=== PATIENT | female | born 1955 | race Caucasian/White ===

== ENCOUNTER 2017-08-23 20:09 | Inpatient (IN) | payer OTHER ==
[2017-08-23] VITALS (8 sets, daily range): BP systolic 111–121; BP diastolic 64–83; PULSE 92–120; RESP 16–20; TEMP 97.8; O2SAT 88–100
[~2017-08-23] VITALS: Ht 160 cm; Wt 63.7 kg
[~2017-08-23 20:09] MED LIST: AZIT500I PO; BACL10TA PO; OMEP20TA39 PO; SUCR1S PO
[2017-08-23] MEDS: SODIUM CHLOR 0.9% 1000 ML INJ 1,000 ML IV SCH (20:15)
[2017-08-23] MEDS ORDERED: ASPIRIN 81 MG CHEW TAB PO STA (20:15)
[2017-08-23] MEDS ORDERED: HEPARIN SODIUM - IV 10,000 UNITS/10 ML VIAL IV PUSH STA (20:15)
[2017-08-23] MEDS ORDERED: METOPROLOL TARTRATE 5 MG/5 ML VIAL IV PUSH ONE ×2 (20:15→20:45)
[2017-08-23] MEDS ORDERED: SODIUM CHLOR 0.9% 1000 ML INJ 1,000 ML IV ONE (20:15)
[2017-08-23] MEDS ORDERED: SODIUM CHLORID 0.9% 500 ML INJ 500 ML IV ONE (20:15)
[2017-08-23] MEDS ORDERED: HEPARIN SODIUM - IV 10,000 UNITS/10 ML VIAL ONE ×2 (20:17→20:42)
[2017-08-23] MEDS ORDERED: ASPIRIN 81 MG CHEW TAB ONE (20:17)
[2017-08-23] MEDS ORDERED: ONDANSETRON HCL 4 MG/2 ML VIAL ONE ×2 (20:23→22:07)
[2017-08-23] MEDS ORDERED: APIX5TAB PO (20:26)
--- NOTE | 2017-08-23 20:29 | PD ---
HPI Chief Complaint: STEMI Alert Time Seen by Provider: 20:15 Travel History International Travel<30 days: No Contact w/Intl Traveler<30days: No Traveled to known affect area: No History of Present Illness HPI 61-year-old female presents to the emergency department by EMS transport from home for evaluation of complaint of palpitations. Patient was identified by EMS upon their arrival to be in a sinus rhythm EKG showed acute inferior VA. Patient had no chest pain. Patient denies any shortness of breath nausea or vomiting or referred neck jaw back shoulder arm pain. Patient reports she was recently within the past 2 weeks diagnosed with bilateral lower extremity DVT. Patient takes Eliquis 5 mg twice daily and took her last dose of Eliquis at 7: 30 AM this morning. Patient's had no injury or fall. According to head up operator report en route to the hospital patient did have a brief period of loss of consciousness was identified by monitor to have V. tach without palpable pulse received a one-time defibrillation 200J with spontaneous return of circulation. Patient arrives here with GCS of 15. Patient admits to tobacco use. Patient denies hypertension dyslipidemia diabetes or prior known cardiac disease. Patient does complain of pain to the right flank area that she states she's had for one week with some soreness that she states has been 5/10 in intensity times one week. PFSH Past Medical History Narrative Medical DVT tobacco use nursing notes reviewed Diminished Hearing: No Deep Vein Thrombosis: Yes (2 WEEKS AGO.) Tetanus Vaccination: Unknown Past Surgical History Hysterectomy: Yes Social History Alcohol Use: No Tobacco Use: Yes (1PPD) Substance Use: No Allergies-Medications (Allergen,Severity, Reaction): Coded Allergies: Sulfa (Sulfonamide Antibiotics) (Unverified Allergy, Severe, Swelling, ) morphine (Unverified Allergy, Severe, vomiting , passing out , 08/23/17) prednisone (Unverified Allergy, Severe, Suicidal , 08/23/17) Reported Meds & Prescriptions Reported Meds & Active Scripts Active Review of Systems Except as stated in HPI: all other systems reviewed are Neg General / Constitutional: No: Fever, Chills HENT: No: Congestion Cardiovascular: No: Chest Pain or Discomfort Respiratory: No: Shortness of Breath Gastrointestinal: Positive: Abdominal Pain (right flank) Genitourinary: Positive: Flank Pain (rigth) Musculoskeletal: No: Myalgias, Arthralgias, Pain Skin: No Rash Neurologic: No: Tremor Psychiatric: No: Anxiety Endocrine: No: Heat Intolerance, Cold Intolerance Hematologic/Lymphatic: No: Easy Bruising (taking Eliquis) Physical Exam Narrative GENERAL: Well-developed well-nourished female in no acute distress no respiratory distress; GCS 15; denies chest pain SKIN: Warm and dry. HEAD: Normocephalic. EYES: No scleral icterus. No injection or drainage. NECK: Supple, trachea midline. No JVD or lymphadenopathy. CARDIOVASCULAR: Regular rate and rhythm without murmurs, gallops, or rubs. RESPIRATORY: Breath sounds equal bilaterally. No accessory muscle use. GASTROINTESTINAL: Abdomen soft, non-tender, nondistended. MUSCULOSKELETAL: No cyanosis, or edema. Radial and dorsalis pedis pulses 2+ to palpation bilaterally BACK: Nontender without obvious deformity. No CVA tenderness. Data Data Last Documented VS Vital Signs Date Time Temp Pulse Resp B/P (MAP) Pulse Ox O2 Delivery O2 Flow Rate FiO2 08/23/17 20:25 114 18 121/81 (94) 100 Nasal Cannula 4.00 Orders Orders Heparin Inj (Heparin Inj) (08/23/17 20:17) Aspirin Chew (Aspirin Chew) (08/23/17 20:17) Troponin I (08/23/17 20:15) Ckmb (Isoenzyme) Profile (08/23/17 20:15) Complete Blood Count With Diff (08/23/17 20:15) I-Stat Profile (08/23/17 20:15) I-Stat Creatinine (08/23/17 20:15) Calcium (08/23/17 20:15) Magnesium (Mg) (08/23/17 20:15) Prothrombin Time / Inr (Pt) (08/23/17 20:15) Act Partial Throm Time (Ptt) (08/23/17 20:15) B-Type Natriuretic Peptide (08/23/17 20:15) Chest, Single Ap (08/23/17 20:15) Electrocardiogram (08/23/17 20:15) Oxygen Administration (08/23/17 20:15) Iv Access Insert/Monitor (08/23/17 20:15) Oximetry (08/23/17 20:15) Sodium Chlor 0.9% 1000 Ml Inj (Ns 1000 M (08/23/17 20:15) Sodium Chloride 0.9% Flush (Ns Flush) (08/23/17 20:15) Aspirin Chew (Aspirin Chew) (08/23/17 20:15) Heparin Inj (Heparin Inj) (08/23/17 20:15) Sodium Chlorid 0.9% 500 Ml Inj (Ns 500 M (08/23/17 20:15) Sodium Chlor 0.9% 1000 Ml Inj (Ns 1000 M (08/23/17 20:15) Metoprolol Tartrate Inj (Lopressor Inj) (08/23/17 20:15) Potassium Chlor 10 Meq Premix (Kcl 10 Me (08/23/17 20:30) Ondansetron Inj (Zofran Inj) (08/23/17 20:30) Ondansetron Inj (Zofran Inj) (08/23/17 20:23) Admit Order (Ed Use Only) (08/23/17 ) Supervisor Histology / Telemetry [email or web address] (08/23/17 20:26) Activity Bed Rest (08/23/17 20:26) Notify Dr: Other (08/23/17 20:26) ^ For Further Orders (08/23/17 20:26) CKMB (08/23/17 20:10) CKMB% (08/23/17 20:10) Labs Laboratory Tests Test 08/23/17 20:10 White Blood Count 24.1 TH/MM3 Red Blood Count 3.89 MIL/MM3 Hemoglobin 11.9 GM/DL Bedside Hemoglobin 12.3 G/DL Hematocrit 36.5 % Bedside Hematocrit 37.0 % Mean Corpuscular Volume 93.8 FL Mean Corpuscular Hemoglobin 30.7 PG Mean Corpuscular Hemoglobin Concent 32.7 % Red Cell Distribution Width 16.0 % Platelet Count 168 TH/MM3 Mean Platelet Volume 8.6 FL Neutrophils (%) (Auto) 85.3 % Lymphocytes (%) (Auto) 6.3 % Monocytes (%) (Auto) 8.0 % Eosinophils (%) (Auto) 0.2 % Basophils (%) (Auto) 0.2 % Neutrophils # (Auto) 20.6 TH/MM3 Lymphocytes # (Auto) 1.5 TH/MM3 Monocytes # (Auto) 1.9 TH/MM3 Eosinophils # (Auto) 0.1 TH/MM3 Basophils # (Auto) 0.0 TH/MM3 CBC Comment AUTO DIFF Differential Comment AUTO DIFF CONFIRMED Platelet Estimate NORMAL Platelet Morphology Comment NORMAL Prothrombin Time 12.5 SEC Prothromb Time International Ratio 1.1 RATIO Activated Partial Thromboplast Time 27.1 SEC Bedside Sodium 139 MMOL/L Bedside Potassium 2.3 MMOL/L Bedside Chloride 102 MMOL/L Bedside Blood Urea Nitrogen 13 MG/DL Bedside Creatinine 0.7 MG/DL Bedside Glucose 181 MG/DL Calcium Level 8.6 MG/DL Magnesium Level 1.9 MG/DL Total Creatine Kinase 106 U/L Creatine Kinase MB 7.8 NG/ML Troponin I 1.16 NG/ML B-Type Natriuretic Peptide 188 PG/ML MDM Medical Decision Making Medical Screen Exam Complete: Yes Emergency Medical Condition: Yes Medical Record Reviewed: Yes Interpretation(s) EKG sinus tachycardia rate [address] with ST elevation and 23 and aVF and reciprocal changes noted cxr: nad cbc: Leukocytosis 24,000 with stable hemoglobin Coagulation studies: Within normal range Chemistries: Normal renal function and glucose however heart hypokalemia of 2.3 patient in the process of going to [employer] initiated KCL10 mEq IV bolus infusion Differential Diagnosis ST elevation VA, dissection, aneurysm, PE Narrative Course Patient immediately placed on registered nurse cardiac telemetry and continuous pulse oximetry IV access obtained by EMS and additional IV access obtained to the emergency department; stat call placed to high school physical education teacher relocation commissioner and patient administered bolus of normal saline 500 cc with maintenance IV fluids at 1 25 cc per hour. Patient has no pain and no nitroglycerin sublingual or IV infusion administered. STEMI alert called at 8 PM prior to patient's arrival to the emergency department; upon arrival to the emergency department patient is awake with GCS of 15. Call placed to high school physical education teacher and discussed patient with Dr. das at 8: [address] Herron is presently en route to the hospital intake patient directly to the cardiac catheterization lab. Patient administered heparin bolus and metoprolol 2.5 mg IV which patient tolerated well and received 2 additional 2.5 mg metoprolol dose IV. Patient did complain of nausea and received a one-time dose of Zofran 4 mg IV Chest x-ray no vascular congestion no pulmonary edema no infiltrate no pneumothorax no acute abnormality identified. At 8:41 PM vital signs are normal range except for heart rate of 101 in sinus tach. Patient is asymptomatic GCS remains 15. @ 8:46 PM cardiac catheterization technologist ready patient leaving ED; given x 1 dose dilaudid 0.2 mg iv for c/o increasing right flank pain (x 3-5 days); denies chest pain or referred pain and denies dyspnea or nausea; initiated infusion of KCl 10 mEq due to resulted serum potassium of 2.3 and patient nothing by mouth Critical Care Narrative Aggregate critical care time was 20 minutes. Time to perform other separately billable procedures was not included in the critical care time. My time did not include minutes spent treating any other patients simultaneously or on activities that did not directly contribute to the patient's treatment. The services I provided to this patient were to treat and/or prevent clinically significant deterioration that could result in: Arrhythmia cardiogenic shock I provided critical care services requiring my management, as noted below: Chart data review, documentation time, medication orders and management, vital sign assessments/reviewing monitor data, ordering and reviewing lab tests, ordering and interpreting/reviewing x-rays and diagnostic studies, care of the patient and discussion of the patient with the admitting physicians. Physician Communication Physician Communication @ 8:12 PM patient discussed with Dr Das has reviewed EKG Diagnosis Primary Impression: STEMI (ST elevation myocardial infarction) Additional Impressions: V tach Hypokalemia Admitting Information Admitting Physician Requests: Admit Mary Monterroso MD Aug 23, 2017 20:29
[2017-08-23] MEDS ORDERED: ONDANSETRON HCL 4 MG/2 ML VIAL IV PUSH ONE (20:30)
[2017-08-23] MEDS ORDERED: POTASSIUM CHLOR 10 MEQ PREMIX 100 ML IV ONE (20:30)
[2017-08-23 20:33] LABS: I-STAT POTASSIUM 2.3 MMOL/L (3.5-4.9); I-STAT SODIUM 139 MMOL/L (138-146)
[2017-08-23 20:36] LABS: AUTOMATED NEUTROPHIL # 20.6 TH/MM3 (1.8-7.7); BASOPHIL % 0.2 % (0.0-2.0); EOSINOPHIL # 0.1 TH/MM3 (0-0.4); EOSINOPHIL % 0.2 % (0.0-4.0); HEMATOCRIT 36.5 % (35.0-46.0); LYMPH % 6.3 % (9.0-44.0); LYMPHOCYTE # 1.5 TH/MM3 (1.0-4.8); MEAN CELL VOLUME 93.8 FL (80.0-100.0); MEAN CORPUSCULAR HEMOGLOBIN 30.7 PG (27.0-34.0); MEAN CORPUSCULAR HGB CONC 32.7 % (32.0-36.0); NEUT % 85.3 % (16.0-70.0); PLATELET COUNT 168 TH/MM3 (150-450); RED BLOOD COUNT 3.89 MIL/MM3 (4.00-5.30); WHITE BLOOD COUNT 24.1 TH/MM3 (4.0-11.0)
[2017-08-23] MEDS ORDERED: HEPARIN-NS/PF INJ 1,000 ML ONE (20:40)
[2017-08-23] MEDS ORDERED: NITROGLYCERIN INJ 5 ML ONE (20:42)
[2017-08-23 20:43] LABS: HEMO FLAGS AUTO DIFF
--- NOTE | 2017-08-23 20:44 | RADRPT ---
EXAM DATE/TIME: 08/23/2017 20:15 [facility] COMPARISON: No previous studies available for comparison. INDICATIONS : Chest pain. Stemi alert. MEDICAL HISTORY : None. SURGICAL HISTORY : None. ENCOUNTER: Initial ACUITY: 1 day PAIN SCORE: Non-responsive. LOCATION: Bilateral chest FINDINGS: There is mild scattered interstitial opacities in the right upper lung without focal infiltrates or a reas of consolidation. Left lung is clear. The heart is normal size. Both hemidiaphragms well deli neated. The central bronchopulmonary markings well delineated. CONCLUSION: 1. Normal heart size. No evidence of alveolar pulmonary edema. 2. Mild focal interstitial process upper right lung. Michele Morris MD on August 23, 2017 at 20:42 Board Certified Radiologist. This report was verified electronically.
[2017-08-23] MEDS ORDERED: HYDROmorphone HCL PF 0.5 MG/0.5 ML SYRINGE IV PUSH ONE (20:45)
[2017-08-23 20:46] LABS: APTT (PATIENT) 27.1 SEC (24.3-30.1); INTERNATIONAL NORMALIZED RATIO 1.1 RATIO; PROTHROMBIN TIME - PATIENT 12.5 SEC (9.8-11.6)
[2017-08-23] MEDS ORDERED: POTASSIUM CHLOR 20 MEQ PREMIX 100 ML ONE (20:53)
[2017-08-23] MEDS ORDERED: HYDROmorphone HCL PF 2 MG/ML VIAL ONE (20:59)
[2017-08-23] MEDS ORDERED: MIDAZOLAM HCL 2 MG/2 ML VIAL ONE ×2 (20:59→21:26)
[2017-08-23 21:01] LABS: MAGNESIUM 1.9 MG/DL (1.5-2.5)
[2017-08-23 21:04] LABS: CREATINE KINASE 106 U/L (26-192)
[2017-08-23] MEDS ORDERED: BIVALIRUDIN 250 MG VIAL ONE (21:05)
[2017-08-23] MEDS ORDERED: STERILE WATER FOR INJECTION 10 ML VIAL ONE (21:05)
[2017-08-23 21:11] LABS: PLATELET ESTIMATE SMEAR NORMAL (NORMAL); PLATELET MORPHOLOGY NORMAL (NORMAL); SCAN/DIFF AUTO DIFF CONFIRMED
[2017-08-23 21:20] LABS: CKMB 7.8 NG/ML (0.5-3.6)
[2017-08-23] MEDS ORDERED: SODIUM CHLOR 0.9% 1000 ML INJ 1,000 ML IV SCH (21:32)
[2017-08-23] MEDS ORDERED: CLOPIDOGREL 300 MG TAB ONE (21:32)
[2017-08-23] MEDS ORDERED: TIROFIBAN INFUSION INJ 250 ML IV SCH (21:32)
[2017-08-23] MEDS ORDERED: LORazepam 2 MG/ML VIAL IV PUSH PRN (21:45)
[2017-08-23] MEDS ORDERED: BACITRACIN OINT 0.9 GM PKT TOP ONE (21:45)
[2017-08-23] MEDS ORDERED: METOCLOPRAMIDE HCL 10 MG/2 ML VIAL IV PUSH PRN (21:45)
[2017-08-23] MEDS ORDERED: ATROPINE SULFATE 1 MG/ML VIAL IV PUSH PRN (21:45)
[2017-08-23] MEDS ORDERED: CLOPIDOGREL 300 MG TAB PO ONE (21:45)
[2017-08-23] MEDS ORDERED: ACETAMINOPHEN 325 MG TAB PO PRN (21:45)
[2017-08-23] MEDS ORDERED: LIDOCAINE HCL 1% 50 ML VIAL INFIL PRN (21:45)
[2017-08-23] MEDS ORDERED: SODIUM CHLOR 0.9% 250 ML INJ 250 ML IV PRN (21:45)
[2017-08-23] MEDS ORDERED: LIDOCAINE 2% JELLY 30 ML TUBE TOP PRN (21:45)
[2017-08-23] MEDS ORDERED: IOHEXOL 350 MG/ML 50 ML BTL (for Cath Lab) OTHER ONE (22:09)
[2017-08-23] MEDS ORDERED: IOHEXOL 350 MG/ML 100 ML BTL (for Cath Lab) OTHER ONE (22:09)
--- NOTE | 2017-08-23 22:13 | CATHPROC ---
[facility] HIS Report Study Information Study Number Admission Scheduled Start Study Start [id number] Aug 23 2017 8:28PM 08/23/2017 Aug 23 2017 8:54PM [place] [facility] Cardiac Catheterization Admit Source Facility Department Emergency department [facility] - Manager Site Physician and Clinical Staff Initial Jeremias Medrano Cigarette Paper Tester Kathe Mayfield,RN Cigarette Paper Testerbernard Lemons RN, Emile Recorder Kathe Schuster,RT(R) Scrub Rasheed Pinto RCIS(BS) Procedures Performed Procedure Location (Site) Vessel Name Coronary Angiograms LCA Left Coronary Coronary Angiograms RCA Right Coronary L Heart Cath PTCA CIRC Mid CIRC PTCA ADD ON'S Stent CIRC Mid CIRC Wire insertion Fem Art (right) Femoral Art Wire insertion Radial (right) Radial Art. Equipment Time Hydrographic Engineer Description Size Mfg Part Number Used/Scraped TRANSDUCER, TRUWAVE [id number] 21:03 BENDER GARCIA * Used W/STOCKCOCK *[id number] TRANSDUCER, TRUWAVE [id number] 21:12 BENDER GARCIA * Used W/STOCKCOCK *[id number] *[id number] *[id number] *[phone] *[id number] 21:12 [employer] PACK, CCL CUSTOM * Used *[id number] 21:03 [employer] PACK, CCL CUSTOM * Used *[id number] 21:03 [employer] SUPPORT, ARTERIAL ADULT 78057 *[id number] Used [id number] 21:03 MEDLINE PACER PEN, SKIN DUAL W/ RULER * Used *[id number] 21:12 [employer] PACER PEN, SKIN DUAL W/ RULER * Used *[id number] 21:21 MED[employer] BALLOON, 2.5 X 12MM EUPHORA 12MM Used *[id number] 21:26 [employer] STENT, 2.25 22 INTEGRITY 2.25 22 Used *[id number] 21:16 [email or web address] 30 GLENDY INDEFLATOR Used *[id number] BAND, RADIAL COMPRESSION TR [id number] 21:32 [email or web address] 29CM Used LARGE 29 *[id number] BAND, RADIAL COMPRESSION TR [id number] 21:51 [email or web address] 29CM Used LARGE 29 *[id number] SHEATH, FR6 RADIAL PRELUDE 21:03 [email or web address] FR 6 [id number] Used EASE 11CM [id number] 21:09 MERIT [employer]ICAL SHEATH, FR6.5 PRELUDE 11CM FR 6.5 038ACT Used *[id number] 21:14 [employer] WIRE, 3MMJ .035 180CM 180CM Used *[id number] [id number] 21:12 [employer] WIRE, 3MMJ .035 180CM 180CM Used *[id number] [id number] 21:03 [employer] WIRE, EXCHANGE 260CM 3MMJ 260CM Used *[id number] [id number] 21:12 NAMIC MANIFOLD, 4 PORT * Used *[id number] 21:03 [employer] OMNIPAQUE, 350 MG, 150ML 150ML [id number] Used 21:12 [employer] OMNIPAQUE, 350 MG, 150ML 150ML [id number] Used [id number] 21:03 [employer] BLANKET,WARM AIR CCL * Used *[id number] [id number] 21:12 [employer] BLANKET,WARM AIR CCL * Used *[id number] [id number] 21:12 TERUMO [employer]ICAL SHEATH, FR5 TERUMO (10CM) FR 5 Used *[id number] WIRE, RUNTHROUGH NS FLOPPY [id number] 21:18 TERUMO MEDICAL 180CM Used .014 180CM *[id number] Equipment Model, Serial, Lot Number and Expiration Data Description Model Number Serial Number Lot Number Expiration Date STENT, 2.25 22 INTEGRITY [id number] 02-01-2019 History: Allergies Allergy Reaction Sulfa (Sulfonamide Antibiotics) Swelling morphine vomiting , passing out prednisone Suicidal History: Risk Factors Family History of Hypertension Dyslipidemia Previous [place] Previous Heart Failure Premature CAD No No No No No Prior Valve Prior PCI Prior CABG Surgery No No No Cerebrovascular Peripheral Artery Chronic Lung On Dialysis Diabetes Disease Disease Disease No No No No No History: Symptoms/Diagnosis Selection Items Chest pain History: Stress Tests Stress or Imaging Studies Performed No History: Other Current Smoker Method Yes Cigarettes Medication Medication Total Dose (Bolus/Oral) Medication Total Dosage/Unit 1% XYLOCAINE 40 mL ANGIOMAX BOLUS 11 mL Dilaudid 4 mg NTG (IC) 200 mcg PLAVIX 600 mg VERSED 2 mg Medications (Bolus/Oral) Medication Time Given Dosage/Unit Administered By Reason VERSED 08/23/2017 9:06:00 PM 2 mg Kathe Mayfield 2 mg VERSED given in lab by Kathe Mayfield RN via Peripheral IV. 1% XYLOCAINE 08/23/2017 9:06:03 PM 20 mL Jeremias Belle 20 mL 1% XYLOCAINE given in lab by Jeremias Belle in Right Radial via Subcutaneous. ANGIOMAX BOLUS 08/23/2017 9:09:30 PM 11 mL Jeremias Belle 11 mL ANGIOMAX BOLUS given in lab by Jeremias Belle via Peripheral IV. 1% XYLOCAINE 08/23/2017 9:09:59 PM 20 mL Jeremias Belle 20 mL 1% XYLOCAINE given in lab by Jeremias eBlle in Right Groin via Subcutaneous. Dilaudid 08/23/2017 9:13:15 PM 2 mg Kathe Mayfield 2 mg Dilaudid given in lab by Kathe Mayfield RN. Dilaudid 08/23/2017 9:22:40 PM 2 mg Kathe Mayfield 2 mg Dilaudid given in lab by Kathe Mayfield RN via Peripheral IV. NTG (IC) 08/23/2017 9:26:38 PM 200 mcg Jeremias Belle 200 mcg NTG (IC) given in lab by Jeremias Belle via Intra-coronary. 08/23/2017 10:02:29 PLAVIX 600 mg Kathe Mayfield PM 600 mg PLAVIX given in lab by Kathe Mayfield RN via Oral. Medication (Drip) Medication Time Given Dosage/Unit Concentration/Unit Diluent (ml) Solution ANGIOMAX DRIP 08/23/2017 9:10:16 PM 0.848 mg/kg/hr 250 mg 50 NaCl .9 0.848 mg/kg/hr ANGIOMAX DRIP given in lab by Kathe Mayfield RN via Peripheral IV. Pump/Drip Flow = 2 6.3 ml/hr using NaCl .9 with a concentration of 250 mg in 50 ml. IV Solutions 08/23/2017 9:03:51 PM 0 mL (IV) 500 NaCl .9 Patient arrived on IV Solutions in Left Hand via Peripheral IV. Pump/Drip Flow = 50 ml/hr using NaCl .9. POTASSIUM DRIP 08/23/2017 9:05:31 PM 20 meq/hr 10 meq 100 D5W .9 NaCl 20 meq/hr POTASSIUM DRIP given in lab by Kathe Mayfield RN in Left Antecubital via Peripheral IV. Pu mp/Drip Flow = 200 ml/hr using D5W .9 NaCl with a concentration of 10 meq in 100 ml. POTASSIUM DRIP 08/23/2017 9:07:05 PM 10 meq/hr 10 meq 100 D5W .9 NaCl 10 meq/hr POTASSIUM DRIP given in lab by Kathe Mayfield RN in Left Antecubital via Peripheral IV. Pu mp/Drip Flow = 100 ml/hr using D5W .9 NaCl with a concentration of 10 meq in 100 ml. Initial Case Assessment Cardiovascular HR Rhythm NIBP Chest Pain 99 reg 121/86 5 Edema Present Skin color Skin None Normal Warm Circulatory - Right Pulses Dorsalis Pedis Femoral Radial 2 2 2 Scale (0,1,2,3,4,d) Circulatory - Left Pulses Dorsalis Pedis Femoral Radial 1 2 Scale (0,1,2,3,4,d) Circulatory - Lower Extremities Color Lower Right Color Lower Left Normal Normal Final Case Assessment Cardiovascular Edema Present Skin color Skin None Normal Warm Circulatory - Right Pulses Dorsalis Pedis Femoral Radial 2 2 2 Scale (0,1,2,3,4,d) Circulatory - Left Pulses Dorsalis Pedis Femoral Radial 1 2 Scale (0,1,2,3,4,d) Circulatory - Lower Extremities Color Lower Right Color Lower Left Normal Normal Neurological State Oriented to time-place- Alert Moves all extremities person Respiration - General Respiration Rate SpO2 (%) (B/min) 18 96 Chronological Log Time Study Chronological Log 20:54:04 Patient arrived via Bed. 20:55:00 MD arrived. Vitals capture started with the following parameters, Patient=Adult, Interval=5 min, Initial Pr pzdzni=691 mmHg, 20:58:53 Deflation Rate=5 mmHg, Cuff placed on Left Arm 20:59:30 PC=156 bpm, DLXF=131/84 mmhg, SpO2=99 %, Resp=9 B/min, Pain=9, Gabby=10, Cormier=1 21:03:16 Patient Name, D.O.B, / Armband Verified By R.N. 21:03:17 Pre-op and post- op instructions given; patient acknowledges understanding of instructions. 21:03:18 Verbal Stimulation=2 Physical Stimulation=2 Airway=2 Respiration=2 TOTAL=8. (0=absent, 1=li mited, 2=present) 21:03:28 Patient has been NPO for Less than 6Hrs. 21:03:32 A # 20 IV was noted in the Hand (right). Grade = 0 saline locked 21:03:45 A # 20 IV was noted in the Hand (left). Grade = 0 21:03:51 Patient arrived on IV Solutions in Left Hand via Peripheral IV. Pump/Drip Flow = 50 ml/hr u sing NaCl .9. 21:04:21 History and physical on the chart or being dictated. Assessment: Initial Case, HR=99 BPM, Rhythm=reg, GNFV=422/86 mmhg, Chest Pain=5, Edema=None, Co brandon=Normal, Skin = Warm Right Pulses: Aristeo Ped=2, Femoral=2, Radial=2 21:04:21 Left Pulses: Aristeo Ped=1, Femoral=2 Lower Right Extremities: Color=Normal Lower Left Extremities: Color=Normal 21:04:23 IP=326 bpm, QXGB=083/86 mmhg, SpO2=94.0 %, Resp=28 B/min, Gabby=10 21:04:41 Pressure channel 1 zeroed. 21:05:12 Right Radial and groin(s) prepped with 2% chlorhexidine, and draped after a 3 min. waiting time. 20 meq/hr POTASSIUM DRIP given in lab by Kathe Mayfield RN in Left Antecubital via Peripheral IV. Pump/Drip Flow = 21:05:31 200 ml/hr using D5W .9 NaCl with a concentration of 10 meq in 100 ml. 21:05:55 Case Start 21:05:57 Verbal Stimulation=2 Physical Stimulation=2 Airway=2 Respiration=2 TOTAL=8. (0=absent, 1=li mited, 2=present) 21:06:00 2 mg VERSED given in lab by Kathe Mayfield, JESSIE via Peripheral IV. 21:06:03 20 mL 1% XYLOCAINE given in lab by Jeremias Belle in Right Radial via Subcutaneous. 21:06:08 Access site was Radial Artery. 21:06:16 A wire was inserted via Radial (right). 21:06:41 Reference ECG taken 10 meq/hr POTASSIUM DRIP given in lab by Kathe Mayfield, JESSIE in Left Antecubital via Peripheral IV. Pump/Drip Flow = 21:07:05 100 ml/hr using D5W .9 NaCl with a concentration of 10 meq in 100 ml. 21:09:26 TU=651 bpm, PBNM=308/79 mmhg, SpO2=96.0 %, Resp=18 B/min, Gabby=10 21:09:30 11 mL ANGIOMAX BOLUS given in lab by Jeremias Belle via Peripheral IV. 21:09:59 20 mL 1% XYLOCAINE given in lab by Jeremias Belle in Right Groin via Subcutaneous. 0.848 mg/kg/hr ANGIOMAX DRIP given in lab by aKthe Mayfield, RN via Peripheral IV. Pump/Drip Fl ow = 26.3 ml/hr ::16 using NaCl .9 with a concentration of 250 mg in 50 ml. :10:16 Access site was Right Femoral Artery. 21:10:20 A wire was inserted via Fem Art (right). 21::23 A SHEATH, FR6.5 PRELUDE 11CM FR 6.5 was advanced into the Fem Art (right) using the Percuta neous technique. A JL 4.0 INFINITI CATHETER FR 5 was advanced over a wire. OMNIPAQUE, 350 MG, 150ML 150ML was us ed for 21:11:18 injections. 21:12:35 The LCA was injected and visualized at various angles. OMNIPAQUE, 350 MG, 150ML 150ML used . 21:13:15 2 mg Dilaudid given in lab by Kathe Mayfield, RN. 21:14:18 Catheter was removed A JR 5.0 INFINITI CATHETER FR 6 was advanced over a wire. OMNIPAQUE, 350 MG, 150ML 150ML was us ed for :14:19 injections. 21:14:25 HR=95 bpm, UJNY=373/78 mmhg, Resp=29 B/min, Gabby=10 21:15:25 The RCA was injected and visualized at various angles. OMNIPAQUE, 350 MG, 150ML 150ML used . 21:16:01 Catheter was removed A XB 3.5 GUIDE CATHETER FR 6 was advanced over a wire. OMNIPAQUE, 350 MG, 150ML 150ML was used for :16:20 injections. 21:16:28 OMNIPAQUE, 350 MG, 150ML 150ML and 30 GLENDY INDEFLATOR added. Recorded Pressure: Ao, HR=95, Condition=Condition 1 21:17:42 (Aorta) Ao 94/65/79 21:17:52 A WIRE, RUNTHROUGH NS FLOPPY .014 180CM 180CM was inserted via Fem Art (right). 21:19:26 HR=97 bpm, PNSF=892/74 mmhg, SpO2=93.0 %, Resp=18 B/min, Gabby=10 21:20:25 Interventional wire has crossed the lesion A BALLOON, 2.5 X 12MM EUPHORA 12MM was inserted over WIRE, RUNTHROUGH NS FLOPPY .014 180CM 180C M via :20:46 the CIRC Mid. A BALLOON, 2.5 X 12MM EUPHORA 12MM over a WIRE, RUNTHROUGH NS FLOPPY .014 180CM 180CM in the CI RC 21:21:18 Mid was inflated using a 30 GLENDY INDEFLATOR at 6 glendy for 20 sec. A BALLOON, 2.5 X 12MM EUPHORA 12MM over a WIRE, RUNTHROUGH NS FLOPPY .014 180CM 180CM in the CI RC 21:22:21 Mid was inflated using a 30 GLENDY INDEFLATOR at 8 glendy for 25 sec. 21:22:40 2 mg Dilaudid given in lab by Kathe Mayfield, JESSIE via Peripheral IV. A BALLOON, 2.5 X 12MM EUPHORA 12MM over a WIRE, RUNTHROUGH NS FLOPPY .014 180CM 180CM in the CI RC 21:22:48 Mid was inflated using a 30 GLENDY INDEFLATOR at 6 glendy for 20 sec. 21:23:59 Balloon Removed. 21:24:25 HR=46 bpm, PUFJ=961/64 mmhg, SpO2=95 %, Resp=18 B/min, Pain=5, Gabby=10, Cormier=2 An STENT, 2.25 22 INTEGRITY 2.25 22 Bare Metal Stent was inserted through a XB 3.5 GUIDE CATHET ER FR 6 over a 21:25:13 WIRE, RUNTHROUGH NS FLOPPY .014 180CM 180CM. A STENT, 2.25 22 INTEGRITY 2.25 22 was deployed using a 30 GLENDY INDEFLATOR at 10 atmospheres for 10 seconds in ::46 the CIRC Mid. 21:26:24 Delivery device removed 21:26:38 200 mcg NTG (IC) given in lab by Jeremias Belle via Intra-coronary. 21::36 Delivery device removed 21:27:41 The LCA was injected and visualized at various angles. OMNIPAQUE, 350 MG, 150ML 150ML used . 21:29:09 Wire removed 21:29:26 QQ=418 bpm, NIBP=96/67 mmhg, SpO2=91.0 %, Resp=17 B/min, Pain=5, Gabby=10, Cormier=2 21:29:58 An injection in the Fem Art (right) was made through the SHEATH, FR6.5 PRELUDE 11CM FR 6.5. 21:31:51 Case End Assessment: Final Case, Edema=None, Color=Normal, Skin = Warm Right Pulses: Aristeo Ped=2, Femoral=2, Radial=2 Left Pulses: Aristeo Ped=1, Femoral=2 21:33:02 Lower Right Extremities: Color=Normal Lower Left Extremities: Color=Normal Neurological: State=Alert, Ox3, CARLISLE Respiration: Resp=18 B/min, SpO2=96 % 21:34:25 HR=96 bpm, NIBP=98/67 mmhg, Resp=19 B/min, Pain=5, Gabby=10, Cormier=2 21:39:26 HR=32 bpm, NIBP=90/59 mmhg, SpO2=94.0 %, Resp=20 B/min, Pain=5, Gabby=10, Cormier=2 21:42:20 In the Fem Art (right) the SHEATH, FR6.5 PRELUDE 11CM FR 6.[address] by Rasheed Pinto RCIS(BS). Radial Compression Device Used. 8 mLs of air placed in BAND, RADIAL COMPRESSION TR LARGE 29 29 CM. Affected 21:42:36 hand 96 % O2 saturation. 21:43:56 Sterile dressing applied to site 21:44:23 HR=98 bpm, NIBP=98/72 mmhg, SpO2=96.0 %, Gabby=10 21:45:38 In the Fem Art (right) the SHEATH, FR6.5 PRELUDE 11CM FR 6.[address] by Rasheed Yancey RCIS(BS). 21:45:54 Cine recording checked. 21:45:56 Bedside Report will be given. 21:45:57 Implantable Device card placed in patient's chart. 21:46:07 Contrast Scanned 21:46:11 Verbal Stimulation=2 Physical Stimulation=2 Airway=2 Respiration=2 TOTAL=8. (0=absent, 1=l imited, 2=present) 21:46:20 A Left Heart Cath was performed. 21:46:27 Clinical correlaton risk stratification. 21:49:24 ORLA=538/71 mmhg, Pain=5, Gabby=10, Cormier=2 21:52:00 Vitals capture stopped. 22:02:29 600 mg PLAVIX given in lab by Kathe Mayfield RN via Oral. End Study - Contrast Media Used In Study Contrast Total Opened (mL) Total Used (mL) Total Wasted (mL) Omnipaque 150 150 0 End Study - Radiation Exposure Fluoro Time (minutes) 5.9 End Study - Patient Disposition Complications Transferred To Interventional Outcome No Telemetry Bed successful
[2017-08-23] MEDS: ONDANSETRON HCL 4 MG/2 ML VIAL IV PUSH PRN (23:50)
[2017-08-24] VITALS (25 sets, daily range): BP systolic 81–118; BP diastolic 53–72; PULSE 93–124; RESP 14–20; TEMP 97.5–98.4; O2SAT 93–100
--- NOTE | 2017-08-24 00:34 | MB ---
cc: ENRIQUE OCHOA MD DATE OF CONSULTATION 08/23/[address]-elevation [place]. HISTORY OF PRESENT ILLNESS A 61-year-old female with history of DVT about 2 weeks ago, started on anticoagulation. She now presents with acute onset of substernal chest pain. The last dose of Eliquis was this morning. She developed palpitations and then electrocardiogram showed inferior ST-elevation WI. She had an episode of V-tach which was witnessed and required one-time defibrillation at 200 joules in the ambulance. Upon arrival to the emergency department repeat electrocardiogram still showed persistent ST elevation inferiorly, although she denied any mahsa chest pain, ST-elevation WI and protocol was initiated. PAST MEDICAL HISTORY DVT. PAST SURGICAL HISTORY Hysterectomy. SOCIAL HISTORY Smokes a pack a day. Denies any alcohol or drug use. ALLERGIES SULFA, MORPHINE, PREDNISONE. MEDICATIONS 1. Eliquis. REVIEW OF SYSTEMS 12-point review of system was performed, negative unless otherwise noted in the history of present illness. PHYSICAL EXAMINATION VITAL SIGNS: Pulse 105, blood pressure 113/77 mmHg. GENERAL: Alert, oriented x3, in no acute distress. HEENT: Exam shows pupils are reactive to light and accommodation. Extraocular movements are intact. NECK: No elevation in venous distension. No thyromegaly or lymphadenopathy. No carotid bruits. LUNGS: Clear to auscultation bilaterally. CARDIOVASCULAR: Regular rate and rhythm without murmurs, rubs or gallops. ABDOMEN: Nontender, nondistended. Good bowel sounds. No hepatosplenomegaly. EXTREMITIES: Showed no clubbing, cyanosis or edema. Good peripheral pulses. NEURO: Cranial nerves intact. Motor, sensory grossly intact. LABORATORY DATA WBC 24.1, hemoglobin 9.9, platelet count is 168. INR is 1.1, sodium 139, potassium 2.3, BUN is 13, creatinine 0.7. CARDIOLOGY STUDIES Electrocardiogram shows sinus tach with inferior ST-elevation, reciprocal changes anteriorly. ASSESSMENT 1. ST-elevation WI. 2. Hypokalemia. 3. History of DVT. PLAN Given the acute ST-elevation and ventricular tachycardia requiring defibrillation she will be taken emergently to the cardiac catheterization lab for diagnostic angiography and possible percutaneous intervention. Given that she is recently initiated on Eliquis will try from a right radial approach. MD AAYUSH Sullivan /8:59 PM /12:28 AM
--- NOTE | 2017-08-24 01:40 | MA ---
cc: ENRIQUE OCHOA MD DATE OF PROCEDURE 08/23/[address] IND[address] ST-elevation MT. PROCEDURE PERFORMED 1. Fluoroscopy with interpretation. 2. Coronary angiography. 3. Percutaneous intervention with bare metal stent to the dominant distal left circumflex coronary artery. METHOD Risks, benefits, alternatives discussed with the patient. The patient understood and consented to the procedure. The patient brought into the catheterization lab and placed on the catheterization table. Right wrist and groin were prepped and draped in sterile fashion. Right groin was anesthetized with 2% lidocaine. Right common femoral was accessed and a 6-[place] 11 cm sheath was placed without difficulty. Angiomax bolus, ___ drip was administered throughout the entire procedure to maintain appropriate coagulation. Initial hemodynamics, aortic pressure measured at 94/65 mmHg. CORONARY ANGIOGRAPHY 1. Left main coronary artery is very short but angiographically normal. 2. Left anterior descending coronary appears to have a 60% proximal stenosis. There is some dampening upon engagement with a 6-[place] sheath. The remainder of the left anterior descending coronary is smaller caliber size and has minor luminal irregularities. 3. Left circumflex is a dominant artery giving rise to a posterior descending branch. This is two obtuse marginal branches, both have minor luminal irregularities. The distal circ is occluded. 4. The right coronary artery is nondominant but angiographically normal. PERCUTANEOUS INTERVENTION Left coronary artery was selectively engaged with a 6-[place] XB 3.5 guide catheter. A 0.014 inch 180 cm Yoovi run-through wire was navigated down the distal posterior descending branch, 2.5 x 12 mm RX Euphora balloon was advanced down the distal circumflex and deployed on three sequential inflations. Repeat angiography still showed some residual stenosis and heavy thrombotic burden. A 2.25 x 22 mm RX Integrity bare metal stent was advanced down the distal circumflex and deployed. 200 micrograms of intravenous nitroglycerin was administered. Repeat angiography showed no residual stenosis, MIGUEL III flow. Guide catheter was removed. The right sheath sewn into place to be removed with manual hemostasis. RIGHT COMMON FEMORAL ANGIOGRAPHY Right common femoral artery angiography was performed for suitability of device closure. There is some moderate stenosis at the point of entry. On redirecting the sheath it does look like we had a little bit of staining around the entry point, but no obvious significant bleed. We will monitor closely. CONCLUSION 1. 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 2. Moderate proximal left anterior descending coronary artery stenosis. PLAN Will monitor the patient closely for any postprocedure complication. Will initiate Plavix in addition to aspirin. For DVT she will need to be continued on anticoagulation therapy and she will need to be on antiplatelet therapy for at least 6 weeks. We will allow recovery before initiating anticoagulation for risks of bleeding. We will follow up with a 2-D echocardiogram. She is going to need aggressive electrolyte replacement. She also has very bad hip pain secondary to bursitis, will ask the hospitalist to get involved tonight to help with pain control, electrolyte management. Lastly, from an LAD standpoint will have a discussion about consideration of a stress test to look for ischemia in the LAD distribution or intravascular ultrasound assessment for the possibility of percutaneous intervention or just medical management. MD MARQUISE Sullivan/YOBANY /9:44 PM /1:22 AM
[2017-08-24] MEDS: SODIUM CHLOR 0.9% 1000 ML INJ 1,000 ML IV SCH (04:15)
[2017-08-24 04:47] LABS: BASOPHIL % 0.1 % (0.0-2.0); HEMATOCRIT 28.9 % (35.0-46.0); HEMO FLAGS DIFF FINAL; LYMPH % 4.9 % (9.0-44.0); LYMPHOCYTE # 1.1 TH/MM3 (1.0-4.8); MEAN CELL VOLUME 95.1 FL (80.0-100.0); MEAN CORPUSCULAR HEMOGLOBIN 31.6 PG (27.0-34.0); MEAN CORPUSCULAR HGB CONC 33.2 % (32.0-36.0); MONO % 7.9 % (0.0-8.0); NEUT % 87.1 % (16.0-70.0); PLATELET COUNT 136 TH/MM3 (150-450); RED BLOOD COUNT 3.03 MIL/MM3 (4.00-5.30); RED CELL DISTRIBUTION WIDTH 16.4 % (11.6-17.2); WHITE BLOOD COUNT 21.8 TH/MM3 (4.0-11.0)
[2017-08-24 05:27] LABS: BICARBONATE 22.2 MEQ/L (21.0-32.0); HDL CHOLESTEROL 54.7 MG/DL (40.0-60.0)
[2017-08-24 05:30] LABS: POTASSIUM 2.9 MEQ/L (3.5-5.1)
[2017-08-24 06:00] LABS: CKMB 532.8 NG/ML (0.5-3.6)
[2017-08-24] MEDS ORDERED: POTASSIUM CHLORIDE 25 MEQ EFFERVESCENT TAB PO SCH (07:00)
--- NOTE | 2017-08-24 09:06 | HHI.HP ---
HPI Service [facility]ists Primary Care Physician Catie Chapman MD Admission Diagnosis STEMI; V-Tach; h/o recent BLE DVT Chief Complaint: dizzy/weak Travel History International Travel<30 Days: No Contact w/Intl Traveler <30 Da: No Traveled to Known Affected Are: No History of Present Illness Pt is 61 yo recently diagnosed with bilateral lower ext dvt's after being sedentary for 6 weeks for severe right hip pain/trochanteric bursitis. She says the bursitis is 75% better after Dr Wiley injected it in the office. She was placed on eliquis 2 weeks ago and she reports significant improvement in her lower ext swelling. Yesterday she became dizzy/weak/nauseated and brought to ED by EMS. She was in [place] and defibrillated. found to have inf stemi and taken to [facility] making lab[facility] by dr Belle last night. BMS placed in left cx and distal lad 60%lesion noted. placed on 2b3a inh overnight, asa/plavix and eliquis on hold. currently pressure being held on right groin as sheath pulled. Review of Systems Other dizzy nausea weak Past Family Social History Past Medical History rosalina lower ext dvt. dx 2 weeks ago left hip troch. bursitis. hysterectomy Reported Medications eliquis 5mg po bid Allergies: Coded Allergies: Sulfa (Sulfonamide Antibiotics) (Unverified Allergy, Severe, Swelling, ) morphine (Unverified Allergy, Severe, vomiting , passing out , 08/23/17) prednisone (Unverified Allergy, Severe, Suicidal , 08/23/17) Family History nc Social History 1ppd x 40yrs tob Physical Exam Vital Signs nad heart reg lung cta abd s/nt ext right groin bleeding after sheath pulled. pressure being applied currently. Vital Signs Date Time Temp Pulse Resp B/P (MAP) Pulse Ox O2 Delivery O2 Flow Rate FiO2 08/24/17 07:00 98.1 110 16 98/68 (78) 100 08/24/17 06:00 100 08/24/17 05:00 103 08/24/17 04:00 97.7 107 20 117/68 (84) 99 08/24/17 04:00 107 08/24/17 03:00 96 08/24/17 02:00 107 08/24/17 01:00 108 08/24/17 00:00 98 08/23/17 23:00 97.8 95 20 111/64 (80) 99 08/23/17 23:00 95 08/23/17 22:30 92 08/23/17 20:35 105 20 113/77 (89) 100 Nasal Cannula 08/23/17 20:25 114 18 121/81 (94) 100 Nasal Cannula 4.00 08/23/17 20:22 99 Nasal Cannula 4.00 08/23/17 20:20 114 16 119/82 (94) 99 Nasal Cannula 4.00 08/23/17 20:17 113 16 99 Nasal Cannula 4.00 08/23/17 20:15 120 16 121/83 (96) 99 Nasal Cannula 4.00 08/23/17 20:12 114 16 119/80 (93) 88 08/23/17 20:10 113 16 119/80 (93) 99 Nasal Cannula 4.00 Laboratory Laboratory Tests Test 08/23/17 20:10 08/24/17 03:27 White Blood Count 24.1 21.8 Red Blood Count 3.89 3.03 Hemoglobin 11.9 9.6 Bedside Hemoglobin 12.3 Hematocrit 36.5 28.9 Bedside Hematocrit 37.0 Mean Corpuscular Volume 93.8 95.1 Mean Corpuscular Hemoglobin 30.7 31.6 Mean Corpuscular Hemoglobin Concent 32.7 33.2 Red Cell Distribution Width 16.0 16.4 Platelet Count 168 136 Mean Platelet Volume 8.6 9.3 Neutrophils (%) (Auto) 85.3 87.1 Lymphocytes (%) (Auto) 6.3 4.9 Monocytes (%) (Auto) 8.0 7.9 Eosinophils (%) (Auto) 0.2 0.0 Basophils (%) (Auto) 0.2 0.1 Neutrophils # (Auto) 20.6 19.0 Lymphocytes # (Auto) 1.5 1.1 Monocytes # (Auto) 1.9 1.7 Eosinophils # (Auto) 0.1 0.0 Basophils # (Auto) 0.0 0.0 CBC Comment AUTO DIFF DIFF FINAL Differential Comment AUTO DIFF CONFIRMED Platelet Estimate NORMAL Platelet Morphology Comment NORMAL Prothrombin Time 12.5 Prothromb Time International Ratio 1.1 Activated Partial Thromboplast Time 27.1 Bedside Sodium 139 Bedside Potassium 2.3 Bedside Chloride 102 Bedside Blood Urea Nitrogen 13 Bedside Creatinine 0.7 Bedside Glucose 181 Calcium Level 8.6 7.7 Magnesium Level 1.9 Total Creatine Kinase 106 2622 Creatine Kinase MB 7.8 532.8 Troponin I 1.16 B-Type Natriuretic Peptide 188 Blood Urea Nitrogen 16 Creatinine 0.64 Random Glucose 127 Sodium Level 141 Potassium Level 2.9 Chloride Level 109 Carbon Dioxide Level 22.2 Anion Gap 10 Estimat Glomerular Filtration Rate 95 Creatine Kinase MB % 20.3 Triglycerides Level 114 Cholesterol Level 128 LDL Cholesterol 51 HDL Cholesterol 54.7 Cholesterol/HDL Ratio 2.34 Result Diagram: 08/24/1732608/24/17326 Caprini VTE Risk Assessment Caprini VTE Risk Assessment: Mod/High Risk (score >= 2) Caprini Risk Assessment Model Point Value = 1 Point Value = 2 Point Value = 3 Point Value = 5 Age 41-60 Minor surgery BMI > 25 kg/m2 Swollen legs Varicose veins or History of unexplained or recurrent spontaneous Oral contraceptives or hormone replacement Sepsis (< 1 month) Serious lung disease, including pneumonia (< 1 month) Abnormal pulmonary function Acute myocardial infarction Congestive heart failure (< 1 month) History of inflammatory bowel disease Medical patient at bed rest Age 61-74 Arthroscopic surgery Major open surgery (> 45 min) Laparoscopic surgery (> 45 min) Malignancy Confined to bed (> 72 hours) Immobilizing plaster cast Central venous access Age >= 75 History of VTE Family history of VTE Factor V Leiden Prothrombin [id number] Lupus anticoagulant Anticardiolipin antibodies Elevated serum homocysteine Heparin-induced thrombocytopenia Other congenital or acquired thrombophilia Stroke (< 1 month) Elective arthroplasty Hip, pelvis, or leg fracture Acute spinal cord injury (< 1 month) Prophylaxis Regimen Total Risk Factor Score Risk Level Prophylaxis Regimen 0-1 Low Early ambulation 2 Moderate Order ONE of the following: *Sequential Compression Device (SCD) *Heparin 5000 units SQ BID 3-4 Higher Order ONE of the following medications: *Heparin 5000 units SQ TID *Enoxaparin/Lovenox 40 mg SQ daily (WT < 150 kg, CrCl > 30 mL/min) *Enoxaparin/Lovenox 30 mg SQ daily (WT < 150 kg, CrCl > 10-29 mL/min) *Enoxaparin/Lovenox 30 mg SQ BID (WT < 150 kg, CrCl > 30 mL/min) AND/OR *Sequential Compression Device (SCD) 5 or more Highest Order ONE of the following medications: *Heparin 5000 units SQ TID (Preferred with Epidurals) *Enoxaparin/Lovenox 40 mg SQ daily (WT < 150 kg, CrCl > 30 mL/min) *Enoxaparin/Lovenox 30 mg SQ daily (WT < 150 kg, CrCl > 10-29 mL/min) *Enoxaparin/Lovenox 30 mg SQ BID (WT < 150 kg, CrCl > 30 mL/min) AND *Sequential Compression Device (SCD) Assessment and Plan Problem List: (1) STEMI (ST elevation myocardial infarction) ICD Codes: I21.3 - ST elevation (STEMI) myocardial infarction of unspecified site Status: Acute Plan: 1. stemi. inferior. lhc 08/23. left cx BMS. 60% distal lad VT. s/p cardioversion 08/23 2.severe hypokalemia 3.recent bilateral lower ext dvt's on eliquis. secondary to being sedentary. 4. left trochanteric bursitis. plan asa/plavix/bb/statin started per cardiology resume anticoagulation when ok with dr Belle kcl replace. recheck k later today. per dr Belle will need echo and possible stress to further eval significance of lad lesion. once her cardiology issues stabilized will need to reevaluate her bursitis. pt says she had 75% improvement with the injection. unable to give nsaids at present. will try kthermia today. (2) DVT (deep venous thrombosis) ICD Codes: I82.409 - Acute embolism and thrombosis of unspecified deep veins of unspecified lower extremity Status: Acute (3) V tach ICD Codes: I47.2 - Ventricular tachycardia Status: Acute (4) Hypokalemia ICD Codes: E87.6 - Hypokalemia Status: Acute Physician Certification 2 Midnight Certification Type: Admission for Inpatient Services Order for Inpatient Services 3The services are ordered in accordance with Medicare regulations or non- Medicare payer requirements, as applicable. In the case of services not specified as inpatient-only, they are appropriately provided as inpatient services in accordance with the 2-midnight benchmark. Estimated LOS (days): 3 3 days is the estimated time the patient will need to remain in the hospital, assuming treatment plan goals are met and no additional complications. Post-Hospital Plan: Not yet determined Shin Sotomayor MD Aug 24, 2017 09:06
--- NOTE | 2017-08-24 09:10 | PD.CARD.PN ---
Subjective Subjective Remarks resting comfortably. feels anterior chest soreness, but no pressure or pain. no sob. (Selena Tellez) Objective Medications Current Medications Medications (Trade) Dose Ordered Sig/Jamilah Route Start Time Stop Time Status Last Admin (NS Flush) 2 ml UNSCH PRN IVF 08/23/17 20:15 Sodium Chloride 1,000 ml @ 125 mls/hr Q8H IV 08/23/17 20:15 (Xylocaine 2% Jelly) 1 applic UNSCH PRN TOP 08/23/17 21:45 (Tylenol) 325 mg Q4H PRN PO 08/23/17 21:45 (Aspirin Chew) 81 mg DAILY PO 08/24/17 09:00 (Plavix) 75 mg DAILY PO 08/24/17 09:00 Tirofiban/Sodium Chloride 250 ml @ 13.5 mls/hr [id number] IV 08/23/17 21:32 08/24/17 15:31 08/23/17 21:30 (Ativan Inj) 0.5 mg UNSCH PRN IV PUSH 08/23/17 21:45 08/24/17 21:44 (Atropine Inj) 0.5 mg UNSCH PRN IV PUSH 08/23/17 21:45 Sodium Chloride 250 ml @ 500 mls/hr ONCE PRN IV 08/23/17 21:45 08/24/17 21:44 (Zofran Inj) 4 mg Q4H PRN IV PUSH 08/23/17 21:45 08/23/17 23:50 (Xylocaine 1% Inj (50 ml)) 10 ml UNSCH PRN INFIL 08/23/17 21:45 08/24/17 21:44 (Lipitor) 40 mg HS PO 08/24/17 21:00 (Lopressor) 12.5 mg Q12HR PO 08/24/17 09:00 Vital Signs / I&O Vital Signs Date Time Temp Pulse Resp B/P (MAP) Pulse Ox O2 Delivery O2 Flow Rate FiO2 08/24/17 07:00 98.1 110 16 98/68 (78) 100 08/24/17 06:00 100 08/24/17 05:00 103 08/24/17 04:00 97.7 107 20 117/68 (84) 99 08/24/17 04:00 107 08/24/17 03:00 96 08/24/17 02:00 107 08/24/17 01:00 108 08/24/17 00:00 98 08/23/17 23:00 97.8 95 20 111/64 (80) 99 08/23/17 23:00 95 08/23/17 22:30 92 08/23/17 20:35 105 20 113/77 (89) 100 Nasal Cannula 08/23/17 20:25 114 18 121/81 (94) 100 Nasal Cannula 4.00 08/23/17 20:22 99 Nasal Cannula 4.00 08/23/17 20:20 114 16 119/82 (94) 99 Nasal Cannula 4.00 08/23/17 20:17 113 16 99 Nasal Cannula 4.00 08/23/17 20:15 120 16 121/83 (96) 99 Nasal Cannula 4.00 08/23/17 20:12 114 16 119/80 (93) 88 08/23/17 20:10 113 16 119/80 (93) 99 Nasal Cannula 4.00 I/O 08/23/17 08/23/17 08/23/17 08/24/17 08/24/17 08/24/17 07:00 15:00 23:00 07:00 15:00 23:00 Intake Total 1848 ml Output Total 200 ml Balance 1648 ml Intake Oral 360 ml IV Total 1488 ml Output Urine Total 200 ml # Bowel Movements 0 Physical Exam GENERAL: SKIN: Warm and dry. HEAD: Atraumatic. Normocephalic. EYES: Pupils equal and round. ENT: No nasal bleeding or discharge NECK: Trachea midline. No JVD. CARDIOVASCULAR: Regular rate and rhythm. no murmurs RESPIRATORY: No accessory muscle use. Clear to auscultation. Breath sounds equal bilaterally. GASTROINTESTINAL: Abdomen soft, non-tender, nondistended. MUSCULOSKELETAL: Extremities without clubbing, cyanosis, or edema. No obvious deformities. NEUROLOGICAL: Awake and alert. No obvious cranial nerve deficits. Normal speech. PSYCHIATRIC: Appropriate mood and affect; insight and judgment normal. Laboratory Laboratory Tests Test 08/23/17 20:10 08/24/17 03:27 White Blood Count 24.1 TH/MM3 21.8 TH/MM3 Red Blood Count 3.89 MIL/MM3 3.03 MIL/MM3 Hemoglobin 11.9 GM/DL 9.6 GM/DL Bedside Hemoglobin 12.3 G/DL Hematocrit 36.5 % 28.9 % Bedside Hematocrit 37.0 % Mean Corpuscular Volume 93.8 FL 95.1 FL Mean Corpuscular Hemoglobin 30.7 PG 31.6 PG Mean Corpuscular Hemoglobin Concent 32.7 % 33.2 % Red Cell Distribution Width 16.0 % 16.4 % Platelet Count 168 TH/MM3 136 TH/MM3 Mean Platelet Volume 8.6 FL 9.3 FL Neutrophils (%) (Auto) 85.3 % 87.1 % Lymphocytes (%) (Auto) 6.3 % 4.9 % Monocytes (%) (Auto) 8.0 % 7.9 % Eosinophils (%) (Auto) 0.2 % 0.0 % Basophils (%) (Auto) 0.2 % 0.1 % Neutrophils # (Auto) 20.6 TH/MM3 19.0 TH/MM3 Lymphocytes # (Auto) 1.5 TH/MM3 1.1 TH/MM3 Monocytes # (Auto) 1.9 TH/MM3 1.7 TH/MM3 Eosinophils # (Auto) 0.1 TH/MM3 0.0 TH/MM3 Basophils # (Auto) 0.0 TH/MM3 0.0 TH/MM3 CBC Comment AUTO DIFF DIFF FINAL Differential Comment AUTO DIFF CONFIRMED Platelet Estimate NORMAL Platelet Morphology Comment NORMAL Prothrombin Time 12.5 SEC Prothromb Time International Ratio 1.1 RATIO Activated Partial Thromboplast Time 27.1 SEC Bedside Sodium 139 MMOL/L Bedside Potassium 2.3 MMOL/L Bedside Chloride 102 MMOL/L Bedside Blood Urea Nitrogen 13 MG/DL Bedside Creatinine 0.7 MG/DL Bedside Glucose 181 MG/DL Calcium Level 8.6 MG/DL 7.7 MG/DL Magnesium Level 1.9 MG/DL Total Creatine Kinase 106 U/L 2622 U/L Creatine Kinase MB 7.8 NG/ML 532.8 NG/ML Troponin I 1.16 NG/ML B-Type Natriuretic Peptide 188 PG/ML Blood Urea Nitrogen 16 MG/DL Creatinine 0.64 MG/DL Random Glucose 127 MG/DL Sodium Level 141 MEQ/L Potassium Level 2.9 MEQ/L Chloride Level 109 MEQ/L Carbon Dioxide Level 22.2 MEQ/L Anion Gap 10 MEQ/L Estimat Glomerular Filtration Rate 95 ML/MIN Creatine Kinase MB % 20.3 % Triglycerides Level 114 MG/DL Cholesterol Level 128 MG/DL LDL Cholesterol 51 MG/DL HDL Cholesterol 54.7 MG/DL Cholesterol/HDL Ratio 2.34 RATIO Imaging Last 24 hours Impressions Chest X-Ray 08/23/172014 Signed Impressions: Service Date/Time: Wednesday, August 23, 2017 20:15 - CONCLUSION: 1. Normal heart size. No evidence of alveolar pulmonary edema. 2. Mild focal interstitial process upper right lung. Michele Morris MD (Selena Tellez) Assessment and Plan Problem List: (1) V tach ICD Codes: I47.2 - Ventricular tachycardia Status: Acute (2) STEMI (ST elevation myocardial infarction) ICD Codes: I21.3 - ST elevation (STEMI) myocardial infarction of unspecified site Status: Acute Assessment and Plan 61 yo WF with no prior cardiac history who was recently diagnosed with bilateral lower leg DVT and has been taking Eliquis who presented to ED last night with STEMI. She states she was feeling lightheaded, weak and diaphoretic last night at home and "didn't feel right". She called EMS and had a witnessed episode of Vtach requiring one defibrillation. She is currently resting comfortably with noted chest soreness. STEMI - s/p PCI BMS distal left circumflex. Moderate proximal LAD coronary artery stenosis noted; consider stress testing vs. intravascular ultrasound to assess ischemic burden. consider staged PCI vs med management cont asa, statin, bb, plavix x 6 weeks. echo pending. DVT- bilateral LE, has been taking Eliquis. hypokalemia- continue repletion. (Selena Tellez) Assessment and Plan stemi - PCI BMS dominant LCx. CK elevated. recheck tomorrow. IVF. will FU on 2d echo. IVF hopefully will help with SBP and HR. aggressive K+ repletion asa plavix bb statin restart reduced dose eliquis secondary to asa/plavix PT/OT DC planning in next 1-3 days ?SNF ?home moderate LAD disease - outpatient Lexiscan after full recovery. (Jeremias Belle MD) Selena Tellez Aug 24, 2017 09:10 Jeremias Belle MD Aug 24, 2017 10:09
[2017-08-24] MEDS: METOPROLOL TARTRATE 25 MG TAB PO SCH ×2 (09:14→21:00)
[2017-08-24] MEDS: CLOPIDOGREL 75 MG TAB PO SCH (09:14)
[2017-08-24] MEDS: ASPIRIN 81 MG CHEW TAB PO SCH (09:14)
--- NOTE | 2017-08-24 10:22 | ECHRPT ---
Indication: Chest pain, unspecified CONCLUSIONS Normal left ventricular size. Wall thickness is normal. The left ventricular systolic function is low normal with an estimated ejection fraction in the rang e of 50- 55%. Inferior wall hyopkinesis. Structurally normal mitral valve. [id number] mitral valve regurgitation. The mitral valve regurgitation jet is directed posteriorly. Mild mitral annular calcification. No mitral valve stenosis. BP: 117 / 68 HR: 107 Rhythm: Sinus MEASUREMENTS (Male / Female) Normal Values Technical Quality:Fair 2D ECHO LV Diastolic Diameter PLAX 4.4 cm 4.2 - 5.9 / 3.9 - 5.3 cm LV Systolic Diameter PLAX 3.3 cm IVS Diastolic Thickness 0.9 cm 0.6 - 1.0 / 0.6 - 0.9 cm LVPW Diastolic Thickness 0.9 cm 0.6 - 1.0 / 0.6 - 0.9 cm LV Relative Wall Thickness 0.4 LVOT Diameter 1.7 cm M-MODE Aortic Root Diameter MM 2.8 cm LA Systolic Diameter MM 2.9 cm LA Ao Ratio MM 1.0 AV Cusp Separation MM 1.6 cm DOPPLER AV Peak Velocity 128.0 cm/s AV Peak Gradient 6.6 mmHg LVOT Peak Velocity 86.4 cm/s LVOT Peak Gradient 3.0 mmHg AV Area Cont Eq pk 1.5 cm MR Peak Velocity 509.5 cm/s MR Peak Gradient 103.8 mmHg Mitral E Point Velocity 118.0 cm/s Mitral A Point Velocity 127.0 cm/s Mitral E to A Ratio 0.9 LV E' Lateral Velocity 7.5 cm/s Mitral E to LV E' Lateral Ratio 15.7 LV E' Septal Velocity 5.8 cm/s Mitral E to LV E' Septal Ratio 20.5 PV Peak Velocity 86.9 cm/s PV Peak Gradient 3.0 mmHg FINDINGS LEFT VENTRICLE Normal left ventricular size. Wall thickness is normal. The left ventricular systolic function is low normal with an estimated ejection fraction in the rang e of 50- 55%. Inferior wall hyopkinesis. RIGHT VENTRICLE Normal right ventricular size and systolic function. LEFT ATRIUM The left atrial size is mildly dilated. RIGHT ATRIUM The right atrial size is normal. ATRIAL SEPTUM Normal atrial septal thickness without atrial level shunting by limited color doppler interrogation. AORTA The aortic root and proximal ascending aorta are normal in size on limited imaging. MITRAL VALVE Structurally normal mitral valve. [id number] mitral valve regurgitation. The mitral valve regurgitation jet is directed posteriorly. Mild mitral annular calcification. No mitral valve stenosis. AORTIC VALVE Trileaflet aortic valve. No aortic valve stenosis or regurgitation. TRICUSPID VALVE Structurally normal tricuspid valve. No tricuspid valve stenosis or regurgitation. PULMONARY VALVE The pulmonary valve is not well visualized. VESSELS The inferior vena cava is normal in size. PERICARDIUM No pericardial effusion. Jeremias Belle MD, FACC (Electronically Signed) Final Date:24 August 2017 10:21
--- NOTE | 2017-08-24 10:26 | EKG ---
Date Performed: 08/24/2017 Time Performed: 05:36:46 PTAGE: 61 years EKG: Sinus tachycardia Right axis deviation Inferior infarct - age undetermined Lateral infarct - age undetermined Tall R V1/V2 probably reflect the infarct Abnormal ECG PREVIOUS TRACING : 08/23/2017 22.54 DOCTOR: Federico Barber Interpretating Date/Time 08/24/2017 10:24:10
--- NOTE | 2017-08-24 10:29 | EKG ---
Date Performed: 08/23/2017 Time Performed: 22:54:40 PTAGE: 61 years EKG: Sinus rhythm Right axis deviation Inferior infarct - age undetermined Lateral infarct - age undetermined Tall R V 1/V2 probably reflect the infarct Low QRS voltages in limb leads Abnormal ECG PREVIOUS TRACING : 08/23/2017 20.09 DOCTOR: Federico Barber Interpretating Date/Time 08/24/2017 10:26:48
--- NOTE | 2017-08-24 10:32 | EKG ---
Date Performed: 08/23/2017 Time Performed: 20:09:04 PTAGE: 61 years EKG: ECTOPIC ATRIAL TACHYCARDIA WITH FIRST DEGREE AV BLOCK MARKED ST ELEVATION, CONSIDER INFERIO R INJURY ACUTE WY INTERPRETATION BASED ON A DEFAULT AGE OF 40 YEARS NO PREVIOUS TRACING DOCTOR: Federico Barber Interpretating Date/Time 08/24/2017 10:31:25
[2017-08-24] MEDS: FERROUS SULFATE 325 MG (65 MG ELEMENTAL IRON) TAB PO SCH ×2 (13:34→18:33)
[2017-08-24] MEDS ORDERED: NICOTINE 14 MG/24 HR PATCH T-DERMAL ONE (15:30)
[2017-08-24] MEDS ORDERED: methylPREDNISolone SOD SUCC 125 MG/2 ML VIAL IV PUSH ONE (18:15)
[2017-08-24] MEDS ORDERED: ACETAMINOPHEN/HYDROcodone 325 MG/7.5 MG TAB PO PRN (18:15)
[2017-08-24] MEDS ORDERED: ACETAMINOPHEN 1000 MG/100 ML 100 ML IV ONE (18:45)
[2017-08-24] MEDS: ATORVASTATIN 40 MG TAB PO SCH (21:01)
[2017-08-24] MEDS: APIXABAN 2.5 MG TABLET PO SCH (21:01)
[2017-08-24] MEDS: traMADol HCL 50 MG TAB PO PRN (21:55)
[2017-08-25] VITALS (27 sets, daily range): BP systolic 93–106; BP diastolic 62–86; PULSE 110–133; RESP 16–24; TEMP 97.1–98.8; O2SAT 93–98
[2017-08-25] MEDS ORDERED: methylPREDNISolone SOD SUCC 125 MG/2 ML VIAL IV PUSH SCH
[2017-08-25] MEDS: ACETAMINOPHEN 1000 MG/100 ML 100 ML IV PRN ×3 (03:04→19:59)
[2017-08-25 06:22] LABS: BICARBONATE 22.2 MEQ/L (21.0-32.0); MAGNESIUM 1.8 MG/DL (1.5-2.5); POTASSIUM 3.1 MEQ/L (3.5-5.1)
[2017-08-25] MEDS ORDERED: POTASSIUM PHOSPHATE MONOBASIC 500 MG TAB PO ONE (07:15)
[2017-08-25] MEDS ORDERED: POTASSIUM CHLORIDE 20 MEQ CONTROLLED RELEASE TAB PO ONE ×2 (07:15→17:00)
--- NOTE | 2017-08-25 08:48 | HHI.PR ---
Subjective Remarks still with alot of pain in postlat left hip. difficult to move leg or walk. a little more sob this AM. ivf running. Objective Vitals heart reg lung no wheeze/crackles currently abd s/nt ext left postlat hip tenderness. no groin tenderness. pain postlat hip with left hip passive flexion Vital Signs Date Time Temp Pulse Resp B/P (MAP) Pulse Ox O2 Delivery O2 Flow Rate FiO2 08/25/17 08:00 130 08/25/17 07:00 97.1 111 16 93/86 (88) 96 08/25/17 07:00 111 08/25/17 06:00 116 08/25/17 05:20 113 08/25/17 04:01 114 08/25/17 03:41 18 08/25/17 03:17 97.4 125 18 100/62 (75) 93 08/25/17 03:00 122 08/25/17 02:07 119 08/25/17 01:00 114 08/25/17 00:12 120 08/24/17 23:10 97.8 118 16 81/53 (62) 94 08/24/17 23:08 18 08/24/17 23:00 114 08/24/17 22:02 124 08/24/17 21:00 109 08/24/17 20:47 16 08/24/17 20:00 116 08/24/17 19:15 98.4 112 16 99/63 (75) 93 08/24/17 19:15 99 08/24/17 18:00 124 08/24/17 17:00 108 08/24/17 16:00 118 08/24/17 15:00 103 08/24/17 15:00 98.0 113 14 118/72 (87) 98 08/24/17 14:00 104 08/24/17 13:00 98 08/24/17 12:00 100 08/24/17 11:00 97.5 96 14 94/61 (72) 100 08/24/17 11:00 93 08/24/17 10:00 100 08/24/17 09:00 106 Result Diagram: 08/24/17 0327 08/25/17 0348 A/P Problem List: (1) STEMI (ST elevation myocardial infarction) ICD Codes: I21.3 - ST elevation (STEMI) myocardial infarction of unspecified site Status: Acute Plan: 1. stemi. inferior. lhc 08/23. left cx BMS. 60% distal lad VT. s/p cardioversion 08/23 2.severe hypokalemia 3.recent bilateral lower ext dvt's on eliquis. secondary to being sedentary. 4. recent left trochanteric bursitis diagnosis by sports med. she reports recent bursa injection with "75%"improvement but temporary. 5. today xray showed impracted left femoral neck fx. plan asa/plavix/bb/statin started per cardiology resumed anticoagulation at 1/2 dose kcl replacement. possible outpt stress to eval lad lesion further ask ortho opinion on cause and treatment of left hip pain. ...she is unable to take steroids or more nsaids.. kthermia ordered. PT reassessment today. ADDENDUM LEFT HIP FX NOTED...AWAIT ORTHO RECCS... I WILL NOTIFY CARDIOLOGY THEY WILL NEED TO HELP MAKE DECISIONS. SOB..STOP IVF. LASIX/NEBS. SMALL DOSE ATIVAN. F/U CXR (2) DVT (deep venous thrombosis) ICD Codes: I82.409 - Acute embolism and thrombosis of unspecified deep veins of unspecified lower extremity Status: Acute (3) V tach ICD Codes: I47.2 - Ventricular tachycardia Status: Acute (4) Hypokalemia ICD Codes: E87.6 - Hypokalemia Status: Acute Shin Sotomayor MD Aug 25, 2017 08:47
[2017-08-25] MEDS: METOPROLOL TARTRATE 25 MG TAB PO SCH ×2 (08:54→20:00)
[2017-08-25] MEDS: CLOPIDOGREL 75 MG TAB PO SCH (08:55)
[2017-08-25] MEDS: ASPIRIN 81 MG CHEW TAB PO SCH (08:56)
[2017-08-25] MEDS: APIXABAN 2.5 MG TABLET PO SCH (08:56)
[2017-08-25] MEDS: NICOTINE 14 MG/24 HR PATCH T-DERMAL SCH (08:56)
[2017-08-25] MEDS: POTASSIUM CHLORIDE 20 MEQ CONTROLLED RELEASE TAB PO SCH ×2 (09:00→20:00)
[2017-08-25] MEDS: REMOVE OLD NICOTINE PATCH T-DERMAL SCH (09:00)
[2017-08-25] MEDS ORDERED: FUROSEMIDE 40 MG/4 ML VIAL ONE ×2 (09:45→13:10)
[2017-08-25] MEDS: FERROUS SULFATE 325 MG (65 MG ELEMENTAL IRON) TAB PO SCH ×2 (12:00→21:15)
--- NOTE | 2017-08-25 12:24 | RADRPT ---
EXAM DATE/TIME: 08/25/2017 12:01 [facility] COMPARISON: No previous studies available for comparison. INDICATIONS : Left hip pain, no trauma. MEDICAL HISTORY : Smoker. SURGICAL HISTORY : Hysterectomy. ENCOUNTER: Initial ACUITY: 1 month PAIN SCORE: 10/10 LOCATION: Left buttock FINDINGS: Examination of the left hip was performed with AP Pelvis. There is a slightly impacted fracture of th e left femoral neck. There is slight varus angulation without significant displacement. Fractures at the base of the neck. CONCLUSION: Impacted femoral neck fracture at the base without significant step-off Jeremias Peacock MD on August 25, 2017 at 12:22 Board Certified Radiologist. This report was verified electronically.
[2017-08-25] MEDS ORDERED: RESP: ALBUTEROL 2.5 MG/IPRATROPIUM 0.5 MG NEB (SCH) NEB ONE (13:00)
[2017-08-25] MEDS ORDERED: LORazepam 0.5 MG TAB PO PRN (13:00)
[2017-08-25] MEDS ORDERED: FUROSEMIDE 20 MG TAB PO ONE (13:00)
[2017-08-25] MEDS ORDERED: FUROSEMIDE 40 MG/4 ML VIAL IV PUSH ONE (13:15)
[2017-08-25] MEDS ORDERED: RESP: IPRATROPIUM 0.5 MG/2.5 ML NEB NEB STA (13:19)
[2017-08-25] MEDS ORDERED: POTASSIUM CHLORIDE 20 MEQ CONTROLLED RELEASE TAB PO STA (13:20)
--- NOTE | 2017-08-25 13:50 | RADRPT ---
EXAM DATE/TIME: 08/25/2017 13:26 [facility] COMPARISON: CHEST SINGLE AP, August 23, 2017, 20:15. INDICATIONS : Shortness of breath. MEDICAL HISTORY : Stemi alert. SURGICAL HISTORY : None. ENCOUNTER: Subsequent ACUITY: 1 day PAIN SCORE: 0/10 LOCATION: Bilateral chest FINDINGS: A single view of the chest demonstrates mild perihilar vascular congestion. Blunting of the costophre jack angle suspicious for pleural effusion bilaterally. The cardiomediastinal contours are unremarkab le. Osseous structures are intact. CONCLUSION: Pulmonary vascular congestion with small bilateral pleural effusions suggesting failure Jeremias Peacock MD on August 25, 2017 at 13:48 Board Certified Radiologist. This report was verified electronically.
[2017-08-25] MEDS ORDERED: RESP: IPRATROPIUM 0.5 MG/2.5 ML NEB NEB PRN (14:00)
[2017-08-25] MEDS ORDERED: RESP: ALBUTEROL 2.5 MG/IPRATROPIUM 0.5 MG NEB (PRN) NEB (14:00)
--- NOTE | 2017-08-25 14:47 | PD.CARD.PN ---
Subjective Subjective Remarks + sob earlier today. osorio placed with 800 cc out sob improved. + hip pain - + fracture still tachycardiac Objective Medications Current Medications Medications (Trade) Dose Ordered Sig/Jamilah Route Start Time Stop Time Status Last Admin (NS Flush) 2 ml UNSCH PRN IVF 08/23/17 20:15 (Xylocaine 2% Jelly) 1 applic UNSCH PRN TOP 08/23/17 21:45 (Aspirin Chew) 81 mg DAILY PO 08/24/17 09:00 08/25/17 08:56 (Plavix) 75 mg DAILY PO 08/24/17 09:00 08/25/17 08:55 (Atropine Inj) 0.5 mg UNSCH PRN IV PUSH 08/23/17 21:45 (Zofran Inj) 4 mg Q4H PRN IV PUSH 08/23/17 21:45 08/23/17 23:50 (Lipitor) 40 mg HS PO 08/24/17 21:00 08/24/17 21:01 (Lopressor) 12.5 mg Q12HR PO 08/24/17 09:00 08/25/17 08:54 (Ferrous Sulfate) 325 mg BID@,17 PO 08/24/17 12:00 08/25/17 12:00 (Eliquis) 2.5 mg BID PO 08/24/17 21:00 08/25/17 08:56 (Habitrol 14 Mg Patch.24 Hr) 1 patch DAILY T-DERMAL 08/25/17 09:00 08/25/17 08:56 Miscellaneous Information 1 DAILY T-DERMAL 08/25/17 09:00 08/25/17 09:00 Acetaminophen 100 ml @ 400 mls/hr Q6H PRN IV 08/24/17 18:45 08/25/17 09:56 (Ultram) 50 mg Q4H PRN PO 08/24/17 18:45 08/24/17 21:55 (KCl) 20 meq Q12HR PO 08/25/17 09:00 (Ativan) 0.5 mg Q4H PRN PO 08/25/17 13:00 (Atrovent Neb) 0.5 mg Q4HR NEB NEB 08/25/17 16:00 (Atrovent Neb) 0.5 mg Q2HR NEB PRN NEB 08/25/17 14:00 Vital Signs / I&O Vital Signs Date Time Temp Pulse Resp B/P (MAP) Pulse Ox O2 Delivery O2 Flow Rate FiO2 08/25/17 14:00 125 08/25/17 13:00 118 08/25/17 12:18 95 Nasal Cannula 3.00 08/25/17 12:00 120 08/25/17 11:00 114 08/25/17 11:00 98.2 114 16 104/83 (90) 95 08/25/17 10:39 16 08/25/17 10:00 116 08/25/17 09:00 110 08/25/17 08:00 130 08/25/17 07:00 97.1 111 16 93/86 (88) 96 08/25/17 07:00 111 08/25/17 06:00 116 08/25/17 05:20 113 08/25/17 04:01 114 08/25/17 03:17 97.4 125 18 100/62 (75) 93 08/25/17 03:00 122 08/25/17 02:07 119 08/25/17 01:00 114 08/25/17 00:12 120 08/24/17 23:10 97.8 118 16 81/53 (62) 94 08/24/17 23:08 18 08/24/17 23:00 114 08/24/17 22:02 124 08/24/17 21:00 109 08/24/17 20:47 16 08/24/17 20:00 116 08/24/17 19:15 98.4 112 16 99/63 (75) 93 08/24/17 19:15 99 08/24/17 18:00 124 08/24/17 17:00 108 08/24/17 16:00 118 08/24/17 15:00 103 08/24/17 15:00 98.0 113 14 118/72 (87) 98 I/O 08/24/17 08/24/17 08/24/17 08/25/17 08/25/17 08/25/17 07:00 15:00 23:00 07:00 15:00 23:00 Intake Total 1848 ml 1065 ml 1382 ml 100 ml Output Total 200 ml 650 ml 450 ml Balance 1648 ml 415 ml 932 ml 100 ml Intake Oral 360 ml 720 ml 720 ml IV Total 1488 ml 345 ml 662 ml 100 ml Output Urine Total 200 ml 650 ml 450 ml # Bowel Movements 0 0 Physical Exam NECK: Supple, trachea midline. No JVD or lymphadenopathy. CARDIOVASCULAR: tachycardiac RESPIRATORY: Breath sounds equal bilaterally. basilar crackles GASTROINTESTINAL: Abdomen soft, non-tender, nondistended. MUSCULOSKELETAL: No cyanosis, or edema. BACK: Nontender without obvious deformity. No CVA tenderness. Laboratory Laboratory Tests Test 08/25/17 03:48 Blood Urea Nitrogen 20 MG/DL Creatinine 0.56 MG/DL Random Glucose 102 MG/DL Calcium Level 8.1 MG/DL Phosphorus Level 2.1 MG/DL Magnesium Level 1.8 MG/DL Sodium Level 138 MEQ/L Potassium Level 3.1 MEQ/L Chloride Level 107 MEQ/L Carbon Dioxide Level 22.2 MEQ/L Anion Gap 9 MEQ/L Estimat Glomerular Filtration Rate 111 ML/MIN Imaging Last 24 hours Impressions Chest X-Ray 08/25/17 1315 Signed Impressions: Service Date/Time: Friday, August 25, 2017 13:26 - CONCLUSION: Pulmonary vascular congestion with small bilateral pleural effusions suggesting failure Jeremias Peacock MD Hip and Pelvis X-Ray 08/25/17 0000 Signed Impressions: Service Date/Time: Friday, August 25, 2017 12:01 - CONCLUSION: Impacted femoral neck fracture at the base without significant step-off Jeremias Peacock MD Assessment and Plan Problem List: (1) V tach ICD Codes: I47.2 - Ventricular tachycardia Status: Acute (2) STEMI (ST elevation myocardial infarction) ICD Codes: I21.3 - ST elevation (STEMI) myocardial infarction of unspecified site Status: Acute Assessment and Plan stemi - PCI BMS dominant LCx. asa plavix bb statin restart reduced dose eliquis secondary to asa/plavix ortho consult IV diuretic due to sob + tachycardia. on low dose bb. persistent. h/o DVT. Cr normal. CTA PE protocol Jeremias Belle MD Aug 25, 2017 14:47
[2017-08-25 15:34] LABS: BICARBONATE 24.9 MEQ/L (21.0-32.0); POTASSIUM 3.8 MEQ/L (3.5-5.1)
[2017-08-25] MEDS ORDERED: POVIDONE IODINE 7.5% SCRUB 118 ML BOTTLE TOPICAL ONE (16:00)
[2017-08-25] MEDS ORDERED: RESP: ALBUTEROL 2.5 MG/IPRATROPIUM 0.5 MG NEB (SCH) NEB (16:00)
[2017-08-25] MEDS ORDERED: VANCOMYCIN INJ 1,000 MG in SODIUM CHLOR 0.9% 250 ML INJ 250 ML IV SCH (16:00)
[2017-08-25] MEDS ORDERED: IOHEXOL 350 MG/ML 10 ML VIAL (for RAD DIAG) IVCONTRAST ONE (16:24)
--- NOTE | 2017-08-25 16:32 | RADRPT ---
EXAM DATE/TIME: 08/25/2017 16:06 [facility] COMPARISON: No previous studies available for comparison. INDICATIONS : Short of breath, stemi alert, evaluate for pulmonary emboli. IV CONTRAST: 75 cc Omnipaque 350 (iohexol) IV RADIATION DOSE: 8.92 CTDIvol (mGy) MEDICAL HISTORY : Hernia, hiatal. Deep venous thrombosis. SURGICAL HISTORY : Hysterectomy. ENCOUNTER: Initial ACUITY: 1 day PAIN SCALE: 4/10 LOCATION: chest TECHNIQUE: Volumetric scanning of the chest was performed using a pulmonary embolism protocol MIP images were re constructed. Using automated exposure control and adjustment of the mA and/or kV according to patien t size, radiation dose was kept as low as reasonably achievable to obtain optimal diagnostic quality images. DICOM format image data is available electronically for review and comparison. Follow-up recommendations for detected pulmonary nodules are based at a minimum on nodule size and pa tient risk factors according to Fleischner Society Guidelines. FINDINGS: PULMONARY ARTERIES: There are a number of filling defects in multiple pulmonary arteries consistent with multifocal pulmo nary embolism. LUNGS: There are some areas of consolidation and almost honeycombing of the right lung apex. There is a smal l macrolobulated nodule left upper lobe measuring 1.2 cm across. PLEURAE: Moderate-sized bilateral pleural effusions are noted.. MEDIASTINUM: There is good visualization of the great vessels of the middle mediastinum. No evidence of mediastin al or hilar adenopathy/mass. MUSCULOSKELETAL: Within normal limits for patient age. MISCELLANEOUS: The visualized upper abdominal organs demonstrate no acute abnormality. CONCLUSION: Multifocal pulmonary emboli with small filling defects identified in the main right pulmonary artery, interlobar pulmonary artery on the right and one in the left lower lobe pulmonary arteries. The embo li are small but multiple. Moderate-sized bilateral pleural effusions. Jeremias Peacock MD on August 25, 2017 at 16:28 Board Certified Radiologist. This report was verified electronically.
[2017-08-25 16:43] LABS: INDIRECT BILIRUBIN 0.4 MG/DL (0.0-0.8); TOTAL BILIRUBIN ADULT 0.6 MG/DL (0.2-1.0)
[2017-08-25] MEDS: HEPARIN-D5W 25,000 U/250 ML 250 ML IV PRN (17:30)
[2017-08-25] MEDS: RESP: IPRATROPIUM 0.5 MG/2.5 ML NEB NEB SCH ×3 (17:31→22:45)
--- NOTE | 2017-08-25 19:49 | PD.CONS ---
cc: Min Gonzalez Jr., MD HPI Service [facility] Surgeons Consult Requested By Primary Care Physician Catie Chapman MD Admission Diagnosis STEMI; V-Tach; h/o recent BLE DVT Diagnoses: (1) STEMI (ST elevation myocardial infarction) (2) DVT (deep venous thrombosis) (3) V tach (4) Hypokalemia Chief Complaint: left femoral neck fracture History of Present Illness 61 yo recently diagnosed with bilateral lower ext dvt's after being sedentary for 6 weeks for severe LEFT hip pain/trochanteric bursitis. She says the bursitis is 75% better after Dr Wiley injected it in the office. She was placed on eliquis 2 weeks ago and she reports significant improvement in her lower ext swelling. She was brought in by EMS and evaluated for STEMI after she became dizzy/weak/ nauseated. She was in [place] and defibrillated. 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 The patient denies any recent trauma or fall. X-ray examination during this hospitalization taken for persistent left hip pain reveal a displaced left femoral neck fracture. Currently she is alert, pain localized at left hip, patient's is 3 out of 10, exacerbated by any range of motion, WB, relieved at rest and with IV pain medicine, pain is sharp nonradiating, dull, not associated with any paresthesia and numbness to the extremity. ROS - General Review of Systems Other dizzy nausea weak PFSH Past Family Social History Past Medical History rosalina lower ext dvt. dx 2 weeks ago left hip troch. bursitis. hysterectomy Reported Medications eliquis 5mg po bid Allergies: Coded Allergies: Sulfa (Sulfonamide Antibiotics) (Unverified Allergy, Severe, Swelling, ) morphine (Unverified Allergy, Severe, vomiting , passing out , 08/23/17) prednisone (Unverified Allergy, Severe, Suicidal , 08/23/17) Family History nc Social History 1ppd x 40yrs tob Past Family Social History Allergies: Coded Allergies: Sulfa (Sulfonamide Antibiotics) (Unverified Allergy, Severe, Swelling, ) morphine (Unverified Allergy, Severe, vomiting , passing out , 08/23/17) prednisone (Unverified Allergy, Severe, Suicidal , 08/23/17) Active Ordered Medications Current Medications Medications (Trade) Dose Ordered Sig/Jamilah Route Start Time Stop Time Status Last Admin (NS Flush) 2 ml UNSCH PRN IVF 08/23/17 20:15 (Xylocaine 2% Jelly) 1 applic UNSCH PRN TOP 08/23/17 21:45 (Aspirin Chew) 81 mg DAILY PO 08/24/17 09:00 08/25/17 08:56 (Plavix) 75 mg DAILY PO 08/24/17 09:00 08/25/17 08:55 (Atropine Inj) 0.5 mg UNSCH PRN IV PUSH 08/23/17 21:45 (Zofran Inj) 4 mg Q4H PRN IV PUSH 08/23/17 21:45 08/23/17 23:50 (Lipitor) 40 mg HS PO 08/24/17 21:00 08/24/17 21:01 (Lopressor) 12.5 mg Q12HR PO 08/24/17 09:00 08/25/17 08:54 (Ferrous Sulfate) 325 mg BID@12,17 PO 08/24/17 12:00 08/25/17 12:00 (Habitrol 14 Mg Patch.24 Hr) 1 patch DAILY T-DERMAL 08/25/17 09:00 08/25/17 08:56 Miscellaneous Information 1 DAILY T-DERMAL 08/25/17 09:00 08/25/17 09:00 Acetaminophen 100 ml @ 400 mls/hr Q6H PRN IV 08/24/17 18:45 08/25/17 09:56 (Ultram) 50 mg Q4H PRN PO 08/24/17 18:45 08/24/17 21:55 (KCl) 20 meq Q12HR PO 08/25/17 09:00 (Ativan) 0.5 mg Q4H PRN PO 08/25/17 13:00 (Atrovent Neb) 0.5 mg Q4HR NEB NEB 08/25/17 16:00 08/25/17 17:31 (Atrovent Neb) 0.5 mg Q2HR NEB PRN NEB 08/25/17 14:00 Vancomycin HCl 1000 mg/Sodium Chloride 250 ml @ 250 mls/hr FIELD INTERVIEWER IV 08/25/17 16:00 08/29/17 15:59 (Heparin Inj) 5,000 units UNSCH PRN IV PUSH 08/25/17 23:00 (Heparin Inj) 2,500 units UNSCH PRN IV PUSH 08/25/17 23:00 Heparin Sodium/ Dextrose 250 ml @ 13 mls/hr TITRATE PRN IV 08/25/17 17:00 08/25/17 17:30 Reported Meds & Active Scripts Active Physical Exam Vital Signs Vital Signs Date Time Temp Pulse Resp B/P (MAP) Pulse Ox O2 Delivery O2 Flow Rate FiO2 08/25/17 17:00 131 08/25/17 16:00 130 08/25/17 15:00 98.0 119 16 103/84 (90) 96 08/25/17 15:00 119 08/25/17 14:00 125 08/25/17 13:30 95 Nasal Cannula 5.00 08/25/17 13:00 118 08/25/17 12:18 95 Nasal Cannula 3.00 08/25/17 12:00 120 08/25/17 11:00 114 08/25/17 11:00 98.2 114 16 104/83 (90) 95 08/25/17 10:39 16 08/25/17 10:00 116 08/25/17 09:00 110 08/25/17 08:00 130 08/25/17 07:00 97.1 111 16 93/86 (88) 96 08/25/17 07:00 111 08/25/17 06:00 116 08/25/17 05:20 113 08/25/17 04:01 114 08/25/17 03:17 97.4 125 18 100/62 (75) 93 08/25/17 03:00 122 08/25/17 02:07 119 08/25/17 01:00 114 08/25/17 00:12 120 08/24/17 23:10 97.8 118 16 81/53 (62) 94 08/24/17 23:08 18 08/24/17 23:00 114 08/24/17 22:02 124 08/24/17 21:00 109 08/24/17 20:47 16 08/24/17 20:00 116 Physical Exam Alert awake and oriented x 3. No acute distress. Head: NC/AT Neck: No pain with any range of motion and neck. No tenderness to palpation along posterior cervical elements. Pulmonary: Normal respiratory effort. Bilateral upper extremity: Multiple areas of ecchymosis. No deformity. 2+ radial artery pulses. Good cap refill. RIGHT lower extremity: full hip and knee ROm. Neurovascularly intact, +EHL/FHL, + PT/DP pulses. Supple compartments. Negative Homans sign. LEFT lower extremity: Neurovascularly intact, +log roll, painful touch, +EHL/FHL , + PT/DP pulses. Supple compartments. Negative Homans sign. Laboratory Laboratory Tests Test 08/25/17 03:48 08/25/17 14:56 Blood Urea Nitrogen 20 19 Creatinine 0.56 0.68 Random Glucose 102 133 Calcium Level 8.1 8.6 Phosphorus Level 2.1 Magnesium Level 1.8 Sodium Level 138 137 Potassium Level 3.1 3.8 Chloride Level 107 104 Carbon Dioxide Level 22.2 24.9 Anion Gap 9 8 Estimat Glomerular Filtration Rate 111 89 Total Protein 6.4 Albumin 2.8 Alkaline Phosphatase 217 Aspartate Amino Transf (AST/SGOT) 165 Alanine Aminotransferase (ALT/SGPT) 79 Total Bilirubin 0.6 Direct Bilirubin 0.2 Indirect Bilirubin 0.4 Result Diagram: 08/24/17 0327 08/25/17 1456 Imaging Last 72 hours Impressions Chest X-Ray 08/25/17 1315 Signed Impressions: Service Date/Time: Friday, August 25, 2017 13:26 - CONCLUSION: Pulmonary vascular congestion with small bilateral pleural effusions suggesting failure Jeremias Peacock MD Hip and Pelvis X-Ray 08/25/17 0000 Signed Impressions: Service Date/Time: Friday, August 25, 2017 12:01 - CONCLUSION: Impacted femoral neck fracture at the base without significant step-off Jeremias Peacock MD CT Angiography 08/25/17 0000 Signed Impressions: Service Date/Time: Friday, August 25, 2017 16:06 - CONCLUSION: Multifocal pulmonary emboli with small filling defects identified in the main right pulmonary artery, interlobar pulmonary artery on the right and one in the left lower lobe pulmonary arteries. The emboli are small but multiple. Moderate- sized bilateral pleural effusions. Jeremias Peacock MD Chest X-Ray 08/23/172014 Signed Impressions: Service Date/Time: Wednesday, August 23, 2017 20:15 - CONCLUSION: 1. Normal heart size. No evidence of alveolar pulmonary edema. 2. Mild focal interstitial process upper right lung. Michele Morris MD Assessment & Plan Assessment and Plan 61-year-old female with complicated past medical history presented to the hospital with DVT after feeling malaise and evaluated for an stemming. Patient has been sedentary for the past 6 weeks and treated conservatively by her primary care physician for left hip pain. She denies any history of trauma or fall. During this hospitalization x-ray examination reveal a displaced femoral neck fracture. I recommend hip arthroplasty, although based on her complicated and current medical situation percutaneous screw fixation may be a reasonable option. However the patient was just diagnosed today with pulmonary embolism and being treated with heparin drip. I discussed my treatment plans with the patient, as well as risks, benefits and alternatives of surgical Intervention versus nonoperative treatment. In this case, the risks of operative intervention involves bleeding, PE, , infection, risks of damage to neurovascular structures, the risk of needing further surgery and the risks involved with complication from anesthesia. The patient accepts these risks; understands and agrees with my recommendations. I also discussed my proposed postoperative care and follow-up plan. All questions were answered. Please let us know when the patient is medically stable enough to proceed with surgery and when would be a good time to hold heparin once pulmonary embolism treatment has started. Min Gonzalez Jr., MD Aug 25, 2017 19:49
[2017-08-25] MEDS: ATORVASTATIN 40 MG TAB PO SCH (20:01)
[2017-08-25] MEDS ORDERED: HEPARIN SODIUM - IV 10,000 UNITS/10 ML VIAL IV PUSH PRN (23:00)
[2017-08-25] MEDS ORDERED: HEPARIN - 10,000 UNITS/ML IV ADDITIVE IV PUSH PRN (23:00)
[2017-08-26] VITALS (16 sets, daily range): BP systolic 81–150; BP diastolic 56–99; PULSE 90–152; RESP 12–38; TEMP 97.8–99.9; O2SAT 95–99
[2017-08-26] MEDS: traMADol HCL 50 MG TAB PO PRN (00:02)
[2017-08-26] MEDS ORDERED: ALPRAZolam 0.25 MG TAB PO PRN (00:15)
[2017-08-26 02:50] LABS: HEMATOCRIT 26.9 % (35.0-46.0); MEAN CELL VOLUME 95.4 FL (80.0-100.0); MEAN CORPUSCULAR HEMOGLOBIN 30.8 PG (27.0-34.0); MEAN CORPUSCULAR HGB CONC 32.3 % (32.0-36.0); PLATELET COUNT 248 TH/MM3 (150-450); RED BLOOD COUNT 2.82 MIL/MM3 (4.00-5.30); RED CELL DISTRIBUTION WIDTH 16.2 % (11.6-17.2); REVIEW FLAG FINAL; WHITE BLOOD COUNT 27.2 TH/MM3 (4.0-11.0)
[2017-08-26 03:04] LABS: APTT (PATIENT) 50.1 SEC (24.3-30.1); INTERNATIONAL NORMALIZED RATIO 1.3 RATIO; PROTHROMBIN TIME - PATIENT 14.7 SEC (9.8-11.6)
[2017-08-26] MEDS: RESP: IPRATROPIUM 0.5 MG/2.5 ML NEB NEB SCH ×5 (03:13→20:23)
[2017-08-26 07:01] LABS: BLOOD GAS BASE EXCESS -2.1 mmol/L (-2-2); BLOOD GAS CARBOXYHEMOGLOBIN 0.8 % (0-4); BLOOD GAS HCO3 24 mmol/L (22-26); BLOOD GAS METHEMOGLOBIN 1.2 % (0-2); BLOOD GAS O2 HGB SATURATION 94 % (90-100); BLOOD GAS OXYGEN CONTENT 12.1 Vol % (12.0-20.0); BLOOD GAS PCO2 55 mmHg (38-42); BLOOD GAS PO2 97 mmHg (61-120); BLOOD GAS TOTAL HGB 9.1 G/DL (12.0-16.0); CRITICAL VALUE YES; DRAW SITE LT RADIAL; FIO2 100 %; LITER FLOW 15 L/M; NUMBER OF ARTERIAL PUNCTURES 1; OXYGEN DEVICE NRB; STAT YES; TEMP CORR TO 98.6; ULNAR PULSE PRESENT
[2017-08-26] MEDS ORDERED: ETOMIDATE 40 MG/20 ML VIAL ONE (07:13)
[2017-08-26] MEDS ORDERED: SUCCINYLCHOLINE CHLORIDE 200 MG/10 ML VIAL ONE (07:14)
[2017-08-26] MEDS ORDERED: ETOMIDATE 20 MG/10 ML VIAL IV PUSH ONE (07:15)
[2017-08-26] MEDS ORDERED: fentaNYL CITRATE 250 MCG/5 ML AMP IV PUSH ONE (07:15)
[2017-08-26] MEDS ORDERED: ROCURONIUM INJ 50 MG/5 ML VIAL IV ONE (07:15)
[2017-08-26] MEDS ORDERED: SUCCINYLCHOLINE CHLORIDE 100 MG/5 ML SYRINGE IV PUSH ONE (07:15)
[2017-08-26] MEDS ORDERED: FUROSEMIDE 40 MG/4 ML VIAL ONE (07:21)
[2017-08-26] MEDS ORDERED: METOPROLOL TARTRATE 5 MG/5 ML VIAL ONE ×2 (07:27→10:37)
[2017-08-26 07:28] LABS: ANION GAP 9 MEQ/L (5-15); AST (GOT) 102 U/L (15-37); BICARBONATE 23.1 MEQ/L (21.0-32.0); BLOOD UREA NITROGEN 19 MG/DL (7-18); CHLORIDE 104 MEQ/L (98-107); GLOMERULAR FILTRATION RATE 97 ML/MIN (>89); POTASSIUM 3.7 MEQ/L (3.5-5.1); SODIUM (NA) 136 MEQ/L (136-145)
[2017-08-26 07:32] LABS: ALKALINE PHOSPHATASE 224 U/L (45-117); ALT (GPT) 63 U/L (10-53); TOTAL BILIRUBIN ADULT 0.6 MG/DL (0.2-1.0)
[2017-08-26] MEDS ORDERED: FUROSEMIDE 40 MG/4 ML VIAL IV PUSH STA (08:00)
--- NOTE | 2017-08-26 08:24 | HHI.PR ---
Subjective Remarks started with sob and respiratory distress again this AM. refusing intubation. wants dnr Objective Vitals labored breathing accessory muscle use oriented completely but refusing intubation heart reg/tachy. sinus lung bilateral wheezing abd abd retractions ext no pitting. osorio Vital Signs Date Time Temp Pulse Resp B/P (MAP) Pulse Ox O2 Delivery O2 Flow Rate FiO2 08/26/17 03:00 130 08/26/17 03:00 98.8 133 22 110/83 (92) 99 08/26/17 03:00 95 Simple Mask 12.00 08/26/17 02:34 92 Simple Mask 9.50 08/26/17 02:00 87 Nasal Cannula 6.00 08/25/17 23:00 92 Nasal Cannula 6.00 08/25/17 23:00 98.6 118 24 106/78 (87) 96 08/25/17 23:00 119 08/25/17 21:01 117 08/25/17 20:14 98 Nasal Cannula 4.00 08/25/17 20:00 112 08/25/17 19:43 98.8 125 18 105/69 (81) 98 08/25/17 19:00 133 08/25/17 17:00 131 08/25/17 16:00 130 08/25/17 15:00 98.0 119 16 103/84 (90) 96 08/25/17 15:00 119 08/25/17 14:00 125 08/25/17 13:30 95 Nasal Cannula 5.00 08/25/17 13:00 118 08/25/17 12:18 95 Nasal Cannula 3.00 08/25/17 12:00 120 08/25/17 11:00 114 08/25/17 11:00 98.2 114 16 104/83 (90) 95 08/25/17 10:39 16 08/25/17 10:00 116 08/25/17 09:00 110 Result Diagram: 08/26/1723008/26/17230 A/P Problem List: (1) STEMI (ST elevation myocardial infarction) ICD Codes: I21.3 - ST elevation (STEMI) myocardial infarction of unspecified site Status: Acute Plan: 1. stemi. inferior. lhc 08/23. left cx BMS. 60% distal lad VT. s/p cardioversion 08/23 2. bilateral pulmonary emboli 3. pulmonary edema. respiratory acidosis. 4.recent bilateral lower ext dvt's on eliquis. secondary to being sedentary. 5. recent left trochanteric bursitis diagnosis by sports med. 6. left femoral neck fracture 7.severe hypokalemia plan Pt is in severe respiratory distress. she is oriented and able to make decisions. she needs intubation but refusing. She will not change her mind and is felt to have a treatable and reversable condition. she is placed on bipap and made dnr. total 80mg iv lasix and some lopressor given. monitor situation as she is not improving so far and may . nursing was trying to notify family. cont heparin gtt. asa/plavix/statin. bb increased. (2) DVT (deep venous thrombosis) ICD Codes: I82.409 - Acute embolism and thrombosis of unspecified deep veins of unspecified lower extremity Status: Acute (3) V tach ICD Codes: I47.2 - Ventricular tachycardia Status: Acute (4) Hypokalemia ICD Codes: E87.6 - Hypokalemia Status: Acute Shin Sotomayor MD Aug 26, 2017 08:24
--- NOTE | 2017-08-26 08:44 | PD.CARD.PN ---
Subjective Subjective Remarks worsening SOB, now on continuous bipap. denies chest pain. (Selena Tellez) Objective Medications Current Medications Medications (Trade) Dose Ordered Sig/Jamilah Route Start Time Stop Time Status Last Admin (NS Flush) 2 ml UNSCH PRN IVF 08/23/17 20:15 (Xylocaine 2% Jelly) 1 applic UNSCH PRN TOP 08/23/17 21:45 (Aspirin Chew) 81 mg DAILY PO 08/24/17 09:00 08/25/17 08:56 (Plavix) 75 mg DAILY PO 08/24/17 09:00 08/25/17 08:55 (Atropine Inj) 0.5 mg UNSCH PRN IV PUSH 08/23/17 21:45 (Zofran Inj) 4 mg Q4H PRN IV PUSH 08/23/17 21:45 08/23/17 23:50 (Lipitor) 40 mg HS PO 08/24/17 21:00 08/25/17 20:01 (Ferrous Sulfate) 325 mg BID@ PO 08/24/17 12:00 08/25/17 21:15 (Habitrol 14 Mg Patch.24 Hr) 1 patch DAILY T-DERMAL 08/25/17 09:00 08/25/17 08:56 Miscellaneous Information 1 DAILY T-DERMAL 08/25/17 09:00 08/25/17 09:00 Acetaminophen 100 ml @ 400 mls/hr Q6H PRN IV 08/24/17 18:45 08/25/17 19:59 (Ultram) 50 mg Q4H PRN PO 08/24/17 18:45 08/26/17 00:02 (KCl) 20 meq Q12HR PO 08/25/17 09:00 08/25/17 20:00 (Ativan) 0.5 mg Q4H PRN PO 08/25/17 13:00 08/26/17 02:20 (Atrovent Neb) 0.5 mg Q4HR NEB NEB 08/25/17 16:00 08/26/17 03:13 (Atrovent Neb) 0.5 mg Q2HR NEB PRN NEB 08/25/17 14:00 08/26/17 06:00 Vancomycin HCl 1000 mg/Sodium Chloride 250 ml @ 250 mls/hr [employer] IV 08/25/17 16:00 08/29/17 15:59 (Heparin Inj) 5,000 units UNSCH PRN IV PUSH 08/25/17 23:00 (Heparin Inj) 2,500 units UNSCH PRN IV PUSH 08/25/17 23:00 Heparin Sodium/ Dextrose 250 ml @ 13 mls/hr TITRATE PRN IV 08/25/17 17:00 08/25/17 17:30 (Protonix) 40 mg DAILY PO 08/26/17 09:00 (Xanax) 0.25 mg Q8H PRN PO 08/26/17 00:15 08/26/17 00:34 Fentanyl Citrate 250 ml @ 5 mls/hr TITRATE PRN IV 08/26/17 07:15 (Lopressor) 50 mg Q12HR PO 08/26/17 09:00 (Lasix) 20 mg BID@09,18 PO 08/26/17 18:00 Vital Signs / I&O Vital Signs Date Time Temp Pulse Resp B/P (MAP) Pulse Ox O2 Delivery O2 Flow Rate FiO2 08/26/17 03:00 130 08/26/17 03:00 98.8 133 22 110/83 (92) 99 08/26/17 03:00 95 Simple Mask 12.00 08/26/17 02:34 92 Simple Mask 9.50 08/26/17 02:00 87 Nasal Cannula 6.00 08/25/17 23:00 92 Nasal Cannula 6.00 08/25/17 23:00 98.6 118 24 106/78 (87) 96 08/25/17 23:00 119 08/25/17 21:01 117 08/25/17 20:14 98 Nasal Cannula 4.00 08/25/17 20:00 112 08/25/17 19:43 98.8 125 18 105/69 (81) 98 08/25/17 19:00 133 08/25/17 17:00 131 08/25/17 16:00 130 08/25/17 15:00 98.0 119 16 103/84 (90) 96 08/25/17 15:00 119 08/25/17 14:00 125 08/25/17 13:30 95 Nasal Cannula 5.00 08/25/17 13:00 118 08/25/17 12:18 95 Nasal Cannula 3.00 08/25/17 12:00 120 08/25/17 11:00 114 08/25/17 11:00 98.2 114 16 104/83 (90) 95 08/25/17 10:39 16 08/25/17 10:00 116 08/25/17 09:00 110 I/O 08/25/17 08/25/17 08/25/17 08/26/17 08/26/17 08/26/17 07:00 15:00 23:00 07:00 15:00 23:00 Intake Total 1382 ml 100 ml 100 ml 608 ml Output Total 450 ml 750 ml Balance 932 ml 100 ml 100 ml -142 ml Intake Oral 720 ml 480 ml IV Total 662 ml 100 ml 100 ml 128 ml Output Urine Total 450 ml 750 ml # Bowel Movements 0 0 Physical Exam GENERAL: alert and awake SKIN: Warm and dry. HEAD: Atraumatic. Normocephalic. EYES: Pupils equal and round. ENT: No nasal bleeding or discharge NECK: Trachea midline. No JVD. CARDIOVASCULAR:tachycardic and regular rhythm. no murmurs RESPIRATORY: on bipap, +using accessory muscles, +rhonchi bilateral GASTROINTESTINAL: Abdomen soft, non-tender, nondistended. MUSCULOSKELETAL: Extremities without clubbing, cyanosis, or edema. No obvious deformities. NEUROLOGICAL: Awake and alert. No obvious cranial nerve deficits. Laboratory Laboratory Tests Test 08/25/17 14:56 08/26/17 02:31 08/26/17 06:53 08/26/17 08:23 Blood Urea Nitrogen 19 MG/DL 19 MG/DL Creatinine 0.68 MG/DL 0.63 MG/DL Random Glucose 133 MG/DL 130 MG/DL Total Protein 6.4 GM/DL 6.2 GM/DL Albumin 2.8 GM/DL 2.7 GM/DL Calcium Level 8.6 MG/DL 8.6 MG/DL Alkaline Phosphatase 217 U/L 224 U/L Aspartate Amino Transf (AST/SGOT) 165 U/L 102 U/L Alanine Aminotransferase (ALT/SGPT) 79 U/L 63 U/L Total Bilirubin 0.6 MG/DL 0.6 MG/DL Direct Bilirubin 0.2 MG/DL Sodium Level 137 MEQ/L 136 MEQ/L Potassium Level 3.8 MEQ/L 3.7 MEQ/L Chloride Level 104 MEQ/L 104 MEQ/L Carbon Dioxide Level 24.9 MEQ/L 23.1 MEQ/L Anion Gap 8 MEQ/L 9 MEQ/L Estimat Glomerular Filtration Rate 89 ML/MIN 97 ML/MIN Indirect Bilirubin 0.4 MG/DL White Blood Count 27.2 TH/MM3 Red Blood Count 2.82 MIL/MM3 Hemoglobin 8.7 GM/DL Hematocrit 26.9 % Mean Corpuscular Volume 95.4 FL Mean Corpuscular Hemoglobin 30.8 PG Mean Corpuscular Hemoglobin Concent 32.3 % Red Cell Distribution Width 16.2 % Platelet Count 248 TH/MM3 Mean Platelet Volume 8.9 FL Prothrombin Time 14.7 SEC Prothromb Time International Ratio 1.3 RATIO Activated Partial Thromboplast Time 50.1 SEC Blood Gas Puncture Site LT RADIAL Blood Gas Patient Temperature 98.6 Blood Gas HCO3 24 mmol/L Blood Gas Base Excess -2.1 mmol/L Blood Gas Oxygen Saturation 94 % Arterial Blood pH 7.26 Arterial Blood Partial Pressure CO2 55 mmHg Arterial Blood Partial Pressure O2 97 mmHg Arterial Blood Oxygen Content 12.1 Vol % Arterial Blood Carboxyhemoglobin 0.8 % Arterial Blood Methemoglobin 1.2 % Blood Gas Hemoglobin 9.1 G/DL Oxygen Delivery Device NRB Blood Gas Liter Flow 15 L/M Blood Gas Inspired Oxygen 100 % Imaging Last 48 hours Impressions Chest X-Ray 08/25/17 1315 Signed Impressions: Service Date/Time: Friday, August 25, 2017 13:26 - CONCLUSION: Pulmonary vascular congestion with small bilateral pleural effusions suggesting failure Jeremias Peacock MD Hip and Pelvis X-Ray 08/25/17 0000 Signed Impressions: Service Date/Time: Friday, August 25, 2017 12:01 - CONCLUSION: Impacted femoral neck fracture at the base without significant step-off Jeremias Peacock MD CT Angiography 08/25/17 0000 Signed Impressions: Service Date/Time: Friday, August 25, 2017 16:06 - CONCLUSION: Multifocal pulmonary emboli with small filling defects identified in the main right pulmonary artery, interlobar pulmonary artery on the right and one in the left lower lobe pulmonary arteries. The emboli are small but multiple. Moderate- sized bilateral pleural effusions. Jeremias Peacock MD Last 24 hours Impressions Chest X-Ray 08/25/17 1315 Signed Impressions: Service Date/Time: Friday, August 25, 2017 13:26 - CONCLUSION: Pulmonary vascular congestion with small bilateral pleural effusions suggesting failure Jeremias Peacock MD (Selena Tellez) Assessment and Plan Problem List: (1) V tach ICD Codes: I47.2 - Ventricular tachycardia Status: Acute (2) STEMI (ST elevation myocardial infarction) ICD Codes: I21.3 - ST elevation (STEMI) myocardial infarction of unspecified site Status: Acute Assessment and Plan 61 yo WF with no prior cardiac history who was recently diagnosed with bilateral lower leg DVT and has been taking Eliquis who presented to ED last night with STEMI. acute respiratory distress- became acutely SOB overnight, now on continuous bipap. refusing intubation, now dnr. creatinine normal, currently on lasix 20mg BID. tachycardic- bb increased +bilateral pulmonary emboli/ DVT- heparin gtt STEMI - s/p PCI BMS distal left circumflex. Moderate proximal LAD stenosis, consider outpatient lexiscan echo normal EF, mild-mod MVR (Selena Tellez) Assessment and Plan increased work of breathing failing BiPap had discussion with patient, friend, and nurse at bedside. Patient is agreeable to intubation and reverses DNR status will ask dental practice manager/anesthesia for intubation. continue heparin gtt (Jeremias Belle MD) Selena Tellez Aug 26, 2017 08:44 Jeremias Belle MD Aug 26, 2017 09:16
[2017-08-26 08:52] LABS: APTT (PATIENT) 51.1 SEC (24.3-30.1)
[2017-08-26] MEDS: METOPROLOL TARTRATE 50 MG TAB PO SCH ×2 (09:00→21:00)
[2017-08-26] MEDS: PANTOPRAZOLE SOD 40 MG DELAYED RELEASE TAB PO SCH (09:00)
[2017-08-26] MEDS ORDERED: POTASSIUM CHLORIDE 20 MEQ CONTROLLED RELEASE TAB PO SCH (09:00)
[2017-08-26] MEDS: REMOVE OLD NICOTINE PATCH T-DERMAL SCH (09:00)
--- NOTE | 2017-08-26 10:17 | PD.PROCEDR ---
Procedure Note Procedure Endotracheal Intubation Diagnosis: Hypoxemic respiratory failure Indications: Hypoxemic respiratory failure Consent: Obtained by patient Anesthesia:See MAR Description of the Procedure: The patient was positioned in the sniffing position. Pre-oxygenation was performed using a 100% BVM. Anesthesia was induced via rapid sequence, with cricoid pressure. A Glidescope 3 was used for laryngoscopy and a Grade 1 view was obtained. A 8.0 cuffed endotracheal tube was inserted atraumatically through the vocal cords. Confirmation of correct endotracheal tube placement was made by equal and bilateral breath sounds and colorimetric CO2 detection. The endotracheal tube was secured at 20 cm at the teeth. There were no immediate complications noted. The patient remained hemodynamically stable throughout the procedure. A chest x-ray has been ordered. I personally performed the procedure. Fadumo Nieves MD Aug 26, 2017 10:17
--- NOTE | 2017-08-26 11:45 | RADRPT ---
EXAM DATE/TIME: 08/26/2017 11:13 [facility] COMPARISON: CHEST SINGLE AP, August 25, 2017, 13:26. INDICATIONS : POst intubation and OG tube placement. MEDICAL HISTORY : None. SURGICAL HISTORY : None. ENCOUNTER: Initial ACUITY: 1 day PAIN SCORE: Non-responsive. LOCATION: Bilateral chest FINDINGS: Endotracheal tube in good position. Nasogastric tube enters stomach. Bilateral mostly basilar and per ihilar airspace disease with pleural effusions, slightly increased from August 25. No pneumothorax. CONCLUSION: 1. Slight worsening of airspace disease in the lungs since August 25. Satisfactory placement of zoe ogastric tube and endotracheal tube. Basim Pollock MD on August 26, 2017 at 11:43 Board Certified Radiologist. This report was verified electronically.
[2017-08-26] MEDS ORDERED: PROPOFOL 500 MG/50 ML INJ 50 ML ONE (11:49)
[2017-08-26 12:21] LABS: BLOOD GAS BASE EXCESS 1.2 mmol/L (-2-2); BLOOD GAS HCO3 26 mmol/L (22-26); BLOOD GAS METHEMOGLOBIN 1.2 % (0-2); BLOOD GAS O2 HGB SATURATION 95 % (90-100); BLOOD GAS OXYGEN CONTENT 12.6 Vol % (12.0-20.0); BLOOD GAS PCO2 45 mmHg (38-42); BLOOD GAS PO2 97 mmHg (61-120); BLOOD GAS TOTAL HGB 9.4 G/DL (12.0-16.0); CRITICAL VALUE NO; OXYGEN DEVICE VENTILATOR; TEMP CORR TO 98.6; VENT SETTINGS A/C12/500/PEEP5
[2017-08-26 12:22] LABS: DRAW SITE LT RADIAL; FIO2 50 %; NUMBER OF ARTERIAL PUNCTURES 1; STAT NO
[2017-08-26] MEDS: NICOTINE 14 MG/24 HR PATCH T-DERMAL SCH (12:22)
[2017-08-26] MEDS: ASPIRIN 81 MG CHEW TAB PO SCH (12:24)
[2017-08-26] MEDS: CLOPIDOGREL 75 MG TAB PO SCH (12:26)
[2017-08-26] MEDS: ATORVASTATIN 40 MG TAB PO SCH (12:26)
[2017-08-26] MEDS: POTASSIUM CHLORIDE 20 MEQ CONTROLLED RELEASE TAB PO SCH ×2 (12:26→21:00)
[2017-08-26] MEDS: fentaNYL DRIP 250 ML IV PRN ×2 (12:29→22:46)
[2017-08-26] MEDS: FERROUS SULFATE 325 MG (65 MG ELEMENTAL IRON) TAB PO SCH ×2 (12:42→16:57)
[2017-08-26] MEDS ORDERED: ARTIFICIAL TEARS OPTH SOLN 15 ML BTL EACH EYE PRN (13:45)
--- NOTE | 2017-08-26 14:26 | HHI.CCPN ---
Subjective Remarks/Hospital Course CONSULT NOTE This is a 61 yo female that was recently admitted to the hospital .the patient has a history of hip pain and bursitis and subsequently with sedentary for greater than 6 weeks she presented with shortness of breath .CT angiogram of thorax revealed multifocal pulmonary emboli with multiple small filling defects in the right main pulmonary artery interlobar pulmonary artery on the right and one in the left lower lobe pulmonary artery. Emboli was noted to be small but diffusely throughout. The patient was also noted to have moderate sized bilateral pleural effusions at that time . The patient was placed on eliquis approximately 2 weeks ago and she reported significant improvement in her lower ext swelling. On 08/24 the patient presented to the ED with complaints of malaise and nauseated. EKG noted she was in V. tach and the patient was defibrillated. Additional imaging and laboratory studies reveal the patient had a inferior ST elevation LA. Cardiology was consulted Dr. Belle, the patient underwent a cardiac catheterization with PCI bare-metal stent to the dominant distal left circumflex coronary artery. Distal LAD was noted to have 60% stenosis. The patient was transferred to CVICU, and continued on antiplatelet therapy and heparin infusion per cardiology recommendations. Early this a.m. the patient was noted to be due to tachypneic, tachycardic heart rate [id number] on a nonrebreather mask with extreme accessory muscle movement, stat ABG was drawn, patient was noted to be in acute hypoxemic respiratory failure. Critical care medicine was consulted. The patient was emergently intubated, and placed on sedation for ventilator synchrony ROS - General Review of Systems Other dizzy nausea weak PFSH Past Family Social History Past Medical History rosalina lower ext dvt. dx 2 weeks ago left hip troch. bursitis. hysterectomy Reported Medications eliquis 5mg po bid Allergies: Coded Allergies: Sulfa (Sulfonamide Antibiotics) (Unverified Allergy, Severe, Swelling, ) morphine (Unverified Allergy, Severe, vomiting , passing out , 08/23/17) prednisone (Unverified Allergy, Severe, Suicidal , 08/23/17) Family History nc Social History 1ppd x 40yrs tob Objective Vital Signs Date Time Temp Pulse Resp B/P (MAP) Pulse Ox O2 Delivery O2 Flow Rate FiO2 08/26/17 12:24 95 50 08/26/17 09:08 BiPAP 08/26/17 03:00 130 08/26/17 03:00 98.8 22 110/83 (92) 08/26/17 03:00 12.00 Intake and Output 08/26/17 08/26/17 08/27/17 08:00 16:00 00:00 Intake Total 608 ml Output Total 750 ml Balance -142 ml Result Diagram: 08/26/17 0231 08/26/17 0231 Other Results Laboratory Tests Test 08/26/17 06:53 08/26/17 12:11 Blood Gas Puncture Site LT RADIAL LT RADIAL Blood Gas Patient Temperature 98.6 98.6 Blood Gas HCO3 24 mmol/L (22-26) 26 mmol/L (22-26) Blood Gas Base Excess -2.1 mmol/L (-2-2) 1.2 mmol/L (-2-2) Blood Gas Oxygen Saturation 94 % (90-100) 95 % (90-100) Arterial Blood pH 7.26 (7.380-7.420) 7.38 (7.380-7.420) Arterial Blood Partial Pressure CO2 55 mmHg (38-42) 45 mmHg (38-42) Arterial Blood Partial Pressure O2 97 mmHg (61-120) 97 mmHg (61-120) Arterial Blood Oxygen Content 12.1 Vol % (12.0-20.0) 12.6 Vol % (12.0-20.0) Arterial Blood Carboxyhemoglobin 0.8 % (0-4) 1.0 % (0-4) Arterial Blood Methemoglobin 1.2 % (0-2) 1.2 % (0-2) Blood Gas Hemoglobin 9.1 G/DL (12.0-16.0) 9.4 G/DL (12.0-16.0) Oxygen Delivery Device NRB VENTILATOR Blood Gas Liter Flow 15 L/M Blood Gas Inspired Oxygen 100 % 50 % Blood Gas Ventilator Setting A/C12/500/PEEP5 Imaging Last 72 hours Impressions Chest X-Ray 08/26/17 1100 Signed Impressions: Service Date/Time: Saturday, August 26, 2017 11:13 - CONCLUSION: 1. Slight worsening of airspace disease in the lungs since August 25. Satisfactory placement of nasogastric tube and endotracheal tube. Basim Pollock MD Chest X-Ray 08/25/17 1315 Signed Impressions: Service Date/Time: Friday, August 25, 2017 13:26 - CONCLUSION: Pulmonary vascular congestion with small bilateral pleural effusions suggesting failure Jeremias Peacock MD Hip and Pelvis X-Ray 08/25/17 0000 Signed Impressions: Service Date/Time: Friday, August 25, 2017 12:01 - CONCLUSION: Impacted femoral neck fracture at the base without significant step-off Jeremias Peacock MD CT Angiography 08/25/17 0000 Signed Impressions: Service Date/Time: Friday, August 25, 2017 16:06 - CONCLUSION: Multifocal pulmonary emboli with small filling defects identified in the main right pulmonary artery, interlobar pulmonary artery on the right and one in the left lower lobe pulmonary arteries. The emboli are small but multiple. Moderate- sized bilateral pleural effusions. Jeremias Peacock MD Chest X-Ray 08/23/172014 Signed Impressions: Service Date/Time: Wednesday, August 23, 2017 20:15 - CONCLUSION: 1. Normal heart size. No evidence of alveolar pulmonary edema. 2. Mild focal interstitial process upper right lung. Michele Morris MD Last 24 hours Impressions Chest X-Ray 08/26/17 1100 Signed Impressions: Service Date/Time: Saturday, August 26, 2017 11:13 - CONCLUSION: 1. Slight worsening of airspace disease in the lungs since August 25. Satisfactory placement of nasogastric tube and endotracheal tube. Basim Pollock MD Objective Remarks GENERAL: Well-developed well-nourished female in severe respiratory distress on nonrebreather mask SKIN: Warm, diaphoretic HEAD: Atraumatic. Normocephalic. EYES: Pupils equal and round. No scleral icterus. EOMI No injection or drainage. ENT: No nasal bleeding or discharge. Mucous membranes pink and moist. Uvula midline. NECK: Trachea midline. No JVD. CARDIOVASCULAR: Tachycardic rate, regular rhythm. Telemetry -Occasional multifocal PVCs RESPIRATORY: Extreme accessory muscle use. Clear to auscultation. Breath sounds equal bilaterally. Tachypneic on nonrebreather mask GASTROINTESTINAL: Abdomen soft, non-tender, nondistended. No guarding. MUSCULOSKELETAL: Extremities without clubbing, cyanosis, or edema. No obvious deformities. NEUROLOGICAL: GCS 15 Awake and alert. RASS 0. No gross focal/sensory deficits. Follows commands in all 4 extremities. Procedures 08/26-intubation Urinary Catheter: Yes Osorio insert reason: Measure Accurate Output Date of Insertion: Aug 26, 2017 Vascular Central Line Catheter: No A/P Problem List: (1) Acute hypoxemic respiratory failure ICD Code: J96.01 - Acute respiratory failure with hypoxia Status: Acute (2) Anxiety ICD Code: F41.9 - Anxiety Status: Acute (3) Tobacco abuse ICD Code: Z72.0 - Tobacco abuse Status: Acute (4) STEMI (ST elevation myocardial infarction) ICD Code: I21.3 - ST elevation (STEMI) myocardial infarction of unspecified site Status: Acute (5) Hypokalemia ICD Code: E87.6 - Hypokalemia Status: Acute (6) V tach ICD Code: I47.2 - Ventricular tachycardia Status: Acute (7) DVT (deep venous thrombosis) ICD Code: I82.409 - Acute embolism and thrombosis of unspecified deep veins of unspecified lower extremity Status: Acute (8) Pulmonary embolism ICD Code: I26.99 - Other pulmonary embolism without acute cor pulmonale Assessment and Plan Assessment This is a 61-year-old female with ST elevation LA status post PCI with bare- metal stent placement, in the setting now presenting with acute hypoxemic and hypercarbic respiratory failure secondary to pulmonary emboli. Patient emergently intubated, patient is at risk for decompensation and . Plan by systems: Neurologic: Anxiety disorder Chronic pain syndrome Utilize multimodal pain regimen, Ofirmev 1 g every 6 hours x 24-48 hrs, Tramadol q 6 hr scheduled .patient currently on fentanyl infusion for ventilator synchrony, consider propofol infusion if necessary Versed 2 mg every 4 hours when necessary for agitation and anxiety Begin daily sedation vacation in a.m. Tylenol 650 mg every 6 hours for temp greater than 100.5 Respiratory: Acute hypoxemic and hypercarbic respiratory failure Diffuse pulmonary emboli Tobacco abuse 08/26 patient intubated 8.0 ETT atraumatically, grade 1 view 20 cm at the lip Ventilator bundle Obtain O2 sat greater than 92%, wean FiO2 ABG postintubation improved - 7.37/45/96/26/1.2 onFIO2 .50 Chest x-rays and ABGs as clinically indicated Heparin infusion see below Cardiovascular: STEMI S/P bare-metal stent placement 9 H/O V. tach with defibrillation 1 Heparin infusion-management per cardiology Patient on dual antiplatelet therapy and statin Descending LAD coronary artery stenosis 60% Renal: Insert osorio-a chin intubated and sedated and receiving IV diuretics -- Strict I/Os FEN/GI: Maintain nothing by mouth status today Monitor BMP Replete electrolytes per CV ICU protocol Bowel regimen Zofran for nausea Heme/ID: Leukocytosis Most likely reactive, continue to trend Endocrine: Close monitoring per ICU protocol -- SSI Prophylaxis: GI Prophylaxis Protonix DVT Prophylaxis -- SCDs Heparin infusion Lines: Peripheral IVs providing adequate access at this time. Central line if indicated Dispo: my billing statement This patient remains critically ill with one or more organ systems which are or may become a threat to life. I have spent in excess of 94 minutes discontinuously in the care and management of this patient. This time is exclusive of procedures, and includes, but is not limited to, evaluation of the patient, review of the medical record, discussions with family, consultants, nursing staff, or respiratory therapy, and documentation in the medical record. Physician Fadumo Zamorano MD Aug 26, 2017 14:26
[2017-08-26] MEDS ORDERED: BISACODYL 10 MG SUPP RECTAL PRN (14:45)
[2017-08-26] MEDS ORDERED: MAGNESIUM HYDROXIDE SUSP 30 ML CUP PO PRN (14:45)
[2017-08-26] MEDS ORDERED: MISCELLANEOUS NURSING INFORMATION XX SCH (14:45)
[2017-08-26] MEDS ORDERED: LACTULOSE SYRUP 20 GM/30 ML CUP PO PRN (14:45)
[2017-08-26] MEDS ORDERED: SENNOSIDES 8.6 MG TAB PO PRN (14:45)
[2017-08-26] MEDS ORDERED: CHLORHEXIDINE GLUCONATE 2 % 1 PACK (2 CLOTHS) TOP PRN (14:45)
[2017-08-26] MEDS ORDERED: GLUCAGON 1 MG/ML VIAL OTHER PRN (14:45)
[2017-08-26] MEDS ORDERED: DEXTROSE 50% IN WATER 50 ML VIAL(D50) IV PUSH PRN (14:45)
[2017-08-26] MEDS: HEPARIN-D5W 25,000 U/250 ML 250 ML IV PRN (15:29)
[2017-08-26] MEDS: MIDAZOLAM HCL 2 MG/2 ML VIAL IV PRN ×2 (16:34→21:54)
[2017-08-26] MEDS: traMADol HCL 50 MG TAB PO SCH (16:55)
[2017-08-26] MEDS: ACETAMINOPHEN 1000 MG/100 ML 100 ML IV SCH ×2 (16:56→20:51)
[2017-08-26] MEDS: INSULIN ASPART SUPPLEMENTAL SCALE SQ SCH ×2 (16:57→20:45)
[2017-08-26] MEDS ORDERED: FUROSEMIDE 20 MG TAB PO SCH (18:00)
[2017-08-26] MEDS: CHLORHEXIDINE 0.12% (ORAL KIT) 15 ML CUP MT SCH (20:00)
[2017-08-26] MEDS: DOCUSATE SODIUM 50 MG/SENNA 8.6 MG TAB PO SCH (20:47)
[2017-08-26] MEDS ORDERED: MAGNESIUM SULFATE INJ 2 GM in SODIUM CHLORIDE 0.9% INJ 96 ML IV PRN (22:45)
[2017-08-26] MEDS ORDERED: SODIUM CHLOR 0.9% 1000 ML INJ 1,000 ML IV ONE (22:45)
[2017-08-26] MEDS ORDERED: POTASSIUM CHLOR 20 MEQ PREMIX 100 ML IV PRN (22:45)
[2017-08-26] MEDS ORDERED: ALBUMIN 5% INJ 500 ML IV ONE (22:45)
[2017-08-26] MEDS ORDERED: MAGNESIUM OXIDE 400 MG TAB PO PRN (22:45)
[2017-08-26] MEDS ORDERED: POTASSIUM CHLOR 40 MEQ PREMIX 100 ML IV PRN ×2 (22:45)
[2017-08-26] MEDS ORDERED: SODIUM PHOSPHATE INJ 30 MMOL in SODIUM CHLOR 0.9% 250 ML INJ 240 ML IV PRN (22:45)
[2017-08-26] MEDS ORDERED: POTASSIUM PHOSPHATE INJ 30 MMOL in SODIUM CHLOR 0.9% 250 ML INJ 250 ML IV PRN (22:45)
[2017-08-26] MEDS ORDERED: POTASSIUM CHLORIDE 25 MEQ EFFERVESCENT TAB PO PRN (22:45)
[2017-08-26] MEDS ORDERED: MAGNESIUM SULFATE INJ 4 GM in SODIUM CHLORIDE 0.9% INJ 92 ML IV PRN (22:45)
[2017-08-26] MEDS ORDERED: POTASSIUM PHOSPHATE MONOBASIC 500 MG TAB PO/TUBE PRN (22:45)
[2017-08-26] MEDS ORDERED: POTASSIUM PHOSPHATE MONOBASIC 500 MG TAB PO PRN (22:45)
[2017-08-27] VITALS (12 sets, daily range): BP systolic 79–111; BP diastolic 55–76; PULSE 101–114; RESP 12; TEMP 97.8–98.4; O2SAT 92–99
[2017-08-27] MEDS: RESP: IPRATROPIUM 0.5 MG/2.5 ML NEB NEB SCH ×7 (00:19→23:13)
[2017-08-27] MEDS: MIDAZOLAM HCL 2 MG/2 ML VIAL IV PRN ×2 (02:30→07:48)
[2017-08-27] MEDS: ACETAMINOPHEN 1000 MG/100 ML 100 ML IV SCH ×3 (04:22→20:44)
[2017-08-27] MEDS: CHLORHEXIDINE GLUCONATE 2 % 1 PACK (2 CLOTHS) TOP SCH (04:23)
[2017-08-27] MEDS: traMADol HCL 50 MG TAB PO SCH ×5 (06:00→23:44)
[2017-08-27 06:38] LABS: APTT (PATIENT) 59.7 SEC (24.3-30.1)
[2017-08-27 06:46] LABS: BICARBONATE 23.3 MEQ/L (21.0-32.0); POTASSIUM 3.8 MEQ/L (3.5-5.1)
[2017-08-27] MEDS: INSULIN ASPART SUPPLEMENTAL SCALE SQ SCH ×2 (08:00→21:00)
[2017-08-27] MEDS: CHLORHEXIDINE 0.12% (ORAL KIT) 15 ML CUP MT SCH ×2 (08:00→20:00)
[2017-08-27] MEDS ORDERED: DEXMEDETOMIDINE HCL 200 MCG/2 ML VIAL IV PUSH ONE (08:15)
--- NOTE | 2017-08-27 08:21 | PD.CARD.PN ---
Subjective Subjective Remarks sedated, intubated and mechanically ventilated. nursing staff reports decreased urine output overnight. (Selena Tellez) Objective Medications Current Medications Medications (Trade) Dose Ordered Sig/Jamilah Route Start Time Stop Time Status Last Admin (NS Flush) 2 ml UNSCH PRN IVF 08/23/17 20:15 (Xylocaine 2% Jelly) 1 applic UNSCH PRN TOP 08/23/17 21:45 (Aspirin Chew) 81 mg DAILY PO 08/24/17 09:00 08/26/17 12:24 (Plavix) 75 mg DAILY PO 08/24/17 09:00 08/26/17 12:26 (Atropine Inj) 0.5 mg UNSCH PRN IV PUSH 08/23/17 21:45 (Zofran Inj) 4 mg Q4H PRN IV PUSH 08/23/17 21:45 08/23/17 23:50 (Lipitor) 40 mg HS PO 08/24/17 21:00 08/26/17 12:26 (Ferrous Sulfate) 325 mg BID@ PO 08/24/17 12:00 08/26/17 16:57 (Habitrol 14 Mg Patch.24 Hr) 1 patch DAILY T-DERMAL 08/25/17 09:00 09/01/17 09:00 08/26/17 12:22 Miscellaneous Information 1 DAILY T-DERMAL 08/25/17 09:00 09/01/17 09:00 08/26/17 09:00 Acetaminophen 100 ml @ 400 mls/hr Q6H PRN IV 08/24/17 18:45 08/25/17 19:59 (KCl) 20 meq Q12HR PO 08/25/17 09:00 08/26/17 12:26 (Atrovent Neb) 0.5 mg Q4HR NEB NEB 08/25/17 16:00 08/27/17 03:22 (Atrovent Neb) 0.5 mg Q2HR NEB PRN NEB 08/25/17 14:00 08/26/17 06:00 Vancomycin HCl 1000 mg/Sodium Chloride 250 ml @ 250 mls/hr FLOOR SCRUBBER IV 08/25/17 16:00 08/29/17 15:59 (Heparin Inj) 5,000 units UNSCH PRN IV PUSH 08/25/17 23:00 (Heparin Inj) 2,500 units UNSCH PRN IV PUSH 08/25/17 23:00 Heparin Sodium/ Dextrose 250 ml @ 13 mls/hr TITRATE PRN IV 08/25/17 17:00 08/26/17 15:29 (Protonix) 40 mg DAILY PO 08/26/17 09:00 Fentanyl Citrate 250 ml @ 5 mls/hr TITRATE PRN IV 08/26/17 07:15 08/26/17 22:46 (Lopressor) 50 mg Q12HR PO 08/26/17 09:00 08/26/17 09:00 (Lasix) 20 mg BID@09,18 PO 08/26/17 18:00 08/26/17 18:34 (Tears Naturale Opth Soln) 1 drop Q4H PRN EACH EYE 08/26/17 13:45 (Peridex 0.12% Liq) 15 ml BID@08,20 MT 08/26/17 20:00 08/26/17 20:00 (Ultram) 50 mg Q6HR PO 08/26/17 14:30 08/27/17 06:00 Acetaminophen 100 ml @ 400 mls/hr Q6H IV 08/26/17 15:00 08/28/17 14:30 08/27/17 04:22 (D50w (Vial) Inj) 50 ml UNSCH PRN IV PUSH 08/26/17 14:45 (Glucagon Inj) 1 mg UNSCH PRN OTHER 08/26/17 14:45 (NovoLOG SUPPLEMENTAL SCALE) 1 ACHS SLIDING SCALE SQ 08/26/17 17:00 Miscellaneous Information 1 Q361D XX 08/26/17 14:45 (Chlorhexidine 2% Cloth) 3 pack Taper DAILY@04 TOP 08/27/17 04:00 08/23/18 03:59 08/27/17 04:23 (Chlorhexidine 2% Cloth) 3 pack UNSCH PRN TOP 08/26/17 14:45 (Clair-Colace) 1 tab BID PO 08/26/17 21:00 08/26/17 20:47 (Milk Of Magnesia Liq) 30 ml Q12H PRN PO 08/26/17 14:45 (Senokot) 17.2 mg Q12H PRN PO 08/26/17 14:45 08/26/17 18:34 (Dulcolax Supp) 10 mg DAILY PRN RECTAL 08/26/17 14:45 (Lactulose Liq) 30 ml DAILY PRN PO 08/26/17 14:45 (Versed Inj) 2 mg Q4H PRN IV 08/26/17 15:30 08/27/17 07:48 Potassium Chloride 100 ml @ 50 mls/hr Q2H PRN IV 08/26/17 22:45 Potassium Chloride 100 ml @ 50 mls/hr Q2H PRN IV 08/26/17 22:45 (K-Lyte Cl Eff) 50 meq UNSCH PRN PO 08/26/17 22:45 Potassium Chloride 100 ml @ 25 mls/hr UNSCH PRN IV 08/26/17 22:45 Potassium Chloride 100 ml @ 50 mls/hr Q2H PRN IV 08/26/17 22:45 Magnesium Sulfate 4 gm/Sodium Chloride 100 ml @ 50 mls/hr UNSCH PRN IV 08/26/17 22:45 (Mag-Ox) 800 mg UNSCH PRN PO 08/26/17 22:45 Magnesium Sulfate 2 gm/Sodium Chloride 100 ml @ 50 mls/hr UNSCH PRN IV 08/26/17 22:45 (K-Phos) 2,000 mg Q4H PRN PO 08/26/17 22:45 Sodium Phosphate 30 mmol/Sodium Chloride 250 ml @ 42 mls/hr UNSCH PRN IV 08/26/17 22:45 (K-Phos) 2,000 mg UNSCH PRN PO/TUBE 08/26/17 22:45 Potassium Phosphate 30 mmol/ Sodium Chloride 260 ml @ 42 mls/hr UNSCH PRN IV 08/26/17 22:45 (Precedex Inj) 34 mcg ONCE ONCE IV PUSH 08/27/17 08:15 08/27/17 08:16 UNV Dexmedetomidine HCl 200 mcg/ Sodium Chloride 52 ml @ 3.56 mls/hr TITRATE PRN IV 08/27/17 08:15 UNV Vital Signs / I&O Vital Signs Date Time Temp Pulse Resp B/P (MAP) Pulse Ox O2 Delivery O2 Flow Rate FiO2 08/27/17 04:14 96 45 08/27/17 04:00 50 08/27/17 04:00 55 08/27/17 03:00 108 08/27/17 03:00 97.9 107 12 86/62 (70) 92 08/27/17 03:00 96 Mechanical Ventilator 55 08/27/17 01:16 98 40 08/27/17 00:00 50 08/27/17 00:00 40 08/26/17 23:00 97 Mechanical Ventilator 40 08/26/17 23:00 98.5 111 12 81/56 (64) 99 08/26/17 23:00 90 08/26/17 22:25 98 40 08/26/17 20:25 96 40 08/26/17 20:00 50 08/26/17 20:00 40 08/26/17 19:15 132 08/26/17 19:00 97 Mechanical Ventilator 40 08/26/17 19:00 98.9 119 12 86/60 (69) 97 08/26/17 17:35 98 40 08/26/17 16:00 50 08/26/17 15:00 97 Mechanical Ventilator 40 08/26/17 15:00 113 08/26/17 15:00 99.9 113 12 81/59 (66) 98 08/26/17 14:58 99 40 08/26/17 12:24 95 50 08/26/17 11:30 50 08/26/17 11:00 98.3 137 12 140/96 (111) 96 08/26/17 11:00 145 08/26/17 11:00 98 Mechanical Ventilator 100 08/26/17 10:00 99 100 08/26/17 09:50 100 08/26/17 09:08 95 BiPAP 70 08/26/17 08:43 97 80 I/O 08/26/17 08/26/17 08/26/17 08/27/17 08/27/17 08/27/17 07:00 15:00 23:00 07:00 15:00 23:00 Intake Total 608 ml 651.5 ml 1810 ml Output Total 750 ml 1425 ml 320 ml Balance -142 ml -773.5 ml 1490 ml Intake Oral 480 ml 0 ml IV Total 128 ml 551.5 ml 1810 ml Tube Irrigant 100 ml Output Urine Total 750 ml 1425 ml 320 ml Gastric Drainage Total 0 ml # Bowel Movements 0 0 0 Physical Exam sedated, intubated and mechanically ventilated SKIN: Warm and dry. HEAD: Atraumatic. Normocephalic. EYES: Pupils equal and round. ENT: No nasal bleeding or discharge NECK: Trachea midline. No JVD. CARDIOVASCULAR:tachycardic and regular rhythm. no murmurs RESPIRATORY: mechanically ventilated. decreased breath sounds to bilateral bases GASTROINTESTINAL: Abdomen soft, non-tender, nondistended. MUSCULOSKELETAL: Extremities without clubbing, cyanosis, or edema. No obvious deformities. NEUROLOGICAL: Awake and alert. No obvious cranial nerve deficits. Laboratory Laboratory Tests Test 08/26/17 08:23 08/26/17 12:11 08/26/17 15:00 08/27/17 04:51 Activated Partial Thromboplast Time 51.1 SEC 59.7 SEC Blood Gas Puncture Site LT RADIAL Blood Gas Patient Temperature 98.6 Blood Gas HCO3 26 mmol/L Blood Gas Base Excess 1.2 mmol/L Blood Gas Oxygen Saturation 95 % Arterial Blood pH 7.38 Arterial Blood Partial Pressure CO2 45 mmHg Arterial Blood Partial Pressure O2 97 mmHg Arterial Blood Oxygen Content 12.6 Vol % Arterial Blood Carboxyhemoglobin 1.0 % Arterial Blood Methemoglobin 1.2 % Blood Gas Hemoglobin 9.4 G/DL Oxygen Delivery Device VENTILATOR Blood Gas Ventilator Setting A/C12/500/PEEP5 Blood Gas Inspired Oxygen 50 % Nasal Screen MRSA (PCR) MRSA NOT DETECTED Blood Urea Nitrogen 32 MG/DL Creatinine 0.64 MG/DL Random Glucose 86 MG/DL Calcium Level 8.0 MG/DL Sodium Level 139 MEQ/L Potassium Level 3.8 MEQ/L Chloride Level 104 MEQ/L Carbon Dioxide Level 23.3 MEQ/L Anion Gap 12 MEQ/L Estimat Glomerular Filtration Rate 95 ML/MIN Imaging Last 24 hours Impressions Chest X-Ray 08/26/17 1100 Signed Impressions: Service Date/Time: Saturday, August 26, 2017 11:13 - CONCLUSION: 1. Slight worsening of airspace disease in the lungs since August 25. Satisfactory placement of nasogastric tube and endotracheal tube. Basim Pollock MD (Selena Tellez) Assessment and Plan Problem List: (1) V tach ICD Codes: I47.2 - Ventricular tachycardia Status: Acute (2) STEMI (ST elevation myocardial infarction) ICD Codes: I21.3 - ST elevation (STEMI) myocardial infarction of unspecified site Status: Acute Assessment and Plan acute respiratory distress- intubated, sedated and mechanically ventilated. +bilateral pulmonary emboli/ DVT- heparin gtt STEMI - s/p PCI BMS distal left circumflex. Moderate proximal LAD stenosis, consider lexiscan upon recovery echo normal EF, mild-mod MVR decreased urine output overnight, HR improved with bb, SBP low. occasional ectopy on tele. (Selena Tellez) Assessment and Plan STEMI - last EF 50%. hypotensive. hold BB due to BP. PCI LCx asa plavix statin. hypotension - repeated limited echo for EF and RV function (although not good t- PA candidate). May need to consider phenylephrine if continued hypotension. ? right heart catheterization ?CI/CO ?SVR ?etiology of hypotension and manage pressor support/volume status if needed (PA catheter should be ok despite PE). alternatively consider arterial line with Vigileo and CVP. pulmonary embolism - heparin gtt. BLE venous US to assess residual thrombus burden. ? IVC filter if heavy thrombotic burden. Not much reserve to tolerate any further emboli. hold diuretic for now. monitor FiO2 and CVP and U.OP. anemia - cont FeSO4 hip fracture - ortho following. (Jeremias Belle MD) Selena Tellez Aug 27, 2017 08:21 Jeremias Belle MD Aug 27, 2017 09:10
--- NOTE | 2017-08-27 08:27 | HHI.CCPN ---
Subjective Remarks/Hospital Course 08/26: This is a 61 yo female that was recently admitted to the hospital .the patient has a history of hip pain and bursitis and subsequently with sedentary for greater than 6 weeks she presented with shortness of breath .CT angiogram of thorax revealed multifocal pulmonary emboli with multiple small filling defects in the right main pulmonary artery interlobar pulmonary artery on the right and one in the left lower lobe pulmonary artery. Emboli was noted to be small but diffusely throughout. The patient was also noted to have moderate sized bilateral pleural effusions at that time . The patient was placed on eliquis approximately 2 weeks ago and she reported significant improvement in her lower ext swelling. On 08/24 the patient presented to the ED with complaints of malaise and nauseated. EKG noted she was in V. tach and the patient was defibrillated. Additional imaging and laboratory studies reveal the patient had a inferior ST elevation PA. Cardiology was consulted Dr. Belle , the patient underwent a cardiac catheterization with PCI bare-metal stent to the dominant distal left circumflex coronary artery. Distal LAD was noted to have 60% stenosis. The patient was transferred to CVICU, and continued on antiplatelet therapy and heparin infusion per cardiology recommendations. Early this a.m. the patient was noted to be due to tachypneic, tachycardic heart rate [id number] on a nonrebreather mask with extreme accessory muscle movement, stat ABG was drawn, patient was noted to be in acute hypoxemic respiratory failure. Critical care medicine was consulted. The patient was emergently intubated, and placed on sedation for ventilator synchrony 08/27: Orally intubated on mechanical ventilation. Patient anxious on fentanyl drip. Blood pressure borderline. Received a fluid bolus overnight for oliguria. Remains tachycardic. Patient does have a left femoral neck fracture and has been seen by orthopedics who are recommending surgery. ROS - General Review of Systems Other dizzy nausea weak PFSH Past Family Social History Past Medical History rosalina lower ext dvt. dx 2 weeks ago left hip troch. bursitis. hysterectomy Reported Medications eliquis 5mg po bid Allergies: Coded Allergies: Sulfa (Sulfonamide Antibiotics) (Unverified Allergy, Severe, Swelling, ) morphine (Unverified Allergy, Severe, vomiting , passing out , 08/23/17) prednisone (Unverified Allergy, Severe, Suicidal , 08/23/17) Family History nc Social History 1ppd x 40yrs tob Objective Vital Signs Date Time Temp Pulse Resp B/P (MAP) Pulse Ox O2 Delivery O2 Flow Rate FiO2 08/27/17 04:14 96 45 08/27/17 03:00 108 08/27/17 03:00 97.9 12 86/62 (70) 08/27/17 03:00 Mechanical Ventilator 08/26/17 11:00 Intake and Output 08/27/17 08/27/17 08/28/17 08:00 16:00 00:00 Intake Total 810 ml Output Total 320 ml Balance 490 ml Result Diagram: 08/26/17 0231 08/27/17 0451 Other Results Laboratory Tests Test 08/26/17 08:23 08/26/17 12:11 08/26/17 15:00 08/27/17 04:51 Activated Partial Thromboplast Time 51.1 SEC 59.7 SEC Blood Gas Puncture Site LT RADIAL Blood Gas Patient Temperature 98.6 Blood Gas HCO3 26 mmol/L Blood Gas Base Excess 1.2 mmol/L Blood Gas Oxygen Saturation 95 % Arterial Blood pH 7.38 Arterial Blood Partial Pressure CO2 45 mmHg Arterial Blood Partial Pressure O2 97 mmHg Arterial Blood Oxygen Content 12.6 Vol % Arterial Blood Carboxyhemoglobin 1.0 % Arterial Blood Methemoglobin 1.2 % Blood Gas Hemoglobin 9.4 G/DL Oxygen Delivery Device VENTILATOR Blood Gas Ventilator Setting A/C12/500/PEEP5 Blood Gas Inspired Oxygen 50 % Nasal Screen MRSA (PCR) MRSA NOT DETECTED Blood Urea Nitrogen 32 MG/DL Creatinine 0.64 MG/DL Random Glucose 86 MG/DL Calcium Level 8.0 MG/DL Sodium Level 139 MEQ/L Potassium Level 3.8 MEQ/L Chloride Level 104 MEQ/L Carbon Dioxide Level 23.3 MEQ/L Anion Gap 12 MEQ/L Estimat Glomerular Filtration Rate 95 ML/MIN Imaging Last 72 hours Impressions Chest X-Ray 08/26/17 1100 Signed Impressions: Service Date/Time: Saturday, August 26, 2017 11:13 - CONCLUSION: 1. Slight worsening of airspace disease in the lungs since August 25. Satisfactory placement of nasogastric tube and endotracheal tube. Basim Pollock MD Chest X-Ray 08/25/17 1315 Signed Impressions: Service Date/Time: Friday, August 25, 2017 13:26 - CONCLUSION: Pulmonary vascular congestion with small bilateral pleural effusions suggesting failure Jeremias Peacock MD Hip and Pelvis X-Ray 08/25/17 0000 Signed Impressions: Service Date/Time: Friday, August 25, 2017 12:01 - CONCLUSION: Impacted femoral neck fracture at the base without significant step-off Jeremias Peacock MD CT Angiography 08/25/17 0000 Signed Impressions: Service Date/Time: Friday, August 25, 2017 16:06 - CONCLUSION: Multifocal pulmonary emboli with small filling defects identified in the main right pulmonary artery, interlobar pulmonary artery on the right and one in the left lower lobe pulmonary arteries. The emboli are small but multiple. Moderate- sized bilateral pleural effusions. Jeremias Peacock MD Chest X-Ray 08/23/172014 Signed Impressions: Service Date/Time: Wednesday, August 23, 2017 20:15 - CONCLUSION: 1. Normal heart size. No evidence of alveolar pulmonary edema. 2. Mild focal interstitial process upper right lung. Michele Morris MD Last 24 hours Impressions Chest X-Ray 08/26/17 1100 Signed Impressions: Service Date/Time: Saturday, August 26, 2017 11:13 - CONCLUSION: 1. Slight worsening of airspace disease in the lungs since August 25. Satisfactory placement of nasogastric tube and endotracheal tube. Basim Pollock MD Objective Remarks HEENT/ Neuro: Sedated, arousable, and she was, orally intubated, Pallor present , no icterus, tongue/ mucosa moist Neck: No JVD Chest/Pulm: on mech vent, good air entry bilaterally, no wheezing or crackles CVS: S1-S2 regular, no murmur GI/abdomen: soft, nontender, bowel sounds sluggish Extremities: warm bilaterally, no edema. Left hip pain with active and passive motion. Procedures 08/26-intubation Date of Insertion: Aug 26, 2017 A/P Problem List: (1) Acute hypoxemic respiratory failure ICD Code: J96.01 - Acute respiratory failure with hypoxia Status: Acute (2) Anxiety ICD Code: F41.9 - Anxiety Status: Acute (3) Tobacco abuse ICD Code: Z72.0 - Tobacco abuse Status: Acute (4) STEMI (ST elevation myocardial infarction) ICD Code: I21.3 - ST elevation (STEMI) myocardial infarction of unspecified site Status: Acute (5) Hypokalemia ICD Code: E87.6 - Hypokalemia Status: Acute (6) V tach ICD Code: I47.2 - Ventricular tachycardia Status: Acute (7) DVT (deep venous thrombosis) ICD Code: I82.409 - Acute embolism and thrombosis of unspecified deep veins of unspecified lower extremity Status: Acute (8) Pulmonary embolism ICD Code: I26.99 - Other pulmonary embolism without acute cor pulmonale Assessment and Plan Assessment This is a 61-year-old female with ST elevation PA status post PCI with bare- metal stent placement, in the setting now presenting with acute hypoxemic and hypercarbic respiratory failure secondary to pulmonary emboli, left femoral neck fracture. Patient emergently intubated, patient is at risk for decompensation and . Plan by systems: Neurologic: Anxiety disorder Chronic pain syndrome Utilize multimodal pain regimen, Ofirmev 1 g every 6 hours x 24-48 hrs, Tramadol q 6 hr scheduled .patient currently on fentanyl infusion for ventilator synchrony, consider propofol infusion if necessary Versed 2 mg every 4 hours when necessary for agitation and anxiety Begin daily sedation vacation in a.m. Tylenol 650 mg every 6 hours for temp greater than 100.5 Respiratory: Acute hypoxemic and hypercarbic respiratory failure Diffuse pulmonary emboli Tobacco abuse 08/26 patient intubated 8.0 ETT atraumatically, grade 1 view 20 cm at the lip Ventilator bundle Obtain O2 sat greater than 92%, wean FiO2 ABG postintubation improved - 7.37/45/96/26/1.2 onFIO2 .50 Chest x-rays and ABGs as clinically indicated Heparin infusion see below Cardiovascular: STEMI S/P bare-metal stent placement 9 H/O V. tach with defibrillation 1 Pulmonary embolism Heparin gtt. being followed by cardiology Patient on dual antiplatelet therapy and statin Descending LAD coronary artery stenosis 60%. Repeat 2-D echo to assess for RV dysfunction for risk stratification for PE as patient needs orthopedic surgery for left femoral neck fracture. Renal: Insert osorio-patient intubated and sedated and receiving IV diuretics -- Strict I/Os FEN/GI: Start tube feeds and advanced to goal as tolerated Monitor BMP Replete electrolytes per CV ICU protocol Bowel regimen Zofran for nausea Heme/ID: Leukocytosis Most likely reactive, continue to trend Musculoskeletal: Left femoral neck fracture being followed by orthopedics. Needs surgery however extremely high risk due to recent PA and PE. Await cardiac clearance. Endocrine: Close monitoring per ICU protocol -- SSI Prophylaxis: GI Prophylaxis Protonix DVT Prophylaxis -- SCDs Heparin infusion Lines: Peripheral IVs providing adequate access at this time. Central line if indicated Dispo: my billing statement This patient remains critically ill with one or more organ systems which are or may become a threat to life. I have spent in excess of 40 minutes discontinuously in the care and management of this patient. This time is exclusive of procedures, and includes, but is not limited to, evaluation of the patient, review of the medical record, discussions with family, consultants, nursing staff, or respiratory therapy, and documentation in the medical record. Humberto Castle MD Aug 27, 2017 08:27
[2017-08-27] MEDS: REMOVE OLD NICOTINE PATCH T-DERMAL SCH (09:00)
[2017-08-27] MEDS: POTASSIUM CHLORIDE 20 MEQ CONTROLLED RELEASE TAB PO SCH ×2 (09:00→21:00)
[2017-08-27] MEDS: PANTOPRAZOLE SOD 40 MG DELAYED RELEASE TAB PO SCH (09:00)
[2017-08-27] MEDS: NICOTINE 14 MG/24 HR PATCH T-DERMAL SCH (09:42)
[2017-08-27] MEDS: DEXMEDETOMIDINE INJ 200 MCG in SODIUM CHLORIDE 0.9% INJ 50 ML IV PRN ×2 (09:45→18:00)
[2017-08-27] MEDS: ASPIRIN 81 MG CHEW TAB PO SCH (09:47)
[2017-08-27] MEDS: CLOPIDOGREL 75 MG TAB PO SCH (09:48)
[2017-08-27] MEDS: DOCUSATE SODIUM 50 MG/SENNA 8.6 MG TAB PO SCH ×2 (09:48→20:41)
--- NOTE | 2017-08-27 09:57 | HHI.CCPN ---
Subjective Remarks/Hospital Course 08/26: This is a 61 yo female that was recently admitted to the hospital .the patient has a history of hip pain and bursitis and subsequently with sedentary for greater than 6 weeks she presented with shortness of breath .CT angiogram of thorax revealed multifocal pulmonary emboli with multiple small filling defects in the right main pulmonary artery interlobar pulmonary artery on the right and one in the left lower lobe pulmonary artery. Emboli was noted to be small but diffusely throughout. The patient was also noted to have moderate sized bilateral pleural effusions at that time . The patient was placed on eliquis approximately 2 weeks ago and she reported significant improvement in her lower ext swelling. On 08/24 the patient presented to the ED with complaints of malaise and nauseated. EKG noted she was in V. tach and the patient was defibrillated. Additional imaging and laboratory studies reveal the patient had a inferior ST elevation IN. Cardiology was consulted Dr. Belle , the patient underwent a cardiac catheterization with PCI bare-metal stent to the dominant distal left circumflex coronary artery. Distal LAD was noted to have 60% stenosis. The patient was transferred to CVICU, and continued on antiplatelet therapy and heparin infusion per cardiology recommendations. Early this a.m. the patient was noted to be due to tachypneic, tachycardic heart rate [id number] on a nonrebreather mask with extreme accessory muscle movement, stat ABG was drawn, patient was noted to be in acute hypoxemic respiratory failure. Critical care medicine was consulted. The patient was emergently intubated, and placed on sedation for ventilator synchrony 08/27: Orally intubated on mechanical ventilation. Patient anxious on fentanyl drip. Blood pressure borderline. Received a fluid bolus overnight for oliguria. Remains tachycardic. Patient does have a left femoral neck fracture and has been seen by orthopedics who are recommending surgery. ROS - General Review of Systems Other dizzy nausea weak PFSH Past Family Social History Past Medical History rosalina lower ext dvt. dx 2 weeks ago left hip troch. bursitis. hysterectomy Reported Medications eliquis 5mg po bid Allergies: Coded Allergies: Sulfa (Sulfonamide Antibiotics) (Unverified Allergy, Severe, Swelling, ) morphine (Unverified Allergy, Severe, vomiting , passing out , 08/23/17) prednisone (Unverified Allergy, Severe, Suicidal , 08/23/17) Family History nc Social History 1ppd x 40yrs tob Objective Vital Signs Date Time Temp Pulse Resp B/P (MAP) Pulse Ox O2 Delivery O2 Flow Rate FiO2 08/27/17 09:28 98 55 08/27/17 03:00 108 08/27/17 03:00 97.9 12 86/62 (70) 08/27/17 03:00 Mechanical Ventilator 08/26/17 11:00 Intake and Output 08/27/17 08/27/17 08/28/17 08:00 16:00 00:00 Intake Total 810 ml Output Total 320 ml Balance 490 ml Result Diagram: 08/26/17 0231 08/27/17 0451 Other Results Laboratory Tests Test 08/26/17 12:11 Blood Gas Puncture Site LT RADIAL Blood Gas Patient Temperature 98.6 Blood Gas HCO3 26 mmol/L (22-26) Blood Gas Base Excess 1.2 mmol/L (-2-2) Blood Gas Oxygen Saturation 95 % (90-100) Arterial Blood pH 7.38 (7.380-7.420) Arterial Blood Partial Pressure CO2 45 mmHg (38-42) Arterial Blood Partial Pressure O2 97 mmHg (61-120) Arterial Blood Oxygen Content 12.6 Vol % (12.0-20.0) Arterial Blood Carboxyhemoglobin 1.0 % (0-4) Arterial Blood Methemoglobin 1.2 % (0-2) Blood Gas Hemoglobin 9.4 G/DL (12.0-16.0) Oxygen Delivery Device VENTILATOR Blood Gas Ventilator Setting A/C12/500/PEEP5 Blood Gas Inspired Oxygen 50 % Imaging Last 72 hours Impressions Chest X-Ray 08/26/17 1100 Signed Impressions: Service Date/Time: Saturday, August 26, 2017 11:13 - CONCLUSION: 1. Slight worsening of airspace disease in the lungs since August 25. Satisfactory placement of nasogastric tube and endotracheal tube. Basim Pollock MD Chest X-Ray 08/25/17 1315 Signed Impressions: Service Date/Time: Friday, August 25, 2017 13:26 - CONCLUSION: Pulmonary vascular congestion with small bilateral pleural effusions suggesting failure Jeremias Peacock MD Hip and Pelvis X-Ray 08/25/17 0000 Signed Impressions: Service Date/Time: Friday, August 25, 2017 12:01 - CONCLUSION: Impacted femoral neck fracture at the base without significant step-off Jeremias Peacock MD CT Angiography 08/25/17 0000 Signed Impressions: Service Date/Time: Friday, August 25, 2017 16:06 - CONCLUSION: Multifocal pulmonary emboli with small filling defects identified in the main right pulmonary artery, interlobar pulmonary artery on the right and one in the left lower lobe pulmonary arteries. The emboli are small but multiple. Moderate- sized bilateral pleural effusions. Jeremias Peacock MD Chest X-Ray 08/23/172014 Signed Impressions: Service Date/Time: Wednesday, August 23, 2017 20:15 - CONCLUSION: 1. Normal heart size. No evidence of alveolar pulmonary edema. 2. Mild focal interstitial process upper right lung. Michele Morris MD Last 24 hours Impressions Chest X-Ray 08/26/17 1100 Signed Impressions: Service Date/Time: Saturday, August 26, 2017 11:13 - CONCLUSION: 1. Slight worsening of airspace disease in the lungs since August 25. Satisfactory placement of nasogastric tube and endotracheal tube. Basim Pollock MD Objective Remarks HEENT/ Neuro: Sedated, arousable, and she was, orally intubated, Pallor present , no icterus, tongue/ mucosa moist Neck: No JVD Chest/Pulm: on mech vent, good air entry bilaterally, no wheezing or crackles CVS: S1-S2 regular, no murmur GI/abdomen: soft, nontender, bowel sounds sluggish Extremities: warm bilaterally, no edema. Left hip pain with active and passive motion. Procedures 08/26-intubation Date of Insertion: Aug 26, 2017 A/P Problem List: (1) Acute hypoxemic respiratory failure ICD Code: J96.01 - Acute respiratory failure with hypoxia Status: Acute (2) Anxiety ICD Code: F41.9 - Anxiety Status: Acute (3) Tobacco abuse ICD Code: Z72.0 - Tobacco abuse Status: Acute (4) STEMI (ST elevation myocardial infarction) ICD Code: I21.3 - ST elevation (STEMI) myocardial infarction of unspecified site Status: Acute (5) Hypokalemia ICD Code: E87.6 - Hypokalemia Status: Acute (6) V tach ICD Code: I47.2 - Ventricular tachycardia Status: Acute (7) DVT (deep venous thrombosis) ICD Code: I82.409 - Acute embolism and thrombosis of unspecified deep veins of unspecified lower extremity Status: Acute (8) Pulmonary embolism ICD Code: I26.99 - Other pulmonary embolism without acute cor pulmonale Assessment and Plan Assessment This is a 61-year-old female with ST elevation IN status post PCI with bare- metal stent placement, in the setting now presenting with acute hypoxemic and hypercarbic respiratory failure secondary to pulmonary emboli, left femoral neck fracture. Patient emergently intubated, patient is at risk for decompensation and . Plan by systems: Neurologic: Anxiety disorder Chronic pain syndrome Utilize multimodal pain regimen, Ofirmev 1 g every 6 hours x 24-48 hrs, Tramadol q 6 hr scheduled .patient currently on fentanyl infusion for ventilator synchrony, consider propofol infusion if necessary Versed 2 mg every 4 hours when necessary for agitation and anxiety Begin daily sedation vacation in a.m. Tylenol 650 mg every 6 hours for temp greater than 100.5 Respiratory: Acute hypoxemic and hypercarbic respiratory failure Diffuse pulmonary emboli Tobacco abuse 08/26 patient intubated 8.0 ETT atraumatically, grade 1 view 20 cm at the lip Ventilator bundle Obtain O2 sat greater than 92%, wean FiO2 ABG postintubation improved - 7.37/45/96/26/1.2 onFIO2 .50 Chest x-rays and ABGs as clinically indicated Heparin infusion see below Cardiovascular: STEMI S/P bare-metal stent placement 9 H/O V. tach with defibrillation 1 Pulmonary embolism Heparin gtt. being followed by cardiology Patient on dual antiplatelet therapy and statin Descending LAD coronary artery stenosis 60%. Repeat 2-D echo to assess for RV dysfunction for risk stratification for PE as patient needs orthopedic surgery for left femoral neck fracture. Renal: Insert osorio-patient intubated and sedated and receiving IV diuretics -- Strict I/Os FEN/GI: Start tube feeds and advanced to goal as tolerated Monitor BMP Replete electrolytes per CV ICU protocol Bowel regimen Zofran for nausea Heme/ID: Leukocytosis ? sepsis Will obtain duque cultures. Initiate empiric antibiotic coverage with IV Zosyn on 08/27 Musculoskeletal: Left femoral neck fracture being followed by orthopedics. Needs surgery however extremely high risk due to recent IN and PE. Await cardiac clearance. Endocrine: Close monitoring per ICU protocol -- SSI Prophylaxis: GI Prophylaxis Protonix DVT Prophylaxis -- SCDs Heparin infusion Lines: Peripheral IVs providing adequate access at this time. Central line if indicated Dispo: my billing statement This patient remains critically ill with one or more organ systems which are or may become a threat to life. I have spent in excess of 40 minutes discontinuously in the care and management of this patient. This time is exclusive of procedures, and includes, but is not limited to, evaluation of the patient, review of the medical record, discussions with family, consultants, nursing staff, or respiratory therapy, and documentation in the medical record. Humberto Castle MD Aug 27, 2017 09:57
--- NOTE | 2017-08-27 11:16 | RADRPT ---
EXAM DATE/TIME: 08/27/2017 10:23 [facility] COMPARISON: No previous studies available for comparison. INDICATIONS : Bilateral leg swelling. MEDICAL HISTORY : Glasses. Deep vein thrombosis. Hiatal hernia. Ectopic . Buritis left hip. Anxiety. SURGICAL HISTORY : Hysterectomy. Thyroid tumor removed. ENCOUNTER: Initial ACUITY: 1 month PAIN SCORE: 0/10 LOCATION: Bilateral legs. TECHNIQUE: Venous ultrasound of the left and right leg was performed from the inguinal ligament to the proximal calf. Real-time, color Doppler and spectral tracing, compression and augmentation techniques were us ed. FINDINGS: RIGHT LEG: Abnormal. Echogenic thrombus throughout the deep venous system from thigh to proximal calf with nonc ompressible vessels and no flow. LEFT LEG: Abnormal. Echogenic thrombus throughout the deep venous system from thigh to proximal calf with nonc ompressible vessels and augmentation flow. CONCLUSION: Positive for deep venous thrombosis bilaterally from thigh to proximal calf. Michele Morris MD on August 27, 2017 at 11:12 Board Certified Radiologist. This report was verified electronically.
[2017-08-27 11:44] LABS: BACTERIA, URINE RARE /hpf; BLOOD, URINE MOD (NEG); GLUCOSE,URINE NEG (NEG); HYALINE CAST, URINE 9 /lpf (RARE); KETONE, URINE 10 mg/dL (NEG); MUCUS URINE FEW /lpf (OCC); NITRITE,URINE NEG (NEG); PH, URINE 5.5 (5.0-8.5); URINE COLOR YELLOW (YELLW/STRAW)
[2017-08-27 11:51] LABS: COMMENT (UR) CATH-CULTURE IND; CULTURE IF INDICATED CATH CULTURE IND
[2017-08-27] MEDS: ONDANSETRON HCL 4 MG/2 ML VIAL IV PUSH PRN ×2 (12:58→17:15)
[2017-08-27] MEDS: FERROUS SULFATE 325 MG (65 MG ELEMENTAL IRON) TAB PO SCH ×2 (13:21→17:00)
[2017-08-27] MEDS: PIPERACIL-TAZO 4.5 GM PREMIX 100 ML IV SCH ×3 (13:22→23:37)
[2017-08-27] MEDS: HEPARIN-D5W 25,000 U/250 ML 250 ML IV PRN (18:04)
[2017-08-27] MEDS: ATORVASTATIN 40 MG TAB PO SCH (20:41)
[2017-08-28] VITALS (17 sets, daily range): BP systolic 90–125; BP diastolic 58–79; PULSE 89–144; RESP 12–30; TEMP 97.8–98.8; O2SAT 97–100
[2017-08-28] MEDS: DEXMEDETOMIDINE INJ 200 MCG in SODIUM CHLORIDE 0.9% INJ 50 ML IV PRN ×3 (00:38→16:43)
[2017-08-28] MEDS: CHLORHEXIDINE GLUCONATE 2 % 1 PACK (2 CLOTHS) TOP SCH (03:44)
[2017-08-28] MEDS: traMADol HCL 50 MG TAB PO SCH ×3 (03:45→17:51)
[2017-08-28] MEDS: ACETAMINOPHEN 1000 MG/100 ML 100 ML IV SCH ×3 (03:47→09:41)
[2017-08-28] MEDS: RESP: IPRATROPIUM 0.5 MG/2.5 ML NEB NEB SCH ×6 (03:59→23:57)
[2017-08-28] MEDS: PIPERACIL-TAZO 4.5 GM PREMIX 100 ML IV SCH ×4 (04:20→23:00)
[2017-08-28 05:09] LABS: HEMATOCRIT 23.1 % (35.0-46.0); MEAN CORPUSCULAR HEMOGLOBIN 31.1 PG (27.0-34.0); MEAN CORPUSCULAR HGB CONC 32.1 % (32.0-36.0); PLATELET COUNT 243 TH/MM3 (150-450); RED BLOOD COUNT 2.38 MIL/MM3 (4.00-5.30); RED CELL DISTRIBUTION WIDTH 16.1 % (11.6-17.2); REVIEW FLAG FINAL
[2017-08-28 05:22] LABS: APTT (PATIENT) 62.5 SEC (24.3-30.1)
[2017-08-28] MEDS: ONDANSETRON HCL 4 MG/2 ML VIAL IV PUSH PRN (05:39)
--- NOTE | 2017-08-28 07:47 | HHI.PR ---
Subjective Remarks Intubated, but awake and alert and shaking head to questions appropriately. No chest pain. Breathing is worse today. Still tachycardic, rate 120s. Discussed with RN, metoprolol being held for BP 90/60's. Objective Vitals Vital Signs Date Time Temp Pulse Resp B/P (MAP) Pulse Ox O2 Delivery O2 Flow Rate FiO2 08/28/17 04:00 50 08/28/17 03:56 99 50 08/28/17 03:00 98.1 89 12 91/58 (69) 99 08/28/17 03:00 94 08/28/17 03:00 97 Mechanical Ventilator 50 08/28/17 01:00 99 50 08/28/17 00:00 50 08/27/17 23:00 97 Mechanical Ventilator 50 08/27/17 23:00 104 08/27/17 23:00 98.2 112 12 111/76 (88) 97 08/27/17 22:02 99 50 08/27/17 20:25 99 50 08/27/17 20:00 50 08/27/17 19:00 104 08/27/17 19:00 97 Mechanical Ventilator 50 08/27/17 19:00 98.4 104 12 82/62 (69) 97 08/27/17 16:03 95 45 08/27/17 16:00 65 08/27/17 15:00 93 Mechanical Ventilator 45 08/27/17 15:00 98.0 103 12 96/65 (75) 93 08/27/17 15:00 114 08/27/17 12:00 50 08/27/17 11:00 98.1 101 12 79/55 (63) 98 08/27/17 11:00 101 08/27/17 11:00 98 Mechanical Ventilator 50 08/27/17 09:28 98 55 08/27/17 08:00 50 I/O 08/27/17 08/27/17 08/27/17 08/28/17 08/28/17 08/28/17 07:00 15:00 23:00 07:00 15:00 23:00 Intake Total 1810 ml 191.7 ml 164.4 ml 30 ml Output Total 320 ml 380 ml 320 ml Balance 1490 ml 191.7 ml -215.6 ml -290 ml IV Total 1810 ml 191.7 ml 164.4 ml Tube Irrigant 30 ml Output Urine Total 320 ml 350 ml 320 ml Gastric Drainage Total 30 ml # Bowel Movements 0 Result Diagram: 08/28/17 0413 08/27/17 0451 Imaging Last Impressions Lower Extremity Ultrasound 08/27/17 0000 Signed Impressions: Service Date/Time: Sunday, August 27, 2017 10:23 - CONCLUSION: Positive for deep venous thrombosis bilaterally from thigh to proximal calf. Michele Morris MD Chest X-Ray 08/26/17 1100 Signed Impressions: Service Date/Time: Saturday, August 26, 2017 11:13 - CONCLUSION: 1. Slight worsening of airspace disease in the lungs since August 25. Satisfactory placement of nasogastric tube and endotracheal tube. Basim Pollock MD Hip and Pelvis X-Ray 08/25/17 0000 Signed Impressions: Service Date/Time: Friday, August 25, 2017 12:01 - CONCLUSION: Impacted femoral neck fracture at the base without significant step-off Jeremias Peacock MD CT Angiography 08/25/17 0000 Signed Impressions: Service Date/Time: Friday, August 25, 2017 16:06 - CONCLUSION: Multifocal pulmonary emboli with small filling defects identified in the main right pulmonary artery, interlobar pulmonary artery on the right and one in the left lower lobe pulmonary arteries. The emboli are small but multiple. Moderate- sized bilateral pleural effusions. Jeremias Peacock MD Objective Remarks GENERAL: Well-developed well-nourished. Intubated. NECK: No carotid bruits. No JVD. CARDIOVASCULAR: Tachycardic rate and regular rhythm. No murmur appreciated. RESPIRATORY: No accessory muscle use. Clear to auscultation. Breath sounds equal bilaterally. No crackles. MUSCULOSKELETAL: No clubbing or cyanosis. No edema. NEUROLOGICAL: Awake and alert. Shakes head to questions appropriately. Procedures 08/26-intubation Date of Insertion: Aug 26, 2017 A/P Problem List: (1) STEMI (ST elevation myocardial infarction) ICD Code: I21.3 - ST elevation (STEMI) myocardial infarction of unspecified site Status: Acute (2) DVT (deep venous thrombosis) ICD Code: I82.409 - Acute embolism and thrombosis of unspecified deep veins of unspecified lower extremity Status: Acute (3) V tach ICD Code: I47.2 - Ventricular tachycardia Status: Acute (4) Hypokalemia ICD Code: E87.6 - Hypokalemia Status: Acute Arden Murphy Aug 28, 2017 07:47
--- NOTE | 2017-08-28 07:48 | PD.CARD.PN ---
Subjective Subjective Remarks Intubated, but awake and alert and shaking head to questions appropriately. No chest pain. Breathing is worse today. Still tachycardic, rate 120s. Discussed with RN, metoprolol being held for BP 90/60's. (Arden Murphy) Objective Medications Current Medications Medications (Trade) Dose Ordered Sig/Jamilah Route Start Time Stop Time Status Last Admin (NS Flush) 2 ml UNSCH PRN IVF 08/23/17 20:15 (Xylocaine 2% Jelly) 1 applic UNSCH PRN TOP 08/23/17 21:45 (Aspirin Chew) 81 mg DAILY PO 08/24/17 09:00 08/27/17 09:47 (Plavix) 75 mg DAILY PO 08/24/17 09:00 08/27/17 09:48 (Atropine Inj) 0.5 mg UNSCH PRN IV PUSH 08/23/17 21:45 (Zofran Inj) 4 mg Q4H PRN IV PUSH 08/23/17 21:45 08/28/17 05:39 (Lipitor) 40 mg HS PO 08/24/17 21:00 08/27/17 20:41 (Ferrous Sulfate) 325 mg BID@, PO 08/24/17 12:00 08/27/17 13:21 (Habitrol 14 Mg Patch.24 Hr) 1 patch DAILY T-DERMAL 08/25/17 09:00 09/01/17 09:00 08/27/17 09:42 Miscellaneous Information 1 DAILY T-DERMAL 08/25/17 09:00 09/01/17 09:00 08/27/17 09:00 Acetaminophen 100 ml @ 400 mls/hr Q6H PRN IV 08/24/17 18:45 08/25/17 19:59 (KCl) 20 meq Q12HR PO 08/25/17 09:00 08/26/17 12:26 (Atrovent Neb) 0.5 mg Q4HR NEB NEB 08/25/17 16:00 08/28/17 03:59 (Atrovent Neb) 0.5 mg Q2HR NEB PRN NEB 08/25/17 14:00 08/26/17 06:00 Vancomycin HCl 1000 mg/Sodium Chloride 250 ml @ 250 mls/hr DESIGNER IV 08/25/17 16:00 08/29/17 15:59 (Heparin Inj) 5,000 units UNSCH PRN IV PUSH 08/25/17 23:00 (Heparin Inj) 2,500 units UNSCH PRN IV PUSH 08/25/17 23:00 Heparin Sodium/ Dextrose 250 ml @ 13 mls/hr TITRATE PRN IV 08/25/17 17:00 08/27/17 18:04 (Protonix) 40 mg DAILY PO 08/26/17 09:00 Fentanyl Citrate 250 ml @ 5 mls/hr TITRATE PRN IV 08/26/17 07:15 08/26/17 22:46 (Tears Naturale Opth Soln) 1 drop Q4H PRN EACH EYE 08/26/17 13:45 08/27/17 09:43 (Peridex 0.12% Liq) 15 ml BID@08,20 MT 08/26/17 20:00 08/27/17 20:00 (Ultram) 50 mg Q6HR PO 08/26/17 14:30 08/27/17 17:59 Acetaminophen 100 ml @ 400 mls/hr Q6H IV 08/26/17 15:00 08/28/17 14:30 08/28/17 03:47 (D50w (Vial) Inj) 50 ml UNSCH PRN IV PUSH 08/26/17 14:45 (Glucagon Inj) 1 mg UNSCH PRN OTHER 08/26/17 14:45 (NovoLOG SUPPLEMENTAL SCALE) 1 ACHS SLIDING SCALE SQ 08/26/17 17:00 Miscellaneous Information 1 Q361D XX 08/26/17 14:45 (Chlorhexidine 2% Cloth) 3 pack Taper DAILY@04 TOP 08/27/17 04:00 08/23/18 03:59 08/28/17 03:44 (Chlorhexidine 2% Cloth) 3 pack UNSCH PRN TOP 08/26/17 14:45 (Clair-Colace) 1 tab BID PO 08/26/17 21:00 08/27/17 20:41 (Milk Of Magnesia Liq) 30 ml Q12H PRN PO 08/26/17 14:45 (Senokot) 17.2 mg Q12H PRN PO 08/26/17 14:45 08/26/17 18:34 (Dulcolax Supp) 10 mg DAILY PRN RECTAL 08/26/17 14:45 (Lactulose Liq) 30 ml DAILY PRN PO 08/26/17 14:45 (Versed Inj) 2 mg Q4H PRN IV 08/26/17 15:30 08/27/17 07:48 Potassium Chloride 100 ml @ 50 mls/hr Q2H PRN IV 08/26/17 22:45 Potassium Chloride 100 ml @ 50 mls/hr Q2H PRN IV 08/26/17 22:45 (K-Lyte Cl Eff) 50 meq UNSCH PRN PO 08/26/17 22:45 Potassium Chloride 100 ml @ 25 mls/hr UNSCH PRN IV 08/26/17 22:45 Potassium Chloride 100 ml @ 50 mls/hr Q2H PRN IV 08/26/17 22:45 Magnesium Sulfate 4 gm/Sodium Chloride 100 ml @ 50 mls/hr UNSCH PRN IV 08/26/17 22:45 (Mag-Ox) 800 mg UNSCH PRN PO 08/26/17 22:45 Magnesium Sulfate 2 gm/Sodium Chloride 100 ml @ 50 mls/hr UNSCH PRN IV 08/26/17 22:45 (K-Phos) 2,000 mg Q4H PRN PO 08/26/17 22:45 Sodium Phosphate 30 mmol/Sodium Chloride 250 ml @ 42 mls/hr UNSCH PRN IV 08/26/17 22:45 (K-Phos) 2,000 mg UNSCH PRN PO/TUBE 08/26/17 22:45 Potassium Phosphate 30 mmol/ Sodium Chloride 260 ml @ 42 mls/hr UNSCH PRN IV 08/26/17 22:45 Dexmedetomidine HCl 200 mcg/ Sodium Chloride 52 ml @ 3.56 mls/hr TITRATE PRN IV 08/27/17 08:15 08/28/17 00:38 Piperacillin Sod/ Tazobactam Sod 100 ml @ 200 mls/hr Q6H IV 08/27/17 11:00 08/28/17 04:20 Vital Signs / I&O Vital Signs Date Time Temp Pulse Resp B/P (MAP) Pulse Ox O2 Delivery O2 Flow Rate FiO2 08/28/17 04:00 50 08/28/17 03:56 99 50 08/28/17 03:00 98.1 89 12 91/58 (69) 99 08/28/17 03:00 94 08/28/17 03:00 97 Mechanical Ventilator 50 08/28/17 01:00 99 50 08/28/17 00:00 50 08/27/17 23:00 97 Mechanical Ventilator 50 08/27/17 23:00 104 08/27/17 23:00 98.2 112 12 111/76 (88) 97 08/27/17 22:02 99 50 08/27/17 20:25 99 50 08/27/17 20:00 50 08/27/17 19:00 104 08/27/17 19:00 97 Mechanical Ventilator 50 08/27/17 19:00 98.4 104 12 82/62 (69) 97 08/27/17 16:03 95 45 08/27/17 16:00 65 08/27/17 15:00 93 Mechanical Ventilator 45 08/27/17 15:00 98.0 103 12 96/65 (75) 93 08/27/17 15:00 114 08/27/17 12:00 50 08/27/17 11:00 98.1 101 12 79/55 (63) 98 08/27/17 11:00 101 08/27/17 11:00 98 Mechanical Ventilator 50 08/27/17 09:28 98 55 08/27/17 08:00 50 I/O 08/27/17 08/27/17 08/27/17 08/28/17 08/28/17 08/28/17 07:00 15:00 23:00 07:00 15:00 23:00 Intake Total 1810 ml 191.7 ml 164.4 ml 30 ml Output Total 320 ml 380 ml 320 ml Balance 1490 ml 191.7 ml -215.6 ml -290 ml IV Total 1810 ml 191.7 ml 164.4 ml Tube Irrigant 30 ml Output Urine Total 320 ml 350 ml 320 ml Gastric Drainage Total 30 ml # Bowel Movements 0 Physical Exam GENERAL: Well-developed well-nourished. Intubated. NECK: No carotid bruits. No JVD. CARDIOVASCULAR: Tachycardic rate and regular rhythm. No murmur appreciated. RESPIRATORY: Clear to auscultation. Breath sounds equal bilaterally. No crackles. MUSCULOSKELETAL: No clubbing or cyanosis. No edema. NEUROLOGICAL: Awake and alert. Shakes head to questions appropriately. Laboratory Laboratory Tests Test 08/27/17 11:00 08/28/17 04:13 Urine Color YELLOW Urine Turbidity CLEAR Urine pH 5.5 Urine Specific [place] 1.027 Urine Protein 30 mg/dL Urine Glucose (UA) NEG mg/dL Urine Ketones 10 mg/dL Urine Occult Blood MOD Urine Nitrite NEG Urine Bilirubin NEG Urine Urobilinogen LESS THAN 2.0 MG/DL Urine Leukocyte Esterase NEG Urine RBC 9 /hpf Urine WBC 5 /hpf Urine Bacteria RARE /hpf Urine Hyaline Casts 9 /lpf Urine Mucus FEW /lpf Microscopic Urinalysis Comment CATH-CULTURE IND White Blood Count 20.0 TH/MM3 Red Blood Count 2.38 MIL/MM3 Hemoglobin 7.4 GM/DL Hematocrit 23.1 % Mean Corpuscular Volume 97.0 FL Mean Corpuscular Hemoglobin 31.1 PG Mean Corpuscular Hemoglobin Concent 32.1 % Red Cell Distribution Width 16.1 % Platelet Count 243 TH/MM3 Mean Platelet Volume 9.0 FL Activated Partial Thromboplast Time 62.5 SEC (Arden Murphy) Assessment and Plan Problem List: (1) V tach ICD Codes: I47.2 - Ventricular tachycardia Status: Acute (2) STEMI (ST elevation myocardial infarction) ICD Codes: I21.3 - ST elevation (STEMI) myocardial infarction of unspecified site Status: Acute Assessment and Plan acute respiratory distress: intubated and mechanically ventilated. Echo normal EF, mild-mod MVR +bilateral pulmonary emboli/ LE DVT: on heparin gtt. ? IVC filter if heavy thrombotic burden. Not much reserve to tolerate any further emboli. STEMI: s/p PCI BMS distal left circumflex. Moderate proximal LAD stenosis, consider lexiscan upon recovery hypotension - repeated limited echo for EF and RV function (although not good t- PA candidate). May need to consider phenylephrine if continued hypotension. ? right heart catheterization ?CI/CO ?SVR ?etiology of hypotension and manage pressor support/volume status if needed (PA catheter should be ok despite PE). alternatively consider arterial line with Vigileo and CVP. hold diuretic for now. monitor FiO2 and CVP and U.OP. Beta joana on hold anemia - cont FeSO4 hip fracture - ortho following. (Selena Tellez) Assessment and Plan STEMI - last EF 50%. hypotensive. hold BB due to BP. PCI LCx asa plavix statin. (Arden Murphy) Assessment and Plan agree with above + DVT heavy thrombotic burden. Possible orthopedic surgery in future if recovery. hypotensive. will not tolerate further pulmonary embolism. Plan for removable IVC filter today. hypotension - ?etiology. RV failure? EF 50% last echo. ?SVR ?CO. RHC later today anemia - blood secretions. ?guiaic Hb 7.4 . on FeSO4. minimize blood draws. consider transfusion. cont heparin gtt. asa plavix. no BB due to hypotension (Jeremias Belle MD) Arden Murphy Aug 28, 2017 07:48 Jeremias Belle MD Aug 28, 2017 08:16
[2017-08-28] MEDS: CHLORHEXIDINE 0.12% (ORAL KIT) 15 ML CUP MT SCH ×2 (07:58→20:00)
[2017-08-28] MEDS: INSULIN ASPART SUPPLEMENTAL SCALE SQ SCH ×4 (08:00→21:00)
[2017-08-28] MEDS ORDERED: diphenhydrAMINE HCL 25 MG CAP PO PRN (08:45)
[2017-08-28] MEDS ORDERED: SODIUM CHLOR 0.9% 250 ML INJ 250 ML IV ONE (08:45)
[2017-08-28] MEDS ORDERED: ACETAMINOPHEN 325 MG TAB PO PRN (08:45)
[2017-08-28] MEDS: REMOVE OLD NICOTINE PATCH T-DERMAL SCH (09:00)
--- NOTE | 2017-08-28 09:38 | HHI.CCPN ---
Subjective Remarks/Hospital Course 08/26: This is a 61 yo female that was recently admitted to the hospital .the patient has a history of hip pain and bursitis and subsequently with sedentary for greater than 6 weeks she presented with shortness of breath .CT angiogram of thorax revealed multifocal pulmonary emboli with multiple small filling defects in the right main pulmonary artery interlobar pulmonary artery on the right and one in the left lower lobe pulmonary artery. Emboli was noted to be small but diffusely throughout. The patient was also noted to have moderate sized bilateral pleural effusions at that time . The patient was placed on eliquis approximately 2 weeks ago and she reported significant improvement in her lower ext swelling. On 08/24 the patient presented to the ED with complaints of malaise and nauseated. EKG noted she was in V. tach and the patient was defibrillated. Additional imaging and laboratory studies reveal the patient had a inferior ST elevation IA. Cardiology was consulted Dr. Belle , the patient underwent a cardiac catheterization with PCI bare-metal stent to the dominant distal left circumflex coronary artery. Distal LAD was noted to have 60% stenosis. The patient was transferred to CVICU, and continued on antiplatelet therapy and heparin infusion per cardiology recommendations. Early this a.m. the patient was noted to be due to tachypneic, tachycardic heart rate [id number] on a nonrebreather mask with extreme accessory muscle movement, stat ABG was drawn, patient was noted to be in acute hypoxemic respiratory failure. Critical care medicine was consulted. The patient was emergently intubated, and placed on sedation for ventilator synchrony 08/27: Orally intubated on mechanical ventilation. Patient anxious on fentanyl drip. Blood pressure borderline. Received a fluid bolus overnight for oliguria. Remains tachycardic. Patient does have a left femoral neck fracture and has been seen by orthopedics who are recommending surgery. 08/28: Sedated, easily arousable, orally intubated on mechanical ventilation. Blood pressure borderline. Hemoglobin has dropped to 7.5 g percent while on anticoagulation and antiplatelet therapy. Stat CT abdomen pelvis ordered to evaluate for retroperitoneal bleed and 2 units PRBCs to be transfused now. Limited 2-D echo still pending to assess RV. Awaiting IVC filter placement. ROS - General Review of Systems Other dizzy nausea weak PFSH Past Family Social History Past Medical History rosalina lower ext dvt. dx 2 weeks ago left hip troch. bursitis. hysterectomy Reported Medications eliquis 5mg po bid Allergies: Coded Allergies: Sulfa (Sulfonamide Antibiotics) (Unverified Allergy, Severe, Swelling, ) morphine (Unverified Allergy, Severe, vomiting , passing out , 08/23/17) prednisone (Unverified Allergy, Severe, Suicidal , 08/23/17) Family History nc Social History 1ppd x 40yrs tob Objective Vital Signs Date Time Temp Pulse Resp B/P (MAP) Pulse Ox O2 Delivery O2 Flow Rate FiO2 08/28/17 08:10 50 08/28/17 08:06 98 08/28/17 07:55 98.1 122 30 90/67 (75) 08/28/17 07:53 Mechanical Ventilator 08/26/17 11:00 Intake and Output 08/28/17 08/28/17 08/29/17 08:00 16:00 00:00 Intake Total 30 ml Output Total 320 ml Balance -290 ml Result Diagram: 08/28/17 0413 08/27/17 0451 Imaging Last 72 hours Impressions Chest X-Ray 08/26/17 1100 Signed Impressions: Service Date/Time: Saturday, August 26, 2017 11:13 - CONCLUSION: 1. Slight worsening of airspace disease in the lungs since August 25. Satisfactory placement of nasogastric tube and endotracheal tube. Basim Pollock MD Chest X-Ray 08/25/17 1315 Signed Impressions: Service Date/Time: Friday, August 25, 2017 13:26 - CONCLUSION: Pulmonary vascular congestion with small bilateral pleural effusions suggesting failure Jeremias Peacock MD Hip and Pelvis X-Ray 08/25/17 0000 Signed Impressions: Service Date/Time: Friday, August 25, 2017 12:01 - CONCLUSION: Impacted femoral neck fracture at the base without significant step-off Jeremias Peacock MD CT Angiography 08/25/17 0000 Signed Impressions: Service Date/Time: Friday, August 25, 2017 16:06 - CONCLUSION: Multifocal pulmonary emboli with small filling defects identified in the main right pulmonary artery, interlobar pulmonary artery on the right and one in the left lower lobe pulmonary arteries. The emboli are small but multiple. Moderate- sized bilateral pleural effusions. Jeremias Peacock MD Chest X-Ray 08/23/17 2015 Signed Impressions: Service Date/Time: Wednesday, August 23, 2017 20:15 - CONCLUSION: 1. Normal heart size. No evidence of alveolar pulmonary edema. 2. Mild focal interstitial process upper right lung. Michele Morris MD Last 24 hours Impressions Chest X-Ray [id number]/26/171099 Signed Impressions: Service Date/Time: Saturday, August 26, 2017 11:13 - CONCLUSION: 1. Slight worsening of airspace disease in the lungs since August 25. Satisfactory placement of nasogastric tube and endotracheal tube. Basim Pollock MD Objective Remarks HEENT/ Neuro: Sedated, arousable, following commands, moving all 4 extremities, orally intubated, Pallor present, no icterus, tongue/ mucosa moist Neck: No JVD Chest/Pulm: on mech vent, good air entry bilaterally, no wheezing or crackles CVS: S1-S2 regular, no murmur GI/abdomen: soft, nontender, bowel sounds sluggish Extremities: warm bilaterally, no edema. Left hip pain with active and passive motion. Procedures 08/26-intubation Date of Insertion: Aug 26, 2017 A/P Problem List: (1) Acute hypoxemic respiratory failure ICD Code: J96.01 - Acute respiratory failure with hypoxia Status: Acute (2) Anxiety ICD Code: F41.9 - Anxiety Status: Acute (3) Tobacco abuse ICD Code: Z72.0 - Tobacco abuse Status: Acute (4) STEMI (ST elevation myocardial infarction) ICD Code: I21.3 - ST elevation (STEMI) myocardial infarction of unspecified site Status: Acute (5) Hypokalemia ICD Code: E87.6 - Hypokalemia Status: Acute (6) V tach ICD Code: I47.2 - Ventricular tachycardia Status: Acute (7) DVT (deep venous thrombosis) ICD Code: I82.409 - Acute embolism and thrombosis of unspecified deep veins of unspecified lower extremity Status: Acute (8) Pulmonary embolism ICD Code: I26.99 - Other pulmonary embolism without acute cor pulmonale Assessment and Plan Assessment This is a 61-year-old female with ST elevation IA status post PCI with bare- metal stent placement, in the setting now with acute hypoxemic and hypercarbic respiratory failure secondary to pulmonary emboli, left femoral neck fracture. Patient intubated on mechanical ventilation, hypotensive Plan by systems: Neurologic: Anxiety disorder Chronic pain syndrome Utilize multimodal pain regimen, Ofirmev 1 g every 6 hours x 24-48 hrs, Tramadol q 6 hr scheduled .Precedex infusion for ventilator synchrony, propofol infusion if necessary Versed 2 mg every 4 hours when necessary for agitation and anxiety Daily sedation vacation Tylenol 650 mg every 6 hours for temp greater than 100.5 Respiratory: Acute hypoxemic and hypercarbic respiratory failure Diffuse pulmonary emboli Tobacco abuse 08/26 patient intubated 8.0 ETT atraumatically, grade 1 view 20 cm at the lip Ventilator bundle, Continue mechanical ventilation, bronchodilators as needed Chest x-rays and ABGs as clinically indicated Heparin infusion see below Cardiovascular: STEMI S/P bare-metal stent placement H/O V. tach with defibrillation 1 Pulmonary embolism Heparin gtt. being followed by cardiology Patient on dual antiplatelet therapy and statin Descending LAD coronary artery stenosis 60%. Repeat 2-D echo to assess for RV dysfunction risk stratification and for PE as patient needs orthopedic surgery for left femoral neck fracture. Renal: Insert osorio-patient intubated and sedated and receiving IV diuretics -- Strict I/Os FEN/GI: Start tube feeds and advance to goal as tolerated - currently held for possible cardiac catheterisation Monitor BMP Replete electrolytes per CV ICU protocol Bowel regimen Zofran for nausea Heme/ID: Leukocytosis ? sepsis Follow-up duque cultures. Initiated empiric antibiotic coverage with IV Zosyn on 08/27 Drop in hemoglobin noted. Will obtain CT abdomen pelvis to evaluate for retroperitoneal hematoma. 2 units PRBCs to be transfused stat. On anticoagulation with heparin for pulmonary embolism. Awaiting IVC filter placement. May need to reevaluate anticoagulation and antiplatelet therapy if hemoglobin continues to drop or CT shows any evidence of hemorrhage. Musculoskeletal: Left femoral neck fracture being followed by orthopedics. Needs surgery however extremely high risk due to recent IA and PE. Await cardiac clearance. Endocrine: Close monitoring per ICU protocol -- SSI Prophylaxis: GI Prophylaxis Protonix DVT Prophylaxis -- SCDs Heparin infusion Lines: Peripheral IVs. Central line if indicated. Dispo: my billing statement This patient remains critically ill with one or more organ systems which are or may become a threat to life. I have spent in excess of 40 minutes discontinuously in the care and management of this patient. This time is exclusive of procedures, and includes, but is not limited to, evaluation of the patient, review of the medical record, discussions with family, consultants, nursing staff, or respiratory therapy, and documentation in the medical record. Humberto Castle MD Aug 28, 2017 09:37
[2017-08-28] MEDS: DOCUSATE SODIUM 50 MG/SENNA 8.6 MG TAB PO SCH ×2 (09:40→21:00)
[2017-08-28] MEDS: CLOPIDOGREL 75 MG TAB PO SCH (09:40)
[2017-08-28] MEDS: POTASSIUM CHLORIDE 20 MEQ CONTROLLED RELEASE TAB PO SCH ×2 (09:40→21:00)
[2017-08-28] MEDS: NICOTINE 14 MG/24 HR PATCH T-DERMAL SCH (09:41)
[2017-08-28] MEDS: PANTOPRAZOLE SOD 40 MG DELAYED RELEASE TAB PO SCH (09:41)
[2017-08-28] MEDS: ASPIRIN 81 MG CHEW TAB PO SCH (09:41)
--- NOTE | 2017-08-28 10:02 | RADRPT ---
EXAM DATE/TIME: 08/28/2017 09:07 [facility] COMPARISON: CHEST SINGLE AP, August 26, 2017, 11:13. INDICATIONS : Shortness of breath. MEDICAL HISTORY : None. SURGICAL HISTORY : CABG. ENCOUNTER: Subsequent ACUITY: 3 days PAIN SCORE: Non-responsive. LOCATION: Bilateral chest FINDINGS: ET tube and nasogastric tube are in good position. Persistent bibasilar consolidative changes worse on the left. Changes are increasing on the left. There is no pneumothorax. CONCLUSION: Increasing bibasal consolidative changes worse on the left. Rajat Teague MD FACR on August 28, 2017 at 10:00 Board Certified Radiologist. This report was verified electronically.
--- NOTE | 2017-08-28 10:41 | RADRPT ---
EXAM DATE/TIME: 08/28/2017 10:10 [facility] COMPARISON: CT PULMONARY ANGIOGRAM, August 25, 2017, 16:06. INDICATIONS : Right flank pain for two weeks, evaluate for retroperitoneal bleed. ORAL CONTRAST: No oral contrast ingested. RADIATION DOSE: 7.24 CTDIvol (mGy) MEDICAL HISTORY : Hernia, hiatal. deep vein thrombosis, ectopic SURGICAL HISTORY : Hysterectomy. ENCOUNTER: Initial ACUITY: 2 weeks PAIN SCALE: Non-responsive LOCATION: Right flank TECHNIQUE: Volumetric scanning of the abdomen and pelvis was performed. Using automated exposure control and adjustment of the mA and/or kV according to patient size, radiation dose was kept as low as reasonably achievable to obtain optimal diagnostic quality images. DICOM format image data is av ailable electronically for review and comparison. FINDINGS: Bibasilar consolidative changes and pleural effusions are noted. Consolidation is largest on the lef t. The effusions are small, largest on the right. There is no pericardial effusion The liver is free of focal defects. Granulomas are present in the spleen The right adrenal gland is normal. The left adrenal gland is enlarged almost, 2 cm. Right and left kidneys unremarkable There is no retroperitoneal hematoma There is trace fluid in the pelvis. The bladder is decompressed. There is no adenopathy or free air . Nasogastric tube in the stomach. CONCLUSION: There is no evidence for retroperitoneal hematoma. 2 cm left adrenal mass stable from 08/25/17. Rajat Teague MD FACR on August 28, 2017 at 10:32 Board Certified Radiologist. This report was verified electronically.
[2017-08-28] MEDS: FERROUS SULFATE 325 MG (65 MG ELEMENTAL IRON) TAB PO SCH ×2 (12:00→17:00)
--- NOTE | 2017-08-28 16:06 | ECHRPT ---
Indication: hypotens rv func CONCLUSIONS The left ventricular systolic function is low normal with an estimated ejection fraction in the rang e of 50- 55%. Tachycardic during study. Cannot exclude scarring and hypokinesis basal inferior wall. Normal left ventricular size. Wall thickness is normal. The right ventricular size is normal. The right ventricular systoilc function is normal. There is mild tricuspid valve regurgitation. The estimated pulmonary arterial pressure is 36.8 mmHg. The inferior vena cava is dilated. There is a small pericardial effusion present. 1.1 cm BP: / HR: Rhythm: MEASUREMENTS (Male / Female) Normal Values Technical Quality:Good 2D ECHO LV Diastolic Diameter PLAX 4.6 cm 4.2 - 5.9 / 3.9 - 5.3 cm LV Systolic Diameter PLAX 3.6 cm IVS Diastolic Thickness 0.9 cm 0.6 - 1.0 / 0.6 - 0.9 cm LVPW Diastolic Thickness 0.9 cm 0.6 - 1.0 / 0.6 - 0.9 cm LV Relative Wall Thickness 0.4 RV Internal Dim ED PLAX 2.2 cm DOPPLER TR Peak Velocity 259.0 cm/s TR Peak Gradient 26.8 mmHg Right Atrial Pressure 10.0 mmHg Pulmonary Artery Systolic Pressu 36.8 mmHg Right Ventricular Systolic Press 36.8 mmHg FINDINGS LEFT VENTRICLE The left ventricular systolic function is low normal with an estimated ejection fraction in the rang e of 50- 55%. Tachycardic during study. Cannot exclude scarring and hypokinesis basal inferior wall. Normal left ventricular size. Wall thickness is normal. RIGHT VENTRICLE The right ventricular size is normal. The right ventricular systoilc function is normal. LEFT ATRIUM The left atrial size is normal. RIGHT ATRIUM The right atrial size is normal. ATRIAL SEPTUM Normal atrial septal thickness without atrial level shunting by limited color doppler interrogation. AORTA The aortic root and proximal ascending aorta are normal in size on limited imaging. MITRAL VALVE Structurally normal mitral valve. AORTIC VALVE Trileaflet aortic valve. TRICUSPID VALVE Structurally normal tricuspid valve. There is mild tricuspid valve regurgitation. The estimated pulmonary arterial pressure is 36.8 mmHg. PULMONARY VALVE No pulmonary valve regurgitation or stenosis. VESSELS The inferior vena cava is dilated. PERICARDIUM There is a small pericardial effusion present. 1.1 cm Rich Toro MD (Electronically Signed) Final Date:28 August 2017 16:05
[2017-08-28] MEDS: HEPARIN-D5W 25,000 U/250 ML 250 ML IV PRN (16:47)
[2017-08-28 19:17] LABS: HEMATOCRIT 22.1 % (35.0-46.0); MEAN CELL VOLUME 95.5 FL (80.0-100.0); MEAN CORPUSCULAR HEMOGLOBIN 30.7 PG (27.0-34.0); MEAN CORPUSCULAR HGB CONC 32.2 % (32.0-36.0); PLATELET COUNT 269 TH/MM3 (150-450); RED BLOOD COUNT 2.32 MIL/MM3 (4.00-5.30); RED CELL DISTRIBUTION WIDTH 16.4 % (11.6-17.2); REVIEW FLAG FINAL; WHITE BLOOD COUNT 20.2 TH/MM3 (4.0-11.0)
[2017-08-28 19:24] LABS: RETIC % 6.2 % (0.4-3.0); REVIEW FLAG FINAL
[2017-08-28] MEDS: MIDAZOLAM HCL 2 MG/2 ML VIAL IV PRN (20:30)
[2017-08-28] MEDS: ATORVASTATIN 40 MG TAB PO SCH (21:00)
[2017-08-29] VITALS (24 sets, daily range): BP systolic 92–140; BP diastolic 59–72; PULSE 93–122; RESP 17–25; TEMP 97.7–98.4; O2SAT 93–100
[2017-08-29] MEDS: DEXMEDETOMIDINE INJ 200 MCG in SODIUM CHLORIDE 0.9% INJ 50 ML IV PRN (02:56)
[2017-08-29] MEDS: RESP: IPRATROPIUM 0.5 MG/2.5 ML NEB NEB SCH ×6 (03:34→23:20)
[2017-08-29] MEDS: CHLORHEXIDINE GLUCONATE 2 % 1 PACK (2 CLOTHS) TOP SCH (04:00)
[2017-08-29] MEDS: traMADol HCL 50 MG TAB PO SCH ×5 (04:26→23:11)
[2017-08-29 05:11] LABS: AUTOMATED NEUTROPHIL # 16.1 TH/MM3 (1.8-7.7); BASOPHIL % 0.2 % (0.0-2.0); EOSINOPHIL % 0.1 % (0.0-4.0); HEMATOCRIT 30.2 % (35.0-46.0); LYMPH % 7.6 % (9.0-44.0); LYMPHOCYTE # 1.4 TH/MM3 (1.0-4.8); MEAN CELL VOLUME 92.8 FL (80.0-100.0); MEAN CORPUSCULAR HEMOGLOBIN 30.3 PG (27.0-34.0); MEAN CORPUSCULAR HGB CONC 32.6 % (32.0-36.0); NEUT % 86.1 % (16.0-70.0); PLATELET COUNT 272 TH/MM3 (150-450); RED BLOOD COUNT 3.26 MIL/MM3 (4.00-5.30); WHITE BLOOD COUNT 18.6 TH/MM3 (4.0-11.0)
[2017-08-29] MEDS: PIPERACIL-TAZO 4.5 GM PREMIX 100 ML IV SCH ×4 (05:12→23:10)
[2017-08-29 05:17] LABS: HEMO FLAGS AUTO DIFF
[2017-08-29 05:36] LABS: ANION GAP 10 MEQ/L (5-15); AST (GOT) 28 U/L (15-37); BICARBONATE 24.6 MEQ/L (21.0-32.0); BLOOD UREA NITROGEN 39 MG/DL (7-18); CHLORIDE 105 MEQ/L (98-107); GLOMERULAR FILTRATION RATE 83 ML/MIN (>89); POTASSIUM 3.1 MEQ/L (3.5-5.1); SODIUM (NA) 140 MEQ/L (136-145)
[2017-08-29 05:41] LABS: ALKALINE PHOSPHATASE 190 U/L (45-117); ALT (GPT) 23 U/L (10-53); TOTAL BILIRUBIN ADULT 2.2 MG/DL (0.2-1.0)
[2017-08-29] MEDS: POTASSIUM CHLOR 20 MEQ PREMIX 100 ML IV PRN ×3 (06:47→12:10)
--- NOTE | 2017-08-29 07:48 | PD.CARD.PN ---
Subjective Subjective Remarks RN at bedside. Intubated, but awake and alert and shaking head to questions appropriately. No chest pain. Breathing is better today. Blood pressure is better today. Tachycardia improved some, rate 100s. For removal IVC filter today. (Arden uMrphy) Objective Medications Current Medications Medications (Trade) Dose Ordered Sig/Jamilah Route Start Time Stop Time Status Last Admin (NS Flush) 2 ml UNSCH PRN IVF 08/23/17 20:15 (Xylocaine 2% Jelly) 1 applic UNSCH PRN TOP 08/23/17 21:45 (Aspirin Chew) 81 mg DAILY PO 08/24/17 09:00 08/28/17 09:41 (Plavix) 75 mg DAILY PO 08/24/17 09:00 08/28/17 09:40 (Atropine Inj) 0.5 mg UNSCH PRN IV PUSH 08/23/17 21:45 (Zofran Inj) 4 mg Q4H PRN IV PUSH 08/23/17 21:45 08/28/17 05:39 (Lipitor) 40 mg HS PO 08/24/17 21:00 08/28/17 21:00 (Ferrous Sulfate) 325 mg BID@, PO 08/24/17 12:00 08/27/17 13:21 (Habitrol 14 Mg Patch.24 Hr) 1 patch DAILY T-DERMAL 08/25/17 09:00 09/01/17 09:00 08/28/17 09:41 Miscellaneous Information 1 DAILY T-DERMAL 08/25/17 09:00 09/01/17 09:00 08/28/17 09:00 Acetaminophen 100 ml @ 400 mls/hr Q6H PRN IV 08/24/17 18:45 08/25/17 19:59 (KCl) 20 meq Q12HR PO 08/25/17 09:00 08/28/17 09:40 (Atrovent Neb) 0.5 mg Q4HR NEB NEB 08/25/17 16:00 08/29/17 03:34 (Atrovent Neb) 0.5 mg Q2HR NEB PRN NEB 08/25/17 14:00 08/26/17 06:00 Vancomycin HCl 1000 mg/Sodium Chloride 250 ml @ 250 mls/hr STATUS CONTROLLER IV 08/25/17 16:00 08/29/17 15:59 (Heparin Inj) 5,000 units UNSCH PRN IV PUSH 08/25/17 23:00 (Heparin Inj) 2,500 units UNSCH PRN IV PUSH 08/25/17 23:00 Heparin Sodium/ Dextrose 250 ml @ 13 mls/hr TITRATE PRN IV 08/25/17 17:00 08/28/17 16:47 (Protonix) 40 mg DAILY PO 08/26/17 09:00 08/28/17 09:41 Fentanyl Citrate 250 ml @ 5 mls/hr TITRATE PRN IV 08/26/17 07:15 08/26/17 22:46 (Tears Naturale Opth Soln) 1 drop Q4H PRN EACH EYE 08/26/17 13:45 08/27/17 09:43 (Peridex 0.12% Liq) 15 ml BID@08,20 MT 08/26/17 20:00 08/28/17 20:00 (Ultram) 50 mg Q6HR PO 08/26/17 14:30 08/29/17 00:00 (D50w (Vial) Inj) 50 ml UNSCH PRN IV PUSH 08/26/17 14:45 (Glucagon Inj) 1 mg UNSCH PRN OTHER 08/26/17 14:45 (NovoLOG SUPPLEMENTAL SCALE) 1 ACHS SLIDING SCALE SQ 08/26/17 17:00 Miscellaneous Information 1 Q361D XX 08/26/17 14:45 (Chlorhexidine 2% Cloth) 3 pack Taper DAILY@04 TOP 08/27/17 04:00 08/23/18 03:59 08/28/17 03:44 (Chlorhexidine 2% Cloth) 3 pack UNSCH PRN TOP 08/26/17 14:45 (Clair-Colace) 1 tab BID PO 08/26/17 21:00 08/28/17 21:00 (Milk Of Magnesia Liq) 30 ml Q12H PRN PO 08/26/17 14:45 (Senokot) 17.2 mg Q12H PRN PO 08/26/17 14:45 08/26/17 18:34 (Dulcolax Supp) 10 mg DAILY PRN RECTAL 08/26/17 14:45 (Lactulose Liq) 30 ml DAILY PRN PO 08/26/17 14:45 (Versed Inj) 2 mg Q4H PRN IV 08/26/17 15:30 08/28/17 20:30 Potassium Chloride 100 ml @ 50 mls/hr Q2H PRN IV 08/26/17 22:45 Potassium Chloride 100 ml @ 50 mls/hr Q2H PRN IV 08/26/17 22:45 08/29/17 06:48 (K-Lyte Cl Eff) 50 meq UNSCH PRN PO 08/26/17 22:45 Potassium Chloride 100 ml @ 25 mls/hr UNSCH PRN IV 08/26/17 22:45 Potassium Chloride 100 ml @ 50 mls/hr Q2H PRN IV 08/26/17 22:45 Magnesium Sulfate 4 gm/Sodium Chloride 100 ml @ 50 mls/hr UNSCH PRN IV 08/26/17 22:45 (Mag-Ox) 800 mg UNSCH PRN PO 08/26/17 22:45 Magnesium Sulfate 2 gm/Sodium Chloride 100 ml @ 50 mls/hr UNSCH PRN IV 08/26/17 22:45 (K-Phos) 2,000 mg Q4H PRN PO 08/26/17 22:45 Sodium Phosphate 30 mmol/Sodium Chloride 250 ml @ 42 mls/hr UNSCH PRN IV 08/26/17 22:45 (K-Phos) 2,000 mg UNSCH PRN PO/TUBE 08/26/17 22:45 Potassium Phosphate 30 mmol/ Sodium Chloride 260 ml @ 42 mls/hr UNSCH PRN IV 08/26/17 22:45 Dexmedetomidine HCl 200 mcg/ Sodium Chloride 52 ml @ 3.56 mls/hr TITRATE PRN IV 08/27/17 08:15 08/29/17 02:56 Piperacillin Sod/ Tazobactam Sod 100 ml @ 200 mls/hr Q6H IV 08/27/17 11:00 08/29/17 05:12 (Tylenol) 650 mg Q4H PRN PO 08/28/17 08:45 (Benadryl) 25 mg Q4H PRN PO 08/28/17 08:45 Vital Signs / I&O Vital Signs Date Time Temp Pulse Resp B/P (MAP) Pulse Ox O2 Delivery O2 Flow Rate FiO2 08/29/17 06:00 100 08/29/17 04:00 98 35 08/29/17 04:00 50 08/29/17 04:00 93 08/29/17 03:00 98.2 118 17 140/67 (91) 97 08/29/17 03:00 96 Mechanical Ventilator 50 08/29/17 02:00 104 08/29/17 01:30 98.4 100 18 92/68 100 08/29/17 00:00 50 08/29/17 00:00 115 08/28/17 23:57 97 35 08/28/17 23:00 108 08/28/17 23:00 98 Mechanical Ventilator 50 08/28/17 23:00 98.4 102 14 99/64 (76) 99 08/28/17 22:44 97.8 104 19 99/64 98 08/28/17 22:35 98.8 108 13 93/66 99 08/28/17 21:18 99 40 08/28/17 20:00 50 08/28/17 20:00 116 08/28/17 20:00 98.7 119 17 125/79 (94) 99 08/28/17 19:00 100 Mechanical Ventilator 50 08/28/17 16:11 100 40 08/28/17 16:00 112 08/28/17 16:00 50 08/28/17 16:00 98.5 144 15 108/65 (79) 100 08/28/17 16:00 100 Mechanical Ventilator 50 08/28/17 12:00 100 Mechanical Ventilator 50 08/28/17 12:00 98.3 114 12 93/65 (74) 99 08/28/17 12:00 50 08/28/17 12:00 126 08/28/17 11:23 99 40 08/28/17 10:00 100 100 08/28/17 08:10 50 08/28/17 08:06 98 50 08/28/17 07:55 98.1 122 30 90/67 (75) 99 08/28/17 07:54 122 08/28/17 07:53 97 Mechanical Ventilator 50 I/O 08/28/17 08/28/17 08/28/17 08/29/17 08/29/17 08/29/17 07:00 15:00 23:00 07:00 15:00 23:00 Intake Total 30 ml 100 ml 682.5 ml 1481 ml Output Total 320 ml 550 ml 220 ml Balance -290 ml 100 ml 132.5 ml 1261 ml IV Total 100 ml 682.5 ml 551 ml Packed Cells 800 ml Blood Product IV Normal Saline Flush 130 ml Tube Irrigant 30 ml Output Urine Total 320 ml 550 ml 220 ml # Bowel Movements 0 0 Physical Exam GENERAL: Well-developed well-nourished. Intubated. NECK: No carotid bruits. No JVD. CARDIOVASCULAR: Tachycardic rate and regular rhythm. No murmur appreciated. RESPIRATORY: Clear to auscultation. Breath sounds equal bilaterally. No crackles. MUSCULOSKELETAL: No clubbing or cyanosis. Lower extremity swelling. NEUROLOGICAL: Awake and alert. Shakes head to questions appropriately. Laboratory Laboratory Tests Test 08/28/17 18:26 08/29/17 04:31 White Blood Count 20.2 TH/MM3 18.6 TH/MM3 Red Blood Count 2.32 MIL/MM3 3.26 MIL/MM3 Hemoglobin 7.1 GM/DL 9.9 GM/DL Hematocrit 22.1 % 30.2 % Mean Corpuscular Volume 95.5 FL 92.8 FL Mean Corpuscular Hemoglobin 30.7 PG 30.3 PG Mean Corpuscular Hemoglobin Concent 32.2 % 32.6 % Red Cell Distribution Width 16.4 % 17.0 % Platelet Count 269 TH/MM3 272 TH/MM3 Mean Platelet Volume 9.1 FL 9.4 FL Reticulocyte Count 6.2 % Absolute Reticulocyte Count 143.8 MIL/L Haptoglobin 248 MG/DL Lactate Dehydrogenase 540 U/L Neutrophils (%) (Auto) 86.1 % Lymphocytes (%) (Auto) 7.6 % Monocytes (%) (Auto) 6.0 % Eosinophils (%) (Auto) 0.1 % Basophils (%) (Auto) 0.2 % Neutrophils # (Auto) 16.1 TH/MM3 Lymphocytes # (Auto) 1.4 TH/MM3 Monocytes # (Auto) 1.1 TH/MM3 Eosinophils # (Auto) 0.0 TH/MM3 Basophils # (Auto) 0.0 TH/MM3 CBC Comment AUTO DIFF Blood Urea Nitrogen 39 MG/DL Creatinine 0.72 MG/DL Random Glucose 122 MG/DL Total Protein 6.2 GM/DL Albumin 2.3 GM/DL Calcium Level 8.4 MG/DL Alkaline Phosphatase 190 U/L Aspartate Amino Transf (AST/SGOT) 28 U/L Alanine Aminotransferase (ALT/SGPT) 23 U/L Total Bilirubin 2.2 MG/DL Sodium Level 140 MEQ/L Potassium Level 3.1 MEQ/L Chloride Level 105 MEQ/L Carbon Dioxide Level 24.6 MEQ/L Anion Gap 10 MEQ/L Estimat Glomerular Filtration Rate 83 ML/MIN (Arden Murphy) Assessment and Plan Problem List: (1) V tach ICD Codes: I47.2 - Ventricular tachycardia Status: Acute (2) STEMI (ST elevation myocardial infarction) ICD Codes: I21.3 - ST elevation (STEMI) myocardial infarction of unspecified site Status: Acute Assessment and Plan acute respiratory distress: intubated and mechanically ventilated. Echo normal EF, mild-mod MVR +bilateral pulmonary emboli/ LE DVT: on heparin gtt. plan for removable IVC filter with heavy thrombotic burden and not much reserve to tolerate any further emboli. STEMI: s/p PCI BMS distal left circumflex. Moderate proximal LAD stenosis, consider lexiscan upon recovery hypotension: repeated limited echo showed normal EF and left ventricular function. Possible RV failure ?right heart catheterization hold diuretic and beta joana for now. monitor FiO2 and CVP and U.OP. anemia: s/p transfusion 08/28 hip fracture - ortho following. (Arden Murphy) Assessment and Plan DVT/PE - IVC filter today RHC - mild pulmonary hypetension. PCWP 30 mmHg. CO/CI restart heparin gtt in 4 hours monitor BP (Jeremias Belle MD) Arden Murphy Aug 29, 2017 07:48 Jeremias Belle MD Aug 29, 2017 10:05
[2017-08-29 07:58] LABS: BANDS 6 % (0-6); CORRECTED NUCLEATED RBC 7 /100 WBC (0-0); WBC DIFF SAMPLE 100
[2017-08-29 07:59] LABS: PLATELET ESTIMATE SMEAR NORMAL (NORMAL)
[2017-08-29 08:00] LABS: PLATELET MORPHOLOGY NORMAL (NORMAL)
[2017-08-29] MEDS: CHLORHEXIDINE 0.12% (ORAL KIT) 15 ML CUP MT SCH ×2 (08:00→19:56)
[2017-08-29] MEDS: INSULIN ASPART SUPPLEMENTAL SCALE SQ SCH ×4 (08:00→20:54)
[2017-08-29 08:01] LABS: POLYS (SEG NEUTROPHILS) 79 % (16-70); PROMYELOCYTES 1 % (0-0)
[2017-08-29 08:02] LABS: POLYCHROMASIA 2.3 % (0.0-1.9)
[2017-08-29 08:03] LABS: ACANTHOCYTES OCC (NORMAL); SCAN/DIFF FINAL DIFF MANUAL
[2017-08-29] MEDS: POTASSIUM CHLORIDE 20 MEQ CONTROLLED RELEASE TAB PO SCH ×2 (08:11→19:55)
[2017-08-29] MEDS: CLOPIDOGREL 75 MG TAB PO SCH (08:11)
[2017-08-29] MEDS: ASPIRIN 81 MG CHEW TAB PO SCH (08:11)
[2017-08-29] MEDS: PANTOPRAZOLE SOD 40 MG DELAYED RELEASE TAB PO SCH (08:12)
[2017-08-29] MEDS: DOCUSATE SODIUM 50 MG/SENNA 8.6 MG TAB PO SCH ×2 (08:12→19:55)
[2017-08-29] MEDS: NICOTINE 14 MG/24 HR PATCH T-DERMAL SCH (08:13)
[2017-08-29] MEDS: REMOVE OLD NICOTINE PATCH T-DERMAL SCH (08:13)
[2017-08-29] MEDS ORDERED: MIDAZOLAM HCL 5 MG/5 ML VIAL ONE (09:20)
[2017-08-29] MEDS ORDERED: PHENYLEPH/NS 1000 MCG/10 ML SYR ONE (09:20)
[2017-08-29] MEDS ORDERED: HEPARIN SODIUM - IV 10,000 UNITS/10 ML VIAL ONE (09:20)
[2017-08-29] MEDS ORDERED: NITROGLYCERIN INJ 5 ML ONE (09:20)
[2017-08-29] MEDS ORDERED: MIDAZOLAM HCL 2 MG/2 ML VIAL IV ONE (09:26)
[2017-08-29] MEDS ORDERED: HEPARIN-NS/PF INJ 1,000 ML ONE (09:26)
[2017-08-29] MEDS ORDERED: MIDAZOLAM HCL 2 MG/2 ML VIAL IV PUSH ONE (09:30)
[2017-08-29] MEDS ORDERED: IOHEXOL 350 MG/ML 50 ML BTL (for Cath Lab) OTHER ONE (09:42)
--- NOTE | 2017-08-29 11:17 | CATHPROC ---
[employer] HIS Report Study Information Study Number Admission Scheduled Start Study Start [id number] Aug 23 2017 8:28PM 08/28/2017 Aug 28 2017 3:47PM [place] [facility] Cardiac Catheterization Admit Source Facility Department Emergency department [facility] - Director General Physician and Clinical Staff Initial Jeremias Medrano Coal Hauler OperatorMhain Galicia RN Coal Hauler Operator Diandra Hawkins RN Other cathlab, cathlab Recorder Damari Valenzuela,PIPE ORGAN TECHNICIAN TECH2 Scrub Hosterman, Carlos Alberto,RT(R) Procedures Performed Procedure Location (Site) Vessel Name Abdominal Angiogram IVC Vena Cava Equipment Time Senior Vice President & General Counsel Description Size Mfg Part Number Used/Scraped CATHETER, FR5 SWAN OSIEL 09:47 BENDER [employer] FR 5 [id number] *[id number] Used MONITOR TRANSDUCER, TRUWAVE [id number] 09:47 BENDER GARCIA * Used W/STOCKCOCK *[id number] 10:02 CORDIS/ NORAH FILTER, OPTEASE VENA CAVA FR 6 Used *[id number] *[id number] 09:47 Fingerprint [employer] PACK, CCL CUSTOM * Used *[id number] 09:47 Fingerprint PACER PEN, SKIN DUAL W/ RULER * Used *[id number] 10:16 [employer] WIRE, EXCHANGE 260CM 3MMJ 260CM Used *[id number] 09:47 NAMIC MANIFOLD, 4 PORT * Used *[id number] 09:40 NAMIC TUBING, HIGH PRESSURE 48" 48" Used *[id number] 09:40 NAMIC TUBING, HIGH PRESSURE 48" 48" Used *[id number] 15:47 NYCOMED OMNIPAQUE, 350 MG, 150ML 150ML [id number] Used [id number] 09:47 [employer] BL[employer]ET,WARM AIR CCL * Used *[id number] 15:47 TERUMO MEDICAL SHEATH, FR5 TERUMO (10CM) FR 5 Used *[id number] 09:45 TERUMO MEDICAL SHEATH, FR6 TERUMO (10CM) FR 6 Used *[id number] 10:02 TERUMO MEDICAL SHEATH, FR7 TERUMO (10CM) FR 7 Used *[id number] Equipment Model, Serial, Lot Number and Expiration Data Description Model Number Serial Number Lot Number Expiration Date FILTER, OPTEASE VENA CAVA [id number] 11-29-2018 History: Allergies Allergy Reaction Sulfa (Sulfonamide Antibiotics) Swelling morphine vomiting , passing out prednisone Suicidal History: Risk Factors Family History of Hypertension Dyslipidemia Previous MD Previous Heart Failure Premature CAD No No No No No Prior Valve Prior PCI Prior PCIDate Prior CABG Surgery No Yes 08/23/2017 No Cerebrovascular Peripheral Artery Chronic Lung On Dialysis Diabetes Disease Disease Disease No No No Yes No History: Stress Tests Stress or Imaging Studies Performed No History: Other Current Smoker Method Packs a Day Years Used Pack Years Yes Cigarettes 1 46 46 Labs Hgb (g/dl) Hct (%) Platelets (thousands) 11.60-17.00 35.00-51.00 150.00-450.00 7.4 23.1 243 Glucose (mg/dl) BUN (mg/dl) Creatinine (mg/dl) BUN:Creatinine (1:x) 74.00-106.00 7.00-18.00 0.50-1.30 10.00-20.00 86 32 0.6 53.3 Na (meq/l) K (meq/l) 136.00-145.00 3.50-5.10 139 3.8 INR (PTT:PT) 0.90-1.10 1.3 Troponin I (ng/ml) CPK (u/l) CPK-MB (ng/ML) 0.02-0.05 26.00-308.00 0.50-3.60 1.16 2622 99.9 Medication Medication Total Dose (Bolus/Oral) Medication Total Dosage/Unit 1% XYLOCAINE 20 mL FENTANYL 25 mcg VERSED 2 mg Medications (Bolus/Oral) Medication Time Given Dosage/Unit Administered By Reason VERSED 08/29/2017 9:26:18 AM 1 mg FertyreseoMahin 1 mg VERSED given in lab by Mahin De Leon RN in Left Forearm via Peripheral IV. Ordered by Hali Belle. FENTANYL 08/29/2017 9:27:58 AM 25 mcg Ferlitto Mahin 25 mcg FENTANYL given in lab by Mahin De Leon RN in Left Forearm via Peripheral IV. Ordered by Jeremias Hernandez. VERSED 08/29/2017 9:30:53 AM 1 mg Ferlitto, Mahin 1 mg VERSED given in lab by Mahin De Leon, RN in Left Forearm via Peripheral IV. Ordered by Hali Belle. 1% XYLOCAINE 08/29/2017 9:41:38 AM 20 mL Jeremias Belle 20 mL 1% XYLOCAINE given in lab by Jeremias Belle in Right Groin via Subcutaneous. Ordered by Jeremias Belle. Medication (Drip) Medication Time Given Dosage/Unit Concentration/Unit Diluent (ml) Solution IV Solutions 08/29/2017 9:27:13 AM 0 mL (IV) 500 NaCl .9 IV Solutions given in lab by Mahin De Leon, RN in Left Forearm via Peripheral IV. Pump/Drip Flow = 2 0 ml/hr using NaCl .9. Ordered by Jeremias Belle. POTASSIUM DRIP 08/29/2017 9:27:15 AM 5 meq/hr 20 meq 100 D5W .9 NaCl Patient arrived on 5 meq/hr POTASSIUM DRIP in Left Antecubital via Peripheral IV. Pump/Drip Flow = 25 ml/hr using D5W .9 NaCl with a concentration of 20 meq in 100 ml. Initial Case Assessment Cardiovascular HR Rhythm NIBP Chest Pain 82 sr/stach w pvc's 92/67 0 Circulatory - Right Pulses Dorsalis Pedis Femoral 1 2 Scale (0,1,2,3,4,d) Circulatory - Left Pulses Dorsalis Pedis Femoral 1 2 Scale (0,1,2,3,4,d) Neurological State Oriented to time-place- Alert Moves all extremities person Comment: Intubated but awake and aware Respiration - General Respiration Rate SpO2 (%) (B/min) 22 99 Respiration - Ventilator Type Intubation Type ET(oral) Respiration - Ventilator Settings TV (ml) IMV (L) FIO2 (%) PEEP (cm/H2O) 500 16 100 5 Final Case Assessment Cardiovascular HR NIBP Chest Pain 82 110/77 0 Circulatory - Right Pulses Dorsalis Pedis Femoral 1 2 Scale (0,1,2,3,4,d) Circulatory - Left Pulses Dorsalis Pedis Femoral 1 2 Scale (0,1,2,3,4,d) Neurological State Oriented to time-place- Alert Moves all extremities person Comment: Pt intubated but awake and aware Respiration - General Respiration Rate SpO2 (%) (B/min) 23 100 Chronological Log Time Study Chronological Log 9:12:28 Patient arrived via Bed intubated. 9:12:30 Patient Name, D.O.B, / Armband Verified By R.N. Vitals capture started with the following parameters, Patient=Adult, Interval=5 min, Initial Pr yaqegs=084 mmHg, 9:17:41 Deflation Rate=5 mmHg, Cuff placed on Right Arm 9:18:13 GINS=162/109 mmhg, SpO2=93.0 %, Pain=0, Cormier=2 9:20:15 Pre-op and post- op instructions given; patient acknowledges understanding of instructions. 9:20:19 Verbal Stimulation=2 Physical Stimulation=2 Airway=2 Respiration=1 TOTAL=7. (0=absent, 1=li mited, 2=present) 9:23:59 HR=83 bpm, NIBP=92/67 mmhg, SpO2=93.0 %, Resp=32 B/min 9:25:15 MD arrived. 9:26:18 1 mg VERSED given in lab by Mahin De Leon, RN in Left Forearm via Peripheral IV. Ordered b Jeremias Lott. 9:27:02 Presedation assessment performed by Director General RN. 9:27:06 Patient has been NPO for More than 6Hrs. 9:27:06 Skin Breakdown-Bruising noted on right arm 9:27:08 Disposable Defibrillator Pads Placed On Patient. 9:27:09 Carrie Prominences Protected 9:27:10 A # 18 IV was noted in the Hand (left). Grade = patent 9:27:11 A # 18 IV was noted in the Forearm (left). Grade = patent 9:27:12 Patient arrived on Precedex drip 3.4ml/hr (0.2mcg/kg/hr) Precedex 200mcg in 50ml NS. IV Solutions given in lab by Mahin De Leon, JESSIE in Left Forearm via Peripheral IV. Pump/Drip Franki w = 20 ml/hr using NaCl ::13 .9. Ordered by Jeremias Belle. 9:27:13 A # 20 IV was noted in the Antecubital (left). Grade = patent Patient arrived on 5 meq/hr POTASSIUM DRIP in Left Antecubital via Peripheral IV. Pump/Drip Flow = 25 ml/hr using :15 D5W .9 NaCl with a concentration of 20 meq in 100 ml. 9:27:17 History and physical on the chart or being dictated. Assessment: Initial Case, HR=82 BPM, Rhythm=sr/stach w pvc's, NIBP=92/67 mmhg, Chest Pain=0 Right Pulses: Aristeo Ped=1, Femoral=2 9:27:19 Left Pulses: Aristeo Ped=1, Femoral=2 Neurological: State=Alert, Ox3, CARLISLE, Comment=Intubated but awake and aware Respiration: Resp=22 B/min, SpO2=99 %, Type=ET(Oral), XW=227 mL, IMV=16 L, ZUV8=800 %, PEEP=5 cm /H2O 9:27:21 Table restraints applied according to hospital policy 9:27:58 25 mcg FENTANYL given in lab by Mahin De Leon, RN in Left Forearm via Peripheral IV. Ordere d by Jeremias Belle. 9:28:42 DS=885 bpm, IMYZ=006/85 mmhg, SpO2=94.0 %, Resp=35 B/min 9:30:53 1 mg VERSED given in lab by Mahin De Leon, RN in Left Forearm via Peripheral IV. Ordered by Jeremias Belle. 9:33:18 LR=566 bpm, ZAXE=293/67 mmhg, SpO2=97.0 %, Resp=22 B/min 9:33:50 Bilateral groins prepped with 2% chlorhexidine, and draped after a 3 minute waiting time. 9:36:32 Pressure channel 1 zeroed. 9:38:11 NC=202 bpm, GRLF=964/73 mmhg, SpO2=99.0 %, Resp=28 B/min, Pain=0, Cormier=2 Time Out. Correct patient, correct procedure, correct physician, power injector loaded, or not l oaded with contrast with 9:41:00 surgical team present. Time Out Concurred by MD and individual staff in procedure. 9:41:33 Case Start 9:41:38 20 mL 1% XYLOCAINE given in lab by Jeremias Belle in Right Groin via Subcutaneous. Ordered b Jeremias Lott. 9:43:20 WY=644 bpm, ODBZ=759/52 mmhg, SpO2=99.0 %, Resp=23 B/min 9:43:24 Reference ECG taken 9:44:10 Access site was Right Femoral Vein. 9:44:25 A SHEATH, FR5 TERUMO (10CM) FR 5 was advanced into the Fem Vein (right) using the Percutaneo us technique. A SHEATH, FR6 TERUMO (10CM) FR 6 was exchanged in the Fem Art (right). This was necessary in ord er to 9:46:20 accomodate a larger catheter. 9:46:32 A CATHETER, FR5 SWAN OSIEL MONITOR FR 5 was inserted via Fem Vein (right) Recorded Pressure: RA, FC=045, Condition=Condition 1 9:46:56 (Right Atrium) RA 25/18/16 Recorded Pressure: RV, OM=419, Condition=Condition 1 9:47:24 (Right Ventricle) RV 48/15/20 Recorded Pressure: MPA, IY=624, Condition=Condition 1 9:48:14 (Main Pulmonary Artery) MPA 44/24/37 9:48:15 YQ=780 bpm, OZWV=796/67 mmhg, TlC8=584.0 %, Resp=32 B/min Recorded Pressure: PCW, ET=906, Condition=Condition 1 9:49:10 (Pulmonary Capillary Wedge) PCW 41/38/30 9:50:08 Saturation: Site=PA (Pulmonary Artery) , O2=55.6 %, Hgb=7.4 gm/dl, Condition=Condition 1. Us ed in calculation. 9:51:59 Saturation: Site=Ao (Aorta) , O2=99 %, Hgb=7.4 gm/dl, Condition=Condition 1. Used in calcula tion. 9:52:33 Chisholm Osiel Catheter Removed 9:53:45 DV=331 bpm, ZXTP=299/78 mmhg, OlZ9=562.0 %, Resp=25 B/min 9:53:53 A PIGTAIL STR. INFINITI CATHETER FR 5 was advanced over a wire. contrast was used for inject ions. 9:55:26 Through a PIGTAIL STR. INFINITI CATHETER FR 5, The Abdominal Aorta was injected with 24 cc's of contrast. 9:55:45 Catheter was removed An IVC Filter 6fr long sheath was exchanged in the Fem Vein (right). This was necessary in order to accomodate the 9:56:09 IVC filter. 9:58:55 An OptEase Femoral IVC Filter was advanced over a wire via 6fr sheath in RFV and deployed in the IVC. 9:58:58 HY=888 bpm, MCYR=894/79 mmhg, JqG7=795.0 %, Resp=25 B/min 9:59:53 Delivery device removed 10:00:15 Case End 10:00:40 Sheath removed; pressure applied to access site. 10:03:10 RX=158 bpm, WTNP=571/85 mmhg, QjL2=591.0 %, Resp=27 B/min 10:08:54 AM=768 bpm, OMBM=362/82 mmhg, OyM6=354.0 %, Resp=28 B/min 10:09:25 Hemostasis obtained 10:09:45 Sterile dressing applied to site Assessment: Final Case, HR=82 BPM, ZMVI=904/77 mmhg, Chest Pain=0 Right Pulses: Aristeo Ped=1, Femoral=2 10:12:51 Left Pulses: Aristeo Ped=1, Femoral=2 Neurological: State=Alert, Ox3, CARLISLE, Comment=Pt intubated but awake and aware Respiration: Resp=23 B/min, NaV7=444 % 10:13:47 OR=568 bpm, YMWP=696/77 mmhg, VaK4=969.0 %, Resp=23 B/min 10:14:14 Vitals capture stopped. 10:20:19 No case complications noted. 10:20:21 Cine recording checked. 10:20:25 Implantable Device card placed in patient's chart. 10:25:00 Patient moved to bed 10:25:13 Bedside Report will be given. 10:25:53 Patient transported to [facility]. End Study - Contrast Media Used In Study Contrast Total Opened (mL) Total Used (mL) Total Wasted (mL) Omnipaque 30 30 0 End Study - Maximum Contrast Load Max Contrast Load (mL) 620.8 End Study - Radiation Exposure Fluoro Time (minutes) 3.2 End Study - Sheaths Sheaths Pulled By Sheath Hold Time (min) Carlos Alberto Mancia End Study - Patient Disposition Complications Transferred To Interventional Outcome No Critical Care Bed No attempt made
--- NOTE | 2017-08-29 11:34 | MA ---
cc: ENRIQUE OCHOA MD DATE: 08/29/2017 PROCEDURE PREFORMED: 1. Inferior vena cava filter placement. 2. Venogram, inferior vena cava. 3. Right heart catheterization. PROCEDURE: The risks, benefits and alternatives discussed with the patient and her family. The patient consented. The right groin was prepped and draped in sterile fashion, right groin was anesthetized with 2% lidocaine, the right femoral vein was accessed and a 6 Maltese 11 cm sheath was placed without difficulty. The right heart catheterization; a 5 Maltese [place] pulmonary arterial catheter was advanced to the right atrium under fluoroscopic guidance, hemodynamics were preformed in all chambers followed by pulmonary capillary wedge position. HEMODYNAMICS 1. Right anterior pressure measures 16 mmHg. 2. Right ventricular pressure measures at 48 x 15 mmHg. 3. Pulmonary arterial pressure measures at 44 x 24 mmHg. 4. Pulmonary capillary wedge pressure measures at 30 mmHg. 5. Venogram; a 5 Maltese pigtail catheter was advanced to the bifurcation of the iliac arteries, digital subtraction angiography was preformed with 24 cc contrast injection. Brittle veins were identified. The bifurcation of the iliac veins was identified. 6. Inferior vena cava filter placement, a cordis Optese vena cava filter was then advanced with a long 6 Maltese sheath to the level of the inferior vena cava and deployed successfully below the renal vein and above the iliac veins. 7. Repeat venography showed good opposition and good placement. Sheath was pulled with manual hemostasis.. CONCLUSIONS: 1. Mild pulmonary hypertension. 2. Elevated left sided filling pressures. 3. Successful inferior vena cava filter placement. PLAN: 1. Heparin will be resumed in two to four hours. 2. We will monitor the right groin closely for any bleeding, complications. 3. Elevated left sided filling pressures suggest further diuresis as necessary. The inferior vena cava filter is retrievable which maybe a consideration after recovery and left hip surgery. MD MARQUISE Sullivan/shiva /10:07 AM /10:12 AM
[2017-08-29] MEDS ORDERED: FUROSEMIDE 40 MG/4 ML VIAL IV PUSH ONE (12:00)
[2017-08-29] MEDS: FERROUS SULFATE 325 MG (65 MG ELEMENTAL IRON) TAB PO SCH ×2 (12:00→17:56)
[2017-08-29] MEDS ORDERED: POTASSIUM CHLORIDE 20 MEQ CONTROLLED RELEASE TAB PO ONE (12:00)
--- NOTE | 2017-08-29 12:20 | RADRPT ---
EXAM DATE/TIME: 08/29/2017 11:39 [facility] COMPARISON: CHEST SINGLE AP, August 28, 2017, 9:07. INDICATIONS : Respiratory disease. MEDICAL HISTORY : None. SURGICAL HISTORY : None. ENCOUNTER: Subsequent ACUITY: 4 - 6 days PAIN SCORE: Non-responsive. LOCATION: Bilateral chest FINDINGS: A single view of the chest demonstrates persistent bibasilar airspace consolidation with associated e ffusions. Increasing interstitial changes in the right upper lung as well. Heart size is normal. Endo tracheal and nasogastric tubes are unchanged in position. Osseous structures are intact. CONCLUSION: 1. Persistent bibasilar airspace consolidation with associated effusions. 2. Worsening interstitial infiltrate in the right upper lung. 3. Stable position of life support tubes. Migue Flowers MD on August 29, 2017 at 12:15 Board Certified Radiologist. This report was verified electronically.
[2017-08-29 12:23] LABS: APTT (PATIENT) 30.7 SEC (24.3-30.1)
--- NOTE | 2017-08-29 12:28 | HHI.CCPN ---
Subjective Remarks/Hospital Course 08/26: This is a 61 yo female that was recently admitted to the hospital .the patient has a history of hip pain and bursitis and subsequently with sedentary for greater than 6 weeks she presented with shortness of breath .CT angiogram of thorax revealed multifocal pulmonary emboli with multiple small filling defects in the right main pulmonary artery interlobar pulmonary artery on the right and one in the left lower lobe pulmonary artery. Emboli was noted to be small but diffusely throughout. The patient was also noted to have moderate sized bilateral pleural effusions at that time . The patient was placed on eliquis approximately 2 weeks ago and she reported significant improvement in her lower ext swelling. On 08/24 the patient presented to the ED with complaints of malaise and nauseated. EKG noted she was in V. tach and the patient was defibrillated. Additional imaging and laboratory studies reveal the patient had a inferior ST elevation FL. Cardiology was consulted Dr. Das , the patient underwent a cardiac catheterization with PCI bare-metal stent to the dominant distal left circumflex coronary artery. Distal LAD was noted to have 60% stenosis. The patient was transferred to CVICU, and continued on antiplatelet therapy and heparin infusion per cardiology recommendations. Early this a.m. the patient was noted to be due to tachypneic, tachycardic heart rate [id number] on a nonrebreather mask with extreme accessory muscle movement, stat ABG was drawn, patient was noted to be in acute hypoxemic respiratory failure. Critical care medicine was consulted. The patient was emergently intubated, and placed on sedation for ventilator synchrony 08/27: Orally intubated on mechanical ventilation. Patient anxious on fentanyl drip. Blood pressure borderline. Received a fluid bolus overnight for oliguria. Remains tachycardic. Patient does have a left femoral neck fracture and has been seen by orthopedics who are recommending surgery. 08/28: Sedated, easily arousable, orally intubated on mechanical ventilation. Blood pressure borderline. Hemoglobin has dropped to 7.5 g percent while on anticoagulation and antiplatelet therapy. Stat CT abdomen pelvis ordered to evaluate for retroperitoneal bleed and 2 units PRBCs to be transfused now. Limited 2-D echo still pending to assess RV. Awaiting IVC filter placement. 08/29: Patient is status post right heart catheter and IVC filter placement today by Dr. das. Pulmonary arterial pressure measures at 44/24 mmHg. PCWP 30 mmHg. patient is slightly tachypneic on CPAP. Chest x-ray shows persistent bilateral effusions and infiltrate. On CT significant consolidation of the left lower lobe with small effusion, and moderate right effusion. Sputum culture with gram-negative john, continue zosyn Objective Vital Signs Date Time Temp Pulse Resp B/P (MAP) Pulse Ox O2 Delivery O2 Flow Rate FiO2 08/29/17 11:00 Mechanical Ventilator 50 08/29/17 10:50 93 08/29/17 06:00 100 08/29/17 03:00 98.2 17 140/67 (91) 08/26/17 11:00 Intake and Output 08/29/17 08/29/17 08/29/17 07:59 15:59 23:59 Intake Total 1481 ml Output Total 220 ml Balance 1261 ml Result Diagram: 08/29/17 0431 08/29/17 0431 Other Results Microbiology Date/Time Source Procedure Growth Status 08/27/17 11:00 Urine Catheterized Urine Urine Culture - Final NO GROWTH IN 48 HOURS. Complete Imaging Last 72 hours Impressions Chest X-Ray 08/26/17 1100 Signed Impressions: Service Date/Time: Saturday, August 26, 2017 11:13 - CONCLUSION: 1. Slight worsening of airspace disease in the lungs since August 25. Satisfactory placement of nasogastric tube and endotracheal tube. Basim Pollock MD Chest X-Ray 08/25/17 1315 Signed Impressions: Service Date/Time: Friday, August 25, 2017 13:26 - CONCLUSION: Pulmonary vascular congestion with small bilateral pleural effusions suggesting failure Jeremias Peacock MD Hip and Pelvis X-Ray 08/25/17 0000 Signed Impressions: Service Date/Time: Friday, August 25, 2017 12:01 - CONCLUSION: Impacted femoral neck fracture at the base without significant step-off Jeremias Peacock MD CT Angiography 08/25/17 0000 Signed Impressions: Service Date/Time: Friday, August 25, 2017 16:06 - CONCLUSION: Multifocal pulmonary emboli with small filling defects identified in the main right pulmonary artery, interlobar pulmonary artery on the right and one in the left lower lobe pulmonary arteries. The emboli are small but multiple. Moderate- sized bilateral pleural effusions. Jeremias Peacock MD Chest X-Ray 08/23/17 2015 Signed Impressions: Service Date/Time: Wednesday, August 23, 2017 20:15 - CONCLUSION: 1. Normal heart size. No evidence of alveolar pulmonary edema. 2. Mild focal interstitial process upper right lung. Michele Morris MD Last 24 hours Impressions Chest X-Ray 08/26/171099 Signed Impressions: Service Date/Time: Saturday, August 26, 2017 11:13 - CONCLUSION: 1. Slight worsening of airspace disease in the lungs since August 25. Satisfactory placement of nasogastric tube and endotracheal tube. Basim Pollock MD Objective Remarks HEENT/ Neuro: Off sedation, arousable, following commands, moving all 4 extremities, orally intubated, Pallor present, no icterus, tongue/ mucosa moist Neck: No JVD Chest/Pulm: on mech vent, good air entry bilaterally, no wheezing or crackles Diminished air entry at the bases. bedside US, large left and small to mod right effusion CVS: S1-S2 regular, no murmur GI/abdomen: soft, nontender, bowel sounds sluggish Extremities: warm bilaterally, no edema. Left hip pain with active and passive motion. Procedures 08/26-intubation Urinary Catheter: Yes Assessment to: Continue Date of Insertion: Aug 26, 2017 A/P Problem List: (1) Acute hypoxemic respiratory failure ICD Code: J96.01 - Acute respiratory failure with hypoxia Status: Acute (2) Anxiety ICD Code: F41.9 - Anxiety Status: Acute (3) Tobacco abuse ICD Code: Z72.0 - Tobacco abuse Status: Acute (4) STEMI (ST elevation myocardial infarction) ICD Code: I21.3 - ST elevation (STEMI) myocardial infarction of unspecified site Status: Acute (5) Hypokalemia ICD Code: E87.6 - Hypokalemia Status: Acute (6) V tach ICD Code: I47.2 - Ventricular tachycardia Status: Acute (7) DVT (deep venous thrombosis) ICD Code: I82.409 - Acute embolism and thrombosis of unspecified deep veins of unspecified lower extremity Status: Acute (8) Pulmonary embolism ICD Code: I26.99 - Other pulmonary embolism without acute cor pulmonale Assessment and Plan Assessment This is a 61-year-old female with ST elevation FL status post PCI with bare- metal stent placement, in the setting now with acute hypoxemic and hypercarbic respiratory failure secondary to pulmonary emboli, left femoral neck fracture. Patient intubated on mechanical ventilation, hypotensive. patient has bilateral pleural effusions with consolidation and GNR in sputum Plan by systems: Neurologic: Anxiety disorder Chronic pain syndrome Ofirmev 1 g every 6 hours x 24-48 hrs, Tramadol q 6 hr scheduled. Precedex infusion for ventilator synchrony Versed 2 mg every 4 hours when necessary for agitation and anxiety Daily sedation vacation Tylenol 650 mg every 6 hours for temp greater than 100.5 Respiratory: Acute hypoxemic and hypercarbic respiratory failure Diffuse pulmonary emboli Tobacco abuse Bilateral effusion and consolidation, probable pneumonia 08/26 patient intubated 8.0 ETT atraumatically, grade 1 view 20 cm at the lip Ventilator bundle, Continue mechanical ventilation, bronchodilators as needed Slightly tachypneic on CPAP trial. Will need diuresis/thoracentesis prior to extubation Chest x-rays and ABGs as clinically indicated Heparin infusion see below-currently on hold for cath. s/p IVC filter placement Right heart cath Pulmonary arterial pressure measures at 44/24 mmHg. PCWP 30 mmHg. plan for left thoracentesis Cardiovascular: STEMI S/P bare-metal stent placement H/O V. tach with defibrillation 1 Pulmonary embolism CHF Heparin gtt. being followed by cardiology. Heparin on hold for right heart catheter and IVC filter placement Patient on dual antiplatelet therapy and statin Descending LAD coronary artery stenosis 60%. Repeat 2-D echo to assess for RV dysfunction risk stratification and for PE as patient needs orthopedic surgery for left femoral neck fracture. LVEF 50- 55%. RV systolic function and chamber size normal Renal: Insert osorio-patient intubated and sedated and receiving IV diuretics -- Strict I/Os FEN/GI: Advance tube feeds to goal as tolerated - currently held for cardiac catheterisation Monitor BMP Replete electrolytes per CV ICU protocol Bowel regimen Zofran for nausea Heme/ID: Leukocytosis Sepsis Bilateral pneumonia/GNR in sputum Follow-up duque cultures. Initiated empiric antibiotic coverage with IV Zosyn on 08/27 f/u GNR in sputum CT abdomen pelvis no evidence of retroperitoneal hematoma. s/p 2 units PRBCs On anticoagulation with heparin for pulmonary embolism. s/p IVC filter placement. May need to reevaluate anticoagulation and antiplatelet therapy if hemoglobin continues to drop or CT shows any evidence of hemorrhage. Musculoskeletal: Left femoral neck fracture being followed by orthopedics. Needs surgery however extremely high risk due to recent FL and PE. Await clearance by Dr. Das, preferably at least 6 months if elective surgery Endocrine: Close monitoring per ICU protocol -- SSI Prophylaxis: GI Prophylaxis Protonix DVT Prophylaxis -- SCDs Heparin infusion Lines: Peripheral IVs. Central line if indicated. Dispo: This patient remains critically ill with one or more organ systems which are or may become a threat to life. I have spent in excess of 35 minutes discontinuously in the care and management of this patient. This time is exclusive of procedures, and includes, but is not limited to, evaluation of the patient, review of the medical record, discussions with family, consultants, nursing staff, or respiratory therapy, and documentation in the medical record. Sarah Harrison MD Aug 29, 2017 12:28
[2017-08-29] MEDS ORDERED: FUROSEMIDE 20 MG/2 ML VIAL IV PUSH ONE (12:30)
[2017-08-29] MEDS ORDERED: ALBUMIN 25% INJ 100 ML IV ONE (12:45)
[2017-08-29] MEDS ORDERED: CEFEPIME INJ 2,000 MG in SODIUM CHLORIDE 0.9% INJ 100 ML IV SCH (13:00)
[2017-08-29] MEDS: MIDAZOLAM HCL 2 MG/2 ML VIAL IV PRN (13:13)
--- NOTE | 2017-08-29 13:39 | PD.PROCEDR ---
Procedure Note Procedure US guided left Thoracentesis Date: 08/29/17 Indication: Large left pleural effusion, respiratory failure Informed consent was obtained, a time-out was completed verifying correct patient, procedure, site, positioning, and equipment. The patients left side was prepped and draped in a sterile manner after the appropriate infiltration level was confirmed by ultrasound. 1% lidocaine was used anesthetize the surrounding skin. A 10-blade scalpel used to make small incision. The thoracentesis Angiocath was then threaded without difficulty. Clear straw colored pleural fluid was aspirated and needle was removed. Total 1000 ml (1L) clear yellow pleural fluid was removed. A post-procedure chest x-ray was ordered and the fluid will be sent for several studies. Estimated Blood Loss: negligible The patient tolerated the procedure well and there were no complications. Sarah Harrison MD Aug 29, 2017 13:39
--- NOTE | 2017-08-29 14:39 | RADRPT ---
EXAM DATE/TIME: 08/29/2017 13:54 [facility] COMPARISON: CHEST SINGLE AP, August 29, 2017, 11:39. INDICATIONS : Post left thoracentesis. MEDICAL HISTORY : Glasses. Deep vein thrombosis. Hiatal hernia. Ectopic . Buritis left hip. Anxiety. SURGICAL HISTORY : Hysterectomy. Thyroid tumor removed ENCOUNTER: Subsequent ACUITY: 1 day PAIN SCORE: Non-responsive. LOCATION: Bilateral chest FINDINGS: A single view of the chest demonstrates the lungs to be symmetrically aerated with marked improved ae ration in the left lower lobe and reduction in previously seen effusion. No pneumothorax post thorace ntesis. Right basilar consolidation/effusion persists. Interstitial changes in the right upper lobe a re stable. Endotracheal tube remains in appropriate position above the lacho. Nasogastric tube has b een pulled back slightly with the side-port at the GE junction. CONCLUSION: 1. Marked improved aeration in the left lower lobe with resolving consolidation/effusion. No pneumoth orax post thoracentesis. 2. Persistent right basilar consolidation/effusion, unchanged. Interstitial infiltrate in the right u pper lobe is also stable. 3. Endotracheal tube appropriate position above the lacho. Side port of the nasogastric tube at the GE junction. Migue Flowers MD on August 29, 2017 at 14:35 Board Certified Radiologist. This report was verified electronically.
[2017-08-29 15:35] LABS: TOTAL PROTEIN,PLEURAL FLUID 1.3 GM/DL
[2017-08-29 16:02] LABS: PLEURAL FLUID LYMPHS 8 %
[2017-08-29] MEDS: FUROSEMIDE 40 MG/4 ML VIAL IV PUSH SCH (17:57)
[2017-08-29] MEDS: CARVEDILOL 3.125 MG TAB PO SCH (19:55)
[2017-08-29] MEDS: POTASSIUM CHLORIDE 25 MEQ EFFERVESCENT TAB PO SCH (19:56)
[2017-08-29] MEDS: ATORVASTATIN 40 MG TAB PO SCH (19:57)
[2017-08-29 23:14] LABS: APTT (PATIENT) 48.5 SEC (24.3-30.1)
[2017-08-29] MEDS: OXYBUTYNIN CHLORIDE 5 MG TAB PO SCH (23:41)
[2017-08-30] VITALS (17 sets, daily range): BP systolic 107–129; BP diastolic 21–81; PULSE 103–118; RESP 18–24; TEMP 97.6–98.3; O2SAT 92–95
[2017-08-30] MEDS: RESP: IPRATROPIUM 0.5 MG/2.5 ML NEB NEB SCH ×7 (03:32→23:55)
[2017-08-30] MEDS: HEPARIN-D5W 25,000 U/250 ML 250 ML IV PRN ×2 (03:35→10:34)
[2017-08-30] MEDS: CHLORHEXIDINE GLUCONATE 2 % 1 PACK (2 CLOTHS) TOP SCH (04:00)
[2017-08-30 04:35] LABS: APTT (PATIENT) 53.4 SEC (24.3-30.1)
[2017-08-30] MEDS: traMADol HCL 50 MG TAB PO SCH ×3 (05:38→16:22)
[2017-08-30] MEDS: OXYBUTYNIN CHLORIDE 5 MG TAB PO SCH ×3 (05:38→21:30)
[2017-08-30] MEDS: PIPERACIL-TAZO 4.5 GM PREMIX 100 ML IV SCH ×3 (05:39→16:23)
[2017-08-30] MEDS: ASPIRIN 81 MG CHEW TAB PO SCH (07:49)
[2017-08-30] MEDS: CLOPIDOGREL 75 MG TAB PO SCH (07:50)
[2017-08-30] MEDS: DOCUSATE SODIUM 50 MG/SENNA 8.6 MG TAB PO SCH ×2 (07:50→21:00)
[2017-08-30] MEDS: CARVEDILOL 3.125 MG TAB PO SCH ×2 (07:50→21:30)
[2017-08-30] MEDS: REMOVE OLD NICOTINE PATCH T-DERMAL SCH (07:51)
[2017-08-30] MEDS: NICOTINE 14 MG/24 HR PATCH T-DERMAL SCH (07:51)
[2017-08-30] MEDS: POTASSIUM CHLORIDE 25 MEQ EFFERVESCENT TAB PO SCH ×2 (07:52→21:30)
[2017-08-30] MEDS: FUROSEMIDE 40 MG/4 ML VIAL IV PUSH SCH ×2 (07:52→16:22)
[2017-08-30] MEDS: CHLORHEXIDINE 0.12% (ORAL KIT) 15 ML CUP MT SCH ×2 (07:52→20:00)
[2017-08-30] MEDS: POTASSIUM CHLORIDE 20 MEQ CONTROLLED RELEASE TAB PO SCH ×2 (07:53→21:00)
[2017-08-30] MEDS: PANTOPRAZOLE SOD 40 MG DELAYED RELEASE TAB PO SCH (07:58)
[2017-08-30] MEDS: INSULIN ASPART SUPPLEMENTAL SCALE SQ SCH ×4 (08:00→21:00)
--- NOTE | 2017-08-30 08:05 | PD.CARD.PN ---
Subjective Subjective Remarks RN at bedside. Extubated on simple mask. Some L anterior chest pain. Shortness of breath is much improved today after thoracentesis and diuresis, negative fluid balance overnight. (Arden Murphy) Objective Medications Current Medications Medications (Trade) Dose Ordered Sig/Ajmilah Route Start Time Stop Time Status Last Admin (NS Flush) 2 ml UNSCH PRN IVF 08/23/17 20:15 (Xylocaine 2% Jelly) 1 applic UNSCH PRN TOP 08/23/17 21:45 (Aspirin Chew) 81 mg DAILY PO 08/24/17 09:00 08/30/17 07:49 (Plavix) 75 mg DAILY PO 08/24/17 09:00 08/30/17 07:50 (Atropine Inj) 0.5 mg UNSCH PRN IV PUSH 08/23/17 21:45 (Zofran Inj) 4 mg Q4H PRN IV PUSH 08/23/17 21:45 08/28/17 05:39 (Lipitor) 40 mg HS PO 08/24/17 21:00 08/29/17 19:57 (Ferrous Sulfate) 325 mg BID@,17 PO 08/24/17 12:00 08/29/17 17:56 (Habitrol 14 Mg Patch.24 Hr) 1 patch DAILY T-DERMAL 08/25/17 09:00 09/01/17 09:00 08/30/17 07:51 Miscellaneous Information 1 DAILY T-DERMAL 08/25/17 09:00 09/01/17 09:00 08/30/17 07:51 Acetaminophen 100 ml @ 400 mls/hr Q6H PRN IV 08/24/17 18:45 08/25/17 19:59 (KCl) 20 meq Q12HR PO 08/25/17 09:00 08/29/17 08:11 (Atrovent Neb) 0.5 mg Q4HR NEB NEB 08/25/17 16:00 08/30/17 03:32 (Atrovent Neb) 0.5 mg Q2HR NEB PRN NEB 08/25/17 14:00 08/26/17 06:00 (Heparin Inj) 5,000 units UNSCH PRN IV PUSH 08/25/17 23:00 (Heparin Inj) 2,500 units UNSCH PRN IV PUSH 08/25/17 23:00 Heparin Sodium/ Dextrose 250 ml @ 13 mls/hr TITRATE PRN IV 08/25/17 17:00 08/30/17 03:35 (Protonix) 40 mg DAILY PO 08/26/17 09:00 08/30/17 07:58 Fentanyl Citrate 250 ml @ 5 mls/hr TITRATE PRN IV 08/26/17 07:15 08/26/17 22:46 (Tears Naturale Opth Soln) 1 drop Q4H PRN EACH EYE 08/26/17 13:45 08/27/17 09:43 (Peridex 0.12% Liq) 15 ml BID@08,20 MT 08/26/17 20:00 08/29/17 08:00 (Ultram) 50 mg Q6HR PO 08/26/17 14:30 08/30/17 05:38 (D50w (Vial) Inj) 50 ml UNSCH PRN IV PUSH 08/26/17 14:45 (Glucagon Inj) 1 mg UNSCH PRN OTHER 08/26/17 14:45 (NovoLOG SUPPLEMENTAL SCALE) 1 ACHS SLIDING SCALE SQ 08/26/17 17:00 Miscellaneous Information 1 Q361D XX 08/26/17 14:45 (Chlorhexidine 2% Cloth) 3 pack Taper DAILY@04 TOP 08/27/17 04:00 08/23/18 03:59 08/28/17 03:44 (Chlorhexidine 2% Cloth) 3 pack UNSCH PRN TOP 08/26/17 14:45 (Clair-Colace) 1 tab BID PO 08/26/17 21:00 08/29/17 19:55 (Milk Of Magnesia Liq) 30 ml Q12H PRN PO 08/26/17 14:45 (Senokot) 17.2 mg Q12H PRN PO 08/26/17 14:45 08/26/17 18:34 (Dulcolax Supp) 10 mg DAILY PRN RECTAL 08/26/17 14:45 (Lactulose Liq) 30 ml DAILY PRN PO 08/26/17 14:45 (Versed Inj) 2 mg Q4H PRN IV 08/26/17 15:30 08/29/17 13:13 Potassium Chloride 100 ml @ 50 mls/hr Q2H PRN IV 08/26/17 22:45 Potassium Chloride 100 ml @ 50 mls/hr Q2H PRN IV 08/26/17 22:45 08/29/17 12:10 (K-Lyte Cl Eff) 50 meq UNSCH PRN PO 08/26/17 22:45 Potassium Chloride 100 ml @ 25 mls/hr UNSCH PRN IV 08/26/17 22:45 Potassium Chloride 100 ml @ 50 mls/hr Q2H PRN IV 08/26/17 22:45 Magnesium Sulfate 4 gm/Sodium Chloride 100 ml @ 50 mls/hr UNSCH PRN IV 08/26/17 22:45 (Mag-Ox) 800 mg UNSCH PRN PO 08/26/17 22:45 Magnesium Sulfate 2 gm/Sodium Chloride 100 ml @ 50 mls/hr UNSCH PRN IV 08/26/17 22:45 (K-Phos) 2,000 mg Q4H PRN PO 08/26/17 22:45 Sodium Phosphate 30 mmol/Sodium Chloride 250 ml @ 42 mls/hr UNSCH PRN IV 08/26/17 22:45 (K-Phos) 2,000 mg UNSCH PRN PO/TUBE 08/26/17 22:45 Potassium Phosphate 30 mmol/ Sodium Chloride 260 ml @ 42 mls/hr UNSCH PRN IV 08/26/17 22:45 Dexmedetomidine HCl 200 mcg/ Sodium Chloride 52 ml @ 3.56 mls/hr TITRATE PRN IV 08/27/17 08:15 08/29/17 02:56 Piperacillin Sod/ Tazobactam Sod 100 ml @ 200 mls/hr Q6H IV 08/27/17 11:00 08/30/17 05:39 (Tylenol) 650 mg Q4H PRN PO 08/28/17 08:45 (Benadryl) 25 mg Q4H PRN PO 08/28/17 08:45 (Lasix Inj) 40 mg BID@09,18 IV PUSH 08/29/17 18:00 08/30/17 07:52 (K-Lyte Cl Eff) 25 meq Q12HR PO 08/29/17 21:00 08/29/17 19:56 (Coreg) 3.125 mg BID PO 08/29/17 21:00 08/30/17 07:50 (Ditropan) 5 mg Q8HR PO 08/29/17 23:30 08/30/17 05:38 Vital Signs / I&O Vital Signs Date Time Temp Pulse Resp B/P (MAP) Pulse Ox O2 Delivery O2 Flow Rate FiO2 08/30/17 07:31 93 Simple Mask 9.00 08/30/17 06:00 103 08/30/17 04:00 106 08/30/17 04:00 97.9 106 18 114/73 (87) 95 08/30/17 02:00 115 08/30/17 00:00 114 08/30/17 00:00 98.3 114 22 115/21 (52) 95 08/29/17 23:22 96 Simple Mask 9.00 08/29/17 22:00 102 08/29/17 20:00 122 08/29/17 20:00 94 Simple Mask 10.00 08/29/17 20:00 97.7 122 22 121/72 (88) 94 08/29/17 19:13 20 08/29/17 18:00 118 08/29/17 16:00 122 08/29/17 15:44 94 Simple Mask 7.00 08/29/17 15:30 94 Simple Mask 7.00 08/29/17 15:23 93 Nasal Cannula 4.00 08/29/17 15:00 98.0 122 25 123/59 (80) 96 08/29/17 15:00 94 Nasal Cannula 5.00 08/29/17 14:40 95 Nasal Cannula 4 08/29/17 14:40 Mechanical Ventilator 08/29/17 14:40 95 Nasal Cannula 4.00 08/29/17 14:00 108 08/29/17 13:00 104 08/29/17 12:00 97.8 98 20 99/66 (77) 94 08/29/17 12:00 98 08/29/17 11:00 Mechanical Ventilator 50 08/29/17 11:00 100 08/29/17 10:50 93 30 08/29/17 10:00 100 08/29/17 09:00 100 100 I/O 08/29/17 08/29/17 08/29/17 08/30/17 08/30/17 08/30/17 07:00 15:00 23:00 07:00 15:00 23:00 Intake Total 1481 ml 369 ml 95 ml 849 ml Output Total 220 ml 1000 ml 720 ml Balance 1261 ml 369 ml -905 ml 129 ml IV Total 551 ml 369 ml 95 ml 849 ml Packed Cells 800 ml Blood Product IV Normal Saline Flush 130 ml Output Urine Total 220 ml 1000 ml 720 ml # Bowel Movements 0 Physical Exam GENERAL: Well-developed well-nourished. Right groin procedure site with no bleeding and minimal ecchymosis. NECK: No carotid bruits. No JVD. CARDIOVASCULAR: Tachycardic rate and regular rhythm. No murmur appreciated. RESPIRATORY: Clear to auscultation. Breath sounds equal bilaterally. No crackles. MUSCULOSKELETAL: No clubbing or cyanosis. Lower extremity swelling. NEUROLOGICAL: Awake and alert. Shakes head to questions appropriately. Laboratory Laboratory Tests Test 08/29/17 11:55 08/29/17 13:45 08/29/17 22:26 08/30/17 04:13 Activated Partial Thromboplast Time 30.7 SEC 48.5 SEC 53.4 SEC Pleural Fluid pH 8.0 Pleural Fluid WBC 9 /MM3 Pleural Fluid RBC 653 /MM3 Pleural Fluid Neutrophils 67 % Pleural Fluid Lymphocytes 8 % Pleural Fluid Monocytes 6 % Pleural Fluid Histiocytes 9 % Pleural Fluid Mesothelial Cells 10 % Pleural Fluid Total Protein 1.3 GM/DL Pleural Fluid LDH 244 U/L Pleural Fluid Glucose 105 MG/DL Potassium Level 4.1 MEQ/L (Arden Murphy) Assessment and Plan Problem List: (1) V tach ICD Codes: I47.2 - Ventricular tachycardia Status: Acute (2) STEMI (ST elevation myocardial infarction) ICD Codes: I21.3 - ST elevation (STEMI) myocardial infarction of unspecified site Status: Acute Assessment and Plan acute respiratory distress: intubated and mechanically ventilated. Echo normal EF, mild-mod MVR +bilateral pulmonary emboli/ LE DVT: on heparin gtt. placed removable IVC filter 08/29. STEMI: s/p PCI BMS distal left circumflex. Moderate proximal LAD stenosis, consider lexiscan upon recovery hypotension: repeated limited echo showed normal EF and left ventricular function. RLHC showed elevated left-sided filling pressures, continue diuresis as necessary, on Lasix with negative fluid balance overnight. anemia: s/p transfusion 08/28 hip fracture: ortho following. (Arden Murphy) Assessment and Plan clinically improved extubated. tachycardiac. appears to be sinus tachcyardia, but lets check EKG to make sure not atrial arrhythmia (atrial tach, afluter 2:1). on cardizem gtt. still high HR. hypotension limiting any further titration options. Will change coreg to metoprolol for better HR control. ok to eat from my standpoint. swallow eval heparin gtt -> lovenox BID -> coumadin if ortho does not plan to operate anytime this hospitalization. if aflutter 2:1, may consider amio gtt instead if sinus tachycardia, then likely compensatory. monitor anemia continue diuresis, gentle with PCWP 30 (Jeremias Belle MD) Arden Murphy Aug 30, 2017 08:05 Jeremias Belle MD Aug 30, 2017 13:44
[2017-08-30] MEDS: DILTIAZEM 125 MG/NS 100 ML IV PRN ×4 (10:26→20:00)
[2017-08-30] MEDS: FERROUS SULFATE 325 MG (65 MG ELEMENTAL IRON) TAB PO SCH ×2 (11:31→16:21)
--- NOTE | 2017-08-30 14:23 | HHI.CCPN ---
Subjective Remarks/Hospital Course 08/26: This is a 61 yo female that was recently admitted to the hospital .the patient has a history of hip pain and bursitis and subsequently with sedentary for greater than 6 weeks she presented with shortness of breath .CT angiogram of thorax revealed multifocal pulmonary emboli with multiple small filling defects in the right main pulmonary artery interlobar pulmonary artery on the right and one in the left lower lobe pulmonary artery. Emboli was noted to be small but diffusely throughout. The patient was also noted to have moderate sized bilateral pleural effusions at that time . The patient was placed on eliquis approximately 2 weeks ago and she reported significant improvement in her lower ext swelling. On 08/24 the patient presented to the ED with complaints of malaise and nauseated. EKG noted she was in V. tach and the patient was defibrillated. Additional imaging and laboratory studies reveal the patient had a inferior ST elevation SC. Cardiology was consulted Dr. Das , the patient underwent a cardiac catheterization with PCI bare-metal stent to the dominant distal left circumflex coronary artery. Distal LAD was noted to have 60% stenosis. The patient was transferred to CVICU, and continued on antiplatelet therapy and heparin infusion per cardiology recommendations. Early this a.m. the patient was noted to be due to tachypneic, tachycardic heart rate [id number] on a nonrebreather mask with extreme accessory muscle movement, stat ABG was drawn, patient was noted to be in acute hypoxemic respiratory failure. Critical care medicine was consulted. The patient was emergently intubated, and placed on sedation for ventilator synchrony 08/27: Orally intubated on mechanical ventilation. Patient anxious on fentanyl drip. Blood pressure borderline. Received a fluid bolus overnight for oliguria. Remains tachycardic. Patient does have a left femoral neck fracture and has been seen by orthopedics who are recommending surgery. 08/28: Sedated, easily arousable, orally intubated on mechanical ventilation. Blood pressure borderline. Hemoglobin has dropped to 7.5 g percent while on anticoagulation and antiplatelet therapy. Stat CT abdomen pelvis ordered to evaluate for retroperitoneal bleed and 2 units PRBCs to be transfused now. Limited 2-D echo still pending to assess RV. Awaiting IVC filter placement. 08/29: Patient is status post right heart catheter and IVC filter placement today by Dr. das. Pulmonary arterial pressure measures at 44/24 mmHg. PCWP 30 mmHg. patient is slightly tachypneic on CPAP. Chest x-ray shows persistent bilateral effusions and infiltrate. On CT significant consolidation of the left lower lobe with small effusion, and moderate right effusion. Sputum culture with gram-negative john, continue zosyn 08/30: CXR with interstitial edema and effusions. Now new a-fib and RVR. Cardizem initiated this morning, will add amiodarone for hopefully better rate control and conversion. Change anticoagulation to lovenox q12h, d/c hep drip. Objective Vital Signs Date Time Temp Pulse Resp B/P (MAP) Pulse Ox O2 Delivery O2 Flow Rate FiO2 08/30/17 12:15 130 109/60 08/30/17 12:04 97.9 18 95 08/30/17 08:27 Nasal Cannula 6.00 08/29/17 11:00 50 Intake and Output 08/30/17 08/30/17 08/31/17 08:00 16:00 00:00 Intake Total 849 ml Output Total 720 ml Balance 129 ml Result Diagram: 08/29/17 0431 08/29/17 2226 Other Results Microbiology Date/Time Source Procedure Growth Status 08/27/17 23:34 Sputum Endotracheal Gram Stain - Final Complete 08/27/17 23:34 Sputum Culture - Final Klebsiella Pneumoniae Serratia Marcescens Complete Imaging Last 72 hours Impressions Chest X-Ray 08/26/17 1100 Signed Impressions: Service Date/Time: Saturday, August 26, 2017 11:13 - CONCLUSION: 1. Slight worsening of airspace disease in the lungs since August 25. Satisfactory placement of nasogastric tube and endotracheal tube. Basim Pollock MD Chest X-Ray 08/25/17 1315 Signed Impressions: Service Date/Time: Friday, August 25, 2017 13:26 - CONCLUSION: Pulmonary vascular congestion with small bilateral pleural effusions suggesting failure Jeremias Peacock MD Hip and Pelvis X-Ray 08/25/17 0000 Signed Impressions: Service Date/Time: Friday, August 25, 2017 12:01 - CONCLUSION: Impacted femoral neck fracture at the base without significant step-off Jeremias Peacock MD CT Angiography 08/25/17 0000 Signed Impressions: Service Date/Time: Friday, August 25, 2017 16:06 - CONCLUSION: Multifocal pulmonary emboli with small filling defects identified in the main right pulmonary artery, interlobar pulmonary artery on the right and one in the left lower lobe pulmonary arteries. The emboli are small but multiple. Moderate- sized bilateral pleural effusions. Jeremias Peacock MD Chest X-Ray 08/23/172014 Signed Impressions: Service Date/Time: Wednesday, August 23, 2017 20:15 - CONCLUSION: 1. Normal heart size. No evidence of alveolar pulmonary edema. 2. Mild focal interstitial process upper right lung. Michele Morris MD Last 24 hours Impressions Chest X-Ray 08/26/171099 Signed Impressions: Service Date/Time: Saturday, August 26, 2017 11:13 - CONCLUSION: 1. Slight worsening of airspace disease in the lungs since August 25. Satisfactory placement of nasogastric tube and endotracheal tube. Basim Pollock MD Objective Remarks HEENT/ Neuro: Off sedation, alert, following commands, moving all 4 extremities , orally intubated, Pallor present, no icterus, tongue/ mucosa moist Neck: + JVD Chest/Pulm: Extubated, few crackles. Diminished air entry at the bases. bedside US, large left and small to mod right effusion CVS: Irreg Irreg rate 130s. GI/abdomen: soft, nontender, bowel sounds present Extremities: warm bilaterally, no edema. Left hip pain with active and passive motion. Procedures 08/26-intubation Date of Insertion: Aug 26, 2017 A/P Problem List: (1) Acute hypoxemic respiratory failure ICD Code: J96.01 - Acute respiratory failure with hypoxia Status: Acute (2) Anxiety ICD Code: F41.9 - Anxiety Status: Acute (3) Tobacco abuse ICD Code: Z72.0 - Tobacco abuse Status: Acute (4) STEMI (ST elevation myocardial infarction) ICD Code: I21.3 - ST elevation (STEMI) myocardial infarction of unspecified site Status: Acute (5) Hypokalemia ICD Code: E87.6 - Hypokalemia Status: Acute (6) V tach ICD Code: I47.2 - Ventricular tachycardia Status: Acute (7) DVT (deep venous thrombosis) ICD Code: I82.409 - Acute embolism and thrombosis of unspecified deep veins of unspecified lower extremity Status: Acute (8) Pulmonary embolism ICD Code: I26.99 - Other pulmonary embolism without acute cor pulmonale Assessment and Plan Assessment This is a 61-year-old female with ST elevation SC status post PCI with bare- metal stent placement, in the setting now with acute hypoxemic and hypercarbic respiratory failure secondary to pulmonary emboli, left femoral neck fracture. Patient intubated on mechanical ventilation, hypotensive. patient has bilateral pleural effusions with consolidation and GNR in sputum Plan by systems: Neurologic: Anxiety disorder Chronic pain syndrome Ofirmev 1 g every 6 hours x 24-48 hrs, Tramadol q 6 hr scheduled. Precedex infusion for ventilator synchrony Versed 2 mg every 4 hours when necessary for agitation and anxiety Daily sedation vacation Tylenol 650 mg every 6 hours for temp greater than 100.5 Respiratory: Acute hypoxemic and hypercarbic respiratory failure Diffuse pulmonary emboli Tobacco abuse Bilateral effusion and consolidation, bacterial pneumonia 08/26 patient intubated 8.0 ETT atraumatically, grade 1 view 20 cm at the lip Ventilator bundle, Continue mechanical ventilation, bronchodilators as needed Slightly tachypneic on CPAP trial. Will need diuresis/thoracentesis prior to extubation Chest x-rays and ABGs as clinically indicated Heparin infusion see below-currently on hold for cath. s/p IVC filter placement Right heart cath Pulmonary arterial pressure measures at 44/24 mmHg. PCWP 30 mmHg. plan for left thoracentesis -> done. May well require re-intubation. Cardiovascular: STEMI S/P bare-metal stent placement H/O V. tach with defibrillation 1 Pulmonary embolism CHF Heparin gtt. being followed by cardiology. Heparin on hold for right heart catheter and IVC filter placement Patient on dual antiplatelet therapy and statin Descending LAD coronary artery stenosis 60%. Repeat 2-D echo to assess for RV dysfunction risk stratification and for PE as patient needs orthopedic surgery for left femoral neck fracture. LVEF 50- 55%. RV systolic function and chamber size normal Renal: Insert osorio-patient intubated and sedated and receiving IV diuretics -- Strict I/Os FEN/GI: Advance tube feeds to goal as tolerated - currently held for cardiac catheterisation Monitor BMP Replete electrolytes per CV ICU protocol Bowel regimen Zofran for nausea Heme/ID: Leukocytosis Sepsis Bilateral pneumonia/GNR in sputum Follow-up duque cultures. Initiated empiric antibiotic coverage with IV Zosyn on 08/27 f/u GNR in sputum CT abdomen pelvis no evidence of retroperitoneal hematoma. s/p 2 units PRBCs On anticoagulation with heparin for pulmonary embolism. s/p IVC filter placement. May need to reevaluate anticoagulation and antiplatelet therapy if hemoglobin continues to drop or CT shows any evidence of hemorrhage. Musculoskeletal: Left femoral neck fracture being followed by orthopedics. Needs surgery however extremely high risk due to recent SC and PE. Await clearance by Dr. Das, preferably at least 6 months if elective surgery Endocrine: Close monitoring per ICU protocol -- SSI Prophylaxis: GI Prophylaxis Protonix DVT Prophylaxis -- SCDs Heparin infusion Lines: Peripheral IVs. Central line if indicated. Overall impression: This patient remains critically ill with one or more organ systems which are or may become a threat to life. I have spent in excess of 45 minutes discontinuously in the care and management of this patient. This time is exclusive of procedures, and includes, but is not limited to, evaluation of the patient, review of the medical record, discussions with family, consultants , nursing staff, or respiratory therapy, and documentation in the medical record. Critical care 45 mins Sergo Alvares MD Aug 30, 2017 14:23
[2017-08-30] MEDS ORDERED: DILTIAZEM HCL 25 MG/5 ML VIAL IV ONE (15:00)
[2017-08-30] MEDS: AMIODARONE INJ 450 MG in DEXTROSE 5% IN WATE(EXCEL) INJ 241 ML IV PRN ×4 (15:54→23:31)
[2017-08-30] MEDS: ENOXAPARIN SODIUM 80 MG/0.8 ML SYRINGE SQ SCH (16:21)
[2017-08-30] MEDS ORDERED: BENZONATATE 100 MG CAP PO PRN (21:00)
[2017-08-30] MEDS: ATORVASTATIN 40 MG TAB PO SCH (21:30)
[2017-08-31] VITALS (15 sets, daily range): BP systolic 111–127; BP diastolic 68–84; PULSE 82–104; RESP 18–26; TEMP 97.6–97.9; O2SAT 92–100
[2017-08-31] MEDS: PIPERACIL-TAZO 4.5 GM PREMIX 100 ML IV SCH ×2 (00:02→06:08)
[2017-08-31] MEDS ORDERED: TEMAZEPAM 15 MG CAP PO PRN (02:00)
[2017-08-31] MEDS: CHLORHEXIDINE GLUCONATE 2 % 1 PACK (2 CLOTHS) TOP SCH (04:00)
[2017-08-31] MEDS: RESP: IPRATROPIUM 0.5 MG/2.5 ML NEB NEB SCH ×5 (04:06→19:56)
[2017-08-31] MEDS: DILTIAZEM 125 MG/NS 100 ML IV PRN ×2 (04:11)
[2017-08-31] MEDS: ENOXAPARIN SODIUM 80 MG/0.8 ML SYRINGE SQ SCH ×2 (04:11→14:25)
[2017-08-31 05:17] LABS: AUTOMATED NEUTROPHIL # 16.6 TH/MM3 (1.8-7.7); BASOPHIL % 0.2 % (0.0-2.0); EOSINOPHIL # 0.1 TH/MM3 (0-0.4); EOSINOPHIL % 0.3 % (0.0-4.0); HEMATOCRIT 33.7 % (35.0-46.0); LYMPH % 7.7 % (9.0-44.0); LYMPHOCYTE # 1.5 TH/MM3 (1.0-4.8); MEAN CELL VOLUME 94.4 FL (80.0-100.0); MEAN CORPUSCULAR HEMOGLOBIN 30.4 PG (27.0-34.0); MEAN CORPUSCULAR HGB CONC 32.2 % (32.0-36.0); MONO % 5.8 % (0.0-8.0); PLATELET COUNT 418 TH/MM3 (150-450); RED BLOOD COUNT 3.57 MIL/MM3 (4.00-5.30); RED CELL DISTRIBUTION WIDTH 17.4 % (11.6-17.2); WHITE BLOOD COUNT 19.3 TH/MM3 (4.0-11.0)
[2017-08-31 05:25] LABS: HEMO FLAGS AUTO DIFF
[2017-08-31 05:41] LABS: APTT (PATIENT) 31.6 SEC (24.3-30.1)
[2017-08-31] MEDS: traMADol HCL 50 MG TAB PO SCH ×4 (06:00→17:42)
[2017-08-31] MEDS: OXYBUTYNIN CHLORIDE 5 MG TAB PO SCH ×3 (06:08→21:05)
[2017-08-31] MEDS: ACETAMINOPHEN 1000 MG/100 ML 100 ML IV PRN ×3 (06:12→20:41)
[2017-08-31 06:57] LABS: BANDS 5 % (0-6); CORRECTED NUCLEATED RBC 5 /100 WBC (0-0); METAMYELOCYTES 1 % (0-1); MYELOCYTES 4 % (0-0); NEUTROPHIL # MANUAL DIFF 17.8 TH/MM3 (1.8-7.7); POLYS (SEG NEUTROPHILS) 82 % (16-70); WBC DIFF SAMPLE 100
[2017-08-31 06:58] LABS: PLATELET ESTIMATE SMEAR HIGH (NORMAL); POLYCHROMASIA 2.7 % (0.0-1.9)
[2017-08-31 07:00] LABS: HOWELL-JOLLY BODIES PRESENT (NONE SEEN); TOXIC GRANULATION 1+ (NORMAL)
[2017-08-31 07:03] LABS: PLATELET MORPHOLOGY ENLARGED (NORMAL); SCAN/DIFF FINAL DIFF MANUAL
--- NOTE | 2017-08-31 07:56 | PD.CARD.PN ---
Subjective Subjective Remarks On nonrebreather mask. No chest pain overnight. She feels breathing is worse at night, better today. She just received a breathing treatment. [place] in place with negative fluid balance overnight. The patient had an episode of tachycardia yesterday, A. fib versus sinus. Heart rate currently 90s after breathing treatment. Patient denies any palpitations. (Arden Murphy) Objective Medications Current Medications Medications (Trade) Dose Ordered Sig/Jamilah Route Start Time Stop Time Status Last Admin (NS Flush) 2 ml UNSCH PRN IVF 08/23/17 20:15 (Xylocaine 2% Jelly) 1 applic UNSCH PRN TOP 08/23/17 21:45 (Aspirin Chew) 81 mg DAILY PO 08/24/17 09:00 08/30/17 07:49 (Plavix) 75 mg DAILY PO 08/24/17 09:00 08/30/17 07:50 (Atropine Inj) 0.5 mg UNSCH PRN IV PUSH 08/23/17 21:45 (Zofran Inj) 4 mg Q4H PRN IV PUSH 08/23/17 21:45 08/28/17 05:39 (Lipitor) 40 mg HS PO 08/24/17 21:00 08/30/17 21:30 (Ferrous Sulfate) 325 mg BID@,17 PO 08/24/17 12:00 08/30/17 16:21 (Habitrol 14 Mg Patch.24 Hr) 1 patch DAILY T-DERMAL 08/25/17 09:00 09/01/17 09:00 08/30/17 07:51 Miscellaneous Information 1 DAILY T-DERMAL 08/25/17 09:00 09/01/17 09:00 08/30/17 07:51 Acetaminophen 100 ml @ 400 mls/hr Q6H PRN IV 08/24/17 18:45 08/31/17 06:12 (KCl) 20 meq Q12HR PO 08/25/17 09:00 08/29/17 08:11 (Atrovent Neb) 0.5 mg Q4HR NEB NEB 08/25/17 16:00 08/31/17 07:23 (Atrovent Neb) 0.5 mg Q2HR NEB PRN NEB 08/25/17 14:00 08/26/17 06:00 (Protonix) 40 mg DAILY PO 08/26/17 09:00 08/30/17 07:58 Fentanyl Citrate 250 ml @ 5 mls/hr TITRATE PRN IV 08/26/17 07:15 08/26/17 22:46 (Tears Naturale Opth Soln) 1 drop Q4H PRN EACH EYE 08/26/17 13:45 08/27/17 09:43 (Peridex 0.12% Liq) 15 ml BID@08,20 MT 08/26/17 20:00 08/29/17 08:00 (Ultram) 50 mg Q6HR PO 08/26/17 14:30 08/30/17 11:32 (D50w (Vial) Inj) 50 ml UNSCH PRN IV PUSH 08/26/17 14:45 (Glucagon Inj) 1 mg UNSCH PRN OTHER 08/26/17 14:45 (NovoLOG SUPPLEMENTAL SCALE) 1 ACHS SLIDING SCALE SQ 08/26/17 17:00 Miscellaneous Information 1 Q361D XX 08/26/17 14:45 (Chlorhexidine 2% Cloth) 3 pack Taper DAILY@04 TOP 08/27/17 04:00 08/23/18 03:59 08/28/17 03:44 (Chlorhexidine 2% Cloth) 3 pack UNSCH PRN TOP 08/26/17 14:45 (Clair-Colace) 1 tab BID PO 08/26/17 21:00 08/29/17 19:55 (Milk Of Magnesia Liq) 30 ml Q12H PRN PO 08/26/17 14:45 (Senokot) 17.2 mg Q12H PRN PO 08/26/17 14:45 08/26/17 18:34 (Dulcolax Supp) 10 mg DAILY PRN RECTAL 08/26/17 14:45 (Lactulose Liq) 30 ml DAILY PRN PO 08/26/17 14:45 (Versed Inj) 2 mg Q4H PRN IV 08/26/17 15:30 08/29/17 13:13 Potassium Chloride 100 ml @ 50 mls/hr Q2H PRN IV 08/26/17 22:45 Potassium Chloride 100 ml @ 50 mls/hr Q2H PRN IV 08/26/17 22:45 08/29/17 12:10 (K-Lyte Cl Eff) 50 meq UNSCH PRN PO 08/26/17 22:45 Potassium Chloride 100 ml @ 25 mls/hr UNSCH PRN IV 08/26/17 22:45 Potassium Chloride 100 ml @ 50 mls/hr Q2H PRN IV 08/26/17 22:45 Magnesium Sulfate 4 gm/Sodium Chloride 100 ml @ 50 mls/hr UNSCH PRN IV 08/26/17 22:45 (Mag-Ox) 800 mg UNSCH PRN PO 08/26/17 22:45 Magnesium Sulfate 2 gm/Sodium Chloride 100 ml @ 50 mls/hr UNSCH PRN IV 08/26/17 22:45 (K-Phos) 2,000 mg Q4H PRN PO 08/26/17 22:45 Sodium Phosphate 30 mmol/Sodium Chloride 250 ml @ 42 mls/hr UNSCH PRN IV 08/26/17 22:45 (K-Phos) 2,000 mg UNSCH PRN PO/TUBE 08/26/17 22:45 Potassium Phosphate 30 mmol/ Sodium Chloride 260 ml @ 42 mls/hr UNSCH PRN IV 08/26/17 22:45 Dexmedetomidine HCl 200 mcg/ Sodium Chloride 52 ml @ 3.56 mls/hr TITRATE PRN IV 08/27/17 08:15 08/29/17 02:56 Piperacillin Sod/ Tazobactam Sod 100 ml @ 200 mls/hr Q6H IV 08/27/17 11:00 08/31/17 06:08 (Tylenol) 650 mg Q4H PRN PO 08/28/17 08:45 (Benadryl) 25 mg Q4H PRN PO 08/28/17 08:45 (Lasix Inj) 40 mg BID@09,18 IV PUSH 08/29/17 18:00 08/30/17 16:22 (K-Lyte Cl Eff) 25 meq Q12HR PO 08/29/17 21:00 08/30/17 21:30 (Coreg) 3.125 mg BID PO 08/29/17 21:00 08/30/17 21:30 (Ditropan) 5 mg Q8HR PO 08/29/17 23:30 08/31/17 06:08 Diltiazem HCl 125 mg/Sodium Chloride 125 ml @ 10 mls/hr TITRATE PRN IV 08/30/17 10:30 08/31/17 04:11 Amiodarone HCl 450 mg/Dextrose 250 ml @ 33.33 mls/ hr Q7H31M PRN IV 08/30/17 15:00 08/30/17 23:31 (Lovenox Inj) 70 mg Q12H SQ 08/30/17 15:00 08/31/17 04:11 (Tessalon) 200 mg TID PRN PO 08/30/17 21:00 08/30/17 21:30 (Restoril) 15 mg HS PRN PO 08/31/17 02:00 08/31/17 02:06 Vital Signs / I&O Vital Signs Date Time Temp Pulse Resp B/P (MAP) Pulse Ox O2 Delivery O2 Flow Rate FiO2 08/31/17 07:25 95 Non-Rebreather 15.00 100 08/31/17 06:32 87 121/78 08/31/17 06:00 89 08/31/17 04:11 89 113/72 08/31/17 04:00 98 08/31/17 04:00 97.9 95 22 113/72 (86) 96 08/31/17 02:00 101 08/31/17 00:02 96 100/73 08/31/17 00:00 104 08/31/17 00:00 97.6 104 18 111/73 (86) 92 08/31/17 00:00 97.6 104 18 111/73 (86) 92 08/30/17 23:31 99 100/73 08/30/17 23:00 92 Simple Mask 10.00 08/30/17 22:47 106 96/76 08/30/17 22:00 109 08/30/17 20:00 97.6 118 24 107/67 (80) 92 08/30/17 20:00 97.6 118 24 107/67 (80) 92 08/30/17 20:00 118 08/30/17 20:00 112 107/67 08/30/17 19:29 95 Nasal Cannula 6.00 08/30/17 19:15 92 Nasal Cannula 8.00 Humidified 08/30/17 18:37 104 08/30/17 16:28 98.0 105 20 110/68 (82) 93 08/30/17 16:00 104 08/30/17 15:54 108 105/62 08/30/17 15:00 98.0 117 109/56 (73) 08/30/17 14:00 104 08/30/17 12:15 130 109/60 08/30/17 12:04 104 08/30/17 12:04 97.9 109 18 129/81 (97) 95 08/30/17 11:00 140 107/63 08/30/17 10:26 150 107/81 08/30/17 10:00 104 08/30/17 08:27 92 Nasal Cannula 6.00 08/30/17 08:00 97.9 109 18 129/81 (97) 95 08/30/17 08:00 104 I/O 08/30/17 08/30/17 08/30/17 08/31/17 08/31/17 08/31/17 07:00 15:00 23:00 07:00 15:00 23:00 Intake Total 849 ml 240 ml 1119 ml Output Total 720 ml 1500 ml 550 ml Balance 129 ml -1260 ml 569 ml Intake Oral 240 ml 1119 ml IV Total 849 ml Output Urine Total 720 ml 1500 ml 550 ml # Bowel Movements 0 Physical Exam GENERAL: Well-developed well-nourished. Right groin procedure site with no bleeding and minimal ecchymosis. NECK: No carotid bruits. No JVD. CARDIOVASCULAR: Tachycardic rate and regular rhythm. No murmur appreciated. RESPIRATORY: Clear to auscultation. Bilateral wheezing and basilar crackles. MUSCULOSKELETAL: No clubbing or cyanosis. Lower extremity nonpitting edema. NEUROLOGICAL: Awake and alert. Hoarse speech. Laboratory Laboratory Tests Test 08/31/17 04:49 White Blood Count 19.3 TH/MM3 Red Blood Count 3.57 MIL/MM3 Hemoglobin 10.8 GM/DL Hematocrit 33.7 % Mean Corpuscular Volume 94.4 FL Mean Corpuscular Hemoglobin 30.4 PG Mean Corpuscular Hemoglobin Concent 32.2 % Red Cell Distribution Width 17.4 % Platelet Count 418 TH/MM3 Mean Platelet Volume 8.9 FL Neutrophils (%) (Auto) 86.0 % Lymphocytes (%) (Auto) 7.7 % Monocytes (%) (Auto) 5.8 % Eosinophils (%) (Auto) 0.3 % Basophils (%) (Auto) 0.2 % Neutrophils # (Auto) 16.6 TH/MM3 Lymphocytes # (Auto) 1.5 TH/MM3 Monocytes # (Auto) 1.1 TH/MM3 Eosinophils # (Auto) 0.1 TH/MM3 Basophils # (Auto) 0.0 TH/MM3 CBC Comment AUTO DIFF Differential Total Cells Counted 100 Neutrophils % (Manual) 82 % Band Neutrophils % 5 % Lymphocytes % 6 % Monocytes % 2 % Neutrophils # (Manual) 17.8 TH/MM3 Metamyelocytes 1 % Myelocytes 4 % Nucleated Red Blood Cells 5 /100 WBC Differential Comment FINAL DIFF MANUAL Toxic Granulation 1+ Platelet Estimate HIGH Platelet Morphology Comment ENLARGED Polychromasia 2.7 % Cormier-Leal Bodies PRESENT Activated Partial Thromboplast Time 31.6 SEC Magnesium Level 2.3 MG/DL (Arden Murphy) Assessment and Plan Problem List: (1) V tach ICD Codes: I47.2 - Ventricular tachycardia Status: Acute (2) STEMI (ST elevation myocardial infarction) ICD Codes: I21.3 - ST elevation (STEMI) myocardial infarction of unspecified site Status: Acute Assessment and Plan acute respiratory distress: intubated and mechanically ventilated. Echo normal EF, mild-mod MVR. Continue gentle diuresis. +bilateral pulmonary emboli/ LE DVT: Placed removable IVC filter 08/29. Now on Lovenox, plan for Coumadin if no ortho procedures planned for this hospitalization. STEMI: s/p PCI BMS distal left circumflex. Moderate proximal LAD stenosis, consider lexiscan upon recovery hypotension: repeated limited echo showed normal EF and left ventricular function. RLHC showed elevated left-sided filling pressures, continue diuresis as necessary, on Lasix with negative fluid balance overnight. Tachyarrhythmia 08/31: Now on diltiazem and amiodarone drip. Check portable EKG for rhythm strip. anemia: s/p transfusion 08/28 hip fracture: ortho following. (Arden Murphy) Assessment and Plan breathing is worse today. CXR 08/29 - edema + PNA. PCWP 30 but CO/CI normal. EF low normal. PA pressures mild PHTN. + bilateral PE heparin gtt -> now on lovenox BID. prior thoracentesis helped. repeat CXR +/- lung ultrasound. if recurrent effusion, consider repeat thoracentesis. I suspect her breathing decompensation is more intrinsic pulmonary issue than cardiac or PEsminor right now. EKG yesterday looks like aflutter 2:1. Telemetry also PVCs in singlets and couplets. Amio gtt started. Now chemically converted to NSR. HR 90-100 bpm. DC cardizem. Finish amio load IV then go to amio 400 daily PO. CHF - acute diastolic. continue diuresis for now. IV BID. STEMI - PCI BMS. cont asa and plavix. Eventually we need to determine disposition. Ortho had seen but not currently following. Will need them to come back for further input. Plans for OR this hospitalization? DC to SNF? PT? Hold off on coumadin or novel anticoagulant until we known Ortho's plans and +/- need for repeat thoracentesis. (Jeremias Belle MD) Arden Murphy Aug 31, 2017 07:56 Jeremias Belle MD Aug 31, 2017 08:28
[2017-08-31] MEDS: CHLORHEXIDINE 0.12% (ORAL KIT) 15 ML CUP MT SCH ×2 (08:00→20:00)
[2017-08-31] MEDS: INSULIN ASPART SUPPLEMENTAL SCALE SQ SCH ×4 (08:00→20:39)
[2017-08-31] MEDS: DOCUSATE SODIUM 50 MG/SENNA 8.6 MG TAB PO SCH ×2 (08:32→20:39)
[2017-08-31] MEDS: REMOVE OLD NICOTINE PATCH T-DERMAL SCH (08:32)
[2017-08-31] MEDS: NICOTINE 14 MG/24 HR PATCH T-DERMAL SCH (08:32)
[2017-08-31] MEDS: CLOPIDOGREL 75 MG TAB PO SCH (08:33)
[2017-08-31] MEDS: FUROSEMIDE 40 MG/4 ML VIAL IV PUSH SCH ×2 (08:34→17:42)
[2017-08-31] MEDS: ASPIRIN 81 MG CHEW TAB PO SCH (08:34)
[2017-08-31] MEDS: POTASSIUM CHLORIDE 20 MEQ CONTROLLED RELEASE TAB PO SCH ×4 (08:34→21:00)
[2017-08-31] MEDS: POTASSIUM CHLORIDE 25 MEQ EFFERVESCENT TAB PO SCH ×2 (08:34→20:39)
[2017-08-31] MEDS: PANTOPRAZOLE SOD 40 MG DELAYED RELEASE TAB PO SCH (08:35)
--- NOTE | 2017-08-31 09:27 | RADRPT ---
EXAM DATE/TIME: 08/31/2017 08:49 [facility] COMPARISON: CHEST SINGLE AP, August 29, 2017, 11:39. CHEST SINGLE AP, August 29, 2017, 13:54. INDICATIONS : Shortness of breath. Pulmonary embolism. MEDICAL HISTORY : Hiatal hernia. Deep venous thrombosis SURGICAL HISTORY : Hysterectomy. ENCOUNTER: Subsequent ACUITY: 1 week PAIN SCORE: 0/10 LOCATION: Bilateral chest FINDINGS: A single AP erect portable view of the chest was obtained and demonstrates interval extubation. The p reviously noted nasogastric tube has been removed as well. There has been interval increase in the pe rihilar and bibasilar opacities which are more consolidative. Both costophrenic angles are blunted. T he heart size is at the upper limits of normal. There are multiple overlying electrocardiogram leads. CONCLUSION: 1. Interval extubation. 2. Worsening pulmonary edema with bilateral effusions. Shun Lopez MD on August 31, 2017 at 9:17 Board Certified Radiologist. This report was verified electronically.
--- NOTE | 2017-08-31 09:50 | HHI.CCPN ---
Subjective Remarks/Hospital Course 08/26: This is a 61 yo female that was recently admitted to the hospital .the patient has a history of hip pain and bursitis and subsequently with sedentary for greater than 6 weeks she presented with shortness of breath .CT angiogram of thorax revealed multifocal pulmonary emboli with multiple small filling defects in the right main pulmonary artery interlobar pulmonary artery on the right and one in the left lower lobe pulmonary artery. Emboli was noted to be small but diffusely throughout. The patient was also noted to have moderate sized bilateral pleural effusions at that time . The patient was placed on eliquis approximately 2 weeks ago and she reported significant improvement in her lower ext swelling. On 08/24 the patient presented to the ED with complaints of malaise and nauseated. EKG noted she was in V. tach and the patient was defibrillated. Additional imaging and laboratory studies reveal the patient had a inferior ST elevation TX. Cardiology was consulted Dr. Das , the patient underwent a cardiac catheterization with PCI bare-metal stent to the dominant distal left circumflex coronary artery. Distal LAD was noted to have 60% stenosis. The patient was transferred to CVICU, and continued on antiplatelet therapy and heparin infusion per cardiology recommendations. Early this a.m. the patient was noted to be due to tachypneic, tachycardic heart rate [id number] on a nonrebreather mask with extreme accessory muscle movement, stat ABG was drawn, patient was noted to be in acute hypoxemic respiratory failure. Critical care medicine was consulted. The patient was emergently intubated, and placed on sedation for ventilator synchrony 08/27: Orally intubated on mechanical ventilation. Patient anxious on fentanyl drip. Blood pressure borderline. Received a fluid bolus overnight for oliguria. Remains tachycardic. Patient does have a left femoral neck fracture and has been seen by orthopedics who are recommending surgery. 08/28: Sedated, easily arousable, orally intubated on mechanical ventilation. Blood pressure borderline. Hemoglobin has dropped to 7.5 g percent while on anticoagulation and antiplatelet therapy. Stat CT abdomen pelvis ordered to evaluate for retroperitoneal bleed and 2 units PRBCs to be transfused now. Limited 2-D echo still pending to assess RV. Awaiting IVC filter placement. 08/29: Patient is status post right heart catheter and IVC filter placement today by Dr. das. Pulmonary arterial pressure measures at 44/24 mmHg. PCWP 30 mmHg. patient is slightly tachypneic on CPAP. Chest x-ray shows persistent bilateral effusions and infiltrate. On CT significant consolidation of the left lower lobe with small effusion, and moderate right effusion. Sputum culture with gram-negative john, continue zosyn 08/30: CXR with interstitial edema and effusions. Now new a-fib and RVR. Cardizem initiated this morning, will add amiodarone for hopefully better rate control and conversion. Change anticoagulation to lovenox q12h, d/c hep drip. 08/31: Persistent pulmonary edema, lasix added. Narrow abx to ceftriaxone. Breathing comfortably. Objective Vital Signs Date Time Temp Pulse Resp B/P (MAP) Pulse Ox O2 Delivery O2 Flow Rate FiO2 08/31/17 08:38 96 123/74 08/31/17 07:25 95 Non-Rebreather 15.00 100 08/31/17 04:00 97.9 22 Intake and Output 08/31/17 08/31/17 09/01/17 08:00 16:00 00:00 Intake Total 1119 ml 13 ml Output Total 550 ml Balance 569 ml 13 ml Result Diagram: 08/31/17 0449 08/29/17 2226 Imaging Last 72 hours Impressions Chest X-Ray 08/26/17 1100 Signed Impressions: Service Date/Time: Saturday, August 26, 2017 11:13 - CONCLUSION: 1. Slight worsening of airspace disease in the lungs since August 25. Satisfactory placement of nasogastric tube and endotracheal tube. Basim Pollock MD Chest X-Ray 08/25/17 1315 Signed Impressions: Service Date/Time: Friday, August 25, 2017 13:26 - CONCLUSION: Pulmonary vascular congestion with small bilateral pleural effusions suggesting failure Jeremias Peacock MD Hip and Pelvis X-Ray 08/25/17 0000 Signed Impressions: Service Date/Time: Friday, August 25, 2017 12:01 - CONCLUSION: Impacted femoral neck fracture at the base without significant step-off Jeremias Peacock MD CT Angiography 08/25/17 0000 Signed Impressions: Service Date/Time: Friday, August 25, 2017 16:06 - CONCLUSION: Multifocal pulmonary emboli with small filling defects identified in the main right pulmonary artery, interlobar pulmonary artery on the right and one in the left lower lobe pulmonary arteries. The emboli are small but multiple. Moderate- sized bilateral pleural effusions. Jeremias Peacock MD Chest X-Ray 08/23/172014 Signed Impressions: Service Date/Time: Wednesday, August 23, 2017 20:15 - CONCLUSION: 1. Normal heart size. No evidence of alveolar pulmonary edema. 2. Mild focal interstitial process upper right lung. Michele Morris MD Last 24 hours Impressions Chest X-Ray 08/26/171099 Signed Impressions: Service Date/Time: Saturday, August 26, 2017 11:13 - CONCLUSION: 1. Slight worsening of airspace disease in the lungs since August 25. Satisfactory placement of nasogastric tube and endotracheal tube. Basim Pollock MD Objective Remarks HEENT/ Neuro: Off sedation, alert, following commands, moving all 4 extremities , orally intubated, Pallor present, no icterus, tongue/ mucosa moist Neck: + JVD Chest/Pulm: Extubated, few crackles. Diminished air entry at the bases. CVS: RRR, NL S1S2, 90s GI/abdomen: soft, nontender, bowel sounds present Extremities: warm bilaterally, no edema. Left hip pain with active and passive motion. Procedures 08/26-intubation Date of Insertion: Aug 26, 2017 A/P Problem List: (1) Acute hypoxemic respiratory failure ICD Code: J96.01 - Acute respiratory failure with hypoxia Status: Acute (2) Anxiety ICD Code: F41.9 - Anxiety Status: Acute (3) Tobacco abuse ICD Code: Z72.0 - Tobacco abuse Status: Acute (4) STEMI (ST elevation myocardial infarction) ICD Code: I21.3 - ST elevation (STEMI) myocardial infarction of unspecified site Status: Acute (5) Hypokalemia ICD Code: E87.6 - Hypokalemia Status: Acute (6) V tach ICD Code: I47.2 - Ventricular tachycardia Status: Acute (7) DVT (deep venous thrombosis) ICD Code: I82.409 - Acute embolism and thrombosis of unspecified deep veins of unspecified lower extremity Status: Acute (8) Pulmonary embolism ICD Code: I26.99 - Other pulmonary embolism without acute cor pulmonale Assessment and Plan Assessment This is a 61-year-old female with ST elevation TX status post PCI with bare- metal stent placement, in the setting now with acute hypoxemic and hypercarbic respiratory failure secondary to pulmonary emboli, left femoral neck fracture. Patient intubated on mechanical ventilation, hypotensive. patient has bilateral pleural effusions with consolidation and GNR in sputum Plan by systems: Neurologic: Anxiety disorder Chronic pain syndrome Ofirmev 1 g every 6 hours x 24-48 hrs, Tramadol q 6 hr scheduled. Precedex infusion for ventilator synchrony Versed 2 mg every 4 hours when necessary for agitation and anxiety Daily sedation vacation Tylenol 650 mg every 6 hours for temp greater than 100.5 Respiratory: Acute hypoxemic and hypercarbic respiratory failure Diffuse pulmonary emboli Tobacco abuse Bilateral effusion and consolidation, bacterial pneumonia 08/26 patient intubated 8.0 ETT atraumatically, grade 1 view 20 cm at the lip Ventilator bundle, Continue mechanical ventilation, bronchodilators as needed Slightly tachypneic on CPAP trial. Will need diuresis/thoracentesis prior to extubation Chest x-rays and ABGs as clinically indicated Heparin infusion see below-currently on hold for cath. s/p IVC filter placement Right heart cath Pulmonary arterial pressure measures at 44/24 mmHg. PCWP 30 mmHg. plan for left thoracentesis -> done. May well require re-intubation. Requires aggressive diuresis. Cardiovascular: STEMI S/P bare-metal stent placement H/O V. tach with defibrillation 1 Pulmonary embolism CHF Heparin gtt. being followed by cardiology. Heparin on hold for right heart catheter and IVC filter placement Patient on dual antiplatelet therapy and statin Descending LAD coronary artery stenosis 60%. Repeat 2-D echo to assess for RV dysfunction risk stratification and for PE as patient needs orthopedic surgery for left femoral neck fracture. LVEF 50- 55%. RV systolic function and chamber size normal Renal: Insert osorio-patient intubated and sedated and receiving IV diuretics -- Strict I/Os FEN/GI: Advance tube feeds to goal as tolerated - currently held for cardiac catheterisation Monitor BMP Replete electrolytes per CV ICU protocol Bowel regimen Zofran for nausea Start HH diet. Heme/ID: Leukocytosis Sepsis Bilateral pneumonia/GNR in sputum Follow-up duque cultures. Initiated empiric antibiotic coverage with IV Zosyn on 08/27 f/u GNR in sputum CT abdomen pelvis no evidence of retroperitoneal hematoma. s/p 2 units PRBCs On anticoagulation with heparin for pulmonary embolism. s/p IVC filter placement. May need to reevaluate anticoagulation and antiplatelet therapy if hemoglobin continues to drop or CT shows any evidence of hemorrhage. Musculoskeletal: Left femoral neck fracture being followed by orthopedics. Needs surgery however extremely high risk due to recent TX and PE. Await clearance by Dr. Das, preferably at least 6 months if elective surgery Endocrine: Close monitoring per ICU protocol -- SSI Prophylaxis: GI Prophylaxis Protonix DVT Prophylaxis -- SCDs Heparin infusion Lines: Peripheral IVs. Central line if indicated. Overall impression: Critically ill with pulmonary edema following AMI. This patient remains critically ill with one or more organ systems which are or may become a threat to life. I have spent in excess of 45 minutes discontinuously in the care and management of this patient. This time is exclusive of procedures , and includes, but is not limited to, evaluation of the patient, review of the medical record, discussions with family, consultants, nursing staff, or respiratory therapy, and documentation in the medical record. Critical care 35 mins Sergo Alvares MD Aug 31, 2017 09:50
[2017-08-31] MEDS: METOPROLOL TARTRATE 25 MG TAB PO SCH ×2 (10:29→20:39)
[2017-08-31] MEDS: cefTRIAXone INJ 1,000 MG in SODIUM CHLORIDE 0.9% INJ 100 ML IV SCH (10:30)
[2017-08-31] MEDS: FERROUS SULFATE 325 MG (65 MG ELEMENTAL IRON) TAB PO SCH ×3 (12:00→16:35)
[2017-08-31 14:00] LABS: BICARBONATE 29.7 MEQ/L (21.0-32.0); POTASSIUM 3.6 MEQ/L (3.5-5.1)
[2017-08-31] MEDS: ONDANSETRON HCL 4 MG/2 ML VIAL IV PUSH PRN (14:25)
[2017-08-31] MEDS: AMIODARONE INJ 450 MG in DEXTROSE 5% IN WATE(EXCEL) INJ 241 ML IV PRN ×2 (14:46)
--- NOTE | 2017-08-31 16:42 | EKG ---
Date Performed: 08/30/2017 Time Performed: 13:53:16 PTAGE: 61 years EKG: Atrial fibrillation with rapid ventricular response. Inferior/lateral ST-T changes may be d ue to myocardial ischemia Generalized low QRS voltages When comparet o previous tracing, patient is n ow in atrial Fibrillation with a rapid vebntricular response. Abnormal ECG PREVIOUS TRACING : 08/24/2017 05.36 DOCTOR: Cedrick Little Interpretating Date/Time 08/31/2017 16:41:15
[2017-08-31] MEDS: ATORVASTATIN 40 MG TAB PO SCH (20:38)
[2017-09-01] VITALS (15 sets, daily range): BP systolic 99–123; BP diastolic 66–80; PULSE 86–125; RESP 24–31; TEMP 98–98.7; O2SAT 92–98
[2017-09-01] MEDS: RESP: IPRATROPIUM 0.5 MG/2.5 ML NEB NEB SCH ×6 (00:33→20:45)
[2017-09-01] MEDS: CHLORHEXIDINE GLUCONATE 2 % 1 PACK (2 CLOTHS) TOP SCH (01:00)
[2017-09-01] MEDS: ENOXAPARIN SODIUM 80 MG/0.8 ML SYRINGE SQ SCH ×2 (02:03→14:00)
[2017-09-01] MEDS: ACETAMINOPHEN 1000 MG/100 ML 100 ML IV PRN (02:04)
[2017-09-01] MEDS: AMIODARONE INJ 450 MG in DEXTROSE 5% IN WATE(EXCEL) INJ 241 ML IV PRN ×2 (04:55)
--- NOTE | 2017-09-01 04:58 | RADRPT ---
EXAM DATE/TIME: 09/01/2017 03:49 [facility] COMPARISON: CHEST SINGLE AP, August 31, 2017, 8:49. INDICATIONS : Pneumonia. MEDICAL HISTORY : Hernia, hiatal. deep vein thrombosis, ectopic SURGICAL HISTORY : Hysterectomy. ENCOUNTER: Subsequent ACUITY: 1 week PAIN SCORE: Non-responsive. LOCATION: Bilateral chest FINDINGS: Portable AP view of the chest demonstrates a normal-sized cardiac silhouette. There is severe bilater al lower lung zone airspace consolidation with blunting of the costophrenic sulci. No pneumothorax is visualized. CONCLUSION: Stable chest x-ray with severe bilateral lower lung zone airspace consolidation with likely associate d pleural effusions. Hunter Bertrand MD on September 01, 2017 at 4:56 Board Certified Radiologist. This report was verified electronically.
[2017-09-01] MEDS: traMADol HCL 50 MG TAB PO SCH ×4 (06:00→17:03)
[2017-09-01 06:13] LABS: AUTOMATED NEUTROPHIL # 16.6 TH/MM3 (1.8-7.7); EOSINOPHIL # 0.1 TH/MM3 (0-0.4); EOSINOPHIL % 0.3 % (0.0-4.0); HEMATOCRIT 33.4 % (35.0-46.0); LYMPH % 6.5 % (9.0-44.0); LYMPHOCYTE # 1.3 TH/MM3 (1.0-4.8); MEAN CELL VOLUME 95.1 FL (80.0-100.0); MEAN CORPUSCULAR HEMOGLOBIN 30.5 PG (27.0-34.0); MEAN CORPUSCULAR HGB CONC 32.1 % (32.0-36.0); MONO % 6.5 % (0.0-8.0); NEUT % 86.7 % (16.0-70.0); PLATELET COUNT 400 TH/MM3 (150-450); RED BLOOD COUNT 3.51 MIL/MM3 (4.00-5.30); RED CELL DISTRIBUTION WIDTH 16.9 % (11.6-17.2); WHITE BLOOD COUNT 19.1 TH/MM3 (4.0-11.0)
[2017-09-01 06:18] LABS: HEMO FLAGS AUTO DIFF
[2017-09-01 06:29] LABS: BICARBONATE 30.7 MEQ/L (21.0-32.0)
[2017-09-01] MEDS: OXYBUTYNIN CHLORIDE 5 MG TAB PO SCH ×3 (06:29→21:42)
[2017-09-01] MEDS: INSULIN ASPART SUPPLEMENTAL SCALE SQ SCH ×4 (07:22→21:00)
[2017-09-01] MEDS: POTASSIUM CHLORIDE 20 MEQ CONTROLLED RELEASE TAB PO SCH ×2 (07:22→21:00)
[2017-09-01] MEDS: CHLORHEXIDINE 0.12% (ORAL KIT) 15 ML CUP MT SCH ×2 (07:22→20:00)
[2017-09-01 07:38] LABS: BANDS 5 % (0-6); CORRECTED NUCLEATED RBC 4 /100 WBC (0-0); NEUTROPHIL # MANUAL DIFF 17.6 TH/MM3 (1.8-7.7); PLATELET ESTIMATE SMEAR NORMAL (NORMAL); PLATELET MORPHOLOGY NORMAL (NORMAL); POLYS (SEG NEUTROPHILS) 87 % (16-70); SCAN/DIFF FINAL DIFF MANUAL; WBC DIFF SAMPLE 100
[2017-09-01 07:40] LABS: POLYCHROMASIA 2.7 % (0.0-1.9)
--- NOTE | 2017-09-01 07:48 | PD.CARD.PN ---
Subjective Subjective Remarks On nonrebreather mask. Some intermittent anterior chest pain whenever she touches her chest. Has been coughing that is improving. Shortness of breath is better today. [place] in place with negative fluid balance overnight. No further arrhythmias on telemetry overnight. Patient denies any palpitations. (Arden Murphy) Objective Medications Current Medications Medications (Trade) Dose Ordered Sig/Jamilah Route Start Time Stop Time Status Last Admin (NS Flush) 2 ml UNSCH PRN IVF 08/23/17 20:15 (Xylocaine 2% Jelly) 1 applic UNSCH PRN TOP 08/23/17 21:45 (Aspirin Chew) 81 mg DAILY PO 08/24/17 09:00 08/31/17 08:34 (Plavix) 75 mg DAILY PO 08/24/17 09:00 08/31/17 08:33 (Atropine Inj) 0.5 mg UNSCH PRN IV PUSH 08/23/17 21:45 (Zofran Inj) 4 mg Q4H PRN IV PUSH 08/23/17 21:45 08/31/17 14:25 (Lipitor) 40 mg HS PO 08/24/17 21:00 08/31/17 20:38 (Ferrous Sulfate) 325 mg BID@,17 PO 08/24/17 12:00 08/30/17 16:21 (Habitrol 14 Mg Patch.24 Hr) 1 patch DAILY T-DERMAL 08/25/17 09:00 09/01/17 09:00 08/31/17 08:32 Miscellaneous Information 1 DAILY T-DERMAL 08/25/17 09:00 09/01/17 09:00 08/31/17 08:32 Acetaminophen 100 ml @ 400 mls/hr Q6H PRN IV 08/24/17 18:45 09/01/17 02:04 (KCl) 20 meq Q12HR PO 08/25/17 09:00 08/29/17 08:11 (Atrovent Neb) 0.5 mg Q4HR NEB NEB 08/25/17 16:00 09/01/17 00:33 (Atrovent Neb) 0.5 mg Q2HR NEB PRN NEB 08/25/17 14:00 08/26/17 06:00 (Protonix) 40 mg DAILY PO 08/26/17 09:00 08/31/17 08:35 Fentanyl Citrate 250 ml @ 5 mls/hr TITRATE PRN IV 08/26/17 07:15 08/26/17 22:46 (Tears Naturale Opth Soln) 1 drop Q4H PRN EACH EYE 08/26/17 13:45 08/27/17 09:43 (Peridex 0.12% Liq) 15 ml BID@08,20 MT 08/26/17 20:00 08/29/17 08:00 (Ultram) 50 mg Q6HR PO 08/26/17 14:30 08/30/17 11:32 (D50w (Vial) Inj) 50 ml UNSCH PRN IV PUSH 08/26/17 14:45 (Glucagon Inj) 1 mg UNSCH PRN OTHER 08/26/17 14:45 (NovoLOG SUPPLEMENTAL SCALE) 1 ACHS SLIDING SCALE SQ 08/26/17 17:00 Miscellaneous Information 1 Q361D XX 08/26/17 14:45 (Chlorhexidine 2% Cloth) Taper DAILY@04 TOP 08/27/17 04:00 08/23/18 03:59 09/01/17 01:00 (Chlorhexidine 2% Cloth) 3 pack UNSCH PRN TOP 08/26/17 14:45 (Clair-Colace) 1 tab BID PO 08/26/17 21:00 08/31/17 20:39 (Milk Of Magnesia Liq) 30 ml Q12H PRN PO 08/26/17 14:45 (Senokot) 17.2 mg Q12H PRN PO 08/26/17 14:45 08/26/17 18:34 (Dulcolax Supp) 10 mg DAILY PRN RECTAL 08/26/17 14:45 (Lactulose Liq) 30 ml DAILY PRN PO 08/26/17 14:45 (Versed Inj) 2 mg Q4H PRN IV 08/26/17 15:30 08/29/17 13:13 Potassium Chloride 100 ml @ 50 mls/hr Q2H PRN IV 08/26/17 22:45 Potassium Chloride 100 ml @ 50 mls/hr Q2H PRN IV 08/26/17 22:45 08/29/17 12:10 (K-Lyte Cl Eff) 50 meq UNSCH PRN PO 08/26/17 22:45 Potassium Chloride 100 ml @ 25 mls/hr UNSCH PRN IV 08/26/17 22:45 Potassium Chloride 100 ml @ 50 mls/hr Q2H PRN IV 08/26/17 22:45 Magnesium Sulfate 4 gm/Sodium Chloride 100 ml @ 50 mls/hr UNSCH PRN IV 08/26/17 22:45 (Mag-Ox) 800 mg UNSCH PRN PO 08/26/17 22:45 Magnesium Sulfate 2 gm/Sodium Chloride 100 ml @ 50 mls/hr UNSCH PRN IV 08/26/17 22:45 (K-Phos) 2,000 mg Q4H PRN PO 08/26/17 22:45 Sodium Phosphate 30 mmol/Sodium Chloride 250 ml @ 42 mls/hr UNSCH PRN IV 08/26/17 22:45 (K-Phos) 2,000 mg UNSCH PRN PO/TUBE 08/26/17 22:45 Potassium Phosphate 30 mmol/ Sodium Chloride 260 ml @ 42 mls/hr UNSCH PRN IV 08/26/17 22:45 Dexmedetomidine HCl 200 mcg/ Sodium Chloride 52 ml @ 3.56 mls/hr TITRATE PRN IV 08/27/17 08:15 08/29/17 02:56 (Tylenol) 650 mg Q4H PRN PO 08/28/17 08:45 (Benadryl) 25 mg Q4H PRN PO 08/28/17 08:45 (Lasix Inj) 40 mg BID@09,18 IV PUSH 08/29/17 18:00 08/31/17 17:42 (K-Lyte Cl Eff) 25 meq Q12HR PO 08/29/17 21:00 08/31/17 20:39 (Ditropan) 5 mg Q8HR PO 08/29/17 23:30 09/01/17 06:29 Amiodarone HCl 450 mg/Dextrose 250 ml @ 33.33 mls/ hr Q7H31M PRN IV 08/30/17 15:00 09/01/17 04:55 (Lovenox Inj) 70 mg Q12H SQ 08/30/17 15:00 09/01/17 02:03 (Tessalon) 200 mg TID PRN PO 08/30/17 21:00 08/30/17 21:30 (Restoril) 15 mg HS PRN PO 08/31/17 02:00 08/31/17 02:06 (Lopressor) 25 mg Q12HR PO 08/31/17 09:30 08/31/17 20:39 Ceftriaxone Sodium 1000 mg/ Sodium Chloride 100 ml @ 200 mls/hr Q24H IV 08/31/17 10:00 08/31/17 10:30 Vital Signs / I&O Vital Signs Date Time Temp Pulse Resp B/P (MAP) Pulse Ox O2 Delivery O2 Flow Rate FiO2 09/01/17 06:00 86 09/01/17 04:55 86 118/74 09/01/17 04:00 94 09/01/17 04:00 98.2 94 29 118/74 (89) 92 09/01/17 02:00 90 09/01/17 00:00 90 09/01/17 00:00 98.0 90 24 117/80 (92) 94 08/31/17 22:00 90 08/31/17 20:00 88 08/31/17 20:00 100 Simple Mask 10.00 08/31/17 20:00 97.8 88 25 127/79 (95) 100 08/31/17 19:59 98 Simple Mask 11.00 08/31/17 18:00 92 08/31/17 16:00 90 08/31/17 16:00 97.7 90 26 111/74 (86) 94 08/31/17 14:46 87 117/78 08/31/17 14:00 82 08/31/17 12:00 97.6 87 20 122/84 (97) 95 08/31/17 12:00 87 08/31/17 10:50 96 Simple Mask 12.00 08/31/17 10:00 100 08/31/17 08:38 96 123/74 08/31/17 08:00 97.9 95 24 119/68 (85) 95 08/31/17 08:00 95 I/O 08/31/17 08/31/17 08/31/17 09/01/17 09/01/17 09/01/17 07:00 15:00 23:00 07:00 15:00 23:00 Intake Total 1219 ml 363 ml 680 ml 527 ml Output Total 550 ml 1150 ml 1200 ml Balance 669 ml 363 ml -470 ml -673 ml Intake Oral 1119 ml 480 ml 240 ml IV Total 100 ml 363 ml 200 ml 287 ml Output Urine Total 550 ml 1150 ml 1200 ml # Bowel Movements 0 0 Physical Exam GENERAL: Well-developed well-nourished. Ecchymosis right forearm. NECK: No carotid bruits. No JVD. CARDIOVASCULAR: Tachycardic rate and regular rhythm. No murmur appreciated. Anterior chest wall TTP. RESPIRATORY: Clear to auscultation. Bilateral wheezing and basilar crackles. MUSCULOSKELETAL: No clubbing or cyanosis. Lower extremity nonpitting edema. NEUROLOGICAL: Awake and alert. Hoarse speech. Laboratory Laboratory Tests Test 08/31/17 12:16 09/01/17 05:20 Blood Urea Nitrogen 39 MG/DL 35 MG/DL Creatinine 0.71 MG/DL 0.56 MG/DL Random Glucose 121 MG/DL 110 MG/DL Calcium Level 9.0 MG/DL 8.7 MG/DL Sodium Level 141 MEQ/L 139 MEQ/L Potassium Level 3.6 MEQ/L 3.0 MEQ/L Chloride Level 103 MEQ/L 101 MEQ/L Carbon Dioxide Level 29.7 MEQ/L 30.7 MEQ/L Anion Gap 8 MEQ/L 7 MEQ/L Estimat Glomerular Filtration Rate 84 ML/MIN 111 ML/MIN White Blood Count 19.1 TH/MM3 Red Blood Count 3.51 MIL/MM3 Hemoglobin 10.7 GM/DL Hematocrit 33.4 % Mean Corpuscular Volume 95.1 FL Mean Corpuscular Hemoglobin 30.5 PG Mean Corpuscular Hemoglobin Concent 32.1 % Red Cell Distribution Width 16.9 % Platelet Count 400 TH/MM3 Mean Platelet Volume 8.8 FL Neutrophils (%) (Auto) 86.7 % Lymphocytes (%) (Auto) 6.5 % Monocytes (%) (Auto) 6.5 % Eosinophils (%) (Auto) 0.3 % Basophils (%) (Auto) 0.0 % Neutrophils # (Auto) 16.6 TH/MM3 Lymphocytes # (Auto) 1.3 TH/MM3 Monocytes # (Auto) 1.2 TH/MM3 Eosinophils # (Auto) 0.1 TH/MM3 Basophils # (Auto) 0.0 TH/MM3 CBC Comment AUTO DIFF Differential Total Cells Counted 100 Neutrophils % (Manual) 87 % Band Neutrophils % 5 % Lymphocytes % 5 % Monocytes % 3 % Neutrophils # (Manual) 17.6 TH/MM3 Nucleated Red Blood Cells 4 /100 WBC Differential Comment FINAL DIFF MANUAL Platelet Estimate NORMAL Platelet Morphology Comment NORMAL Polychromasia 2.7 % Imaging Last 24 hours Impressions Chest X-Ray 09/01/17 0600 Signed Impressions: Service Date/Time: Friday, September 01, 2017 03:49 - CONCLUSION: Stable chest x-ray with severe bilateral lower lung zone airspace consolidation with likely associated pleural effusions. Hunter Bertrand MD (Arden Murphy) Assessment and Plan Problem List: (1) V tach ICD Codes: I47.2 - Ventricular tachycardia Status: Acute (2) STEMI (ST elevation myocardial infarction) ICD Codes: I21.3 - ST elevation (STEMI) myocardial infarction of unspecified site Status: Acute Assessment and Plan acute respiratory distress: intubated and mechanically ventilated. Echo normal EF, mild-mod MVR. Continue gentle diuresis. +bilateral pulmonary emboli/ LE DVT: Placed removable IVC filter 08/29. Now on Lovenox, plan for Coumadin if no ortho procedures planned for this hospitalization. STEMI: s/p PCI BMS distal left circumflex. Moderate proximal LAD stenosis, consider lexiscan upon recovery. Continue aspirin and Plavix. hypotension: repeated limited echo showed normal EF and left ventricular function. RLHC showed elevated left-sided filling pressures, continue diuresis as necessary, on Lasix with negative fluid balance overnight. A flutter 2:1: On 08/31. Now in NSR after starting on amiodarone drip, converted to amiodarone 400 mg daily after IV loading. Started on metoprolol.. CHF: acute diastolic. continue diuresis for now. IV BID. anemia: s/p transfusion 08/28 hip fracture: ortho following, requested cardiac clearance for surgery, must stay on Plavix. (Arden Murphy) Assessment and Plan amio gtt -> PO amio Lasix IV -> PO lasix discussed case with ortho. Needs hip replacement, but delayed. May consider pins prior to DC. pulmonary - antibiotics. continue asa plavix. IVC filter in place. Would need to temporarily hold lovenox when ortho plans to take her. hopefully early next week if she continues to show symptomatic improvement. (Yoshi,Jeremias Orellana MD) Arden Murphy Sep 01, 2017 07:48 Jeremias Belle MD Sep 01, 2017 14:03
[2017-09-01] MEDS: ASPIRIN 81 MG CHEW TAB PO SCH (07:56)
[2017-09-01] MEDS: POTASSIUM CHLORIDE 25 MEQ EFFERVESCENT TAB PO SCH ×2 (07:56→21:00)
[2017-09-01] MEDS: FUROSEMIDE 40 MG/4 ML VIAL IV PUSH SCH ×2 (07:56→17:03)
[2017-09-01] MEDS: PANTOPRAZOLE SOD 40 MG DELAYED RELEASE TAB PO SCH (07:57)
[2017-09-01] MEDS: DOCUSATE SODIUM 50 MG/SENNA 8.6 MG TAB PO SCH ×2 (07:57→21:00)
[2017-09-01] MEDS: CLOPIDOGREL 75 MG TAB PO SCH (07:57)
[2017-09-01] MEDS: REMOVE OLD NICOTINE PATCH T-DERMAL SCH (07:58)
[2017-09-01] MEDS: NICOTINE 14 MG/24 HR PATCH T-DERMAL SCH (07:58)
[2017-09-01] MEDS: METOPROLOL TARTRATE 25 MG TAB PO SCH ×2 (07:58→21:41)
[2017-09-01] MEDS: POTASSIUM CHLOR 20 MEQ PREMIX 100 ML IV PRN ×3 (07:59→18:12)
[2017-09-01] MEDS: AMIODARONE 200 MG TAB PO SCH (09:45)
[2017-09-01] MEDS: cefTRIAXone INJ 1,000 MG in SODIUM CHLORIDE 0.9% INJ 100 ML IV SCH (10:17)
[2017-09-01] MEDS: FERROUS SULFATE 325 MG (65 MG ELEMENTAL IRON) TAB PO SCH ×3 (12:00→17:04)
--- NOTE | 2017-09-01 15:08 | HHI.CCPN ---
Subjective Remarks/Hospital Course 08/26: This is a 61 yo female that was recently admitted to the hospital .the patient has a history of hip pain and bursitis and subsequently with sedentary for greater than 6 weeks she presented with shortness of breath .CT angiogram of thorax revealed multifocal pulmonary emboli with multiple small filling defects in the right main pulmonary artery interlobar pulmonary artery on the right and one in the left lower lobe pulmonary artery. Emboli was noted to be small but diffusely throughout. The patient was also noted to have moderate sized bilateral pleural effusions at that time . The patient was placed on eliquis approximately 2 weeks ago and she reported significant improvement in her lower ext swelling. On 08/24 the patient presented to the ED with complaints of malaise and nauseated. EKG noted she was in V. tach and the patient was defibrillated. Additional imaging and laboratory studies reveal the patient had a inferior ST elevation PA. Cardiology was consulted Dr. Das , the patient underwent a cardiac catheterization with PCI bare-metal stent to the dominant distal left circumflex coronary artery. Distal LAD was noted to have 60% stenosis. The patient was transferred to CVICU, and continued on antiplatelet therapy and heparin infusion per cardiology recommendations. Early this a.m. the patient was noted to be due to tachypneic, tachycardic heart rate [id number] on a nonrebreather mask with extreme accessory muscle movement, stat ABG was drawn, patient was noted to be in acute hypoxemic respiratory failure. Critical care medicine was consulted. The patient was emergently intubated, and placed on sedation for ventilator synchrony 08/27: Orally intubated on mechanical ventilation. Patient anxious on fentanyl drip. Blood pressure borderline. Received a fluid bolus overnight for oliguria. Remains tachycardic. Patient does have a left femoral neck fracture and has been seen by orthopedics who are recommending surgery. 08/28: Sedated, easily arousable, orally intubated on mechanical ventilation. Blood pressure borderline. Hemoglobin has dropped to 7.5 g percent while on anticoagulation and antiplatelet therapy. Stat CT abdomen pelvis ordered to evaluate for retroperitoneal bleed and 2 units PRBCs to be transfused now. Limited 2-D echo still pending to assess RV. Awaiting IVC filter placement. 08/29: Patient is status post right heart catheter and IVC filter placement today by Dr. das. Pulmonary arterial pressure measures at 44/24 mmHg. PCWP 30 mmHg. patient is slightly tachypneic on CPAP. Chest x-ray shows persistent bilateral effusions and infiltrate. On CT significant consolidation of the left lower lobe with small effusion, and moderate right effusion. Sputum culture with gram-negative john, continue zosyn 08/30: CXR with interstitial edema and effusions. Now new a-fib and RVR. Cardizem initiated this morning, will add amiodarone for hopefully better rate control and conversion. Change anticoagulation to lovenox q12h, d/c hep drip. 08/31: Persistent pulmonary edema, lasix added. Narrow abx to ceftriaxone. Breathing comfortably. 09/01: CXR and clinical exam worrisome for decompensated heart failure. Consider doubling diuretic dose. Continue ceftriaxone for 7 days total. Objective Vital Signs Date Time Temp Pulse Resp B/P (MAP) Pulse Ox O2 Delivery O2 Flow Rate FiO2 09/01/17 14:00 119 09/01/17 12:00 98.0 30 105/69 (81) 93 09/01/17 08:07 Nasal Cannula 6.00 08/31/17 07:25 100 Intake and Output 09/01/17 09/01/17 09/02/17 08:00 16:00 00:00 Intake Total 527 ml 63 ml Output Total 1200 ml Balance -673 ml 63 ml Result Diagram: 09/01/17 0520 09/01/17 0520 Imaging Last 72 hours Impressions Chest X-Ray 08/26/17 1100 Signed Impressions: Service Date/Time: Saturday, August 26, 2017 11:13 - CONCLUSION: 1. Slight worsening of airspace disease in the lungs since August 25. Satisfactory placement of nasogastric tube and endotracheal tube. Basim Pollock MD Chest X-Ray 08/25/17 1315 Signed Impressions: Service Date/Time: Friday, August 25, 2017 13:26 - CONCLUSION: Pulmonary vascular congestion with small bilateral pleural effusions suggesting failure Jeremias Peacock MD Hip and Pelvis X-Ray 08/25/17 0000 Signed Impressions: Service Date/Time: Friday, August 25, 2017 12:01 - CONCLUSION: Impacted femoral neck fracture at the base without significant step-off Jeremias Peacock MD CT Angiography 08/25/17 0000 Signed Impressions: Service Date/Time: Friday, August 25, 2017 16:06 - CONCLUSION: Multifocal pulmonary emboli with small filling defects identified in the main right pulmonary artery, interlobar pulmonary artery on the right and one in the left lower lobe pulmonary arteries. The emboli are small but multiple. Moderate- sized bilateral pleural effusions. Jeremias Peacock MD Chest X-Ray 08/23/172014 Signed Impressions: Service Date/Time: Wednesday, August 23, 2017 20:15 - CONCLUSION: 1. Normal heart size. No evidence of alveolar pulmonary edema. 2. Mild focal interstitial process upper right lung. Michele Morris MD Last 24 hours Impressions Chest X-Ray 08/26/171099 Signed Impressions: Service Date/Time: Saturday, August 26, 2017 11:13 - CONCLUSION: 1. Slight worsening of airspace disease in the lungs since August 25. Satisfactory placement of nasogastric tube and endotracheal tube. Basim Pollock MD Objective Remarks HEENT: no icterus, tongue/ mucosa moist Neck: + JVD, airway widely patent. Chest/Pulm: Extubated, few crackles. Diminished air entry at the bases. CVS: RRR, NL S1S2, 90s GI/abdomen: soft, nontender, bowel sounds present Extremities: warm bilaterally, no edema. Left hip pain with active and passive motion. Neuro: Off sedation, alert, following commands, moving all 4 extremities, Procedures 08/26-intubation Date of Insertion: Aug 26, 2017 A/P Problem List: (1) Acute hypoxemic respiratory failure ICD Code: J96.01 - Acute respiratory failure with hypoxia Status: Acute (2) Anxiety ICD Code: F41.9 - Anxiety Status: Acute (3) Tobacco abuse ICD Code: Z72.0 - Tobacco abuse Status: Acute (4) STEMI (ST elevation myocardial infarction) ICD Code: I21.3 - ST elevation (STEMI) myocardial infarction of unspecified site Status: Acute (5) Hypokalemia ICD Code: E87.6 - Hypokalemia Status: Acute (6) V tach ICD Code: I47.2 - Ventricular tachycardia Status: Acute (7) DVT (deep venous thrombosis) ICD Code: I82.409 - Acute embolism and thrombosis of unspecified deep veins of unspecified lower extremity Status: Acute (8) Pulmonary embolism ICD Code: I26.99 - Other pulmonary embolism without acute cor pulmonale Assessment and Plan Assessment This is a 61-year-old female with ST elevation PA status post PCI with bare- metal stent placement, in the setting now with acute hypoxemic and hypercarbic respiratory failure secondary to pulmonary emboli, left femoral neck fracture. Patient intubated on mechanical ventilation, hypotensive. patient has bilateral pleural effusions with consolidation and GNRs in sputum Plan by systems: Neurologic: Anxiety disorder Chronic pain syndrome Ofirmev 1 g every 6 hours x 24-48 hrs, Tramadol q 6 hr scheduled. Precedex infusion for ventilator synchrony Versed 2 mg every 4 hours when necessary for agitation and anxiety Daily sedation vacation Tylenol 650 mg every 6 hours for temp greater than 100.5 Respiratory: Acute hypoxemic and hypercarbic respiratory failure Diffuse pulmonary emboli Tobacco abuse Bilateral effusion and consolidation, bacterial pneumonia 08/26 patient intubated 8.0 ETT atraumatically, grade 1 view 20 cm at the lip Ventilator bundle, Continue mechanical ventilation, bronchodilators as needed Slightly tachypneic on CPAP trial. Will need diuresis/thoracentesis prior to extubation Chest x-rays and ABGs as clinically indicated Heparin infusion see below-currently on hold for cath. s/p IVC filter placement Right heart cath Pulmonary arterial pressure measures at 44/24 mmHg. PCWP 30 mmHg. plan for left thoracentesis -> done. May well require re-intubation. Requires continued aggressive diuresis. Cardiovascular: STEMI S/P bare-metal stent placement H/O V. tach with defibrillation 1 Pulmonary embolism CHF Heparin gtt. being followed by cardiology. Heparin on hold for right heart catheter and IVC filter placement Patient on dual antiplatelet therapy and statin Descending LAD coronary artery stenosis 60%. Repeat 2-D echo to assess for RV dysfunction risk stratification and for PE as patient needs orthopedic surgery for left femoral neck fracture. LVEF 50- 55%. RV systolic function and chamber size normal Renal: Insert osorio-patient intubated and sedated and receiving IV diuretics -- Strict I/Os FEN/GI: Advance tube feeds to goal as tolerated - currently held for cardiac catheterisation Monitor BMP Replete electrolytes per CV ICU protocol Bowel regimen Zofran for nausea Start HH diet. Heme/ID: Leukocytosis Sepsis Bilateral pneumonia/GNR in sputum Follow-up duque cultures. Initiated empiric antibiotic coverage with IV Zosyn on 08/27 f/u GNR in sputum CT abdomen pelvis no evidence of retroperitoneal hematoma. s/p 2 units PRBCs On anticoagulation with heparin for pulmonary embolism. s/p IVC filter placement. May need to reevaluate anticoagulation and antiplatelet therapy if hemoglobin continues to drop or CT shows any evidence of hemorrhage. Musculoskeletal: Left femoral neck fracture being followed by orthopedics. Needs surgery however extremely high risk due to recent PA and PE. Await clearance by Dr. Das. Endocrine: Close monitoring per ICU protocol -- SSI Prophylaxis: GI Prophylaxis Protonix DVT Prophylaxis -- SCDs Heparin infusion Lines: Peripheral IVs. Central line if indicated. Overall impression: Pulmonary edema following AMI. Colonized sputum and cardiomegaly, marked interstitial edema and small rosalina effusions. Sergo Alvares MD Sep 01, 2017 15:08
--- NOTE | 2017-09-01 18:03 | PD.ORT.PN ---
Objective Vitals Vital Signs Date Time Temp Pulse Resp B/P (MAP) Pulse Ox O2 Delivery O2 Flow Rate FiO2 09/01/17 14:00 119 09/01/17 12:00 98.0 120 30 105/69 (81) 93 09/01/17 12:00 100 09/01/17 10:00 88 09/01/17 08:07 94 Nasal Cannula 6.00 09/01/17 08:00 98.7 98 31 122/80 (94) 96 09/01/17 08:00 98 09/01/17 07:15 98 Nasal Cannula 09/01/17 07:00 98.7 98 31 122/80 (94) 96 09/01/17 06:00 86 09/01/17 04:55 86 118/74 09/01/17 04:00 94 09/01/17 04:00 98.2 94 29 118/74 (89) 92 09/01/17 02:00 90 09/01/17 00:00 90 09/01/17 00:00 98.0 90 24 117/80 (92) 94 08/31/17 22:00 90 08/31/17 20:00 88 08/31/17 20:00 100 Simple Mask 10.00 08/31/17 20:00 97.8 88 25 127/79 (95) 100 08/31/17 19:59 98 Simple Mask 11.00 08/31/17 18:00 92 I/O 08/31/17 08/31/17 08/31/17 09/01/17 09/01/17 09/01/17 07:00 15:00 23:00 07:00 15:00 23:00 Intake Total 1219 ml 363 ml 680 ml 527 ml 63 ml Output Total 550 ml 1150 ml 1200 ml Balance 669 ml 363 ml -470 ml -673 ml 63 ml Intake Oral 1119 ml 480 ml 240 ml IV Total 100 ml 363 ml 200 ml 287 ml 63 ml Output Urine Total 550 ml 1150 ml 1200 ml # Bowel Movements 0 0 Result Diagram: 09/01/17 0520 09/01/17 0520 Imaging Last 24 hours Impressions Chest X-Ray 09/01/17 0600 Signed Impressions: Service Date/Time: Friday, September 01, 2017 03:49 - CONCLUSION: Stable chest x-ray with severe bilateral lower lung zone airspace consolidation with likely associated pleural effusions. Hunter Bertrand MD Assessment & Plan Assessment and Plan 61-year-old female with complicated past medical history including recent pulmonary embolism, STEMI, DVT and heart surgery. Cased discussed with Dr. Belle. The plan is to perform left hip surgery at a later time once the patient is medically stable and can safely be off anticoagulation and cleared by cardiology ok to dc per ortho and f/u outpatient in 2-3 wks NWB LLE SIGN OFF Min Gonzalez Jr., MD Sep 01, 2017 18:03
[2017-09-01] MEDS: ATORVASTATIN 40 MG TAB PO SCH (21:41)
[2017-09-02] VITALS (10 sets, daily range): BP systolic 97–109; BP diastolic 61–71; PULSE 91–133; RESP 18–27; TEMP 97.4–98.7; O2SAT 94–97
[2017-09-02] MEDS: RESP: IPRATROPIUM 0.5 MG/2.5 ML NEB NEB SCH ×6 (00:04→20:46)
[2017-09-02] MEDS: traMADol HCL 50 MG TAB PO SCH ×5 (00:28→23:48)
[2017-09-02] MEDS: ENOXAPARIN SODIUM 80 MG/0.8 ML SYRINGE SQ SCH ×2 (03:23→16:10)
[2017-09-02] MEDS: CHLORHEXIDINE GLUCONATE 2 % 1 PACK (2 CLOTHS) TOP SCH (04:00)
[2017-09-02 05:03] LABS: BICARBONATE 31.3 MEQ/L (21.0-32.0); POTASSIUM 3.5 MEQ/L (3.5-5.1)
[2017-09-02] MEDS: OXYBUTYNIN CHLORIDE 5 MG TAB PO SCH ×3 (05:47→22:40)
[2017-09-02] MEDS: CHLORHEXIDINE 0.12% (ORAL KIT) 15 ML CUP MT SCH ×2 (08:00→20:00)
[2017-09-02] MEDS: INSULIN ASPART SUPPLEMENTAL SCALE SQ SCH ×2 (08:00→12:00)
[2017-09-02] MEDS: METOPROLOL TARTRATE 25 MG TAB PO SCH ×2 (08:34→22:40)
[2017-09-02] MEDS: AMIODARONE 200 MG TAB PO SCH (08:34)
[2017-09-02] MEDS: CLOPIDOGREL 75 MG TAB PO SCH (08:35)
[2017-09-02] MEDS: ASPIRIN 81 MG CHEW TAB PO SCH (08:35)
[2017-09-02] MEDS: DOCUSATE SODIUM 50 MG/SENNA 8.6 MG TAB PO SCH ×2 (08:35→21:00)
[2017-09-02] MEDS: PANTOPRAZOLE SOD 40 MG DELAYED RELEASE TAB PO SCH (08:35)
[2017-09-02] MEDS: FUROSEMIDE 40 MG/4 ML VIAL IV PUSH SCH ×2 (08:36→17:55)
[2017-09-02] MEDS: POTASSIUM CHLORIDE 25 MEQ EFFERVESCENT TAB PO SCH ×2 (08:37→21:00)
[2017-09-02] MEDS: POTASSIUM CHLORIDE 20 MEQ CONTROLLED RELEASE TAB PO SCH ×2 (08:37→21:00)
[2017-09-02] MEDS: cefTRIAXone INJ 1,000 MG in SODIUM CHLORIDE 0.9% INJ 100 ML IV SCH (09:05)
--- NOTE | 2017-09-02 09:45 | PD.CARD.PN ---
Subjective Subjective Remarks Breathing better. no chest pain. Good diuresis Objective Medications Current Medications Medications (Trade) Dose Ordered Sig/Jamilah Route Start Time Stop Time Status Last Admin (NS Flush) 2 ml UNSCH PRN IVF 08/23/17 20:15 (Xylocaine 2% Jelly) 1 applic UNSCH PRN TOP 08/23/17 21:45 (Aspirin Chew) 81 mg DAILY PO 08/24/17 09:00 09/02/17 08:35 (Plavix) 75 mg DAILY PO 08/24/17 09:00 09/02/17 08:35 (Atropine Inj) 0.5 mg UNSCH PRN IV PUSH 08/23/17 21:45 (Zofran Inj) 4 mg Q4H PRN IV PUSH 08/23/17 21:45 08/31/17 14:25 (Lipitor) 40 mg HS PO 08/24/17 21:00 09/01/17 21:41 (Ferrous Sulfate) 325 mg BID@ PO 08/24/17 12:00 08/30/17 16:21 (KCl) 20 meq Q12HR PO 08/25/17 09:00 08/29/17 08:11 (Atrovent Neb) 0.5 mg Q4HR NEB NEB 08/25/17 16:00 09/02/17 07:42 (Atrovent Neb) 0.5 mg Q2HR NEB PRN NEB 08/25/17 14:00 08/26/17 06:00 (Protonix) 40 mg DAILY PO 08/26/17 09:00 09/02/17 08:35 (Tears Naturale Opth Soln) 1 drop Q4H PRN EACH EYE 08/26/17 13:45 08/27/17 09:43 (Peridex 0.12% Liq) 15 ml BID@08,20 MT 08/26/17 20:00 08/29/17 08:00 (Ultram) 50 mg Q6HR PO 08/26/17 14:30 09/02/17 05:47 (D50w (Vial) Inj) 50 ml UNSCH PRN IV PUSH 08/26/17 14:45 (Glucagon Inj) 1 mg UNSCH PRN OTHER 08/26/17 14:45 (NovoLOG SUPPLEMENTAL SCALE) 1 ACHS SLIDING SCALE SQ 08/26/17 17:00 Miscellaneous Information 1 Q361D XX 08/26/17 14:45 (Chlorhexidine 2% Cloth) Taper DAILY@04 TOP 08/27/17 04:00 08/23/18 03:59 09/01/17 01:00 (Chlorhexidine 2% Cloth) 3 pack UNSCH PRN TOP 08/26/17 14:45 (Clair-Colace) 1 tab BID PO 08/26/17 21:00 09/01/17 07:57 (Milk Of Magnesia Liq) 30 ml Q12H PRN PO 08/26/17 14:45 (Senokot) 17.2 mg Q12H PRN PO 08/26/17 14:45 08/26/17 18:34 (Dulcolax Supp) 10 mg DAILY PRN RECTAL 08/26/17 14:45 (Lactulose Liq) 30 ml DAILY PRN PO 08/26/17 14:45 (Versed Inj) 2 mg Q4H PRN IV 08/26/17 15:30 08/29/17 13:13 Potassium Chloride 100 ml @ 50 mls/hr Q2H PRN IV 08/26/17 22:45 Potassium Chloride 100 ml @ 50 mls/hr Q2H PRN IV 08/26/17 22:45 09/01/17 18:12 (K-Lyte Cl Eff) 50 meq UNSCH PRN PO 08/26/17 22:45 Potassium Chloride 100 ml @ 25 mls/hr UNSCH PRN IV 08/26/17 22:45 Potassium Chloride 100 ml @ 50 mls/hr Q2H PRN IV 08/26/17 22:45 Magnesium Sulfate 4 gm/Sodium Chloride 100 ml @ 50 mls/hr UNSCH PRN IV 08/26/17 22:45 (Mag-Ox) 800 mg UNSCH PRN PO 08/26/17 22:45 Magnesium Sulfate 2 gm/Sodium Chloride 100 ml @ 50 mls/hr UNSCH PRN IV 08/26/17 22:45 (K-Phos) 2,000 mg Q4H PRN PO 08/26/17 22:45 Sodium Phosphate 30 mmol/Sodium Chloride 250 ml @ 42 mls/hr UNSCH PRN IV 08/26/17 22:45 (K-Phos) 2,000 mg UNSCH PRN PO/TUBE 08/26/17 22:45 Potassium Phosphate 30 mmol/ Sodium Chloride 260 ml @ 42 mls/hr UNSCH PRN IV 08/26/17 22:45 (Tylenol) 650 mg Q4H PRN PO 08/28/17 08:45 (Benadryl) 25 mg Q4H PRN PO 08/28/17 08:45 (Lasix Inj) 40 mg BID@09,18 IV PUSH 08/29/17 18:00 09/02/17 08:36 (K-Lyte Cl Eff) 25 meq Q12HR PO 08/29/17 21:00 09/02/17 08:37 (Ditropan) 5 mg Q8HR PO 08/29/17 23:30 09/02/17 05:47 (Lovenox Inj) 70 mg Q12H SQ 08/30/17 15:00 09/02/17 03:23 (Tessalon) 200 mg TID PRN PO 08/30/17 21:00 08/30/17 21:30 (Restoril) 15 mg HS PRN PO 08/31/17 02:00 08/31/17 02:06 (Lopressor) 25 mg Q12HR PO 08/31/17 09:30 09/02/17 08:34 Ceftriaxone Sodium 1000 mg/ Sodium Chloride 100 ml @ 200 mls/hr Q24H IV 08/31/17 10:00 09/02/17 09:05 (Cordarone) 400 mg DAILY PO 09/01/17 09:00 09/02/17 08:34 Vital Signs / I&O Vital Signs Date Time Temp Pulse Resp B/P (MAP) Pulse Ox O2 Delivery O2 Flow Rate FiO2 09/02/17 07:45 96 Nasal Cannula 6.00 09/02/17 06:00 98 09/02/17 04:00 93 09/02/17 04:00 98.3 93 27 104/65 (78) 96 09/02/17 02:00 93 09/02/17 00:00 94 09/02/17 00:00 98.4 94 26 104/67 (79) 94 09/01/17 22:00 100 09/01/17 20:46 97 Nasal Cannula 6.00 09/01/17 20:00 102 09/01/17 20:00 98.2 102 30 99/66 (77) 98 09/01/17 19:15 98 Nasal Cannula 09/01/17 18:00 125 09/01/17 16:00 98.3 124 28 123/80 (94) 95 09/01/17 16:00 120 09/01/17 14:00 119 09/01/17 12:00 98.0 120 30 105/69 (81) 93 09/01/17 12:00 100 09/01/17 10:00 88 I/O 09/01/17 09/01/17 09/01/17 09/02/17 09/02/17 09/02/17 07:00 15:00 23:00 07:00 15:00 23:00 Intake Total 527 ml 263 ml 500 ml Output Total 1200 ml 1700 ml 950 ml Balance -673 ml 263 ml -1200 ml -950 ml Intake Oral 240 ml 400 ml IV Total 287 ml 263 ml 100 ml Output Urine Total 1200 ml 1700 ml 950 ml # Bowel Movements 0 0 0 Physical Exam Lungs clear. RRR no murmur Laboratory Laboratory Tests Test 09/02/17 04:01 Blood Urea Nitrogen 32 MG/DL Creatinine 0.67 MG/DL Random Glucose 111 MG/DL Calcium Level 8.5 MG/DL Sodium Level 141 MEQ/L Potassium Level 3.5 MEQ/L Chloride Level 103 MEQ/L Carbon Dioxide Level 31.3 MEQ/L Anion Gap 7 MEQ/L Estimat Glomerular Filtration Rate 90 ML/MIN Assessment and Plan Problem List: (1) V tach ICD Codes: I47.2 - Ventricular tachycardia Status: Acute (2) STEMI (ST elevation myocardial infarction) ICD Codes: I21.3 - ST elevation (STEMI) myocardial infarction of unspecified site Status: Acute Assessment and Plan Continue present regimen Gutierrez Carr MD Sep 02, 2017 09:45
[2017-09-02] MEDS: FERROUS SULFATE 325 MG (65 MG ELEMENTAL IRON) TAB PO SCH ×2 (12:11→17:54)
[2017-09-02] MEDS: NICOTINE 14 MG/24 HR PATCH T-DERMAL SCH (16:54)
--- NOTE | 2017-09-02 16:56 | HHI.PR ---
Subjective Remarks Pt is a pleasant 61 y/o F who was admitted following 6 weeks of immobility d/t LEFT hip pain. Pt was found to have impacted fracture of left femoral neck. This has NOT been surgically repaired d/t other confounding medical conditions. CTA revealed multifocal pulmonary emboli and b/l DVT from thigh to proximal calf. Pt developed Ventricular Tachycardia requiring defibrillation. Pt underwent LHC with Dr. Jeremias Belle PCI bare-metal stent to the dominant distal left circumflex coronary artery. Distal LAD was noted to have 60% stenosis. Pt developed Respiratory Failure and required mechanical intubation. Pt had IVC filter placed. Pt developed LLL pneumonia. Pt developed Afib with RVR treated with cardizem and amiodarone Pt developed anemia requiring 2 units PRBCs. Pt was evaluated for retroperitoneal hematoma which was negative. Objective Vitals Vital Signs Date Time Temp Pulse Resp B/P (MAP) Pulse Ox O2 Delivery O2 Flow Rate FiO2 09/02/17 12:00 98.3 91 20 97/61 (73) 97 09/02/17 12:00 91 09/02/17 08:00 98.1 96 20 109/68 (82) 94 09/02/17 08:00 96 09/02/17 07:45 96 Nasal Cannula 6.00 09/02/17 07:15 96 Nasal Cannula 6.00 09/02/17 06:00 98 09/02/17 04:00 93 09/02/17 04:00 98.3 93 27 104/65 (78) 96 09/02/17 02:00 93 09/02/17 00:00 94 09/02/17 00:00 98.4 94 26 104/67 (79) 94 09/01/17 22:00 100 09/01/17 20:46 97 Nasal Cannula 6.00 09/01/17 20:00 102 09/01/17 20:00 98.2 102 30 99/66 (77) 98 09/01/17 19:15 98 Nasal Cannula 09/01/17 18:00 125 09/02/17 09/02/17 09/03/17 14:59 22:59 06:59 Output Total 900 ml Balance -900 ml Output Urine Total 900 ml Result Diagram: 09/01/17 0520 09/02/17 0401 Imaging Last Impressions Chest X-Ray 09/01/17 0600 Signed Impressions: Service Date/Time: Friday, September 01, 2017 03:49 - CONCLUSION: Stable chest x-ray with severe bilateral lower lung zone airspace consolidation with likely associated pleural effusions. Hunter Bertrand MD Abdomen/Pelvis CT 08/28/17 0000 Signed Impressions: Service Date/Time: Monday, August 28, 2017 10:10 - CONCLUSION: There is no evidence for retroperitoneal hematoma. 2 cm left adrenal mass stable from 08/25/17. Rajat Teague MD FACR Lower Extremity Ultrasound 08/27/17 0000 Signed Impressions: Service Date/Time: Sunday, August 27, 2017 10:23 - CONCLUSION: Positive for deep venous thrombosis bilaterally from thigh to proximal calf. Michele Morris MD Hip and Pelvis X-Ray 08/25/17 0000 Signed Impressions: Service Date/Time: Friday, August 25, 2017 12:01 - CONCLUSION: Impacted femoral neck fracture at the base without significant step-off Jeremias Peacock MD CT Angiography 08/25/17 0000 Signed Impressions: Service Date/Time: Friday, August 25, 2017 16:06 - CONCLUSION: Multifocal pulmonary emboli with small filling defects identified in the main right pulmonary artery, interlobar pulmonary artery on the right and one in the left lower lobe pulmonary arteries. The emboli are small but multiple. Moderate- sized bilateral pleural effusions. Jeremias Peacock MD Objective Remarks GENERAL: This is a well-nourished, well-developed patient, in no apparent distress. CARDIOVASCULAR: Regular rate and rhythm without murmurs, gallops, or rubs. RESPIRATORY: Clear to auscultation. Breath sounds equal bilaterally. No wheezes , rales, or rhonchi. GASTROINTESTINAL: Abdomen soft, non-tender, nondistended. Normal active bowel sounds MUSCULOSKELETAL: Extremities without clubbing, cyanosis, or edema. NEURO: Alert & Oriented x4 to person, place, time, situation. Moves all ext x4 Date of Insertion: Aug 26, 2017 A/P Problem List: (1) STEMI (ST elevation myocardial infarction) ICD Codes: I21.3 - ST elevation (STEMI) myocardial infarction of unspecified site Status: Acute Plan: 1. stemi. inferior. lhc 08/23. left cx BMS. 60% distal lad VT. s/p cardioversion 08/23 2. bilateral pulmonary emboli 3. pulmonary edema. respiratory acidosis. 4.recent bilateral lower ext dvt's on eliquis. secondary to being sedentary. 5. recent left trochanteric bursitis diagnosis by sports med. 6. left femoral neck fracture 7.severe hypokalemia - Pt extubated and tolerating 6L NC - obtain repeat CT chest to reasses - Pt receiving lovenox and plavix - pt receiving IV lasix for interstitial edema limited by boarderline hypotension (2) DVT (deep venous thrombosis) ICD Codes: I82.409 - Acute embolism and thrombosis of unspecified deep veins of unspecified lower extremity Status: Acute (3) Atrial fibrillation with rapid ventricular response ICD Codes: I48.91 - Unspecified atrial fibrillation Status: Acute Plan: - stable - amiodarone, metoprolol (4) Fracture of hip, left, closed ICD Codes: S72.002A - Fracture of unspecified part of neck of left femur, initial encounter for closed fracture Status: Acute Plan: - comgmt with Orthopedic Service - Pt has been too unstable for surgical repair (5) Pneumonia, unspecified organism ICD Codes: J18.9 - Pneumonia, unspecified organism (6) Pulmonary embolism ICD Codes: I26.99 - Other pulmonary embolism without acute cor pulmonale Status: Acute Plan: - antibiotic regimen narrowed to rocephin Problem Qualifiers (1) DVT (deep venous thrombosis): Qualified Codes: I82.403 - Acute embolism and thrombosis of unspecified deep veins of lower extremity, bilateral (2) Fracture of hip, left, closed: (3) Pulmonary embolism: Qualified Codes: I26.99 - Other pulmonary embolism without acute cor pulmonale Saturnino Dugan DO Sep 02, 2017 16:56
--- NOTE | 2017-09-02 22:13 | RADRPT ---
EXAM DATE/TIME: 09/02/2017 21:52 [facility] COMPARISON: CT PULMONARY ANGIOGRAM, August 25, 2017, 16:06. INDICATIONS : Short of breath. Rule out congestive heart failure. RADIATION DOSE: 9.21 CTDIvol (mGy) MEDICAL HISTORY : Deep venous thrombosis. SURGICAL HISTORY : Hysterectomy. ENCOUNTER: Initial ACUITY: 1 day PAIN SCALE: 0/10 LOCATION: chest TECHNIQUE: Volumetric scanning of the chest was performed. Using automated exposure control and adjustment of t he mA and/or kV according to patient size, radiation dose was kept as low as reasonably achievable to obtain optimal diagnostic quality images. DICOM format image data is available electronically for r eview and comparison. Follow-up recommendations for detected pulmonary nodules are based at a minimum on nodule size and pa tient risk factors according to Fleischner Society Guidelines. FINDINGS: Bilateral pleural effusions are worsening, currently large on the right and moderate on the left. The re is also worsening bilateral, fairly generalized but basilar predominant consolidation. A 15 mm irr egular mass is seen in the left upper lobe on series 3 image 23 and of concern for primary bronchogen ic carcinoma. There is a subcarinal lymph node measuring 13 mm in greatest short axis dimension. A few scattered horton bcentimeter mediastinal lymph nodes are seen elsewhere. Coronary artery calcification noted. CONCLUSION: 1. Worsening bilateral effusions and airspace disease. 2. 15 mm left upper lobe mass or of concern for malignancy. It would probably be amenable to percutan eous needle biopsy when clinically feasible. 3. Upper limits of normal mediastinal lymph nodes, nonspecific. Hunter Estrada MD on September 02, 2017 at 22:06 Board Certified Radiologist. This report was verified electronically.
[2017-09-02] MEDS: ATORVASTATIN 40 MG TAB PO SCH (22:39)
[2017-09-02] MEDS: SODIUM CHLORIDE 0.9% FLUSH 10 ML FLUSH IVF PRN (22:42)
[2017-09-03] VITALS (19 sets, daily range): BP systolic 98–107; BP diastolic 56–71; PULSE 85–146; RESP 17–20; TEMP 97.5–98.2; O2SAT 92–98
[2017-09-03] MEDS: RESP: IPRATROPIUM 0.5 MG/2.5 ML NEB NEB SCH ×6 (01:36→20:12)
[2017-09-03] MEDS: CHLORHEXIDINE GLUCONATE 2 % 1 PACK (2 CLOTHS) TOP SCH (04:00)
[2017-09-03] MEDS: ENOXAPARIN SODIUM 80 MG/0.8 ML SYRINGE SQ SCH ×2 (04:12→14:36)
[2017-09-03] MEDS ORDERED: DIGOXIN 0.5 MG/2 ML VIAL IV PUSH SCH (04:45)
[2017-09-03] MEDS: OXYBUTYNIN CHLORIDE 5 MG TAB PO SCH ×3 (05:57→22:03)
[2017-09-03] MEDS: traMADol HCL 50 MG TAB PO SCH ×3 (05:57→17:36)
[2017-09-03] MEDS: DIGOXIN 0.5 MG/2 ML VIAL IV PUSH SCH ×2 (05:58→07:18)
[2017-09-03] MEDS: CHLORHEXIDINE 0.12% (ORAL KIT) 15 ML CUP MT SCH ×2 (08:00→20:00)
--- NOTE | 2017-09-03 08:39 | PD.CARD.PN ---
Subjective Subjective Remarks No new complaints. Had episode of a fib this AM. Converted back to NSR with digoxin Objective Medications Current Medications Medications (Trade) Dose Ordered Sig/Jamilah Route Start Time Stop Time Status Last Admin (NS Flush) 2 ml UNSCH PRN IVF 08/23/17 20:15 09/02/17 22:42 (Xylocaine 2% Jelly) 1 applic UNSCH PRN TOP 08/23/17 21:45 (Aspirin Chew) 81 mg DAILY PO 08/24/17 09:00 09/02/17 08:35 (Plavix) 75 mg DAILY PO 08/24/17 09:00 09/02/17 08:35 (Atropine Inj) 0.5 mg UNSCH PRN IV PUSH 08/23/17 21:45 (Zofran Inj) 4 mg Q4H PRN IV PUSH 08/23/17 21:45 08/31/17 14:25 (Lipitor) 40 mg HS PO 08/24/17 21:00 09/02/17 22:39 (Ferrous Sulfate) 325 mg BID@ PO 08/24/17 12:00 09/02/17 17:54 (KCl) 20 meq Q12HR PO 08/25/17 09:00 08/29/17 08:11 (Atrovent Neb) 0.5 mg Q4HR NEB NEB 08/25/17 16:00 09/03/17 08:15 (Atrovent Neb) 0.5 mg Q2HR NEB PRN NEB 08/25/17 14:00 08/26/17 06:00 (Protonix) 40 mg DAILY PO 08/26/17 09:00 09/02/17 08:35 (Tears Naturale Opth Soln) 1 drop Q4H PRN EACH EYE 08/26/17 13:45 08/27/17 09:43 (Peridex 0.12% Liq) 15 ml BID@08,20 MT 08/26/17 20:00 08/29/17 08:00 (Ultram) 50 mg Q6HR PO 08/26/17 14:30 09/03/17 05:57 Miscellaneous Information 1 Q361D XX 08/26/17 14:45 (Chlorhexidine 2% Cloth) Taper DAILY@04 TOP 08/27/17 04:00 08/23/18 03:59 09/01/17 01:00 (Chlorhexidine 2% Cloth) 3 pack UNSCH PRN TOP 08/26/17 14:45 (Clair-Colace) 1 tab BID PO 08/26/17 21:00 09/01/17 07:57 (Milk Of Magnesia Liq) 30 ml Q12H PRN PO 08/26/17 14:45 (Senokot) 17.2 mg Q12H PRN PO 08/26/17 14:45 08/26/17 18:34 (Dulcolax Supp) 10 mg DAILY PRN RECTAL 08/26/17 14:45 (Lactulose Liq) 30 ml DAILY PRN PO 08/26/17 14:45 (Versed Inj) 2 mg Q4H PRN IV 08/26/17 15:30 08/29/17 13:13 (Tylenol) 650 mg Q4H PRN PO 08/28/17 08:45 (Benadryl) 25 mg Q4H PRN PO 08/28/17 08:45 (Lasix Inj) 40 mg BID@09,18 IV PUSH 08/29/17 18:00 09/02/17 17:55 (K-Lyte Cl Eff) 25 meq Q12HR PO 08/29/17 21:00 09/02/17 08:37 (Ditropan) 5 mg Q8HR PO 08/29/17 23:30 09/03/17 05:57 (Lovenox Inj) 70 mg Q12H SQ 08/30/17 15:00 09/03/17 04:12 (Tessalon) 200 mg TID PRN PO 08/30/17 21:00 08/30/17 21:30 (Restoril) 15 mg HS PRN PO 08/31/17 02:00 08/31/17 02:06 (Lopressor) 25 mg Q12HR PO 08/31/17 09:30 09/02/17 22:40 Ceftriaxone Sodium 1000 mg/ Sodium Chloride 100 ml @ 200 mls/hr Q24H IV 08/31/17 10:00 09/02/17 09:05 (Cordarone) 400 mg DAILY PO 09/01/17 09:00 09/02/17 08:34 (Habitrol 14 Mg Patch.24 Hr) 1 patch DAILY T-DERMAL 09/02/17 16:30 09/02/17 16:54 Miscellaneous Information 1 DAILY T-DERMAL 09/03/17 09:00 Vital Signs / I&O Vital Signs Date Time Temp Pulse Resp B/P (MAP) Pulse Ox O2 Delivery O2 Flow Rate FiO2 09/03/17 08:17 92 Nasal Cannula 5.00 09/03/17 07:22 97 105/63 (77) 09/03/17 07:20 97 104/62 (76) 09/03/17 06:06 92 106/66 (79) 94 09/03/17 05:56 97 106/64 (78) 95 09/03/17 05:05 98 105/69 (81) 96 09/03/17 04:50 131 105/67 (80) 09/03/17 04:05 146 09/03/17 04:00 98.2 120 20 98/71 (80) 95 09/03/17 00:58 95 09/03/17 00:00 98.2 132 18 98/67 (77) 97 09/03/17 00:00 Nasal Cannula 5.00 Humidified 09/03/17 00:00 131 09/02/17 20:50 95 Nasal Cannula 5.00 09/02/17 20:00 98.7 122 18 105/69 (81) 96 09/02/17 20:00 133 09/02/17 20:00 Nasal Cannula 5.00 Humidified 09/02/17 15:00 97.4 115 18 107/71 (83) 95 09/02/17 12:00 98.3 91 20 97/61 (73) 97 09/02/17 12:00 91 I/O 09/02/17 09/02/17 09/02/17 09/03/17 09/03/17 09/03/17 07:00 15:00 23:00 07:00 15:00 23:00 Intake Total 720 ml Output Total 950 ml 900 ml 1450 ml Balance -950 ml -900 ml -730 ml Intake Oral 720 ml Output Urine Total 950 ml 900 ml 1450 ml # Bowel Movements 0 Physical Exam Lungs clear. RRR no murmur Assessment and Plan Problem List: (1) V tach ICD Codes: I47.2 - Ventricular tachycardia Status: Acute (2) STEMI (ST elevation myocardial infarction) ICD Codes: I21.3 - ST elevation (STEMI) myocardial infarction of unspecified site Status: Acute Assessment and Plan Will give small daily dose of dig Gutierrez Carr MD Sep 03, 2017 08:39
[2017-09-03] MEDS: REMOVE OLD PATCH T-DERMAL SCH (09:00)
[2017-09-03] MEDS: DOCUSATE SODIUM 50 MG/SENNA 8.6 MG TAB PO SCH ×2 (09:00→21:00)
[2017-09-03] MEDS: POTASSIUM CHLORIDE 20 MEQ CONTROLLED RELEASE TAB PO SCH ×2 (09:00→21:00)
[2017-09-03] MEDS: POTASSIUM CHLORIDE 25 MEQ EFFERVESCENT TAB PO SCH ×2 (09:00→21:00)
[2017-09-03 09:10] LABS: AUTOMATED NEUTROPHIL # 18.3 TH/MM3 (1.8-7.7); BASOPHIL % 0.1 % (0.0-2.0); EOSINOPHIL # 0.2 TH/MM3 (0-0.4); HEMATOCRIT 34.7 % (35.0-46.0); HEMO FLAGS DIFF FINAL; LYMPHOCYTE # 1.1 TH/MM3 (1.0-4.8); MEAN CELL VOLUME 95.5 FL (80.0-100.0); MEAN CORPUSCULAR HEMOGLOBIN 30.8 PG (27.0-34.0); MEAN CORPUSCULAR HGB CONC 32.3 % (32.0-36.0); MONO % 6.8 % (0.0-8.0); NEUT % 87.1 % (16.0-70.0); PLATELET COUNT 408 TH/MM3 (150-450); RED BLOOD COUNT 3.63 MIL/MM3 (4.00-5.30); RED CELL DISTRIBUTION WIDTH 17.5 % (11.6-17.2)
[2017-09-03 09:29] LABS: BICARBONATE 30.7 MEQ/L (21.0-32.0); MAGNESIUM 1.9 MG/DL (1.5-2.5); POTASSIUM 3.6 MEQ/L (3.5-5.1)
[2017-09-03] MEDS: cefTRIAXone INJ 1,000 MG in SODIUM CHLORIDE 0.9% INJ 100 ML IV SCH (10:38)
[2017-09-03] MEDS: NICOTINE 14 MG/24 HR PATCH T-DERMAL SCH (10:39)
[2017-09-03] MEDS: PANTOPRAZOLE SOD 40 MG DELAYED RELEASE TAB PO SCH (10:39)
[2017-09-03] MEDS: DIGOXIN 0.25 MG TAB PO SCH (10:40)
[2017-09-03] MEDS: ASPIRIN 81 MG CHEW TAB PO SCH (10:40)
[2017-09-03] MEDS: CLOPIDOGREL 75 MG TAB PO SCH (10:40)
[2017-09-03] MEDS: METOPROLOL TARTRATE 25 MG TAB PO SCH ×2 (10:40→22:01)
[2017-09-03] MEDS: AMIODARONE 200 MG TAB PO SCH (10:40)
[2017-09-03] MEDS: FUROSEMIDE 40 MG/4 ML VIAL IV PUSH SCH ×2 (10:41→17:41)
[2017-09-03] MEDS: FERROUS SULFATE 325 MG (65 MG ELEMENTAL IRON) TAB PO SCH ×2 (11:47→16:45)
--- NOTE | 2017-09-03 14:09 | HHI.PR ---
Subjective Remarks No new complaints. Objective Vitals Vital Signs Date Time Temp Pulse Resp B/P (MAP) Pulse Ox O2 Delivery O2 Flow Rate FiO2 09/03/17 08:17 92 Nasal Cannula 5.00 09/03/17 08:00 97.5 98 20 107/61 (76) 95 09/03/17 07:22 97 105/63 (77) 09/03/17 07:20 97 104/62 (76) 09/03/17 06:06 92 106/66 (79) 94 09/03/17 05:56 97 106/64 (78) 95 09/03/17 05:05 98 105/69 (81) 96 09/03/17 04:50 131 105/67 (80) 09/03/17 04:05 146 09/03/17 04:00 98.2 120 20 98/71 (80) 95 09/03/17 00:58 95 09/03/17 00:00 98.2 132 18 98/67 (77) 97 09/03/17 00:00 Nasal Cannula 5.00 Humidified 09/03/17 00:00 131 09/02/17 20:50 95 Nasal Cannula 5.00 09/02/17 20:00 98.7 122 18 105/69 (81) 96 09/02/17 20:00 133 09/02/17 20:00 Nasal Cannula 5.00 Humidified 09/02/17 15:00 97.4 115 18 107/71 (83) 95 Result Diagram: 09/03/17 0805 09/03/17 0805 Imaging Last Impressions Chest CT 09/02/17 0000 Signed Impressions: Service Date/Time: Saturday, September 02, 2017 21:52 - CONCLUSION: 1. Worsening bilateral effusions and airspace disease. 2. 15 mm left upper lobe mass or of concern for malignancy. It would probably be amenable to percutaneous needle biopsy when clinically feasible. 3. Upper limits of normal mediastinal lymph nodes, nonspecific. Hunter Estrada MD Chest X-Ray 09/01/17 0600 Signed Impressions: Service Date/Time: Friday, September 01, 2017 03:49 - CONCLUSION: Stable chest x-ray with severe bilateral lower lung zone airspace consolidation with likely associated pleural effusions. Hunter Bertrand MD Abdomen/Pelvis CT 08/28/17 0000 Signed Impressions: Service Date/Time: Monday, August 28, 2017 10:10 - CONCLUSION: There is no evidence for retroperitoneal hematoma. 2 cm left adrenal mass stable from 08/25/17. Rajat Teague MD FACR Lower Extremity Ultrasound 08/27/17 0000 Signed Impressions: Service Date/Time: Sunday, August 27, 2017 10:23 - CONCLUSION: Positive for deep venous thrombosis bilaterally from thigh to proximal calf. Michele Morris MD Hip and Pelvis X-Ray 08/25/17 0000 Signed Impressions: Service Date/Time: Friday, August 25, 2017 12:01 - CONCLUSION: Impacted femoral neck fracture at the base without significant step-off Jeremias Peacock MD CT Angiography 08/25/17 0000 Signed Impressions: Service Date/Time: Friday, August 25, 2017 16:06 - CONCLUSION: Multifocal pulmonary emboli with small filling defects identified in the main right pulmonary artery, interlobar pulmonary artery on the right and one in the left lower lobe pulmonary arteries. The emboli are small but multiple. Moderate- sized bilateral pleural effusions. Jeremias Peacock MD Objective Remarks GENERAL: This is a well-nourished, well-developed patient, in no apparent distress. CARDIOVASCULAR: Regular rate and rhythm without murmurs, gallops, or rubs. RESPIRATORY: Clear to auscultation. Breath sounds equal bilaterally. No wheezes , rales, or rhonchi. GASTROINTESTINAL: Abdomen soft, non-tender, nondistended. Normal active bowel sounds MUSCULOSKELETAL: Extremities without clubbing, cyanosis, or edema. NEURO: Alert & Oriented x4 to person, place, time, situation. Moves all ext x4 Date of Insertion: Aug 26, 2017 A/P Problem List: (1) STEMI (ST elevation myocardial infarction) ICD Codes: I21.3 - ST elevation (STEMI) myocardial infarction of unspecified site Status: Acute Plan: 1. stemi. inferior. lhc 08/23. left cx BMS. 60% distal lad VT. s/p cardioversion 08/23 2. bilateral pulmonary emboli 3. pulmonary edema. respiratory acidosis. 4.recent bilateral lower ext dvt's on eliquis. secondary to being sedentary. 5. recent left trochanteric bursitis diagnosis by sports med. 6. left femoral neck fracture 7.severe hypokalemia CT chest (09/02/17) 1. Worsening bilateral effusions and airspace disease. 2. 15 mm left upper lobe mass or of concern for malignancy. It would probably be amenable to percutaneous needle biopsy when clinically feasible. 3. Upper limits of normal mediastinal lymph nodes, nonspecific. - Pt extubated and tolerating 6L NC - Pt receiving lovenox and plavix - pt receiving IV lasix for interstitial edema limited by boarderline hypotension - CT scan showed mass at KEON. Will d/w Radiology & compare with CTA obtained earlier - ?thoracentesis. for pleural effusion. Pt is taking both lovenox and plavix. Will d/w Radiology and Cardiology. (2) DVT (deep venous thrombosis) ICD Codes: I82.409 - Acute embolism and thrombosis of unspecified deep veins of unspecified lower extremity Status: Acute (3) Atrial fibrillation with rapid ventricular response ICD Codes: I48.91 - Unspecified atrial fibrillation Status: Acute Plan: - stable - amiodarone, metoprolol - Pt developed recurrent RVR (09/03) - Pt started on digoxin by Cardiology, with improvement (4) Fracture of hip, left, closed ICD Codes: S72.002A - Fracture of unspecified part of neck of left femur, initial encounter for closed fracture Status: Acute Plan: - comgmt with Orthopedic Service - Pt has been too unstable for surgical repair - Will d/w Dr. Gonzalez. (5) Pneumonia, unspecified organism ICD Codes: J18.9 - Pneumonia, unspecified organism (6) Pulmonary embolism ICD Codes: I26.99 - Other pulmonary embolism without acute cor pulmonale Status: Acute Plan: - antibiotic regimen narrowed to rocephin Problem Qualifiers (1) DVT (deep venous thrombosis): Qualified Codes: I82.403 - Acute embolism and thrombosis of unspecified deep veins of lower extremity, bilateral (2) Fracture of hip, left, closed: (3) Pulmonary embolism: Qualified Codes: I26.99 - Other pulmonary embolism without acute cor pulmonale Saturnino Dugan DO Sep 03, 2017 14:09
[2017-09-03] MEDS: SODIUM CHLORIDE 0.9% FLUSH 10 ML FLUSH IVF PRN (22:01)
[2017-09-03] MEDS: ATORVASTATIN 40 MG TAB PO SCH (22:01)
[2017-09-04] VITALS (7 sets, daily range): BP systolic 95–103; BP diastolic 56–61; PULSE 79–98; RESP 17–20; TEMP 97.3–99.2; O2SAT 95–98
[2017-09-04] MEDS: RESP: IPRATROPIUM 0.5 MG/2.5 ML NEB NEB SCH ×6 (00:24→20:35)
[2017-09-04] MEDS: traMADol HCL 50 MG TAB PO SCH ×4 (00:51→17:29)
[2017-09-04] MEDS: CHLORHEXIDINE GLUCONATE 2 % 1 PACK (2 CLOTHS) TOP SCH (04:00)
[2017-09-04] MEDS: ENOXAPARIN SODIUM 80 MG/0.8 ML SYRINGE SQ SCH ×2 (04:46→13:41)
[2017-09-04] MEDS: OXYBUTYNIN CHLORIDE 5 MG TAB PO SCH ×3 (06:22→21:12)
[2017-09-04] MEDS: CHLORHEXIDINE 0.12% (ORAL KIT) 15 ML CUP MT SCH ×2 (08:00→20:00)
--- NOTE | 2017-09-04 08:10 | PD.CARD.PN ---
Subjective Subjective Remarks On nasal cannula. Redness of breath continues to improve. No chest pain. Good diuresis. (Arden Murphy) Objective Medications Current Medications Medications (Trade) Dose Ordered Sig/Jamilah Route Start Time Stop Time Status Last Admin (NS Flush) 2 ml UNSCH PRN IVF 08/23/17 20:15 09/03/17 22:01 (Xylocaine 2% Jelly) 1 applic UNSCH PRN TOP 08/23/17 21:45 (Aspirin Chew) 81 mg DAILY PO 08/24/17 09:00 09/03/17 10:40 (Plavix) 75 mg DAILY PO 08/24/17 09:00 09/03/17 10:40 (Atropine Inj) 0.5 mg UNSCH PRN IV PUSH 08/23/17 21:45 (Zofran Inj) 4 mg Q4H PRN IV PUSH 08/23/17 21:45 08/31/17 14:25 (Lipitor) 40 mg HS PO 08/24/17 21:00 09/03/17 22:01 (Ferrous Sulfate) 325 mg BID@ PO 08/24/17 12:00 09/02/17 17:54 (KCl) 20 meq Q12HR PO 08/25/17 09:00 08/29/17 08:11 (Atrovent Neb) 0.5 mg Q4HR NEB NEB 08/25/17 16:00 09/04/17 07:49 (Atrovent Neb) 0.5 mg Q2HR NEB PRN NEB 08/25/17 14:00 08/26/17 06:00 (Protonix) 40 mg DAILY PO 08/26/17 09:00 09/03/17 10:39 (Tears Naturale Opth Soln) 1 drop Q4H PRN EACH EYE 08/26/17 13:45 08/27/17 09:43 (Peridex 0.12% Liq) 15 ml BID@08,20 MT 08/26/17 20:00 08/29/17 08:00 (Ultram) 50 mg Q6HR PO 08/26/17 14:30 09/04/17 06:22 Miscellaneous Information 1 Q361D XX 08/26/17 14:45 (Chlorhexidine 2% Cloth) Taper DAILY@04 TOP 08/27/17 04:00 08/23/18 03:59 09/01/17 01:00 (Chlorhexidine 2% Cloth) 3 pack UNSCH PRN TOP 08/26/17 14:45 (Clair-Colace) 1 tab BID PO 08/26/17 21:00 09/01/17 07:57 (Milk Of Magnesia Liq) 30 ml Q12H PRN PO 08/26/17 14:45 (Senokot) 17.2 mg Q12H PRN PO 08/26/17 14:45 08/26/17 18:34 (Dulcolax Supp) 10 mg DAILY PRN RECTAL 08/26/17 14:45 (Lactulose Liq) 30 ml DAILY PRN PO 08/26/17 14:45 (Versed Inj) 2 mg Q4H PRN IV 08/26/17 15:30 08/29/17 13:13 (Tylenol) 650 mg Q4H PRN PO 08/28/17 08:45 (Benadryl) 25 mg Q4H PRN PO 08/28/17 08:45 (Lasix Inj) 40 mg BID@09,18 IV PUSH 08/29/17 18:00 09/03/17 17:41 (K-Lyte Cl Eff) 25 meq Q12HR PO 08/29/17 21:00 09/02/17 08:37 (Ditropan) 5 mg Q8HR PO 08/29/17 23:30 09/04/17 06:22 (Lovenox Inj) 70 mg Q12H SQ 08/30/17 15:00 09/04/17 04:46 (Tessalon) 200 mg TID PRN PO 08/30/17 21:00 08/30/17 21:30 (Restoril) 15 mg HS PRN PO 08/31/17 02:00 08/31/17 02:06 (Lopressor) 25 mg Q12HR PO 08/31/17 09:30 09/03/17 22:01 Ceftriaxone Sodium 1000 mg/ Sodium Chloride 100 ml @ 200 mls/hr Q24H IV 08/31/17 10:00 09/03/17 10:38 (Cordarone) 400 mg DAILY PO 09/01/17 09:00 09/03/17 10:40 (Habitrol 14 Mg Patch.24 Hr) 1 patch DAILY T-DERMAL 09/02/17 16:30 09/03/17 10:39 Miscellaneous Information 1 DAILY T-DERMAL 09/03/17 09:00 09/03/17 09:00 (Lanoxin) 0.25 mg DAILY PO 09/03/17 09:00 09/03/17 10:40 Vital Signs / I&O Vital Signs Date Time Temp Pulse Resp B/P (MAP) Pulse Ox O2 Delivery O2 Flow Rate FiO2 09/04/17 07:51 96 Nasal Cannula 4.00 09/04/17 04:00 98.4 98 17 103/58 (73) 98 09/04/17 04:00 Nasal Cannula 5.00 Humidified 09/04/17 04:00 90 09/04/17 00:00 84 09/04/17 00:00 Nasal Cannula 5.00 Humidified 09/04/17 00:00 99.2 86 17 103/61 (75) 97 09/03/17 22:00 Nasal Cannula 5.00 Humidified 09/03/17 20:13 93 Nasal Cannula 4.00 09/03/17 20:00 88 09/03/17 20:00 97.9 90 17 101/56 (71) 97 09/03/17 16:10 86 09/03/17 16:00 97.6 88 20 103/63 (76) 98 09/03/17 12:10 85 09/03/17 12:00 97.7 91 20 100/62 (75) 97 09/03/17 08:17 92 Nasal Cannula 5.00 09/03/17 08:05 98 I/O 09/03/17 09/03/17 09/03/17 09/04/17 09/04/17 09/04/17 07:00 15:00 23:00 07:00 15:00 23:00 Intake Total 720 ml 960 ml 240 ml Output Total 1450 ml 1550 ml 1600 ml Balance -730 ml -590 ml -1360 ml Intake Oral 720 ml 960 ml 240 ml Output Urine Total 1450 ml 1550 ml 1600 ml # Bowel Movements 0 0 Physical Exam GENERAL: Well-developed well-nourished. Ecchymosis right forearm. NECK: No carotid bruits. No JVD. CARDIOVASCULAR: Regular rate and rhythm. No murmur appreciated. RESPIRATORY: Clear to auscultation. Improving aeration. No wheezing or crackles. MUSCULOSKELETAL: No clubbing or cyanosis. Lower extremity nonpitting edema. NEUROLOGICAL: Awake and alert. Hoarse speech. Laboratory Laboratory Tests Test 09/03/17 08:05 White Blood Count 21.0 TH/MM3 Red Blood Count 3.63 MIL/MM3 Hemoglobin 11.2 GM/DL Hematocrit 34.7 % Mean Corpuscular Volume 95.5 FL Mean Corpuscular Hemoglobin 30.8 PG Mean Corpuscular Hemoglobin Concent 32.3 % Red Cell Distribution Width 17.5 % Platelet Count 408 TH/MM3 Mean Platelet Volume 8.2 FL Neutrophils (%) (Auto) 87.1 % Lymphocytes (%) (Auto) 5.0 % Monocytes (%) (Auto) 6.8 % Eosinophils (%) (Auto) 1.0 % Basophils (%) (Auto) 0.1 % Neutrophils # (Auto) 18.3 TH/MM3 Lymphocytes # (Auto) 1.1 TH/MM3 Monocytes # (Auto) 1.4 TH/MM3 Eosinophils # (Auto) 0.2 TH/MM3 Basophils # (Auto) 0.0 TH/MM3 CBC Comment DIFF FINAL Differential Comment Blood Urea Nitrogen 28 MG/DL Creatinine 0.63 MG/DL Random Glucose 84 MG/DL Calcium Level 8.6 MG/DL Magnesium Level 1.9 MG/DL Sodium Level 138 MEQ/L Potassium Level 3.6 MEQ/L Chloride Level 99 MEQ/L Carbon Dioxide Level 30.7 MEQ/L Anion Gap 8 MEQ/L Estimat Glomerular Filtration Rate 97 ML/MIN (Arden Murphy) Assessment and Plan Problem List: (1) V tach ICD Codes: I47.2 - Ventricular tachycardia Status: Acute (2) STEMI (ST elevation myocardial infarction) ICD Codes: I21.3 - ST elevation (STEMI) myocardial infarction of unspecified site Status: Acute Assessment and Plan acute respiratory failure: Now extubated. Echo normal EF, mild-mod MVR. Continue gentle diuresis. Improving. Continue treatment for underlying pneumonia. +bilateral pulmonary emboli/ LE DVT: Placed removable IVC filter 08/29. Now on Lovenox, plan for Coumadin if no ortho procedures planned for this hospitalization. STEMI: s/p PCI BMS distal left circumflex. Moderate proximal LAD stenosis, consider Lexiscan upon recovery. Continue aspirin and Plavix. A. fib/A flutter: Currently NSR. Continue amiodarone, metoprolol, and digoxin. CHF: acute diastolic. Normal EF and LV function Continue diuresis for now and monitor ins and outs. anemia: s/p transfusion 08/28. Improved. hip fracture: ortho following, requested cardiac clearance for surgery, must stay on Plavix. Plans to do surgery as outpatient once patient can be off anticoagulation. (Arden Murphy) Assessment and Plan plan for thoracentesis tomorrow continue current regimen ortho plans for operation in 4 weeks Disposition plans need to be arranged lovenox to anticoagulant oral (Jeremias Belle MD) Arden Murphy Sep 04, 2017 08:10 Jeremias Belle MD Sep 05, 2017 12:36
[2017-09-04] MEDS: POTASSIUM CHLORIDE 20 MEQ CONTROLLED RELEASE TAB PO SCH ×2 (09:00→21:00)
[2017-09-04] MEDS: REMOVE OLD PATCH T-DERMAL SCH (09:00)
[2017-09-04] MEDS: DOCUSATE SODIUM 50 MG/SENNA 8.6 MG TAB PO SCH ×2 (09:00→21:00)
[2017-09-04] MEDS: cefTRIAXone INJ 1,000 MG in SODIUM CHLORIDE 0.9% INJ 100 ML IV SCH (09:30)
[2017-09-04] MEDS: AMIODARONE 200 MG TAB PO SCH (09:31)
[2017-09-04] MEDS: PANTOPRAZOLE SOD 40 MG DELAYED RELEASE TAB PO SCH (09:31)
[2017-09-04] MEDS: NICOTINE 14 MG/24 HR PATCH T-DERMAL SCH (09:31)
[2017-09-04] MEDS: ASPIRIN 81 MG CHEW TAB PO SCH (09:32)
[2017-09-04] MEDS: METOPROLOL TARTRATE 25 MG TAB PO SCH ×2 (09:32→21:11)
[2017-09-04] MEDS: DIGOXIN 0.25 MG TAB PO SCH (09:32)
[2017-09-04] MEDS: CLOPIDOGREL 75 MG TAB PO SCH (09:32)
[2017-09-04] MEDS: FUROSEMIDE 40 MG/4 ML VIAL IV PUSH SCH ×2 (09:32→17:30)
[2017-09-04] MEDS: POTASSIUM CHLORIDE 25 MEQ EFFERVESCENT TAB PO SCH ×2 (09:33→21:00)
[2017-09-04] MEDS: FERROUS SULFATE 325 MG (65 MG ELEMENTAL IRON) TAB PO SCH ×2 (13:40→17:29)
--- NOTE | 2017-09-04 15:21 | HHI.PR ---
Subjective Remarks Pt remains SOB and dependent on O2 at 5L NC. Pain is controlled. Objective Vitals Vital Signs Date Time Temp Pulse Resp B/P (MAP) Pulse Ox O2 Delivery O2 Flow Rate FiO2 09/04/17 12:00 98.0 79 20 100/60 (73) 97 09/04/17 08:00 97.3 88 20 95/59 (71) 97 09/04/17 07:51 96 Nasal Cannula 4.00 09/04/17 04:00 98.4 98 17 103/58 (73) 98 09/04/17 04:00 Nasal Cannula 5.00 Humidified 09/04/17 04:00 90 09/04/17 00:00 84 09/04/17 00:00 Nasal Cannula 5.00 Humidified 09/04/17 00:00 99.2 86 17 103/61 (75) 97 09/03/17 22:00 Nasal Cannula 5.00 Humidified 09/03/17 20:13 93 Nasal Cannula 4.00 09/03/17 20:00 88 09/03/17 20:00 97.9 90 17 101/56 (71) 97 09/03/17 16:10 86 09/03/17 16:00 97.6 88 20 103/63 (76) 98 09/04/17 09/04/17 09/05/17 15:00 23:00 07:00 Intake Total 360 ml Balance 360 ml Intake Oral 360 ml Result Diagram: 09/03/17 0805 09/03/17 0805 Imaging Last Impressions Chest CT 09/02/17 0000 Signed Impressions: Service Date/Time: Saturday, September 02, 2017 21:52 - CONCLUSION: 1. Worsening bilateral effusions and airspace disease. 2. 15 mm left upper lobe mass or of concern for malignancy. It would probably be amenable to percutaneous needle biopsy when clinically feasible. 3. Upper limits of normal mediastinal lymph nodes, nonspecific. Hunter Estrada MD Chest X-Ray 09/01/17 0600 Signed Impressions: Service Date/Time: Friday, September 01, 2017 03:49 - CONCLUSION: Stable chest x-ray with severe bilateral lower lung zone airspace consolidation with likely associated pleural effusions. Hunter Bertrand MD Abdomen/Pelvis CT 08/28/17 0000 Signed Impressions: Service Date/Time: Monday, August 28, 2017 10:10 - CONCLUSION: There is no evidence for retroperitoneal hematoma. 2 cm left adrenal mass stable from 08/25/17. Rajat Teague MD FACR Lower Extremity Ultrasound 08/27/17 0000 Signed Impressions: Service Date/Time: Sunday, August 27, 2017 10:23 - CONCLUSION: Positive for deep venous thrombosis bilaterally from thigh to proximal calf. Michele Morris MD Hip and Pelvis X-Ray 08/25/17 0000 Signed Impressions: Service Date/Time: Friday, August 25, 2017 12:01 - CONCLUSION: Impacted femoral neck fracture at the base without significant step-off Jeremias Peacock MD CT Angiography 08/25/17 0000 Signed Impressions: Service Date/Time: Friday, August 25, 2017 16:06 - CONCLUSION: Multifocal pulmonary emboli with small filling defects identified in the main right pulmonary artery, interlobar pulmonary artery on the right and one in the left lower lobe pulmonary arteries. The emboli are small but multiple. Moderate- sized bilateral pleural effusions. Jeremias Peacock MD Objective Remarks GENERAL: This is a well-nourished, well-developed patient, in no apparent distress. CARDIOVASCULAR: Regular rate and rhythm without murmurs, gallops, or rubs. RESPIRATORY: Clear to auscultation. Breath sounds equal bilaterally. No wheezes , rales, or rhonchi. GASTROINTESTINAL: Abdomen soft, non-tender, nondistended. Normal active bowel sounds MUSCULOSKELETAL: Extremities without clubbing, cyanosis, or edema. NEURO: Alert & Oriented x4 to person, place, time, situation. Moves all ext x4 Date of Insertion: Aug 26, 2017 A/P Problem List: (1) STEMI (ST elevation myocardial infarction) ICD Codes: I21.3 - ST elevation (STEMI) myocardial infarction of unspecified site Status: Acute Plan: 1. stemi. inferior. lhc 08/23. left cx BMS. 60% distal lad VT. s/p cardioversion 08/23 2. bilateral pulmonary emboli 3. pulmonary edema. respiratory acidosis. 4.recent bilateral lower ext dvt's on eliquis. secondary to being sedentary. 5. recent left trochanteric bursitis diagnosis by sports med. 6. left femoral neck fracture 7.severe hypokalemia CT chest (09/02/17) 1. Worsening bilateral effusions and airspace disease. 2. 15 mm left upper lobe mass or of concern for malignancy. It would probably be amenable to percutaneous needle biopsy when clinically feasible. 3. Upper limits of normal mediastinal lymph nodes, nonspecific. - Pt extubated and tolerating 6L NC - Pt receiving lovenox and plavix. Lovenox stopped for now for thoracentesis. - pt receiving IV lasix for interstitial edema limited by boarderline hypotension - Case d/w Radiology (09/04/17), - Pt does need continued plavix d/t placement of bare metal stent. Plavix can NOT be stopped for one month. - Pt needs therapeutic/diagnostic thoracentesis. Procedure is high risk d/t plavix which can NOT be stopped. However, procedure needs to be performed d/t need for diagnosis of KEON mass and treatment of pt's large right pleural effusion. - The above information was explained to the pt at bedside (09/04/17). All questions answered to pt's satisfaction and pt agrees to proceed with thoracentesis. - Pt currently receiving 5L O2 - supportive care. (2) DVT (deep venous thrombosis) ICD Codes: I82.409 - Acute embolism and thrombosis of unspecified deep veins of unspecified lower extremity Status: Acute Plan: - see above (3) Pulmonary embolism ICD Codes: I26.99 - Other pulmonary embolism without acute cor pulmonale Status: Acute Plan: - pt receiving anticoagulation - see above - antibiotic regimen narrowed to rocephin for possible concomitant pneumonia (4) Atrial fibrillation with rapid ventricular response ICD Codes: I48.91 - Unspecified atrial fibrillation Status: Acute Plan: - stable - amiodarone, metoprolol - Pt developed recurrent RVR (09/03) - Pt started on digoxin by Cardiology, with improvement - Case d/w Dr. Belle (09/04/17) (5) Fracture of hip, left, closed ICD Codes: S72.002A - Fracture of unspecified part of neck of left femur, initial encounter for closed fracture Status: Acute Plan: - comgmt with Orthopedic Service - Pt has been too unstable for surgical repair - Case d/w with Dr. Gonzalez (09/03/17) - Pt will NOT be stable for surgery for at least one month - Pt will require arthroplasty (6) Pneumonia, unspecified organism ICD Codes: J18.9 - Pneumonia, unspecified organism Plan: - antibiotics narrowed to Rocephin Problem Qualifiers (1) DVT (deep venous thrombosis): Qualified Codes: I82.403 - Acute embolism and thrombosis of unspecified deep veins of lower extremity, bilateral (2) Pulmonary embolism: Qualified Codes: I26.99 - Other pulmonary embolism without acute cor pulmonale (3) Fracture of hip, left, closed: Saturnino Dugan DO Sep 04, 2017 15:21
[2017-09-04] MEDS: ATORVASTATIN 40 MG TAB PO SCH (21:11)
[2017-09-05] VITALS (10 sets, daily range): BP systolic 100–105; BP diastolic 59–68; PULSE 78–90; RESP 16–20; TEMP 97.6–98.8; O2SAT 96–98
[2017-09-05] MEDS: RESP: IPRATROPIUM 0.5 MG/2.5 ML NEB NEB SCH ×6 (00:01→19:24)
[2017-09-05] MEDS: traMADol HCL 50 MG TAB PO SCH ×4 (00:15→17:45)
[2017-09-05] MEDS: CHLORHEXIDINE GLUCONATE 2 % 1 PACK (2 CLOTHS) TOP SCH (04:00)
[2017-09-05] MEDS: OXYBUTYNIN CHLORIDE 5 MG TAB PO SCH ×3 (05:45→20:37)
[2017-09-05 07:45] LABS: APTT (PATIENT) 23.7 SEC (24.3-30.1); PROTHROMBIN TIME - PATIENT 10.6 SEC (9.8-11.6)
--- NOTE | 2017-09-05 07:51 | PD.CARD.PN ---
Subjective Subjective Remarks On nasal cannula. Shortness of breath continues to improve. Anterior chest wall pain improved, coughing improved. Good diuresis. Planning for thoracentesis and lung mass biopsy today. (Arden Murphy) Objective Medications Current Medications Medications (Trade) Dose Ordered Sig/Jamilah Route Start Time Stop Time Status Last Admin (NS Flush) 2 ml UNSCH PRN IVF 08/23/17 20:15 09/03/17 22:01 (Xylocaine 2% Jelly) 1 applic UNSCH PRN TOP 08/23/17 21:45 (Aspirin Chew) 81 mg DAILY PO 08/24/17 09:00 09/04/17 09:32 (Plavix) 75 mg DAILY PO 08/24/17 09:00 09/04/17 09:32 (Atropine Inj) 0.5 mg UNSCH PRN IV PUSH 08/23/17 21:45 (Zofran Inj) 4 mg Q4H PRN IV PUSH 08/23/17 21:45 08/31/17 14:25 (Lipitor) 40 mg HS PO 08/24/17 21:00 09/04/17 21:11 (Ferrous Sulfate) 325 mg BID@ PO 08/24/17 12:00 09/04/17 17:29 (KCl) 20 meq Q12HR PO 08/25/17 09:00 08/29/17 08:11 (Atrovent Neb) 0.5 mg Q4HR NEB NEB 08/25/17 16:00 09/05/17 00:01 (Atrovent Neb) 0.5 mg Q2HR NEB PRN NEB 08/25/17 14:00 08/26/17 06:00 (Protonix) 40 mg DAILY PO 08/26/17 09:00 09/04/17 09:31 (Tears Naturale Opth Soln) 1 drop Q4H PRN EACH EYE 08/26/17 13:45 08/27/17 09:43 (Peridex 0.12% Liq) 15 ml BID@08,20 MT 08/26/17 20:00 08/29/17 08:00 (Ultram) 50 mg Q6HR PO 08/26/17 14:30 09/05/17 05:44 Miscellaneous Information 1 Q361D XX 08/26/17 14:45 (Chlorhexidine 2% Cloth) Taper DAILY@04 TOP 08/27/17 04:00 08/23/18 03:59 09/01/17 01:00 (Chlorhexidine 2% Cloth) 3 pack UNSCH PRN TOP 08/26/17 14:45 (Clair-Colace) 1 tab BID PO 08/26/17 21:00 09/01/17 07:57 (Milk Of Magnesia Liq) 30 ml Q12H PRN PO 08/26/17 14:45 (Senokot) 17.2 mg Q12H PRN PO 08/26/17 14:45 08/26/17 18:34 (Dulcolax Supp) 10 mg DAILY PRN RECTAL 08/26/17 14:45 (Lactulose Liq) 30 ml DAILY PRN PO 08/26/17 14:45 (Versed Inj) 2 mg Q4H PRN IV 08/26/17 15:30 08/29/17 13:13 (Tylenol) 650 mg Q4H PRN PO 08/28/17 08:45 (Benadryl) 25 mg Q4H PRN PO 08/28/17 08:45 (Lasix Inj) 40 mg BID@09,18 IV PUSH 08/29/17 18:00 09/04/17 17:30 (K-Lyte Cl Eff) 25 meq Q12HR PO 08/29/17 21:00 09/04/17 09:33 (Ditropan) 5 mg Q8HR PO 08/29/17 23:30 09/05/17 05:45 (Tessalon) 200 mg TID PRN PO 08/30/17 21:00 08/30/17 21:30 (Restoril) 15 mg HS PRN PO 08/31/17 02:00 08/31/17 02:06 (Lopressor) 25 mg Q12HR PO 08/31/17 09:30 09/04/17 21:11 Ceftriaxone Sodium 1000 mg/ Sodium Chloride 100 ml @ 200 mls/hr Q24H IV 08/31/17 10:00 09/04/17 09:30 (Cordarone) 400 mg DAILY PO 09/01/17 09:00 09/04/17 09:31 (Habitrol 14 Mg Patch.24 Hr) 1 patch DAILY T-DERMAL 09/02/17 16:30 09/04/17 09:31 Miscellaneous Information 1 DAILY T-DERMAL 09/03/17 09:00 09/04/17 09:00 (Lanoxin) 0.25 mg DAILY PO 09/03/17 09:00 09/04/17 09:32 Vital Signs / I&O Vital Signs Date Time Temp Pulse Resp B/P (MAP) Pulse Ox O2 Delivery O2 Flow Rate FiO2 09/05/17 04:00 88 09/05/17 04:00 98.2 88 18 105/59 (74) 96 09/05/17 00:03 98 Nasal Cannula 4.00 09/05/17 00:00 90 09/04/17 20:30 Nasal Cannula 5.00 Humidified 09/04/17 20:00 81 09/04/17 20:00 98.4 88 20 100/56 (71) 95 09/04/17 16:00 98.3 85 20 103/57 (72) 96 09/04/17 12:00 98.0 79 20 100/60 (73) 97 09/04/17 08:00 80 09/04/17 08:00 97.3 88 20 95/59 (71) 97 09/04/17 07:51 96 Nasal Cannula 4.00 I/O 09/04/17 09/04/17 09/04/17 09/05/17 09/05/17 09/05/17 07:00 15:00 23:00 07:00 15:00 23:00 Intake Total 240 ml 360 ml Output Total 1600 ml 750 ml 1180 ml Balance -1360 ml 360 ml -750 ml -1180 ml Intake Oral 240 ml 360 ml Output Urine Total 1600 ml 750 ml 1180 ml # Bowel Movements 0 Physical Exam GENERAL: Well-developed well-nourished. Ecchymosis right forearm improving. NECK: No carotid bruits. No JVD. CARDIOVASCULAR: Regular rate and rhythm. No murmur appreciated. RESPIRATORY: Clear to auscultation. No crackles or wheezing. MUSCULOSKELETAL: No clubbing or cyanosis. Lower extremity nonpitting edema improving. NEUROLOGICAL: Awake and alert. Normal speech. Laboratory Laboratory Tests Test 09/05/17 06:54 Prothrombin Time 10.6 SEC Prothromb Time International Ratio 1.0 RATIO Activated Partial Thromboplast Time 23.7 SEC (Arden Murphy) Assessment and Plan Problem List: (1) V tach ICD Codes: I47.2 - Ventricular tachycardia Status: Acute (2) STEMI (ST elevation myocardial infarction) ICD Codes: I21.3 - ST elevation (STEMI) myocardial infarction of unspecified site Status: Acute Assessment and Plan acute respiratory failure: Now extubated. Echo normal EF, mild-mod MVR. Continue gentle diuresis. Improving. Continue treatment for underlying pneumonia. Small pleural effusion seen on chest imaging, thoracentesis ordered. +bilateral pulmonary emboli/ LE DVT: Placed removable IVC filter 08/29. Now on Lovenox, plan for Coumadin if no ortho procedures planned for this hospitalization. STEMI: s/p PCI BMS distal left circumflex. Moderate proximal LAD stenosis, consider Lexiscan upon recovery. Continue aspirin and Plavix. A. fib/A flutter: Currently NSR. Continue amiodarone, metoprolol, and digoxin. CHF: acute diastolic. Normal EF and LV function. Continue diuresis for now and monitor ins and outs. anemia: s/p transfusion 08/28. Improved. hip fracture: ortho following, requested cardiac clearance for surgery, must stay on Plavix. Plans to do surgery as outpatient once patient can be off anticoagulation. (Arden Murphy) Assessment and Plan lovenox to pradaxa (given reversal agent available). start 150 mg BID. if no further interventions planned (surgery, biopsy, thoracentesis, ect) oral diuretic SNF? hip surgery in 4 weeks DC planning (Jeremias Belle MD) Arden Murphy Sep 05, 2017 07:51 Jeremias Belle MD Sep 05, 2017 12:40
[2017-09-05] MEDS: CHLORHEXIDINE 0.12% (ORAL KIT) 15 ML CUP MT SCH ×2 (08:00→20:00)
[2017-09-05] MEDS: POTASSIUM CHLORIDE 25 MEQ EFFERVESCENT TAB PO SCH ×2 (09:00→20:38)
[2017-09-05] MEDS: POTASSIUM CHLORIDE 20 MEQ CONTROLLED RELEASE TAB PO SCH ×2 (09:00→20:38)
[2017-09-05] MEDS: DOCUSATE SODIUM 50 MG/SENNA 8.6 MG TAB PO SCH ×2 (09:00→20:38)
[2017-09-05] MEDS: FUROSEMIDE 40 MG/4 ML VIAL IV PUSH SCH ×2 (10:31→17:45)
[2017-09-05] MEDS ORDERED: LIDOCAINE HCL 1% 20 ML VIAL ONE (11:20)
[2017-09-05] MEDS: FERROUS SULFATE 325 MG (65 MG ELEMENTAL IRON) TAB PO SCH ×2 (11:32→17:00)
[2017-09-05] MEDS: cefTRIAXone INJ 1,000 MG in SODIUM CHLORIDE 0.9% INJ 100 ML IV SCH (11:33)
[2017-09-05] MEDS: PANTOPRAZOLE SOD 40 MG DELAYED RELEASE TAB PO SCH (11:50)
[2017-09-05] MEDS: DIGOXIN 0.25 MG TAB PO SCH (11:50)
[2017-09-05] MEDS: AMIODARONE 200 MG TAB PO SCH (11:51)
[2017-09-05] MEDS: METOPROLOL TARTRATE 25 MG TAB PO SCH ×2 (11:51→20:37)
[2017-09-05] MEDS: ASPIRIN 81 MG CHEW TAB PO SCH (11:51)
[2017-09-05] MEDS: CLOPIDOGREL 75 MG TAB PO SCH (11:51)
[2017-09-05] MEDS: NICOTINE 14 MG/24 HR PATCH T-DERMAL SCH (11:52)
[2017-09-05 12:33] LABS: PLEURAL FLUID LYMPHS 33 %
[2017-09-05 12:37] LABS: TOTAL PROTEIN,PLEURAL FLUID 1.5 GM/DL
--- NOTE | 2017-09-05 13:29 | RADRPT ---
EXAM DATE/TIME: 09/05/2017 12:37 [facility] COMPARISON: CHEST SINGLE AP, September 01, 2017, 3:49. US GUIDED THORACENTESIS RIGHT, September 05, 2017, 10:33. INDICATIONS : Post thoracentesis right side, chest MEDICAL HISTORY : Deep venous thrombosis. SURGICAL HISTORY : None. ENCOUNTER: Initial ACUITY: 1 day PAIN SCORE: 3/10 LOCATION: Right chest FINDINGS: A single frontal expiratory view of the chest was performed. The right pleural effusion has decrease d in size following thoracentesis. There is no evidence of pneumothorax. Pulmonary congestive changes have significantly decreased since prior study. CONCLUSION: No evidence of pneumothorax following right-sided thoracentesis. Decreased right pleural effusion. Resolving pulmonary congestion. Chato Yeager MD on September 05, 2017 at 13:24 Board Certified Radiologist. This report was verified electronically.
--- NOTE | 2017-09-05 14:13 | RADRPT ---
EXAM DATE/TIME: 09/05/2017 10:33 [facility] COMPARISON: No previous studies available for comparison. INDICATIONS : Right pleural effusion. Please note that patient was performed on Plavix which cannot be discontinued at this time per specific request. MEDICAL HISTORY : Deep venous thrombosis. Hernia, hiatal. Anxiety. SURGICAL HISTORY : Hysterectomy. Ectopic . Thyroid tumor removed. ENCOUNTER: Initial ACUITY: 1 day PAIN SCORE: 7/10 LOCATION: Right chest FLUID: Total volume of 450 cc of clear, yellow fluid was removed. Fluid was sent to lab for ordered studies. TECHNIQUE: 1. Ultrasound guidance for thoracentesis. 2. Thoracentesis. The risks, benefits, and alternatives to ultrasound guided thoracentesis were explained to the patien t in lay simple terms, including the risk of bleeding and infection. Written and verbal informed con sent was obtained. Appropriate area for thoracentesis was marked under ultrasound guidance with the patient in the uprig ht position. Overlying skin was prepped and draped in the usual sterile fashion and with local anest hetic, a dermatotomy was made with an 11 blade scalpel. A 6 Serbian thoracentesis catheter was placed in the pleural space and fluid was removed. Catheter was then removed and a sterile dressing applie d. There were no immediate complications. The patient tolerated the procedure well and the left the ultrasound suite in stable condition. Chest radiograph is to be obtained. CONCLUSION: Uncomplicated ultrasound guided thoracentesis. Duglas Clark MD on September 05, 2017 at 14:10 Board Certified Radiologist. This report was verified electronically.
--- NOTE | 2017-09-05 15:01 | HHI.PR ---
Subjective Remarks No new complaints. Pt's pain is controlled. Objective Vitals Vital Signs Date Time Temp Pulse Resp B/P (MAP) Pulse Ox O2 Delivery O2 Flow Rate FiO2 09/05/17 12:00 97.6 86 18 105/65 (78) 98 09/05/17 10:47 98.8 87 20 105/68 (80) 98 09/05/17 08:01 96 Nasal Cannula 3.00 09/05/17 08:00 82 09/05/17 08:00 96 Nasal Cannula 4.00 100 09/05/17 08:00 98.0 87 18 105/61 (76) 97 09/05/17 04:00 88 09/05/17 04:00 98.2 88 18 105/59 (74) 96 09/05/17 00:03 98 Nasal Cannula 4.00 09/05/17 00:00 90 09/04/17 20:30 Nasal Cannula 5.00 Humidified 09/04/17 20:00 81 09/04/17 20:00 98.4 88 20 100/56 (71) 95 09/04/17 16:00 98.3 85 20 103/57 (72) 96 Result Diagram: 09/03/17 0805 09/03/17 0805 Imaging Last Impressions Chest CT 09/02/17 0000 Signed Impressions: Service Date/Time: Saturday, September 02, 2017 21:52 - CONCLUSION: 1. Worsening bilateral effusions and airspace disease. 2. 15 mm left upper lobe mass or of concern for malignancy. It would probably be amenable to percutaneous needle biopsy when clinically feasible. 3. Upper limits of normal mediastinal lymph nodes, nonspecific. Hunter Estrada MD Chest X-Ray 09/01/17 0600 Signed Impressions: Service Date/Time: Friday, September 01, 2017 03:49 - CONCLUSION: Stable chest x-ray with severe bilateral lower lung zone airspace consolidation with likely associated pleural effusions. Hunter Bertrand MD Abdomen/Pelvis CT 08/28/17 0000 Signed Impressions: Service Date/Time: Monday, August 28, 2017 10:10 - CONCLUSION: There is no evidence for retroperitoneal hematoma. 2 cm left adrenal mass stable from 08/25/17. Rajat Teague MD FACR Lower Extremity Ultrasound 08/27/17 0000 Signed Impressions: Service Date/Time: Sunday, August 27, 2017 10:23 - CONCLUSION: Positive for deep venous thrombosis bilaterally from thigh to proximal calf. Michele Morris MD Hip and Pelvis X-Ray 08/25/17 0000 Signed Impressions: Service Date/Time: Friday, August 25, 2017 12:01 - CONCLUSION: Impacted femoral neck fracture at the base without significant step-off Jeremias Peacock MD CT Angiography 08/25/17 0000 Signed Impressions: Service Date/Time: Friday, August 25, 2017 16:06 - CONCLUSION: Multifocal pulmonary emboli with small filling defects identified in the main right pulmonary artery, interlobar pulmonary artery on the right and one in the left lower lobe pulmonary arteries. The emboli are small but multiple. Moderate- sized bilateral pleural effusions. Jeremias Peacock MD Objective Remarks GENERAL: This is a well-nourished, well-developed patient, in no apparent distress. CARDIOVASCULAR: Regular rate and rhythm without murmurs, gallops, or rubs. RESPIRATORY: Clear to auscultation. Breath sounds equal bilaterally. No wheezes , rales, or rhonchi. GASTROINTESTINAL: Abdomen soft, non-tender, nondistended. Normal active bowel sounds MUSCULOSKELETAL: Extremities without clubbing, cyanosis, or edema. NEURO: Alert & Oriented x4 to person, place, time, situation. Moves all ext x4 Date of Insertion: Aug 26, 2017 A/P Problem List: (1) STEMI (ST elevation myocardial infarction) ICD Codes: I21.3 - ST elevation (STEMI) myocardial infarction of unspecified site Status: Acute Plan: 1. stemi. inferior. lhc 08/23. left cx BMS. 60% distal lad VT. s/p cardioversion 08/23 2. bilateral pulmonary emboli 3. pulmonary edema. respiratory acidosis. 4.recent bilateral lower ext dvt's on eliquis. secondary to being sedentary. 5. recent left trochanteric bursitis diagnosis by sports med. 6. left femoral neck fracture 7.severe hypokalemia CT chest (09/02/17) 1. Worsening bilateral effusions and airspace disease. 2. 15 mm left upper lobe mass or of concern for malignancy. It would probably be amenable to percutaneous needle biopsy when clinically feasible. 3. Upper limits of normal mediastinal lymph nodes, nonspecific. - Pt extubated and tolerating 6L NC - plavix, pt will need to continue on daily plavix without interruption for one month d/t placement of bare metal coronary stent - continue BID lovenox for Atrial Fibrillation/PE/DVT. Will start pradax once certain that pt will NOT require addition procedures for w/u of pulmonary mass. - pt receiving IV lasix for interstitial edema limited by boarderline hypotension - Pt underwent dx/therapeutic thoracentesis (09/05). Await pathology/cytology - O2 3L by NC - supportive care. (2) Mass of upper lobe of left lung ICD Codes: R91.8 - Other nonspecific abnormal finding of lung field Plan: - CT thorax --> 15mm KEON mass with b/l pleural effusions - Pt underwent thoracentesis (09/05) with removal of 500ml fluid - awaiting studies - await serum LDH - await serum protein (3) DVT (deep venous thrombosis) ICD Codes: I82.409 - Acute embolism and thrombosis of unspecified deep veins of unspecified lower extremity Status: Acute Plan: - see above (4) Pulmonary embolism ICD Codes: I26.99 - Other pulmonary embolism without acute cor pulmonale Status: Acute Plan: - pt receiving anticoagulation - see above - antibiotic regimen narrowed to rocephin for possible concomitant pneumonia (5) Atrial fibrillation with rapid ventricular response ICD Codes: I48.91 - Unspecified atrial fibrillation Status: Acute Plan: - stable - amiodarone, metoprolol - Pt developed recurrent RVR (09/03) - Pt started on digoxin by Cardiology, with improvement - Case d/w Dr. Belle (09/04/17) (6) Fracture of hip, left, closed ICD Codes: S72.002A - Fracture of unspecified part of neck of left femur, initial encounter for closed fracture Status: Acute Plan: - comgmt with Orthopedic Service - Pt has been too unstable for surgical repair - Case d/w with Dr. Gonzalez (09/03/17) - Pt will NOT be stable for surgery for at least one month - Pt will require arthroplasty (7) Pneumonia, unspecified organism ICD Codes: J18.9 - Pneumonia, unspecified organism Plan: - antibiotics narrowed to Rocephin Problem Qualifiers (1) DVT (deep venous thrombosis): Qualified Codes: I82.403 - Acute embolism and thrombosis of unspecified deep veins of lower extremity, bilateral (2) Pulmonary embolism: Qualified Codes: I26.99 - Other pulmonary embolism without acute cor pulmonale (3) Fracture of hip, left, closed: Saturnino Dugan DO Sep 05, 2017 15:01
[2017-09-05] MEDS: ENOXAPARIN SODIUM 80 MG/0.8 ML SYRINGE SQ SCH (17:01)
[2017-09-05] MEDS: ATORVASTATIN 40 MG TAB PO SCH (20:37)
[2017-09-05] MEDS ORDERED: DABIGATRAN ETEXILATE 150 MG CAP PO SCH (21:00)
[2017-09-06] VITALS (9 sets, daily range): BP systolic 94–105; BP diastolic 52–59; PULSE 76–89; RESP 16–20; TEMP 97.7–98.4; O2SAT 96–99
[2017-09-06] MEDS: RESP: IPRATROPIUM 0.5 MG/2.5 ML NEB NEB SCH ×6 (00:23→19:41)
[2017-09-06] MEDS: traMADol HCL 50 MG TAB PO SCH ×4 (00:59→18:43)
[2017-09-06] MEDS: CHLORHEXIDINE GLUCONATE 2 % 1 PACK (2 CLOTHS) TOP SCH (04:00)
[2017-09-06] MEDS: ENOXAPARIN SODIUM 80 MG/0.8 ML SYRINGE SQ SCH ×2 (06:14→17:42)
[2017-09-06] MEDS: OXYBUTYNIN CHLORIDE 5 MG TAB PO SCH ×3 (06:14→21:13)
--- NOTE | 2017-09-06 07:43 | PD.CARD.PN ---
Subjective Subjective Remarks Had thoracentesis yesterday. Denies any chest pain, shortness breath, palpitations. Good diuresis. Objective Medications Current Medications Medications (Trade) Dose Ordered Sig/Jamilah Route Start Time Stop Time Status Last Admin (NS Flush) 2 ml UNSCH PRN IVF 08/23/17 20:15 09/03/17 22:01 (Xylocaine 2% Jelly) 1 applic UNSCH PRN TOP 08/23/17 21:45 (Aspirin Chew) 81 mg DAILY PO 08/24/17 09:00 09/05/17 11:51 (Plavix) 75 mg DAILY PO 08/24/17 09:00 09/05/17 11:51 (Atropine Inj) 0.5 mg UNSCH PRN IV PUSH 08/23/17 21:45 (Zofran Inj) 4 mg Q4H PRN IV PUSH 08/23/17 21:45 08/31/17 14:25 (Lipitor) 40 mg HS PO 08/24/17 21:00 09/05/17 20:37 (Ferrous Sulfate) 325 mg BID@ PO 08/24/17 12:00 09/05/17 11:32 (KCl) 20 meq Q12HR PO 08/25/17 09:00 08/29/17 08:11 (Atrovent Neb) 0.5 mg Q4HR NEB NEB 08/25/17 16:00 09/06/17 00:23 (Atrovent Neb) 0.5 mg Q2HR NEB PRN NEB 08/25/17 14:00 08/26/17 06:00 (Protonix) 40 mg DAILY PO 08/26/17 09:00 09/05/17 11:50 (Tears Naturale Opth Soln) 1 drop Q4H PRN EACH EYE 08/26/17 13:45 08/27/17 09:43 (Peridex 0.12% Liq) 15 ml BID@08,20 MT 08/26/17 20:00 08/29/17 08:00 (Ultram) 50 mg Q6HR PO 08/26/17 14:30 09/06/17 06:14 Miscellaneous Information 1 Q361D XX 08/26/17 14:45 (Chlorhexidine 2% Cloth) Taper DAILY@04 TOP 08/27/17 04:00 08/23/18 03:59 09/01/17 01:00 (Chlorhexidine 2% Cloth) 3 pack UNSCH PRN TOP 08/26/17 14:45 (Clair-Colace) 1 tab BID PO 08/26/17 21:00 09/01/17 07:57 (Milk Of Magnesia Liq) 30 ml Q12H PRN PO 08/26/17 14:45 (Senokot) 17.2 mg Q12H PRN PO 08/26/17 14:45 08/26/17 18:34 (Dulcolax Supp) 10 mg DAILY PRN RECTAL 08/26/17 14:45 (Lactulose Liq) 30 ml DAILY PRN PO 08/26/17 14:45 (Versed Inj) 2 mg Q4H PRN IV 08/26/17 15:30 08/29/17 13:13 (Tylenol) 650 mg Q4H PRN PO 08/28/17 08:45 (Benadryl) 25 mg Q4H PRN PO 08/28/17 08:45 (Lasix Inj) 40 mg BID@09,18 IV PUSH 08/29/17 18:00 09/05/17 17:45 (K-Lyte Cl Eff) 25 meq Q12HR PO 08/29/17 21:00 09/04/17 09:33 (Ditropan) 5 mg Q8HR PO 08/29/17 23:30 09/06/17 06:14 (Tessalon) 200 mg TID PRN PO 08/30/17 21:00 08/30/17 21:30 (Restoril) 15 mg HS PRN PO 08/31/17 02:00 08/31/17 02:06 (Lopressor) 25 mg Q12HR PO 08/31/17 09:30 09/05/17 20:37 Ceftriaxone Sodium 1000 mg/ Sodium Chloride 100 ml @ 200 mls/hr Q24H IV 08/31/17 10:00 09/05/17 11:33 (Cordarone) 400 mg DAILY PO 09/01/17 09:00 09/05/17 11:51 (Habitrol 14 Mg Patch.24 Hr) 1 patch DAILY T-DERMAL 09/02/17 16:30 09/05/17 11:52 Miscellaneous Information 1 DAILY T-DERMAL 09/03/17 09:00 09/04/17 09:00 (Lanoxin) 0.25 mg DAILY PO 09/03/17 09:00 09/05/17 11:50 (Lovenox Inj) 70 mg Q12H SQ 09/05/17 16:00 09/06/17 06:14 Vital Signs / I&O Vital Signs Date Time Temp Pulse Resp B/P (MAP) Pulse Ox O2 Delivery O2 Flow Rate FiO2 09/06/17 04:00 98.2 81 16 102/56 (71) 99 09/06/17 04:00 81 09/06/17 00:00 98.2 86 16 105/56 (72) 96 09/06/17 00:00 85 09/05/17 21:00 Nasal Cannula 4.00 Humidified 09/05/17 20:00 97.9 81 16 101/59 (73) 98 09/05/17 20:00 78 09/05/17 16:00 97.9 80 20 100/61 (74) 97 09/05/17 15:50 98 Nasal Cannula 3.00 09/05/17 12:00 97.6 86 18 105/65 (78) 98 09/05/17 10:47 98.8 87 20 105/68 (80) 98 09/05/17 08:01 96 Nasal Cannula 3.00 09/05/17 08:00 82 09/05/17 08:00 96 Nasal Cannula 4.00 100 09/05/17 08:00 98.0 87 18 105/61 (76) 97 I/O 09/05/17 09/05/17 09/05/17 09/06/17 09/06/17 09/06/17 07:00 15:00 23:00 07:00 15:00 23:00 Intake Total 1200 ml Output Total 1180 ml 1680 ml 1350 ml Balance -1180 ml -480 ml -1350 ml Intake Oral 1200 ml Output Urine Total 1180 ml 1680 ml 1350 ml Physical Exam GENERAL: Well-developed well-nourished. Ecchymosis right forearm improving. NECK: No carotid bruits. No JVD. CARDIOVASCULAR: Regular rate and rhythm. No murmur appreciated. RESPIRATORY: Clear to auscultation. No crackles or wheezing. MUSCULOSKELETAL: No clubbing or cyanosis. No edema. NEUROLOGICAL: Awake and alert. Normal speech. Laboratory Laboratory Tests Test 09/05/17 11:26 09/05/17 18:25 Pleural Fluid pH 8.0 Pleural Fluid WBC 200 /MM3 Pleural Fluid RBC 280 /MM3 Pleural Fluid Neutrophils 14 % Pleural Fluid Lymphocytes 33 % Pleural Fluid Monocytes 13 % Pleural Fluid Histiocytes 27 % Pleural Fluid Mesothelial Cells 13 % Pleural Fluid Total Protein 1.5 GM/DL Pleural Fluid LDH 177 U/L Pleural Fluid Glucose 101 MG/DL Lactate Dehydrogenase 723 U/L Total Protein 6.8 GM/DL Assessment and Plan Problem List: (1) V tach ICD Codes: I47.2 - Ventricular tachycardia Status: Acute (2) STEMI (ST elevation myocardial infarction) ICD Codes: I21.3 - ST elevation (STEMI) myocardial infarction of unspecified site Status: Acute Assessment and Plan acute respiratory failure: Now extubated. Echo normal EF, mild-mod MVR. Continue gentle diuresis. Improving. Continue treatment for underlying pneumonia. Small pleural effusion seen on chest imaging, thoracentesis ordered. +bilateral pulmonary emboli/ LE DVT: Placed removable IVC filter 08/29. Currently on Lovenox, plan to change to Pradaxa if no further interventions planned. STEMI: s/p PCI BMS distal left circumflex. Moderate proximal LAD stenosis, consider Lexiscan upon recovery. Continue aspirin and Plavix. A. fib/A flutter: Currently NSR. Continue amiodarone, metoprolol, and digoxin. CHF: acute diastolic. Normal EF and LV function. Oral diuresis. anemia: s/p transfusion 08/28. Improved. hip fracture: ortho following, requested cardiac clearance for surgery, must stay on Plavix. Plans to do surgery as outpatient once patient can be off anticoagulation. Stable CV. DC planning. Arden Murphy Sep 06, 2017 07:43
[2017-09-06] MEDS ORDERED: PILL SPLITTER OTHER PRN (08:45)
[2017-09-06] MEDS: DOCUSATE SODIUM 50 MG/SENNA 8.6 MG TAB PO SCH ×2 (09:00→21:00)
[2017-09-06] MEDS: POTASSIUM CHLORIDE 20 MEQ CONTROLLED RELEASE TAB PO SCH ×2 (09:00→21:00)
[2017-09-06] MEDS: POTASSIUM CHLORIDE 25 MEQ EFFERVESCENT TAB PO SCH ×2 (09:00→21:00)
[2017-09-06 09:11] LABS: HEMATOCRIT 35.6 % (35.0-46.0); MEAN CELL VOLUME 94.2 FL (80.0-100.0); MEAN CORPUSCULAR HEMOGLOBIN 31.2 PG (27.0-34.0); MEAN CORPUSCULAR HGB CONC 33.1 % (32.0-36.0); PLATELET COUNT 359 TH/MM3 (150-450); RED BLOOD COUNT 3.78 MIL/MM3 (4.00-5.30); RED CELL DISTRIBUTION WIDTH 17.2 % (11.6-17.2); REVIEW FLAG FINAL; WHITE BLOOD COUNT 16.5 TH/MM3 (4.0-11.0)
--- NOTE | 2017-09-06 09:39 | HHI.PR ---
Subjective Remarks Patient reports feeling better overall. Occasional cough productive of brown/yellow phlegm Objective Vitals Vital Signs Date Time Temp Pulse Resp B/P (MAP) Pulse Ox O2 Delivery O2 Flow Rate FiO2 09/06/17 08:00 98.1 81 20 99/59 (72) 98 09/06/17 07:57 98 Nasal Cannula 3.00 09/06/17 04:00 98.2 81 16 102/56 (71) 99 09/06/17 04:00 81 09/06/17 00:00 98.2 86 16 105/56 (72) 96 09/06/17 00:00 85 09/05/17 21:00 Nasal Cannula 4.00 Humidified 09/05/17 20:00 97.9 81 16 101/59 (73) 98 09/05/17 20:00 78 09/05/17 16:00 97.9 80 20 100/61 (74) 97 09/05/17 15:50 98 Nasal Cannula 3.00 09/05/17 12:00 97.6 86 18 105/65 (78) 98 09/05/17 10:47 98.8 87 20 105/68 (80) 98 Result Diagram: 09/06/17 0740 09/03/17 0805 Other Results Laboratory Tests Test 09/04/17 07:15 09/05/17 06:54 09/05/17 11:26 09/05/17 18:25 Digoxin Level 1.6 NG/ML Prothrombin Time 10.6 SEC Prothromb Time International Ratio 1.0 RATIO Activated Partial Thromboplast Time 23.7 SEC Pleural Fluid pH 8.0 Pleural Fluid WBC 200 /MM3 Pleural Fluid RBC 280 /MM3 Pleural Fluid Neutrophils 14 % Pleural Fluid Lymphocytes 33 % Pleural Fluid Monocytes 13 % Pleural Fluid Histiocytes 27 % Pleural Fluid Mesothelial Cells 13 % Pleural Fluid Total Protein 1.5 GM/DL Pleural Fluid LDH 177 U/L Pleural Fluid Glucose 101 MG/DL Lactate Dehydrogenase 723 U/L Total Protein 6.8 GM/DL Test 09/06/17 07:40 White Blood Count 16.5 TH/MM3 Red Blood Count 3.78 MIL/MM3 Hemoglobin 11.8 GM/DL Hematocrit 35.6 % Mean Corpuscular Volume 94.2 FL Mean Corpuscular Hemoglobin 31.2 PG Mean Corpuscular Hemoglobin Concent 33.1 % Red Cell Distribution Width 17.2 % Platelet Count 359 TH/MM3 Mean Platelet Volume 8.3 FL Imaging Last Impressions Chest CT 09/02/17 0000 Signed Impressions: Service Date/Time: Saturday, September 02, 2017 21:52 - CONCLUSION: 1. Worsening bilateral effusions and airspace disease. 2. 15 mm left upper lobe mass or of concern for malignancy. It would probably be amenable to percutaneous needle biopsy when clinically feasible. 3. Upper limits of normal mediastinal lymph nodes, nonspecific. Hunter Estrada MD Chest X-Ray 09/01/17 0600 Signed Impressions: Service Date/Time: Friday, September 01, 2017 03:49 - CONCLUSION: Stable chest x-ray with severe bilateral lower lung zone airspace consolidation with likely associated pleural effusions. Hunter Bertrand MD Abdomen/Pelvis CT 08/28/17 0000 Signed Impressions: Service Date/Time: Monday, August 28, 2017 10:10 - CONCLUSION: There is no evidence for retroperitoneal hematoma. 2 cm left adrenal mass stable from 08/25/17. Rajat Teague MD FACR Lower Extremity Ultrasound 08/27/17 0000 Signed Impressions: Service Date/Time: Sunday, August 27, 2017 10:23 - CONCLUSION: Positive for deep venous thrombosis bilaterally from thigh to proximal calf. Michele Morris MD Hip and Pelvis X-Ray 08/25/17 0000 Signed Impressions: Service Date/Time: Friday, August 25, 2017 12:01 - CONCLUSION: Impacted femoral neck fracture at the base without significant step-off Jeremias Peacock MD CT Angiography 08/25/17 0000 Signed Impressions: Service Date/Time: Friday, August 25, 2017 16:06 - CONCLUSION: Multifocal pulmonary emboli with small filling defects identified in the main right pulmonary artery, interlobar pulmonary artery on the right and one in the left lower lobe pulmonary arteries. The emboli are small but multiple. Moderate- sized bilateral pleural effusions. Jeremias Peacock MD Objective Remarks GENERAL: This is a well-nourished, well-developed patient, in no apparent distress. CARDIOVASCULAR: Regular rate and rhythm RESPIRATORY: Clear to auscultation. Breath sounds equal bilaterally. No wheezes , rales, or rhonchi. GASTROINTESTINAL: Abdomen soft, non-tender, nondistended. Normal active bowel sounds MUSCULOSKELETAL: Extremities without clubbing, cyanosis, or edema. NEURO: Alert & Oriented x4 to person, place, time, situation. Moves all ext x4 Procedures 08/24/17 Cardiac catheterization with bare metal stent placed to left circumflex by Dr. Belle [id number] IVC filter placed by Dr. Belle Date of Insertion: Aug 26, 2017 A/P Problem List: (1) STEMI (ST elevation myocardial infarction) ICD Codes: I21.3 - ST elevation (STEMI) myocardial infarction of unspecified site Status: Acute Plan: 1. stemi. inferior. lhc 08/23. left cx BMS. 60% distal lad VT. s/p cardioversion 08/23 2. bilateral pulmonary emboli 3. pulmonary edema. respiratory acidosis. 4.recent bilateral lower ext dvt's on eliquis. secondary to being sedentary. 5. recent left trochanteric bursitis diagnosis by [facility]. 6. left femoral neck fracture 7.severe hypokalemia CT chest (09/02/17) 1. Worsening bilateral effusions and airspace disease. 2. 15 mm left upper lobe mass or of concern for malignancy. It would probably be amenable to percutaneous needle biopsy when clinically feasible. 3. Upper limits of normal mediastinal lymph nodes, nonspecific. - Pt extubated - plavix, pt will need to continue on daily plavix without interruption for one month d/t placement of bare metal coronary stent - continue BID lovenox for Atrial Fibrillation/PE/DVT. Will start pradaxa once certain that pt will NOT require addition procedures for w/u of pulmonary mass. - pt receiving IV lasix for interstitial edema limited by boarderline hypotension (09/06) transitioned to Lasix PO BID - Pt underwent dx/therapeutic thoracentesis (09/05). Await pathology/cytology - O2 3L by [place] - supportive care. (2) Mass of upper lobe of left lung ICD Codes: R91.8 - Other nonspecific abnormal finding of lung field Plan: - CT thorax --> 15mm KEON mass with b/l pleural effusions - Pt underwent thoracentesis (09/05) with removal of 500ml exudative fluid removed - awaiting cytology - serum LDH 723 - serum protein 6.8 (3) DVT (deep venous thrombosis) ICD Codes: I82.409 - Acute embolism and thrombosis of unspecified deep veins of unspecified lower extremity Status: Acute Plan: - see above (4) Pulmonary embolism ICD Codes: I26.99 - Other pulmonary embolism without acute cor pulmonale Status: Acute Plan: - pt receiving anticoagulation - see above - antibiotic regimen narrowed to Rocephin for possible concomitant pneumonia (5) Atrial fibrillation with rapid ventricular response ICD Codes: I48.91 - Unspecified atrial fibrillation Status: Acute Plan: - stable - amiodarone, metoprolol - Pt developed recurrent RVR (09/03) - Pt started on digoxin by Cardiology, with improvement - Case d/w Dr. Belle (09/04/17) - cardiology cleared for DC to SNF (6) Fracture of hip, left, closed ICD Codes: S72.002A - Fracture of unspecified part of neck of left femur, initial encounter for closed fracture Status: Acute Plan: - comgmt with Orthopedic Service - Pt has been too unstable for surgical repair - Case d/w with Dr. Gonzalez (09/03/17) - Pt will NOT be stable for surgery for at least one month - Pt will require arthroplasty (7) Pneumonia, unspecified organism ICD Codes: J18.9 - Pneumonia, unspecified organism Plan: - antibiotics narrowed to Rocephin Assessment and Plan Patient examined. Assessment and plan formulated with Janee Zelaya PA-C. I agree with the above. Pt more comfortable since thoracentesis. Pt's supplemental oxygen down to 3L. Will try to titrate to RA. By light chain criteria, pt's effusion is exudative. Case d/w Pathology. Cell block abnormal. Further studies will be obtained, results should be available 09/08/17 If no diagnostic results from thoracentesis cytology, will likely need to obtain CT guided biopsy of lung mass. Problem Qualifiers (1) DVT (deep venous thrombosis): Qualified Codes: I82.403 - Acute embolism and thrombosis of unspecified deep veins of lower extremity, bilateral (2) Pulmonary embolism: Qualified Codes: I26.99 - Other pulmonary embolism without acute cor pulmonale (3) Fracture of hip, left, closed: Janee Zelaya Sep 06, 2017 09:39 Saturnino Dugan DO Sep 06, 2017 12:02
[2017-09-06] MEDS: CLOPIDOGREL 75 MG TAB PO SCH (09:57)
[2017-09-06] MEDS: NICOTINE 14 MG/24 HR PATCH T-DERMAL SCH (09:57)
[2017-09-06] MEDS: METOPROLOL TARTRATE 25 MG TAB PO SCH ×2 (09:57→22:56)
[2017-09-06] MEDS: DIGOXIN 0.25 MG TAB PO SCH (09:57)
[2017-09-06] MEDS: PANTOPRAZOLE SOD 40 MG DELAYED RELEASE TAB PO SCH (09:58)
[2017-09-06] MEDS: AMIODARONE 200 MG TAB PO SCH (09:58)
[2017-09-06] MEDS: FUROSEMIDE 40 MG TAB PO SCH ×2 (09:58→18:43)
[2017-09-06] MEDS: ASPIRIN 81 MG CHEW TAB PO SCH (09:58)
[2017-09-06] MEDS: cefTRIAXone INJ 1,000 MG in SODIUM CHLORIDE 0.9% INJ 100 ML IV SCH (09:59)
[2017-09-06] MEDS: FERROUS SULFATE 325 MG (65 MG ELEMENTAL IRON) TAB PO SCH ×2 (12:00→17:00)
[2017-09-06] MEDS ORDERED: LACTULOSE SYRUP 20 GM/30 ML CUP PO ONE (15:45)
[2017-09-06] MEDS: CHLORHEXIDINE 0.12% (ORAL KIT) 15 ML CUP MT SCH (20:00)
[2017-09-06] MEDS: ATORVASTATIN 40 MG TAB PO SCH (21:15)
[2017-09-07] VITALS (9 sets, daily range): BP systolic 94–115; BP diastolic 53–63; PULSE 80–89; RESP 18–20; TEMP 97–98.9; O2SAT 94–99
[2017-09-07] MEDS: traMADol HCL 50 MG TAB PO SCH ×4 (00:16→17:19)
[2017-09-07] MEDS: RESP: IPRATROPIUM 0.5 MG/2.5 ML NEB NEB SCH ×6 (01:00→20:00)
[2017-09-07] MEDS: CHLORHEXIDINE GLUCONATE 2 % 1 PACK (2 CLOTHS) TOP SCH (04:00)
[2017-09-07] MEDS: ENOXAPARIN SODIUM 80 MG/0.8 ML SYRINGE SQ SCH ×2 (04:50→17:18)
[2017-09-07] MEDS: OXYBUTYNIN CHLORIDE 5 MG TAB PO SCH ×3 (06:05→20:51)
[2017-09-07] MEDS: CHLORHEXIDINE 0.12% (ORAL KIT) 15 ML CUP MT SCH ×2 (08:00→20:00)
[2017-09-07] MEDS: cefTRIAXone INJ 1,000 MG in SODIUM CHLORIDE 0.9% INJ 100 ML IV SCH (08:34)
[2017-09-07] MEDS: ASPIRIN 81 MG CHEW TAB PO SCH (08:34)
[2017-09-07] MEDS: CLOPIDOGREL 75 MG TAB PO SCH (08:34)
[2017-09-07] MEDS: METOPROLOL TARTRATE 25 MG TAB PO SCH ×2 (08:34→22:37)
[2017-09-07] MEDS: NICOTINE 14 MG/24 HR PATCH T-DERMAL SCH (08:35)
[2017-09-07] MEDS: PANTOPRAZOLE SOD 40 MG DELAYED RELEASE TAB PO SCH (08:35)
[2017-09-07] MEDS: AMIODARONE 200 MG TAB PO SCH (08:35)
[2017-09-07] MEDS: FUROSEMIDE 40 MG TAB PO SCH ×2 (08:35→17:19)
[2017-09-07] MEDS: DOCUSATE SODIUM 50 MG/SENNA 8.6 MG TAB PO SCH ×2 (08:36→20:35)
[2017-09-07] MEDS: REMOVE OLD PATCH T-DERMAL SCH (08:36)
[2017-09-07] MEDS: DIGOXIN 0.25 MG TAB PO SCH (08:36)
[2017-09-07] MEDS: POTASSIUM CHLORIDE 25 MEQ EFFERVESCENT TAB PO SCH (08:37)
[2017-09-07] MEDS: POTASSIUM CHLORIDE 20 MEQ CONTROLLED RELEASE TAB PO SCH (08:37)
[2017-09-07] MEDS: FERROUS SULFATE 325 MG (65 MG ELEMENTAL IRON) TAB PO SCH ×2 (11:48→17:18)
--- NOTE | 2017-09-07 12:22 | HHI.PR ---
Subjective Remarks Patient offers no specific medical complaints patient asking to have activity level to be changed wanting to get out of bed to use the bathroom Objective Vitals Vital Signs Date Time Temp Pulse Resp B/P (MAP) Pulse Ox O2 Delivery O2 Flow Rate FiO2 09/07/17 11:50 97 09/07/17 08:00 98.9 85 20 94/54 (67) 98 09/07/17 04:00 83 09/07/17 04:00 98.3 82 18 99/62 (74) 99 09/07/17 00:00 84 09/07/17 00:00 Nasal Cannula 3.00 Humidified 09/06/17 23:03 97.7 89 16 100/55 (70) 98 09/06/17 21:15 Nasal Cannula 3.00 Humidified 09/06/17 20:00 97.9 83 18 97/54 (68) 97 09/06/17 20:00 84 09/06/17 20:00 97.9 83 18 97/54 (68) 97 09/06/17 19:45 98 Nasal Cannula 2.00 09/06/17 16:00 97.9 78 18 94/54 (67) 99 Result Diagram: 09/06/17 0740 09/03/17 0805 Other Results Laboratory Tests Test 09/05/17 06:54 09/05/17 11:26 09/05/17 18:25 09/06/17 07:40 Prothrombin Time 10.6 SEC Prothromb Time International Ratio 1.0 RATIO Activated Partial Thromboplast Time 23.7 SEC Body Fluid Amylase Source PLEURAL Body Fluid Amylase 16 U/L Pleural Fluid pH 8.0 Pleural Fluid WBC 200 /MM3 Pleural Fluid RBC 280 /MM3 Pleural Fluid Neutrophils 14 % Pleural Fluid Lymphocytes 33 % Pleural Fluid Monocytes 13 % Pleural Fluid Histiocytes 27 % Pleural Fluid Mesothelial Cells 13 % Pleural Fluid Total Protein 1.5 GM/DL Pleural Fluid LDH 177 U/L Pleural Fluid Glucose 101 MG/DL Lactate Dehydrogenase 723 U/L Total Protein 6.8 GM/DL White Blood Count 16.5 TH/MM3 Red Blood Count 3.78 MIL/MM3 Hemoglobin 11.8 GM/DL Hematocrit 35.6 % Mean Corpuscular Volume 94.2 FL Mean Corpuscular Hemoglobin 31.2 PG Mean Corpuscular Hemoglobin Concent 33.1 % Red Cell Distribution Width 17.2 % Platelet Count 359 TH/MM3 Mean Platelet Volume 8.3 FL Test 09/07/17 06:27 Digoxin Level 1.6 NG/ML Imaging Last Impressions Chest CT 09/02/17 0000 Signed Impressions: Service Date/Time: Saturday, September 02, 2017 21:52 - CONCLUSION: 1. Worsening bilateral effusions and airspace disease. 2. 15 mm left upper lobe mass or of concern for malignancy. It would probably be amenable to percutaneous needle biopsy when clinically feasible. 3. Upper limits of normal mediastinal lymph nodes, nonspecific. Hunter Estrada MD Chest X-Ray 09/01/17 0600 Signed Impressions: Service Date/Time: Friday, September 01, 2017 03:49 - CONCLUSION: Stable chest x-ray with severe bilateral lower lung zone airspace consolidation with likely associated pleural effusions. Hunter Bertrand MD Abdomen/Pelvis CT 08/28/17 0000 Signed Impressions: Service Date/Time: Monday, August 28, 2017 10:10 - CONCLUSION: There is no evidence for retroperitoneal hematoma. 2 cm left adrenal mass stable from 08/25/17. Rajat Teague MD FACR Lower Extremity Ultrasound 08/27/17 0000 Signed Impressions: Service Date/Time: Sunday, August 27, 2017 10:23 - CONCLUSION: Positive for deep venous thrombosis bilaterally from thigh to proximal calf. Michele Morris MD Hip and Pelvis X-Ray 08/25/17 0000 Signed Impressions: Service Date/Time: Friday, August 25, 2017 12:01 - CONCLUSION: Impacted femoral neck fracture at the base without significant step-off Jeremias Peacock MD CT Angiography 08/25/17 0000 Signed Impressions: Service Date/Time: Friday, August 25, 2017 16:06 - CONCLUSION: Multifocal pulmonary emboli with small filling defects identified in the main right pulmonary artery, interlobar pulmonary artery on the right and one in the left lower lobe pulmonary arteries. The emboli are small but multiple. Moderate- sized bilateral pleural effusions. Jeremias Peacock MD Objective Remarks GENERAL: This is a well-nourished, well-developed patient, in no apparent distress. CARDIOVASCULAR: Regular rate and rhythm RESPIRATORY: Clear to auscultation. Breath sounds equal bilaterally. No wheezes , rales, or rhonchi. GASTROINTESTINAL: Abdomen soft, non-tender, nondistended. Normal active bowel sounds MUSCULOSKELETAL: Extremities without clubbing, cyanosis, or edema. NEURO: Alert & Oriented x4 to person, place, time, situation. Moves all ext x4 Procedures 08/24/17 Cardiac catheterization with bare metal stent placed to left circumflex by Dr. Belle 08/29/17 IVC filter placed by Dr. Belle Date of Insertion: Aug 26, 2017 A/P Problem List: (1) STEMI (ST elevation myocardial infarction) ICD Codes: I21.3 - ST elevation (STEMI) myocardial infarction of unspecified site Status: Acute Plan: 1. stemi. inferior. lhc 08/23. left cx BMS. 60% distal lad VT. s/p cardioversion 08/23 2. bilateral pulmonary emboli 3. pulmonary edema. respiratory acidosis. 4.recent bilateral lower ext dvt's on eliquis. secondary to being sedentary. 5. recent left trochanteric bursitis diagnosis by [facility]. 6. left femoral neck fracture 7.severe hypokalemia CT chest (09/02/17) 1. Worsening bilateral effusions and airspace disease. 2. 15 mm left upper lobe mass or of concern for malignancy. It would probably be amenable to percutaneous needle biopsy when clinically feasible. 3. Upper limits of normal mediastinal lymph nodes, nonspecific. - Pt extubated - plavix, pt will need to continue on daily plavix without interruption for one month d/t placement of bare metal coronary stent - continue BID lovenox for Atrial Fibrillation/PE/DVT. Will start pradaxa once certain that pt will NOT require addition procedures for w/u of pulmonary mass. - pt receiving IV lasix for interstitial edema limited by boarderline hypotension (09/06) transitioned to Lasix PO BID - Pt underwent dx/therapeutic thoracentesis (09/05). Await pathology/cytology - O2 3L by [place] - supportive care. (2) Mass of upper lobe of left lung ICD Codes: R91.8 - Other nonspecific abnormal finding of lung field Plan: - CT thorax --> 15mm KEON mass with b/l pleural effusions - Pt underwent thoracentesis (09/05) with removal of 500ml exudative fluid removed - awaiting cytology - serum LDH 723 - serum protein 6.8 - await cytology which is pending - add IS Q1H while awake (3) DVT (deep venous thrombosis) ICD Codes: I82.409 - Acute embolism and thrombosis of unspecified deep veins of unspecified lower extremity Status: Acute Plan: - see above (4) Pulmonary embolism ICD Codes: I26.99 - Other pulmonary embolism without acute cor pulmonale Status: Acute Plan: - pt receiving anticoagulation - see above - antibiotic regimen narrowed to Rocephin for possible concomitant pneumonia (5) Atrial fibrillation with rapid ventricular response ICD Codes: I48.91 - Unspecified atrial fibrillation Status: Acute Plan: - stable - amiodarone, metoprolol - Pt developed recurrent RVR (09/03) - Pt started on digoxin by Cardiology, with improvement - Case d/w Dr. Belle (09/04/17) - cardiology cleared for DC to SNF (6) Fracture of hip, left, closed ICD Codes: S72.002A - Fracture of unspecified part of neck of left femur, initial encounter for closed fracture Status: Acute Plan: - comgmt with Orthopedic Service - Pt has been too unstable for surgical repair - Case d/w with Dr. Gonzalez (09/03/17) - Pt will NOT be stable for surgery for at least one month - Pt will require arthroplasty - PT consult for bed exercises - discussed case with Dr. Gonzalez recommending continued bedrest (7) Pneumonia, unspecified organism ICD Codes: J18.9 - Pneumonia, unspecified organism Plan: - antibiotics narrowed to Rocephin (8) Constipation ICD Codes: K59.00 - Constipation, unspecified Plan: Patient refusing laxative patient also refusing KUB patient endorses flatus abdomen soft nondistended with normoactive bowel sounds Patient reports she has been unable to have a bowel movement on a bedpan. Per orthopedic surgery patient on bedrest and unable to get out of bed or use a BSC. Will continue to monitor clinically and discuss with patient the importance of a bowel regiment Assessment and Plan Patient examined. Assessment and plan formulated with Janee Zelaya PA-C. I agree with the above. Pt more comfortable since thoracentesis. Pt's supplemental oxygen down to 3L. Will try to titrate to RA. By light chain criteria, pt's effusion is exudative. Case d/w Pathology. Cell block abnormal. Further studies will be obtained, results should be available 09/08/17 If no diagnostic results from thoracentesis cytology, will likely need to obtain CT guided biopsy of lung mass. Problem Qualifiers (1) DVT (deep venous thrombosis): Qualified Codes: I82.403 - Acute embolism and thrombosis of unspecified deep veins of lower extremity, bilateral (2) Pulmonary embolism: Qualified Codes: I26.99 - Other pulmonary embolism without acute cor pulmonale (3) Fracture of hip, left, closed: Janee eZlaya Sep 07, 2017 12:22
[2017-09-07 15:13] LABS: POTASSIUM 3.4 MEQ/L (3.5-5.1)
[2017-09-07] MEDS: ATORVASTATIN 40 MG TAB PO SCH (20:50)
[2017-09-08] VITALS (11 sets, daily range): BP systolic 104–111; BP diastolic 56–65; PULSE 85–94; RESP 16–20; TEMP 97.2–98.2; O2SAT 94–98
[2017-09-08] MEDS: traMADol HCL 50 MG TAB PO SCH ×5 (00:57→23:35)
[2017-09-08] MEDS: RESP: IPRATROPIUM 0.5 MG/2.5 ML NEB NEB SCH ×6 (03:52→19:07)
[2017-09-08] MEDS: CHLORHEXIDINE GLUCONATE 2 % 1 PACK (2 CLOTHS) TOP SCH (04:00)
[2017-09-08] MEDS: OXYBUTYNIN CHLORIDE 5 MG TAB PO SCH ×3 (05:38→20:25)
[2017-09-08] MEDS: ENOXAPARIN SODIUM 80 MG/0.8 ML SYRINGE SQ SCH ×2 (05:39→17:15)
--- NOTE | 2017-09-08 07:41 | PD.CARD.PN ---
Subjective Subjective Remarks No new complaints. Breathing well. No chest pain Objective Medications Current Medications Medications (Trade) Dose Ordered Sig/Jamilah Route Start Time Stop Time Status Last Admin (NS Flush) 2 ml UNSCH PRN IVF 08/23/17 20:15 09/03/17 22:01 (Xylocaine 2% Jelly) 1 applic UNSCH PRN TOP 08/23/17 21:45 (Aspirin Chew) 81 mg DAILY PO 08/24/17 09:00 09/07/17 08:34 (Plavix) 75 mg DAILY PO 08/24/17 09:00 09/07/17 08:34 (Atropine Inj) 0.5 mg UNSCH PRN IV PUSH 08/23/17 21:45 (Zofran Inj) 4 mg Q4H PRN IV PUSH 08/23/17 21:45 08/31/17 14:25 (Lipitor) 40 mg HS PO 08/24/17 21:00 09/07/17 20:50 (Ferrous Sulfate) 325 mg BID@ PO 08/24/17 12:00 09/07/17 17:18 (Atrovent Neb) 0.5 mg Q4HR NEB NEB 08/25/17 16:00 09/07/17 15:45 (Atrovent Neb) 0.5 mg Q2HR NEB PRN NEB 08/25/17 14:00 08/26/17 06:00 (Protonix) 40 mg DAILY PO 08/26/17 09:00 09/07/17 08:35 (Tears Naturale Opth Soln) 1 drop Q4H PRN EACH EYE 08/26/17 13:45 08/27/17 09:43 (Peridex 0.12% Liq) 15 ml BID@08,20 MT 08/26/17 20:00 08/29/17 08:00 (Ultram) 50 mg Q6HR PO 08/26/17 14:30 09/08/17 05:38 Miscellaneous Information 1 Q361D XX 08/26/17 14:45 (Chlorhexidine 2% Cloth) Taper DAILY@04 TOP 08/27/17 04:00 08/23/18 03:59 09/01/17 01:00 (Chlorhexidine 2% Cloth) 3 pack UNSCH PRN TOP 08/26/17 14:45 (Clair-Colace) 1 tab BID PO 08/26/17 21:00 09/01/17 07:57 (Milk Of Magnesia Liq) 30 ml Q12H PRN PO 08/26/17 14:45 (Senokot) 17.2 mg Q12H PRN PO 08/26/17 14:45 08/26/17 18:34 (Dulcolax Supp) 10 mg DAILY PRN RECTAL 08/26/17 14:45 (Lactulose Liq) 30 ml DAILY PRN PO 08/26/17 14:45 (Versed Inj) 2 mg Q4H PRN IV 08/26/17 15:30 08/29/17 13:13 (Tylenol) 650 mg Q4H PRN PO 08/28/17 08:45 (Benadryl) 25 mg Q4H PRN PO 08/28/17 08:45 (Ditropan) 5 mg Q8HR PO 08/29/17 23:30 09/08/17 05:38 (Tessalon) 200 mg TID PRN PO 08/30/17 21:00 08/30/17 21:30 (Restoril) 15 mg HS PRN PO 08/31/17 02:00 08/31/17 02:06 (Habitrol 14 Mg Patch.24 Hr) 1 patch DAILY T-DERMAL 09/02/17 16:30 09/07/17 08:35 Miscellaneous Information 1 DAILY T-DERMAL 09/03/17 09:00 09/07/17 08:36 (Lanoxin) 0.25 mg DAILY PO 09/03/17 09:00 09/07/17 08:36 (Lovenox Inj) 70 mg Q12H SQ 09/05/17 16:00 09/08/17 05:39 (Lasix) 40 mg BID@09,18 PO 09/06/17 09:00 09/07/17 17:19 (Cordarone) 200 mg DAILY PO 09/06/17 09:00 09/07/17 08:35 (Lopressor) 12.5 mg Q12HR PO 09/06/17 09:00 09/07/17 22:37 (Pill Splitter) 1 ea UNSCH PRN OTHER 09/06/17 08:45 Vital Signs / I&O Vital Signs Date Time Temp Pulse Resp B/P (MAP) Pulse Ox O2 Delivery O2 Flow Rate FiO2 09/08/17 04:00 98.1 86 18 106/63 (77) 95 09/08/17 00:00 87 09/08/17 00:00 98.2 90 20 107/56 (73) 94 09/07/17 22:36 104/58 (73) 09/07/17 20:00 98.6 89 18 96/53 (67) 94 09/07/17 19:45 89 09/07/17 18:19 18 09/07/17 16:00 97.0 80 18 115/63 (80) 97 09/07/17 12:00 89 09/07/17 12:00 98.2 80 20 103/61 (75) 97 09/07/17 11:50 97 09/07/17 08:00 98.9 85 20 94/54 (67) 98 09/07/17 08:00 84 I/O 09/07/17 09/07/17 09/07/17 09/08/17 09/08/17 09/08/17 07:00 15:00 23:00 07:00 15:00 23:00 Intake Total 240 ml 100 ml 480 ml Output Total 450 ml 700 ml 500 ml Balance -210 ml 100 ml -220 ml -500 ml Intake Oral 240 ml 480 ml IV Total 100 ml Output Urine Total 450 ml 700 ml 500 ml # Bowel Movements 0 0 Physical Exam Lungs clear. RRR no murmur Laboratory Laboratory Tests Test 09/07/17 14:27 Blood Urea Nitrogen 19 MG/DL Creatinine 0.50 MG/DL Random Glucose 106 MG/DL Calcium Level 8.9 MG/DL Sodium Level 134 MEQ/L Potassium Level 3.4 MEQ/L Chloride Level 94 MEQ/L Carbon Dioxide Level 34.0 MEQ/L Anion Gap 6 MEQ/L Estimat Glomerular Filtration Rate 126 ML/MIN Assessment and Plan Problem List: (1) V tach ICD Codes: I47.2 - Ventricular tachycardia Status: Acute (2) STEMI (ST elevation myocardial infarction) ICD Codes: I21.3 - ST elevation (STEMI) myocardial infarction of unspecified site Status: Acute Plan: Tentatively plan to wait 2 weeks then plan repair of hip. Stable CV Assessment and Plan Will give small daily dose of dig Gutierrez Carr MD Sep 08, 2017 07:41
[2017-09-08] MEDS: CHLORHEXIDINE 0.12% (ORAL KIT) 15 ML CUP MT SCH ×2 (08:00→20:00)
[2017-09-08] MEDS: PANTOPRAZOLE SOD 40 MG DELAYED RELEASE TAB PO SCH (08:03)
[2017-09-08] MEDS: ASPIRIN 81 MG CHEW TAB PO SCH (08:03)
[2017-09-08] MEDS: DOCUSATE SODIUM 50 MG/SENNA 8.6 MG TAB PO SCH ×2 (08:03→20:24)
[2017-09-08] MEDS: DIGOXIN 0.25 MG TAB PO SCH (08:04)
[2017-09-08] MEDS: NICOTINE 14 MG/24 HR PATCH T-DERMAL SCH (08:04)
[2017-09-08] MEDS: CLOPIDOGREL 75 MG TAB PO SCH (08:04)
[2017-09-08] MEDS: AMIODARONE 200 MG TAB PO SCH (08:04)
[2017-09-08] MEDS: REMOVE OLD PATCH T-DERMAL SCH (08:04)
[2017-09-08] MEDS: FUROSEMIDE 40 MG TAB PO SCH ×2 (08:05→17:33)
[2017-09-08] MEDS: METOPROLOL TARTRATE 25 MG TAB PO SCH ×2 (08:05→20:24)
[2017-09-08] MEDS: FERROUS SULFATE 325 MG (65 MG ELEMENTAL IRON) TAB PO SCH ×2 (12:00→17:00)
--- NOTE | 2017-09-08 16:56 | HHI.PR ---
Subjective Remarks Patient resting in bed no new complaints Objective Vitals Vital Signs Date Time Temp Pulse Resp B/P (MAP) Pulse Ox O2 Delivery O2 Flow Rate FiO2 09/08/17 16:00 97.9 92 17 104/60 (75) 95 09/08/17 15:40 97 21 09/08/17 12:00 97.8 89 17 104/63 (77) 95 09/08/17 10:05 Room Air 21 09/08/17 09:09 96 21 09/08/17 08:00 98.0 88 16 107/61 (76) 95 09/08/17 04:00 98.1 86 18 106/63 (77) 95 09/08/17 00:00 87 09/08/17 00:00 98.2 90 20 107/56 (73) 94 09/07/17 22:36 104/58 (73) 09/07/17 20:00 98.6 89 18 96/53 (67) 94 09/07/17 19:45 89 09/07/17 18:19 18 Result Diagram: 09/06/17 0740 09/07/17 1427 Other Results Laboratory Tests Test 09/05/17 18:25 09/06/17 07:40 09/07/17 06:27 09/07/17 14:27 Lactate Dehydrogenase 723 U/L Total Protein 6.8 GM/DL White Blood Count 16.5 TH/MM3 Red Blood Count 3.78 MIL/MM3 Hemoglobin 11.8 GM/DL Hematocrit 35.6 % Mean Corpuscular Volume 94.2 FL Mean Corpuscular Hemoglobin 31.2 PG Mean Corpuscular Hemoglobin Concent 33.1 % Red Cell Distribution Width 17.2 % Platelet Count 359 TH/MM3 Mean Platelet Volume 8.3 FL Digoxin Level 1.6 NG/ML Blood Urea Nitrogen 19 MG/DL Creatinine 0.50 MG/DL Random Glucose 106 MG/DL Calcium Level 8.9 MG/DL Sodium Level 134 MEQ/L Potassium Level 3.4 MEQ/L Chloride Level 94 MEQ/L Carbon Dioxide Level 34.0 MEQ/L Anion Gap 6 MEQ/L Estimat Glomerular Filtration Rate 126 ML/MIN Imaging Last Impressions Chest CT 09/02/17 0000 Signed Impressions: Service Date/Time: Saturday, September 02, 2017 21:52 - CONCLUSION: 1. Worsening bilateral effusions and airspace disease. 2. 15 mm left upper lobe mass or of concern for malignancy. It would probably be amenable to percutaneous needle biopsy when clinically feasible. 3. Upper limits of normal mediastinal lymph nodes, nonspecific. Hunter Estrada MD Chest X-Ray 09/01/17 0600 Signed Impressions: Service Date/Time: Friday, September 01, 2017 03:49 - CONCLUSION: Stable chest x-ray with severe bilateral lower lung zone airspace consolidation with likely associated pleural effusions. Hunter Bertrand MD Abdomen/Pelvis CT 08/28/17 0000 Signed Impressions: Service Date/Time: Monday, August 28, 2017 10:10 - CONCLUSION: There is no evidence for retroperitoneal hematoma. 2 cm left adrenal mass stable from 08/25/17. Rajat Teague MD FACR Lower Extremity Ultrasound 08/27/17 0000 Signed Impressions: Service Date/Time: Sunday, August 27, 2017 10:23 - CONCLUSION: Positive for deep venous thrombosis bilaterally from thigh to proximal calf. Michele Morris MD Hip and Pelvis X-Ray 08/25/17 0000 Signed Impressions: Service Date/Time: Friday, August 25, 2017 12:01 - CONCLUSION: Impacted femoral neck fracture at the base without significant step-off Jeremias Peacock MD CT Angiography 08/25/17 0000 Signed Impressions: Service Date/Time: Friday, August 25, 2017 16:06 - CONCLUSION: Multifocal pulmonary emboli with small filling defects identified in the main right pulmonary artery, interlobar pulmonary artery on the right and one in the left lower lobe pulmonary arteries. The emboli are small but multiple. Moderate- sized bilateral pleural effusions. Jeremias Peacock MD Objective Remarks GENERAL: This is a well-nourished, well-developed patient, in no apparent distress. CARDIOVASCULAR: Regular rate and rhythm RESPIRATORY: Clear to auscultation. Breath sounds equal bilaterally. No wheezes , rales, or rhonchi. GASTROINTESTINAL: Abdomen soft, non-tender, nondistended. Normal active bowel sounds MUSCULOSKELETAL: Extremities without clubbing, cyanosis, or edema. NEURO: Alert & Oriented x4 to person, place, time, situation. Moves all ext x4 Procedures 08/24/17 Cardiac catheterization with bare metal stent placed to left circumflex by Dr. Belle 08/29/17 IVC filter placed by Dr. Belle Date of Insertion: Aug 26, 2017 A/P Problem List: (1) STEMI (ST elevation myocardial infarction) ICD Codes: I21.3 - ST elevation (STEMI) myocardial infarction of unspecified site Status: Acute Plan: 1. stemi. inferior. lhc 08/23. left cx BMS. 60% distal lad VT. s/p cardioversion 08/23 2. bilateral pulmonary emboli 3. pulmonary edema. respiratory acidosis. 4.recent bilateral lower ext dvt's on eliquis. secondary to being sedentary. 5. recent left trochanteric bursitis diagnosis by [facility]. 6. left femoral neck fracture 7.severe hypokalemia CT chest (09/02/17) 1. Worsening bilateral effusions and airspace disease. 2. 15 mm left upper lobe mass or of concern for malignancy. It would probably be amenable to percutaneous needle biopsy when clinically feasible. 3. Upper limits of normal mediastinal lymph nodes, nonspecific. - Pt extubated - plavix, pt will need to continue on daily plavix without interruption for one month d/t placement of bare metal coronary stent - continue BID lovenox for Atrial Fibrillation/PE/DVT. Will start pradaxa once certain that pt will NOT require addition procedures for w/u of pulmonary mass. - pt receiving IV lasix for interstitial edema limited by boarderline hypotension (09/06) transitioned to Lasix PO BID - Pt underwent dx/therapeutic thoracentesis (09/05). Await pathology/cytology - O2 3L by NC - supportive care. (2) Mass of upper lobe of left lung ICD Codes: R91.8 - Other nonspecific abnormal finding of lung field Plan: - CT thorax --> 15mm KEON mass with b/l pleural effusions - Pt underwent thoracentesis (09/05) with removal of 500ml exudative fluid removed - awaiting cytology - serum LDH 723 - serum protein 6.8 - add IS Q1H while awake - cytology results reviewed and reveals: Concentration preparations-atypical mesothelial cells, macrophages and scattered inflammatory cells are present. Cell block - Atypical mesothelial cells and foamy macrophages are present - patient unable to stop Plavix at this time for bx. Discussed with interventional radiology who decline to do bx while patient is on Plavix due to risks of hemothorax - Informally discussed case with oncology give patient's current co-morbidities and the size of the lesion recommend close oncology follow up (3) DVT (deep venous thrombosis) ICD Codes: I82.409 - Acute embolism and thrombosis of unspecified deep veins of unspecified lower extremity Status: Acute Plan: - see above (4) Pulmonary embolism ICD Codes: I26.99 - Other pulmonary embolism without acute cor pulmonale Status: Acute Plan: - pt receiving anticoagulation - see above - antibiotic regimen narrowed to Rocephin for possible concomitant pneumonia (5) Atrial fibrillation with rapid ventricular response ICD Codes: I48.91 - Unspecified atrial fibrillation Status: Acute Plan: - stable - amiodarone, metoprolol - Pt developed recurrent RVR (09/03) - Pt started on digoxin by Cardiology, with improvement - Case d/w Dr. Belle (09/04/17) - cardiology cleared for DC to SNF (6) Fracture of hip, left, closed ICD Codes: S72.002A - Fracture of unspecified part of neck of left femur, initial encounter for closed fracture Status: Acute Plan: - comgmt with Orthopedic Service - Pt has been too unstable for surgical repair - Case d/w with Dr. Gonzalez (09/03/17) - Pt will NOT be stable for surgery for at least one month - Pt will require arthroplasty - PT consult for bed exercises - discussed case with Dr. Gonzalez recommending continued bedrest (7) Pneumonia, unspecified organism ICD Codes: J18.9 - Pneumonia, unspecified organism Plan: - antibiotics narrowed to Rocephin (8) Constipation ICD Codes: K59.00 - Constipation, unspecified Plan: Patient refusing laxative patient also refusing KUB patient endorses flatus abdomen soft nondistended with normoactive bowel sounds Patient reports she has been unable to have a bowel movement on a bedpan. Per orthopedic surgery patient on bedrest and unable to get out of bed or use a BSC. Will continue to monitor clinically and discuss with patient the importance of a bowel regiment Problem Qualifiers (1) DVT (deep venous thrombosis): Qualified Codes: I82.403 - Acute embolism and thrombosis of unspecified deep veins of lower extremity, bilateral (2) Pulmonary embolism: Qualified Codes: I26.99 - Other pulmonary embolism without acute cor pulmonale (3) Fracture of hip, left, closed: Janee Zelaya Sep 08, 2017 16:56
[2017-09-08] MEDS: ATORVASTATIN 40 MG TAB PO SCH (20:24)
[2017-09-08] MEDS: SODIUM CHLORIDE 0.9% FLUSH 10 ML FLUSH IVF PRN (20:25)
[2017-09-09] VITALS (9 sets, daily range): BP systolic 104–115; BP diastolic 55–66; PULSE 73–91; RESP 16–18; TEMP 97.6–98; O2SAT 96–98
[2017-09-09] MEDS: RESP: IPRATROPIUM 0.5 MG/2.5 ML NEB NEB SCH ×6 (00:47→20:24)
[2017-09-09] MEDS: CHLORHEXIDINE GLUCONATE 2 % 1 PACK (2 CLOTHS) TOP SCH ×2 (03:29→23:54)
[2017-09-09] MEDS: OXYBUTYNIN CHLORIDE 5 MG TAB PO SCH (04:54)
[2017-09-09] MEDS: traMADol HCL 50 MG TAB PO SCH ×3 (04:54→17:07)
[2017-09-09] MEDS: ENOXAPARIN SODIUM 80 MG/0.8 ML SYRINGE SQ SCH (04:55)
[2017-09-09 06:44] LABS: HEMATOCRIT 35.5 % (35.0-46.0); MEAN CORPUSCULAR HGB CONC 33.3 % (32.0-36.0); PLATELET COUNT 359 TH/MM3 (150-450); RED BLOOD COUNT 3.82 MIL/MM3 (4.00-5.30); RED CELL DISTRIBUTION WIDTH 16.5 % (11.6-17.2); REVIEW FLAG FINAL; WHITE BLOOD COUNT 14.5 TH/MM3 (4.0-11.0)
[2017-09-09] MEDS: CHLORHEXIDINE 0.12% (ORAL KIT) 15 ML CUP MT SCH ×2 (08:00→20:00)
[2017-09-09] MEDS: CLOPIDOGREL 75 MG TAB PO SCH (08:37)
[2017-09-09] MEDS: FUROSEMIDE 40 MG TAB PO SCH ×2 (08:38→17:07)
[2017-09-09] MEDS: AMIODARONE 200 MG TAB PO SCH (08:38)
[2017-09-09] MEDS: ASPIRIN 81 MG CHEW TAB PO SCH (08:38)
[2017-09-09] MEDS: PANTOPRAZOLE SOD 40 MG DELAYED RELEASE TAB PO SCH (08:38)
[2017-09-09] MEDS: DOCUSATE SODIUM 50 MG/SENNA 8.6 MG TAB PO SCH ×3 (08:38→20:34)
[2017-09-09] MEDS: METOPROLOL TARTRATE 25 MG TAB PO SCH ×2 (08:38→20:34)
[2017-09-09] MEDS: DIGOXIN 0.25 MG TAB PO SCH (08:38)
[2017-09-09] MEDS: NICOTINE 14 MG/24 HR PATCH T-DERMAL SCH (08:39)
[2017-09-09] MEDS: REMOVE OLD PATCH T-DERMAL SCH (08:49)
[2017-09-09] MEDS ORDERED: METO25TA3 PO (09:28)
[2017-09-09] MEDS ORDERED: PLAV75TA29 PO (09:28)
[2017-09-09] MEDS ORDERED: PANT40TA3 PO (09:28)
[2017-09-09] MEDS ORDERED: ATOR40TA16 PO (09:28)
[2017-09-09] MEDS ORDERED: ASPI81 PO (09:28)
[2017-09-09] MEDS ORDERED: PERI PO (09:28)
[2017-09-09] MEDS ORDERED: PRAD150C PO (09:28)
[2017-09-09] MEDS ORDERED: DIGO0.25 PO (09:28)
[2017-09-09] MEDS ORDERED: AMIO200T PO (09:28)
[2017-09-09] MEDS ORDERED: FERR325T20 PO (09:28)
[2017-09-09] MEDS ORDERED: FURO40TA PO (09:28)
--- NOTE | 2017-09-09 09:42 | HHI.DS ---
Discharge Summary Admission Date Aug 23, 2017 at 20:28 Discharge Date: Sep 10, 2017 Admitting Diagnosis STEMI; V-Tach; h/o recent BLE DVT (1) STEMI (ST elevation myocardial infarction) ICD Codes: I21.3 - ST elevation (STEMI) myocardial infarction of unspecified site Status: Acute (2) Mass of upper lobe of left lung ICD Codes: R91.8 - Other nonspecific abnormal finding of lung field (3) DVT (deep venous thrombosis) ICD Codes: I82.409 - Acute embolism and thrombosis of unspecified deep veins of unspecified lower extremity Status: Acute (4) Pulmonary embolism ICD Codes: I26.99 - Other pulmonary embolism without acute cor pulmonale Status: Acute (5) Atrial fibrillation with rapid ventricular response ICD Codes: I48.91 - Unspecified atrial fibrillation Status: Acute (6) Fracture of hip, left, closed ICD Codes: S72.002A - Fracture of unspecified part of neck of left femur, initial encounter for closed fracture Status: Acute (7) Pneumonia, unspecified organism ICD Codes: J18.9 - Pneumonia, unspecified organism (8) Constipation ICD Codes: K59.00 - Constipation, unspecified Consultants Dr. Yoshi Nieves Procedures 08/24/17 Cardiac catheterization with bare metal stent placed to left circumflex by Dr. Belle 08/29/17 IVC filter placed by Dr. Belle Brief History Pt is 61 yo recently diagnosed with bilateral lower ext dvt's after being sedentary for 6 weeks for severe right hip pain/trochanteric bursitis. She says the bursitis is 75% better after Dr Wiley injected it in the office. She was placed on eliquis 2 weeks ago and she reports significant improvement in her lower ext swelling. Yesterday she became dizzy/weak/nauseated and brought to ED by EMS. She was in [place] and defibrillated. found to have inf stemi and taken to [facility] by dr Belle last night. BMS placed in left cx and distal lad 60%lesion noted. placed on 2b3a inh overnight, asa/plavix and eliquis on hold. currently pressure being held on right groin as sheath pulled. CBC/BMP: 09/09/17 0550 09/07/17 1427 Significant Findings Laboratory Tests Test 09/07/17 06:27 09/07/17 14:27 09/09/17 05:50 Blood Urea Nitrogen 19 MG/DL (7-18) Sodium Level 134 MEQ/L (136-145) Potassium Level 3.4 MEQ/L (3.5-5.1) Chloride Level 94 MEQ/L (98-107) Carbon Dioxide Level 34.0 MEQ/L (21.0-32.0) White Blood Count 14.5 TH/MM3 (4.0-11.0) Red Blood Count 3.82 MIL/MM3 (4.00-5.30) Imaging Last Impressions Thoracentesis Ultrasound 09/05/17 0000 Signed Impressions: Service Date/Time: Tuesday, September 05, 2017 10:33 - CONCLUSION: Uncomplicated ultrasound guided thoracentesis. Duglas Clark MD Chest X-Ray 09/05/17 0000 Signed Impressions: Service Date/Time: Tuesday, September 05, 2017 12:37 - CONCLUSION: No evidence of pneumothorax following right-sided thoracentesis. Decreased right pleural effusion. Resolving pulmonary congestion. Chato Yeager MD Chest CT 09/02/17 0000 Signed Impressions: Service Date/Time: Saturday, September 02, 2017 21:52 - CONCLUSION: 1. Worsening bilateral effusions and airspace disease. 2. 15 mm left upper lobe mass or of concern for malignancy. It would probably be amenable to percutaneous needle biopsy when clinically feasible. 3. Upper limits of normal mediastinal lymph nodes, nonspecific. Hunter Estrada MD Abdomen/Pelvis CT 08/28/17 0000 Signed Impressions: Service Date/Time: Monday, August 28, 2017 10:10 - CONCLUSION: There is no evidence for retroperitoneal hematoma. 2 cm left adrenal mass stable from 08/25/17. Rajat Teague MD FACR Lower Extremity Ultrasound 08/27/17 0000 Signed Impressions: Service Date/Time: Sunday, August 27, 2017 10:23 - CONCLUSION: Positive for deep venous thrombosis bilaterally from thigh to proximal calf. Michele Morris MD Hip and Pelvis X-Ray 08/25/17 0000 Signed Impressions: Service Date/Time: Friday, August 25, 2017 12:01 - CONCLUSION: Impacted femoral neck fracture at the base without significant step-off Jeremias Peacock MD CT Angiography 08/25/17 0000 Signed Impressions: Service Date/Time: Franco, August 25, 2017 16:06 - CONCLUSION: Multifocal pulmonary emboli with small filling defects identified in the main right pulmonary artery, interlobar pulmonary artery on the right and one in the left lower lobe pulmonary arteries. The emboli are small but multiple. Moderate- sized bilateral pleural effusions. Jeremias Peacock MD PE at Discharge GENERAL: This is a well-nourished, well-developed patient, in no apparent distress. CARDIOVASCULAR: Regular rate and rhythm RESPIRATORY: Clear to auscultation. Breath sounds equal bilaterally. No wheezes , rales, or rhonchi. GASTROINTESTINAL: Abdomen soft, non-tender, nondistended. Normal active bowel sounds MUSCULOSKELETAL: Extremities without clubbing, cyanosis, or edema. NEURO: Alert & Oriented x4 to person, place, time, situation. Moves all ext x4 Hospital Course STEMI (ST elevation myocardial infarction) 1. stemi. inferior. lhc 08/23. left cx BMS. 60% distal lad VT. s/p cardioversion 08/23 2. bilateral pulmonary emboli 3. pulmonary edema. respiratory acidosis. 4.recent bilateral lower ext dvt's on eliquis. secondary to being sedentary. 5. recent left trochanteric bursitis diagnosis by [facility] [facility]. 6. left femoral neck fracture 7.severe hypokalemia patient to follow up with cardiology [address] chest (09/02/17) 1. Worsening bilateral effusions and airspace disease. 2. 15 mm left upper lobe mass or of concern for malignancy. It would probably be amenable to percutaneous needle biopsy when clinically feasible. 3. Upper limits of normal mediastinal lymph nodes, nonspecific. - Pt extubated - plavix, pt will need to continue on daily plavix without interruption for one month d/t placement of bare metal coronary stent - continue BID lovenox for Atrial Fibrillation/PE/DVT. Will start pradaxa once certain that pt will NOT require addition procedures for w/u of pulmonary mass. - pt receiving IV lasix for interstitial edema limited by boarderline hypotension (09/06) transitioned to Lasix PO BID - Pt underwent dx/therapeutic thoracentesis - O2 3L by NC wean as tolerated - supportive care. Mass of upper lobe of left lung - CT thorax --> 15mm KEON mass with b/l pleural effusions - Pt underwent thoracentesis (09/05) with removal of 500ml exudative fluid removed - awaiting cytology - serum LDH 723 - serum protein 6.8 - add IS Q1H while awake - cytology results reviewed and reveals: Concentration preparations-atypical mesothelial cells, macrophages and scattered inflammatory cells are present. Cell block - Atypical mesothelial cells and foamy macrophages are present - patient unable to stop Plavix at this time for bx. Discussed with interventional radiology who decline to do bx while patient is on Plavix due to risks of hemothorax - Informally discussed case with oncology give patient's current co-morbidities and the size of the lesion recommend close oncology follow up - patient to f/u with oncology 1 week after DC DVT (deep venous thrombosis) - see above Pulmonary embolism - pt receiving anticoagulation, Lovenox initially while in hospital transitioned to Pradaxa - see above Atrial fibrillation with rapid ventricular response - stable - amiodarone, metoprolol - Pt developed recurrent RVR (09/03) - Pt started on digoxin by Cardiology, with improvement - Case d/w Dr. Belle (09/04/17) - cardiology cleared for DC to [facility] Fracture of hip, left, closed - comgmt with Orthopedic Service - Pt has been too unstable for surgical repair - Case d/w with Dr. Gonzalez (09/03/17) - Pt will NOT be stable for surgery for at least one month - Pt will require arthroplasty - PT consult for bed exercises - discussed case with Dr. Gonzalez recommending continued bedrest - patient to follow up with orthopedic surgery 2 weeks after DC Pneumonia, unspecified organism - antibiotics narrowed to Rocephin, patient completed abx course Constipation Patient refusing laxative patient also refusing KUB patient endorses flatus abdomen soft nondistended with normoactive bowel sounds Patient reports she has been unable to have a bowel movement on a bedpan. Per orthopedic surgery patient on bedrest and unable to get out of bed or use a BSC. Will continue to monitor clinically and discuss with patient the importance of a bowel regiment Pt Condition on Discharge: Stable Discharge Disposition: Discharge to SNF Discharge Instructions DIET: Follow Instructions for: Heart Healthy Diet Activities you can perform: Continue Bedrest Follow up Referrals: Cardiology - [address] Belle Oncology - [address] Penaloza Orthopedics - 2 Weeks with Min Gonzalez Jr., MD PCP Follow-up - [address] Chapman New Medications: Dabigatran (Pradaxa) 150 Mg Cap 150 MG PO BID for PE/DVT, #60 CAP 0 Refills Amiodarone (Amiodarone) 200 Mg Tab 200 MG PO DAILY for heart rate, #30 TAB 0 Refills Aspirin (Tgt Aspirin) 81 Mg Chw 81 MG PO DAILY for Blood Clot Prevention, #30 EA 0 Refills Atorvastatin (Atorvastatin) 40 Mg Tab 40 MG PO HS for Cholesterol Management, #30 TAB 0 Refills Clopidogrel (Plavix) 75 Mg Tab 75 MG PO DAILY for blood thinner, #30 TAB 0 Refills Digoxin (Digoxin) 0.25 Mg Tab 0.25 MG PO DAILY for heart rate, #30 TAB 0 Refills Ferrous Sulfate (Ferosul) 325 Mg (65 Mg Iron) Tablet 325 MG PO BID@12,17 for iron supplement, #60 TAB 0 Refills Furosemide (Furosemide) 40 Mg Tab 40 MG PO BID@09,18 for fluid retention, #60 TAB 0 Refills Metoprolol Tartrate (Metoprolol Tartrate) 25 Mg Tab 12.5 MG PO Q12HR for heart rate/blood pressure, #60 TAB 0 Refills Pantoprazole (Pantoprazole) 40 Mg Tab 40 MG PO DAILY for reduce stomach acid, #30 TAB 0 Refills Sennosides-Docusate Sodium (Gnp Senna Plus 8.6-50 mg) 8.6 Mg-50 Mg Tab 1 TAB PO BID for prevent constipation, #60 TAB 0 Refills Discontinued Medications: Apixaban (Eliquis) 5 Mg Tab 5 MG PO BID for Blood Clot Prevention, #60 TAB 0 Refills Janee Zelaya Sep 09, 2017 09:42
--- NOTE | 2017-09-09 09:45 | HHI.PR ---
Subjective Remarks Patient offer no new complaints Objective Vitals Vital Signs Date Time Temp Pulse Resp B/P (MAP) Pulse Ox O2 Delivery O2 Flow Rate FiO2 09/09/17 08:16 96 21 09/09/17 08:00 Room Air 09/09/17 08:00 91 09/09/17 04:00 97.6 73 18 104/55 (71) 97 09/09/17 00:48 98 09/09/17 00:00 97.6 86 16 107/62 (77) 97 09/08/17 20:00 97.2 92 16 111/65 (80) 98 09/08/17 16:26 85 09/08/17 16:00 97.9 92 17 104/60 (75) 95 09/08/17 15:40 97 21 09/08/17 12:06 94 09/08/17 12:00 97.8 89 17 104/63 (77) 95 09/08/17 10:05 Room Air 21 Result Diagram: 09/09/17 0550 09/07/17 1427 Imaging Last Impressions Chest CT 09/02/17 0000 Signed Impressions: Service Date/Time: Saturday, September 02, 2017 21:52 - CONCLUSION: 1. Worsening bilateral effusions and airspace disease. 2. 15 mm left upper lobe mass or of concern for malignancy. It would probably be amenable to percutaneous needle biopsy when clinically feasible. 3. Upper limits of normal mediastinal lymph nodes, nonspecific. Hunter Estrada MD Chest X-Ray 09/01/17 0600 Signed Impressions: Service Date/Time: Friday, September 01, 2017 03:49 - CONCLUSION: Stable chest x-ray with severe bilateral lower lung zone airspace consolidation with likely associated pleural effusions. Hunter Bertrand MD Abdomen/Pelvis CT 08/28/17 0000 Signed Impressions: Service Date/Time: Monday, August 28, 2017 10:10 - CONCLUSION: There is no evidence for retroperitoneal hematoma. 2 cm left adrenal mass stable from 08/25/17. Rajat Teague MD FACR Lower Extremity Ultrasound 08/27/17 0000 Signed Impressions: Service Date/Time: Sunday, August 27, 2017 10:23 - CONCLUSION: Positive for deep venous thrombosis bilaterally from thigh to proximal calf. Michele Morris MD Hip and Pelvis X-Ray 08/25/17 0000 Signed Impressions: Service Date/Time: Friday, August 25, 2017 12:01 - CONCLUSION: Impacted femoral neck fracture at the base without significant step-off Jeremias Peacock MD CT Angiography 08/25/17 0000 Signed Impressions: Service Date/Time: Friday, August 25, 2017 16:06 - CONCLUSION: Multifocal pulmonary emboli with small filling defects identified in the main right pulmonary artery, interlobar pulmonary artery on the right and one in the left lower lobe pulmonary arteries. The emboli are small but multiple. Moderate- sized bilateral pleural effusions. Jeremias Peacock MD Objective Remarks GENERAL: This is a well-nourished, well-developed patient, in no apparent distress. CARDIOVASCULAR: Regular rate and rhythm RESPIRATORY: Clear to auscultation. Breath sounds equal bilaterally. No wheezes , rales, or rhonchi. GASTROINTESTINAL: Abdomen soft, non-tender, nondistended. Normal active bowel sounds MUSCULOSKELETAL: Extremities without clubbing, cyanosis, or edema. NEURO: Alert & Oriented x4 to person, place, time, situation. Moves all ext x4 Procedures 08/24/17 Cardiac catheterization with bare metal stent placed to left circumflex by Dr. Belle 08/29/17 IVC filter placed by Dr. Belle Date of Insertion: Aug 26, 2017 A/P Problem List: (1) STEMI (ST elevation myocardial infarction) ICD Codes: I21.3 - ST elevation (STEMI) myocardial infarction of unspecified site Status: Acute Plan: STEMI (ST elevation myocardial infarction) 1. stemi. inferior. lhc 08/23. left cx BMS. 60% distal lad VT. s/p cardioversion 08/23 2. bilateral pulmonary emboli 3. pulmonary edema. respiratory acidosis. 4.recent bilateral lower ext dvt's on eliquis. secondary to being sedentary. 5. recent left trochanteric bursitis diagnosis by sports med. 6. left femoral neck fracture 7.severe hypokalemia patient to follow up with cardiology [address] chest (09/02/17) 1. Worsening bilateral effusions and airspace disease. 2. 15 mm left upper lobe mass or of concern for malignancy. It would probably be amenable to percutaneous needle biopsy when clinically feasible. 3. Upper limits of normal mediastinal lymph nodes, nonspecific. - Pt extubated - plavix, pt will need to continue on daily plavix without interruption for one month d/t placement of bare metal coronary stent - continue BID lovenox for Atrial Fibrillation/PE/DVT. Will start pradaxa once certain that pt will NOT require addition procedures for w/u of pulmonary mass. - pt receiving IV lasix for interstitial edema limited by boarderline hypotension (09/06) transitioned to Lasix PO BID - Pt underwent dx/therapeutic thoracentesis - O2 3L by NC wean as tolerated - supportive care. - Patient stable for DC to SNF for continued bedrest and recovery - working on safe DC arrangements (2) Mass of upper lobe of left lung ICD Codes: R91.8 - Other nonspecific abnormal finding of lung field Plan: Mass of upper lobe of left lung - CT thorax --> 15mm KEON mass with b/l pleural effusions - Pt underwent thoracentesis (09/05) with removal of 500ml exudative fluid removed - awaiting cytology - serum LDH 723 - serum protein 6.8 - add IS Q1H while awake - cytology results reviewed and reveals: Concentration preparations-atypical mesothelial cells, macrophages and scattered inflammatory cells are present. Cell block - Atypical mesothelial cells and foamy macrophages are present - patient unable to stop Plavix at this time for bx. Discussed with interventional radiology who decline to do bx while patient is on Plavix due to risks of hemothorax - Informally discussed case with oncology give patient's current co-morbidities and the size of the lesion recommend close oncology follow up - patient to f/u with oncology 1 week after DC (3) DVT (deep venous thrombosis) ICD Codes: I82.409 - Acute embolism and thrombosis of unspecified deep veins of unspecified lower extremity Status: Acute Plan: - see above (4) Pulmonary embolism ICD Codes: I26.99 - Other pulmonary embolism without acute cor pulmonale Status: Acute Plan: Pulmonary embolism - pt receiving anticoagulation, Lovenox initially while in hospital transitioned to Pradaxa - see above (5) Atrial fibrillation with rapid ventricular response ICD Codes: I48.91 - Unspecified atrial fibrillation Status: Acute Plan: - stable - amiodarone, metoprolol - Pt developed recurrent RVR (09/03) - Pt started on digoxin by Cardiology, with improvement - Case d/w Dr. Belle (09/04/17) - cardiology cleared for DC to SNF (6) Fracture of hip, left, closed ICD Codes: S72.002A - Fracture of unspecified part of neck of left femur, initial encounter for closed fracture Status: Acute Plan: Fracture of hip, left, closed - comgmt with Orthopedic Service - Pt has been too unstable for surgical repair - Case d/w with Dr. Gonzalez (09/03/17) - Pt will NOT be stable for surgery for at least one month - Pt will require arthroplasty - PT consult for bed exercises - discussed case with Dr. Gonzalez recommending continued bedrest - patient to follow up with orthopedic surgery 2 weeks after DC (7) Pneumonia, unspecified organism ICD Codes: J18.9 - Pneumonia, unspecified organism Plan: Pneumonia, unspecified organism - antibiotics narrowed to Rocephin, patient completed abx course (8) Constipation ICD Codes: K59.00 - Constipation, unspecified Plan: Constipation Patient refusing laxative patient also refusing KUB patient endorses flatus abdomen soft nondistended with normoactive bowel sounds Patient reports she has been unable to have a bowel movement on a bedpan. Per orthopedic surgery patient on bedrest and unable to get out of bed or use a BSC. Will continue to monitor clinically and discuss with patient the importance of a bowel regiment Problem Qualifiers (1) DVT (deep venous thrombosis): Qualified Codes: I82.403 - Acute embolism and thrombosis of unspecified deep veins of lower extremity, bilateral (2) Pulmonary embolism: Qualified Codes: I26.99 - Other pulmonary embolism without acute cor pulmonale (3) Fracture of hip, left, closed: Janee Zelaya Sep 09, 2017 09:45
[2017-09-09] MEDS: POTASSIUM CHLORIDE 10 MEQ CONTROLLED RELEASE TAB PO SCH ×2 (10:21→20:31)
[2017-09-09] MEDS: FERROUS SULFATE 325 MG (65 MG ELEMENTAL IRON) TAB PO SCH ×3 (12:00→16:46)
[2017-09-09] MEDS: DABIGATRAN ETEXILATE 150 MG CAP PO SCH (20:31)
[2017-09-09] MEDS: ATORVASTATIN 40 MG TAB PO SCH (20:33)
[2017-09-10] VITALS: BP 103/64; PULSE 87; RESP 17; TEMP 98; O2SAT 96
[2017-09-10] MEDS: traMADol HCL 50 MG TAB PO SCH ×3 (00:26→11:46)
[2017-09-10] MEDS: RESP: IPRATROPIUM 0.5 MG/2.5 ML NEB NEB SCH ×4 (03:09→15:50)
[2017-09-10 04:00] VITALS: BP 102/61; PULSE 87; PULSE 88; RESP 17; TEMP 98; O2SAT 96
[2017-09-10] MEDS: CHLORHEXIDINE 0.12% (ORAL KIT) 15 ML CUP MT SCH (07:29)
[2017-09-10 07:41] VITALS: O2SAT 95
[2017-09-10 08:00] VITALS: BP 113/72; PULSE 91; PULSE 92; RESP 18; TEMP 97; O2SAT 94
[2017-09-10] MEDS: NICOTINE 14 MG/24 HR PATCH T-DERMAL SCH (08:51)
[2017-09-10] MEDS: DOCUSATE SODIUM 50 MG/SENNA 8.6 MG TAB PO SCH (08:52)
[2017-09-10] MEDS: REMOVE OLD PATCH T-DERMAL SCH (08:52)
[2017-09-10] MEDS: FUROSEMIDE 40 MG TAB PO SCH (08:52)
[2017-09-10] MEDS: CLOPIDOGREL 75 MG TAB PO SCH (08:53)
[2017-09-10] MEDS: METOPROLOL TARTRATE 25 MG TAB PO SCH (08:53)
[2017-09-10] MEDS: AMIODARONE 200 MG TAB PO SCH (08:53)
[2017-09-10] MEDS: POTASSIUM CHLORIDE 10 MEQ CONTROLLED RELEASE TAB PO SCH (08:53)
[2017-09-10] MEDS: ASPIRIN 81 MG CHEW TAB PO SCH (08:53)
[2017-09-10] MEDS: PANTOPRAZOLE SOD 40 MG DELAYED RELEASE TAB PO SCH (08:53)
[2017-09-10] MEDS: DABIGATRAN ETEXILATE 150 MG CAP PO SCH (08:54)
[2017-09-10] MEDS: DIGOXIN 0.25 MG TAB PO SCH (08:54)
[2017-09-10 09:53] LABS: AUTOMATED NEUTROPHIL # 12.1 TH/MM3 (1.8-7.7); BASOPHIL # 0.1 TH/MM3 (0-0.2); BASOPHIL % 0.7 % (0.0-2.0); EOSINOPHIL # 0.2 TH/MM3 (0-0.4); EOSINOPHIL % 1.1 % (0.0-4.0); HEMATOCRIT 37.4 % (35.0-46.0); HEMO FLAGS DIFF FINAL; LYMPH % 10.2 % (9.0-44.0); LYMPHOCYTE # 1.6 TH/MM3 (1.0-4.8); MEAN CELL VOLUME 93.4 FL (80.0-100.0); MEAN CORPUSCULAR HEMOGLOBIN 31.1 PG (27.0-34.0); MEAN CORPUSCULAR HGB CONC 33.3 % (32.0-36.0); MONO % 8.6 % (0.0-8.0); NEUT % 79.4 % (16.0-70.0); PLATELET COUNT 336 TH/MM3 (150-450); RED CELL DISTRIBUTION WIDTH 16.4 % (11.6-17.2); WHITE BLOOD COUNT 15.3 TH/MM3 (4.0-11.0)
[2017-09-10 10:09] LABS: BICARBONATE 31.7 MEQ/L (21.0-32.0); POTASSIUM 3.3 MEQ/L (3.5-5.1)
[2017-09-10] MEDS: FERROUS SULFATE 325 MG (65 MG ELEMENTAL IRON) TAB PO SCH ×2 (11:44→16:21)
[2017-09-10 12:00] VITALS: BP 97/62; PULSE 91; RESP 18; TEMP 97.7; O2SAT 96
[2017-09-10 12:10] VITALS: PULSE 88
[2017-09-10] MEDS ORDERED: POTASSIUM CHLORIDE 10 MEQ CONTROLLED RELEASE TAB PO ONE (14:00)
== END 2017-09-10 16:36 | DRG 248 ==
LOC: NEPC 20:09 → NEDA 20:28 → HCPC 22:27 → HCVI 08-25 17:45 → N03B 08-28 10:37 → N04B 09-02 14:45
PROVIDERS: ADMIT Hospitalist; ATTEND Hospitalist
PROC: 02703DZ Dilation of Coronary Artery, One Artery with Intraluminal Device, Percutaneous Approach (ICD-10-PCS; principal; 2017-08-23)
PROC: 4A023N7 Measurement of Cardiac Sampling and Pressure, Left Heart, Percutaneous Approach (ICD-10-PCS; 2017-08-23)
PROC: B41F1ZZ Fluoroscopy of Right Lower Extremity Arteries using Low Osmolar Contrast (ICD-10-PCS; 2017-08-23)
PROC: B2111ZZ Fluoroscopy of Multiple Coronary Arteries using Low Osmolar Contrast (ICD-10-PCS; 2017-08-23)
PROC: 0T9B70Z Drainage of Bladder with Drainage Device, Via Natural or Artificial Opening (ICD-10-PCS; 2017-08-25)
PROC: 5A1945Z Respiratory Ventilation, 24-96 Consecutive Hours (ICD-10-PCS; 2017-08-26)
PROC: 5A09357 Assistance with Respiratory Ventilation, Less than 24 Consecutive Hours, Continuous Positive Airway Pressure (ICD-10-PCS; 2017-08-26)
PROC: 0BH17EZ Insertion of Endotracheal Airway into Trachea, Via Natural or Artificial Opening (ICD-10-PCS; 2017-08-26)
PROC: 30233N1 Transfusion of Nonautologous Red Blood Cells into Peripheral Vein, Percutaneous Approach (ICD-10-PCS; 2017-08-28)
PROC: 06H03DZ Insertion of Intraluminal Device into Inferior Vena Cava, Percutaneous Approach (ICD-10-PCS; 2017-08-29)
PROC: 4A023N6 Measurement of Cardiac Sampling and Pressure, Right Heart, Percutaneous Approach (ICD-10-PCS; 2017-08-29)
PROC: 0W9B3ZZ Drainage of Left Pleural Cavity, Percutaneous Approach (ICD-10-PCS; 2017-08-29)
PROC: 0W993ZX Drainage of Right Pleural Cavity, Percutaneous Approach, Diagnostic (ICD-10-PCS; 2017-09-05)
DX: I21.19 ST elevation (STEMI) myocardial infarction involving other coronary artery of inferior wall (principal); I26.99 Other pulmonary embolism without acute cor pulmonale; J96.01 Acute respiratory failure with hypoxia; J96.02 Acute respiratory failure with hypercapnia; I50.31 Acute diastolic (congestive) heart failure; I47.2 Ventricular tachycardia; I48.92 Unspecified atrial flutter; J15.9 Unspecified bacterial pneumonia; I48.91 Unspecified atrial fibrillation; S72.002A Fracture of unspecified part of neck of left femur, initial encounter for closed fracture; I82.403 Acute embolism and thrombosis of unspecified deep veins of lower extremity, bilateral; I25.119 Atherosclerotic heart disease of native coronary artery with unspecified angina pectoris; I27.20 Pulmonary hypertension, unspecified; R91.8 Other nonspecific abnormal finding of lung field; M70.62 Trochanteric bursitis, left hip; I49.3 Ventricular premature depolarization; F41.9 Anxiety disorder, unspecified; G89.4 Chronic pain syndrome; D64.9 Anemia, unspecified; F17.210 Nicotine dependence, cigarettes, uncomplicated; R11.0 Nausea; E87.6 Hypokalemia; K59.00 Constipation, unspecified
CPT/HCPCS: 31500; 32555; 36430; 36600; 37191; 71010; 71250; 71275; 73502; 74176; 76937; 80048; 80053; 80061; 80076; 80162; 81001; 82150; 82310; 82435; 82550; 82552; 82565; 82805; 82810; 82945; 82947; 82948; 83010; 83615; 83735; 83880; 83986; 84100; 84132; 84155; 84157; 84295; 84484; 84520; 85007; 85025; 85027; 85044; 85610; 85730; 86038; 86850; 86880; 86900; 86901; 86920; 87015; 87040; 87070; 87077; 87086; 87102; 87116; 87186; 87205; 87206; 87641; 88112; 88305; 88341; 88342; 89051; 92928; 93005; 93306; 93308; 93451; 93458; 93970; 94002; 94003; 94150; 94640; 94664; 96374; 96375; 99152; 99153; J1170; C1725; C1729; C1769; C1876; C1880; C1887; C1893; J0131; J0282; J0330; J0583; J0696; J1160; J1644; J1650; J1940; J2250; J2370; J2405; J2543; J3010; J3246; J3480; J7030; J7040; J7050; J7060; J7644; P9016; P9045; P9047; Q9967